=== PATIENT | female | born 1965 | race Caucasian/White ===

== ENCOUNTER 2020-05-04 02:55 | Emergency (ER) | payer OTHER, SELFPAY ==
--- NOTE | ~2020-05-04 | XR_ITS ---
EXAMINATION: CHEST 1 VIEW CLINICAL INFORMATION: Chest pain. COMPARISON: 07/03/2019. TECHNIQUE: An AP view of the chest is provided. FINDINGS: The cardiac silhouette is not enlarged. The mediastinal and hilar contours are unremarkable. There are neither pleural effusions nor pneumothoraces. There are no consolidations. The osseous structures are unremarkable. XR/XR chest 1V IMPRESSION: No evidence for acute disease.
[2020-05-04 04:39] VITALS: BP 114/61; PULSE 85; RESP 18; TEMP 37.1; O2SAT 98; BMI 27.0
--- NOTE | 2020-05-04 04:56 | ECG_ITS ---
Test Reason : CHEST PAIN Blood Pressure : / mmHG Vent. Rate : 085 BPM Atrial Rate : 085 BPM P-R Int : 162 ms QRS Dur : 076 ms QT Int : 368 ms P-R-T Axes : 006 003 034 degrees QTc Int : 437 ms Normal sinus rhythm Normal ECG When compared with ECG of 20-MAY-2018 08:44, No significant change was found Referred By: Rose Marcial Electronically Signed By:CHEYANNE CULP
[2020-05-04 05:35] LABS: Influenza A PCR NEGATIVE (Negative); Influenza B PCR NEGATIVE (Negative); Resp Syncy Virus RNA Qual PCR NEGATIVE (Negative); SARS COV2 PCR INHOUSE NEGATIVE (Negative)
[2020-05-04 06:13] LABS: Imm Gran Abs Auto 0.04 X10*3/uL (0.00-0.03); Imm Gran Pct Auto 0.4 % (0.0-0.4); Mean Platelet Volume 9.8 fL (9.4-12.3); Monocytes Percent Auto 7.8 % (2-11); PLT CLUMP 1; Red Cell Distribution Width 13.8 % (11.0-16.0); SCAN SMEAR FLAG 1
[2020-05-04 06:15] LABS: Basophils Percent Auto 0.4 % (0-2); Eosinophils Absolute Auto 0.3 X10*3/uL (0.0-0.4); Eosinophils Percent Auto 3.3 % (0-4); Hematocrit 39.4 % (37-47); Hemoglobin 13.1 g/dl (12.0-16.0); Lymphocytes Absolute Auto 3.7 X10*3/uL (1.2-4.9); Lymphocytes Percent Auto 38.3 % (20-40); Mean Corpuscular HGB Conc 33.2 g/dl (31.0-35.0); Mean Corpuscular Hemoglobin 30.5 pg (27.0-33.0); Mean Corpuscular Volume 91.6 fL (80-98); Monocytes Absolute Auto 0.8 X10*3/uL (0.1-1.2); Neutrophils Absolute Auto 4.8 X10*3/uL (2.0-8.3); Neutrophils Percent Auto 49.8 % (45-73); White Blood Count 9.6 X10*3/uL (4.8-10.8)
--- NOTE | 2020-05-04 06:17 | ED.GENADULT ---
HPI - General Adult General Chief complaint: Chest Pain Stated complaint: Sob Time Seen by Provider: 05/04/20 04:56 Source: patient Mode of arrival: ambulatory Limitations: no limitations History of Present Illness HPI narrative: 54-year-old female came in with generalized body ache, sore throat, joint ache, chest pain and headache for 1 day. Patient had been exposed to sick contact with COVID 19. Related Data Home Medications Medication Instructions Recorded Confirmed baclofen 10 mg tablet 10 mg PO TID 01/25/20 albuterol sulfate 90 mcg/actuation 2 puff PO Q4H PRN 02/12/20 aerosol inhaler atorvastatin 40 mg tablet 40 mg PO DAILY 02/12/20 cyclobenzaprine 10 mg tablet 10 mg PO Q8H PRN 02/12/20 lidocaine 5 % topical patch patch TOPICAL 02/12/20 polyethylene glycol 3350 17 g PO 02/12/20 gram/dose oral powder tramadol 50 mg tablet 50 mg PO Q6H PRN 02/12/20 trazodone 50 mg tablet 50 mg PO BEDTIME 02/12/20 triamcinolone acetonide 0.5 % applic TOPICAL BID 02/12/20 topical cream Previous Rx's Medication Instructions Recorded cetirizine 10 mg tablet 10 mg PO DAILY #90 tab 01/11/20 gabapentin 800 mg tablet 800 mg PO TID #90 tab 01/11/20 clopidogrel 75 mg tablet 75 mg PO DAILY #90 tab 02/05/20 ciprofloxacin HCl 500 mg tablet 500 mg PO BID 10 Days #20 tab 02/12/20 clotrimazole 2 % vaginal cream 1 appful VAGINAL BEDTIME 3 Days 02/12/20 #21 g clonazepam 1 mg tablet 0.5 mg PO BID PRN 30 Days #30 tab 03/19/20 amitriptyline 25 mg tablet 25 mg PO BEDTIME #90 tab 04/23/20 sertraline 50 mg tablet 50 mg PO DAILY #90 tab 04/23/20 Allergies Allergy/AdvReac Type Severity Reaction Status Date / Time latex [LATEX] Allergy Intermediate RASH Verified 01/25/20 06:46 Chocolate Allergy Unknown Hives Verified 01/25/20 06:46 egg [EGGS] Allergy Unknown SWELLING Verified 01/25/20 06:46 kiwi [KIWI] Allergy Unknown SWELLING Unverified 12/14/19 17:11 peanut [PEANUTS] Allergy Unknown SWELLING Verified 01/25/20 06:46 pineapple [PINEAPPLE] Allergy Unknown SWELLING Unverified 12/14/19 17:11 SHELLFISH Allergy Severe RASH Uncoded 12/14/19 17:11 ENVIROMENTAL Allergy Intermediate HAYFEVER Uncoded 12/14/19 17:11 Review of Systems Review of Systems: All other systems are reviewed and are negative Constitutional: Reports as per HPI and Reports no additional constitutional complaints Eyes: Reports as per HPI and Reports no additional eye complaints Reports system reviewed and no additional complaints, except as documented Cardiovascular: Reports as per HPI and Reports no additional cardiovascular complaints Respiratory: Reports as per HPI and Reports no additional respiratory complaints Gastrointestinal: Reports as per HPI and Reports no additional gastrointestinal complaints Genitourinary: Reports no additional female genitourinary complaints Musculoskeletal: Reports no additional musculoskeletal complaints Skin/Breast: Reports system reviewed and no additional complaints, except as docu Psychiatric: Reports no additional psychiatric complaints Endocrine: Reports no additional endocrine complaints Hematologic/Lymphatic: Reports no additional hematologic/lymphatic complaints Allergic/Immunologic: Reports no additional allergic/immunologic complaints Reports system reviewed and no additional complaints, except as documented and Reports Abnormal speech present COUNTS INCLUDE 234 BEDS AT THE [facility] Past Medical History Medical History Anxiety and depression Aortic valve insufficiency Asthma Carpal tunnel syndrome Cognitive impairment Colonoscopy refused Fracture of fifth toe, right, closed Hx LEEP (loop electrosurgical excision procedure), cervix, Hypercholesterolemia Knee osteoarthritis Mammogram declined Migraine Mild obstructive sleep apnea Mixed urge and stress incontinence Overweight (BMI 25.0-29.9) Pulmonary hypertension Restless leg syndrome Right renal stone Takotsubo cardiomyopathy Vaginal cysts Surgical History H/O knee surgery History of History of carpal tunnel surgery of left wrist Family History Family History Father Hypertension Diabetes Prostate cancer CVD (cardiovascular disease) Mother Hypertension Diabetes Uterine cancer Maternal Grandmother Lung cancer Social History Social History Alcohol intake: unknown Smoking Status: Unknown if ever smoked Use of substances other than those prescribed or required for medical reasons: Yes Substance Use Type: Marijuana Substance Use Frequency: Chronic Longstanding Last Used Substance: Just Prior to Admission Advance Directives: No Advance Directives Information Provided: No Physical Exam Vital Signs: Vital Signs: Last Vital Signs Temp 98.8 F 05/04/20 04:39 Pulse 85 05/04/20 04:39 Resp 18 05/04/20 04:39 BP 114/61 05/04/20 04:39 Pulse Ox 98 05/04/20 04:39 Body Mass Index 27.0 Vital signs have been reviewed as normal and appeared to be correct. Blood pressure normal. Heart rate normal. Respiration rate normal. Temperature normal. Oxygen saturation normal. Appearance: Alert. Oriented X3. No acute distress. Head: Normal external exam. Normocephalic. Atraumatic. No Laguerre signs noted. No raccoon eyes noted Eyes: PERRLA. EOMI. Conjunctiva and sclera normal. Eyelids normal. ENT: TM's Normal. Pharynx normal. Uvula midline. Moist mucous membranes. No trismus noted. No drooling noted. No muffled voice noted. Neck: Normal inspection. Neck supple. FROM. No adenopathy. Thyroid Normal. No meningeal signs. No neck mass noted. CVS: Normal heart rate and rhythm. Heart sound normal. No murmurs noted. Pulses normal throughout. Respiratory: No respiratory distress. Painless inspiration. Breath sounds normal. No wheezes/rales/rhonchi noted. Chest nontender. No accessory muscle usage noted or decreased air movement noted. Abdomen: Soft and nontender. Bowel sounds normal in all 4 quadrants. No distention noted. No organomegaly noted. No visible injury noted. Back: No CVA tenderness. Full range of motion noted. Skin: Skin warm and dry. Normal skin color. Normal skin turgor. No rashes/lesions/lacerations noted. Extremities: No lower extremity edema. Extremities exhibit normal range of motion. Extremities nontender. Neuro: Oriented X 3. No motor deficit. No sensory deficit. Reflexes normal. Course Course Course Narrative: Assessment and plan. 54-year-old female tested negative for COVID 19 infection, after been exposed with somebody who is COVID positive, patient's daughter is a patient in the ED and is positive for COVID, patient complaining of generalized body ache and chest pain as a part of the pain her EKG was unremarkable and labs are unremarkable including troponin. Patient will be discharged with instruction to use percussion using face mask, frequent handwashing. Return if any shortness of breath. Medical Decision Making Lab Data Lab results reviewed: Yes I reviewed the patient's lab results. Result diagrams: 05/04/20 06:04 05/04/20 06:04 Labs: Lab Results 05/04/20 05/04/20 05/04/20 Range/Units 04:50 06:04 06:04 WBC 9.6 (4.8-10.8) X10*3/uL RBC 4.30 (4.20-5.50) X10*6/uL Hgb 13.1 (12.0-16.0) g/dl Hct 39.4 (37-47) % MCV 91.6 (80-98) fL MCH 30.5 (27.0-33.0) pg MCHC 33.2 (31.0-35.0) g/dl RDW 13.8 (11.0-16.0) % Plt Count 267 (160-400) X10*3/uL MPV 9.8 (9.4-12.3) fL Immature Gran % (Auto) 0.4 (0.0-0.4) % Neut % (Auto) 49.8 (45-73) % Lymph % (Auto) 38.3 (20-40) % Kimble % (Auto) 7.8 (2-11) % Eos % (Auto) 3.3 (0-4) % Baso % (Auto) 0.4 (0-2) % Lymph # (Auto) 3.7 (1.2-4.9) X10*3/uL Kimble # (Auto) 0.8 (0.1-1.2) X10*3/uL Eos # (Auto) 0.3 (0.0-0.4) X10*3/uL Baso # (Auto) 0.0 (0.0-0.2) X10*3/uL Abs Immat Gran (auto) 0.04 H (0.00-0.03) X10*3/uL Absolute Neuts (auto) 4.8 (2.0-8.3) X10*3/uL Absolute Nucleated RBC 0.000 (0.0-0.012) X10*3/uL Nucleated RBC % (auto) 0.0 (0.0-0.2) /100WBC Sodium 136 (135-145) mmol/L Potassium 4.7 (3.3-5.1) mmol/L Chloride 104 (96-108) mmol/L Carbon Dioxide 20 L (22-29) mmol/L Anion Gap 17 (12-20) BUN 11 (9-16) mg/dL Creatinine 0.68 (0.5-1.4) mg/dL Estim Creat Clear Calc 69.2 Estimated GFR > 60 Random Glucose 86 (60-115) mg/dL Calcium 8.9 (8.4-10.2) mg/dL Coronavirus (PCR) NEGATIVE (Negative) Influenza Type A (PCR) NEGATIVE (Negative) Influenza Type B (PCR) NEGATIVE (Negative) RSV RNA Qual (PCR) NEGATIVE (Negative) Imaging Data Chest x-ray: Radiologist's impression: No evidence for acute disease. ECG Data Interpretation: Normal sinus rhythm at 85 beats per minutes, normal intervals, normal axis deviation, no ST-T changes. Discharge Plan Discharge Clinical Impression: Atypical chest pain, Acute viral syndrome Patient Disposition: Home, Self-Care Instructions: Chest Pain (ED) Additional Instructions: Self-quarantine/isolation at home for next 2 weeks, seek medical attention for shortness of breath. Prescriptions: No Action gabapentin 800 mg tablet 800 mg PO TID Qty: 90 RF: 6 cetirizine 10 mg tablet 10 mg PO DAILY Qty: 90 RF: 0 baclofen 10 mg tablet 10 mg PO TID RF: 0 clopidogrel 75 mg tablet 75 mg PO DAILY Qty: 90 RF: 1 clonazepam 1 mg tablet 0.5 mg PO BID PRN (Reason: anxiety) 30 Days Qty: 30 RF: 2 amitriptyline 25 mg tablet 25 mg PO BEDTIME Qty: 90 RF: 1 sertraline 50 mg tablet 50 mg PO DAILY Qty: 90 RF: 1 trazodone 50 mg tablet 50 mg PO BEDTIME RF: 0 atorvastatin 40 mg tablet 40 mg PO DAILY RF: 0 albuterol sulfate 90 mcg/actuation HFA aerosol inhaler 2 puff PO Q4H PRNRF: 0 polyethylene glycol 3350 17 gram/dose powder PO RF: 0 lidocaine 5 % adhesive patch,medicated topical RF: 0 triamcinolone acetonide 0.5 % cream topical BID RF: 0 tramadol 50 mg tablet 50 mg PO Q6H PRN (Reason: pain) RF: 0 cyclobenzaprine 10 mg tablet 10 mg PO Q8H PRN (Reason: muscle spasm) RF: 0 ciprofloxacin HCl [Cipro] 500 mg tablet 500 mg PO BID 10 Days Qty: 20 RF: 0 clotrimazole 2 % cream 1 appful vaginal BEDTIME 3 Days Qty: 21 RF: 0 Referrals: Po,Lawrence Aiken MD [Primary Care Provider] - 2 weeks Interventions: ED Discharge Assessment Last Done: 05/04/20 06:44
[2020-05-04 06:20] LABS: MANUAL DIFF FLAG NO
[2020-05-04 06:32] LABS: Platelet Count 267 X10*3/uL (160-400)
[2020-05-04 06:38] LABS: Anion Gap 17 (12-20); Blood Urea Nitrogen 11 mg/dL (9-16); Calcium 8.9 mg/dL (8.4-10.2); Carbon Dioxide 20 mmol/L (22-29); Chloride 104 mmol/L (96-108); Creatinine Clr Calc Pharmacy 69.2; Estimated Glomerular Filt Rate > 60; Glucose Random 86 mg/dL (60-115); Potassium 4.7 mmol/L (3.3-5.1); Sodium 136 mmol/L (135-145)
[2020-05-04 06:42] LABS: B Type Natriuretic Peptide < 10 pg/mL (<100); Troponin-I High Sensitivity < 3.5 ng/L (<3.5-17.0)
== END 2020-05-04 06:50 | disposition home or self-care (01) ==
PROVIDERS: Emergency Provider Emergency Medicine; PCP Internal Medicine
DX: B34.9 Viral infection, unspecified (principal); R07.9 Chest pain, unspecified; M79.10 Myalgia, unspecified site; R51.9 Headache, unspecified; Z79.899 Other long term (current) drug therapy; Z20.822 Contact with and (suspected) exposure to COVID-19
CPT/HCPCS: 0241U; 36415; 71045; 80048; 83880; 84484; 85025; 93005; 99283; 99284

== ENCOUNTER 2020-06-09 13:20 | Emergency (ER) | payer OTHER, SELFPAY ==
--- NOTE | ~2020-06-09 | XR_ITS ---
EXAMINATION: XR LUMBOSACRAL SPINE CLINICAL INFORMATION: Low back pain COMPARISON: CT abdomen/pelvis dated 03/10/2019 TECHNIQUE: Three views of the lumbosacral spine. FINDINGS: No acute fracture or traumatic malalignment. Mild convex lumbar scoliosis centered at L3. Discogenic degenerative disease present throughout the lumbar spine, most notably at L5-S1 where there is moderate loss of disc space height and associated endplate osteophytes. Moderate facet arthropathy at L4-L5 and L5-S1. There is grade 1 anterolisthesis of L4 on L5. XR/XR lumbar spine 2-3V IMPRESSION: No acute fracture or traumatic malalignment. Lumbar spondylosis as described.
--- NOTE | 2020-06-09 13:32 | ED.BACK ---
HPI - Back Pain/Injury General Chief Complaint: Back Pain/Injury Stated Complaint: LOW BACK PAIN Time Seen by Provider: 06/09/20 13:32 Source: EMS Mode of arrival: EMS Limitations: no limitations History of Present Illness MD elicited complaint: back pain Pertinent past history: prior back pain Onset (ago): day(s) (1) Timing: intermittent Severity: moderate Similar Symptoms Previously: Yes Quality: aching Location: lumbar spine Radiation: none Exacerbating factors: none Relieving factors: none Context: while lifting (Doing laundry and laundry basket) Associated symptoms: denies other symptoms Work related injury: No Related Data Home Medications Medication Instructions Recorded Confirmed baclofen 10 mg tablet 10 mg PO TID 01/25/20 albuterol sulfate 90 mcg/actuation 2 puff PO Q4H PRN 02/12/20 aerosol inhaler atorvastatin 40 mg tablet 40 mg PO DAILY 02/12/20 cyclobenzaprine 10 mg tablet 10 mg PO Q8H PRN 02/12/20 lidocaine 5 % topical patch patch TOPICAL 02/12/20 polyethylene glycol 3350 17 g PO 02/12/20 gram/dose oral powder tramadol 50 mg tablet 50 mg PO Q6H PRN 02/12/20 trazodone 50 mg tablet 50 mg PO BEDTIME 02/12/20 triamcinolone acetonide 0.5 % applic TOPICAL BID 02/12/20 topical cream Previous Rx's Medication Instructions Recorded cetirizine 10 mg tablet 10 mg PO DAILY #90 tab 01/11/20 gabapentin 800 mg tablet 800 mg PO TID #90 tab 01/11/20 clopidogrel 75 mg tablet 75 mg PO DAILY #90 tab 02/05/20 ciprofloxacin HCl 500 mg tablet 500 mg PO BID 10 Days #20 tab 02/12/20 clotrimazole 2 % vaginal cream 1 appful VAGINAL BEDTIME 3 Days 02/12/20 #21 g amitriptyline 25 mg tablet 25 mg PO BEDTIME #90 tab 04/23/20 sertraline 50 mg tablet 50 mg PO DAILY #90 tab 04/23/20 clonazepam 1 mg tablet 0.5 mg PO BID PRN 30 Days #30 tab 05/29/20 cyclobenzaprine 5 mg PO TID PRN #14 tab 06/09/20 lidocaine 1 patch TOPICAL Q24H PRN #15 ea 06/09/20 oxycodone 5 mg PO Q8H PRN 3 Days #10 tab 06/09/20 Allergies Allergy/AdvReac Type Severity Reaction Status Date / Time latex [LATEX] Allergy Intermediate RASH Verified 06/09/20 13:55 Chocolate Allergy Unknown Hives Verified 06/09/20 13:55 egg [EGGS] Allergy Unknown SWELLING Verified 06/09/20 13:55 kiwi [KIWI] Allergy Unknown SWELLING Verified 06/09/20 13:55 peanut [PEANUTS] Allergy Unknown SWELLING Verified 06/09/20 13:55 pineapple [PINEAPPLE] Allergy Unknown SWELLING Verified 06/09/20 13:55 Sulfa (Sulfonamide Allergy Rash Verified 06/09/20 13:55 Antibiotics) ENVIROMENTAL Allergy Intermediate HAYFEVER Uncoded 12/14/19 17:11 SHELLFISH Allergy Intermediate RASH Uncoded 06/09/20 13:55 Review of Systems Review of Systems: Constitutional: No Weight loss, No Fever, No Chills, No Night Sweats, No Fatigue, No Malaise ENT/Mouth: No Hearing loss, No Ear Pain, No Nasal Congestion, No Sinus Pain, No Hoarseness, No sore throat, No Rhinorrhea, No Swallowing Difficulty Eyes: No Eye Pain, No Swelling, No Redness, No Foreign Body, No Discharge, No Vision Changes Cardiovascular: No Chest Pain, No SOB, No Dyspnea on Exertion, No Orthopnea, No Edema, No Palpitations Respiratory: No Cough, No Sputum, No Wheezing, No Smoke Exposure, No Dyspnea Gastrointestinal: No Nausea, No Vomiting, No Diarrhea, No Constipation, No abdominal Pain, No Hematochezia, No Melena Genitourinary: no irregular bleeding, No Dysuria, No Urinary Frequency, No Hematuria, No Urinary Incontinence, No Urgency, No Flank Pain, No Urinary Flow Changes, No Hesitancy Musculoskeletal: No joint pain, No Myalgias, No Joint Swelling, as noted per HPI Skin: No Skin Lesions, No rash Neuro: No Weakness, No Numbness, No Paresthesias, No Loss of Consciousness, No Dizziness, No Headache Psych: No Social Issues Heme/Lymph: No Bruising, No Bleeding,No Lymphadenopathy Endocrine: No Polyuria, No Polydipsia, No Temperature Intolerance Yes all other systems are reviewed and are negative PMFSH Past Medical History Medical History Anxiety Anxiety and depression Aortic valve insufficiency Asthma Carpal tunnel syndrome Cognitive impairment Colonoscopy refused Depression Fracture of fifth toe, right, closed Hx LEEP (loop electrosurgical excision procedure), cervix, Hypercholesterolemia Knee osteoarthritis Mammogram declined Migraine Mild obstructive sleep apnea Mixed urge and stress incontinence Overweight (BMI 25.0-29.9) Panic attack Pulmonary hypertension Restless leg syndrome Right renal stone Takotsubo cardiomyopathy Vaginal cysts Surgical History H/O knee surgery History of History of carpal tunnel surgery of left wrist Family History Family History Father Hypertension Diabetes Prostate cancer CVD (cardiovascular disease) Mother Hypertension Diabetes Uterine cancer Maternal Grandmother Lung cancer Social History Social History Alcohol intake: never Smoking Status: Unknown if ever smoked Smoked in Last 30 Days: No Use of substances other than those prescribed or required for medical reasons: Yes Substance Use Type: Marijuana Substance Use Frequency: Daily Advance Directives: No Advance Directives Information Provided: No Physical Exam Vital Signs: Vital Signs: Last Vital Signs Temp 98.2 F 06/09/20 13:55 Pulse 91 06/09/20 13:55 Resp 18 06/09/20 13:55 BP 103/53 L 06/09/20 13:55 Pulse Ox 98 06/09/20 13:55 Body Mass Index 28.1 Reviewed Const: Other: Seated in supine position on her cellphone noted smiling and conversing when arriving to room. General: cooperative and healthy appearing; No acute distress or intoxicated appearing Nutritional Appearance: average body habitus Orientation/consciousness: patient oriented x3 HENMT: Head: Yes normal to inspection Ears: hearing grossly normal bilaterally Eyes: General: appearance normal, both eyes and all related structures Visual Summers: normal visual summers by confrontation Neck: Neck: Yes normal visual inspection, No positive Brudzinski's sign, No positive Kernig's sign and No tender Thyroid: Thyroid normal Chest: Chest palpation & inspection: normal inspection of the chest Resp: Effort & Inspection: normal respiratory effort Auscultation: clear to auscultation bilaterally Cardio: Jugular venous distension: no JVD Rhythm: regular rhythm Heart sounds: S1 normal heart sound present and S2 normal heart sound present GI: Inspection: Yes normal to inspection Palpation (GI): Soft to palpation Percussion: Yes normal to percussion Auscultation: normal bowel sounds : General: Yes no CVA tenderness Back/Spine/Pelvis: Other: Reflexes within normal limits, distally neurovascular intact. Pulses cap refill within normal limits. Back: no CVA tenderness Thoracic/Lumbar Spine: straight leg raise negative bilaterally and paraspinal muscle tenderness on the right Skin: General skin exam: no rashes or lesions noted Neuro: General: patient oriented x3 Extrem: General: Yes normal to inspection Course Course Course Narrative: Feels better after IM Toradol lumbar spine x-ray without acute findings no red flags on exam. No BB involvement, fever or IVDA use. History of similar in the past AP consistent with strain type injury to the lumbar paraspinous muscle mostly on the right side. Will discharge home with muscle relaxant, lidocaine patch and given she has an allergy to ibuprofen short course oxycodone. Mass pat reviewed has long-term benzo prescription but no recent narcotics. Discharge Plan Discharge Clinical Impression: Strain of lumbar region Patient Disposition: Home, Self-Care Instructions: Low Back Strain (ED), Core Strengthening Exercises (ED) Additional Instructions: Your x-ray did not show any evidence of acute bone injury Your exam and presentation is consistent with a muscle strain For this reason will start you on short course of muscle relaxants, topical patch and pain medication. Home care as instructed Follow-up as instructed Return if any concerns or worsening symptoms Thank you Prescriptions: New lidocaine 4 % adhesive patch,medicated 1 patch topical Q24H PRN (Reason: pain) Qty: 15 RF: 0 cyclobenzaprine 5 mg tablet 5 mg PO TID PRN (Reason: muscle spasm) Qty: 14 RF: 0 oxycodone 5 mg tablet 5 mg PO Q8H PRN (Reason: pain) 3 Days Qty: 10 RF: 0 No Action gabapentin 800 mg tablet 800 mg PO TID Qty: 90 RF: 6 cetirizine 10 mg tablet 10 mg PO DAILY Qty: 90 RF: 0 baclofen 10 mg tablet 10 mg PO TID RF: 0 clopidogrel 75 mg tablet 75 mg PO DAILY Qty: 90 RF: 1 amitriptyline 25 mg tablet 25 mg PO BEDTIME Qty: 90 RF: 1 sertraline 50 mg tablet 50 mg PO DAILY Qty: 90 RF: 1 clonazepam 1 mg tablet 0.5 mg PO BID PRN (Reason: anxiety) 30 Days Qty: 30 RF: 2 trazodone 50 mg tablet 50 mg PO BEDTIME RF: 0 atorvastatin 40 mg tablet 40 mg PO DAILY RF: 0 albuterol sulfate 90 mcg/actuation HFA aerosol inhaler 2 puff PO Q4H PRNRF: 0 polyethylene glycol 3350 17 gram/dose powder PO RF: 0 lidocaine 5 % adhesive patch,medicated topical RF: 0 triamcinolone acetonide 0.5 % cream topical BID RF: 0 tramadol 50 mg tablet 50 mg PO Q6H PRN (Reason: pain) RF: 0 cyclobenzaprine 10 mg tablet 10 mg PO Q8H PRN (Reason: muscle spasm) RF: 0 ciprofloxacin HCl [Cipro] 500 mg tablet 500 mg PO BID 10 Days Qty: 20 RF: 0 clotrimazole 2 % cream 1 appful vaginal BEDTIME 3 Days Qty: 21 RF: 0 Referrals: Po,Lawrence Aiken MD [Primary Care Provider] - 1 week Interventions: ED Discharge Assessment Last Done: 06/09/20 15:23 Discharge Date/Time: 06/09/20 15:25
[2020-06-09 13:55] VITALS: BP 103/53; BP 135/85; PULSE 86; PULSE 91; RESP 18; TEMP 36.8; O2SAT 98; BMI 28.1
[2020-06-09] MEDS: Ketorolac Tromethamine 60 MG/2 ML VIAL IM (14:11)
[2020-06-09] MEDS: Lidocaine 4 % Patch ADH..PATCH 1 PATCH TRANSDERMA (14:11)
[2020-06-09] MEDS: Cyclobenzaprine HCl 5 MG TABLET PO (14:16)
--- NOTE | 2020-06-09 14:16 | PC.NURSE ---
patient medicated per order
== END 2020-06-09 15:25 | disposition home or self-care (01) ==
PROVIDERS: Emergency Provider Emergency Medicine; PCP Internal Medicine
DX: S39.012A Strain of muscle, fascia and tendon of lower back, initial encounter (principal); X50.0XXA Overexertion from strenuous movement or load, initial encounter; Y93.E2 Activity, laundry; Y92.009 Unspecified place in unspecified non-institutional (private) residence as the place of occurrence of the external cause; Y99.9 Unspecified external cause status; Z79.899 Other long term (current) drug therapy
CPT/HCPCS: 72100; 96372; 99283; J1885

== ENCOUNTER 2020-11-13 12:30 | Emergency (ER) | payer OTHER, SELFPAY ==
--- NOTE | ~2020-11-13 | XR_ITS ---
EXAMINATION: XR ANKLE, RIGHT CLINICAL INFORMATION: Left ankle pain following injury. COMPARISON: None TECHNIQUE: AP, lateral, and mortise views of the right ankle. FINDINGS: No acute fracture or dislocation. The ankle mortise is maintained. Tiny tibiotalar marginal osteophytes. Marginal osteophytes partially visualized at the calcaneocuboid joint. Mild degenerative spurring at the talonavicular joint. No osseous erosion. Plantar calcaneal spur. Thin calcification within the distal Achilles tendon, indicating chronic tendinopathy. XR/XR ankle RT min 3V IMPRESSION: No acute fracture or dislocation. Mild osteoarthritis at the tibiotalar and talonavicular joints as well as at the calcaneocuboid joint. Plantar calcaneal spur. Linear calcification associated with the distal Achilles, consistent with chronic tendinosis.
--- NOTE | ~2020-11-13 | XR_ITS ---
EXAMINATION: XR RIBS, RIGHT CLINICAL INFORMATION: Fall. Right lower rib pain. COMPARISON: Most recent chest radiograph dated 05/04/2020. TECHNIQUE: PA view of the chest as well as 3 views of the right ribs. FINDINGS: Lungs are clear. No consolidation, pneumothorax, or pleural effusion. The cardiomediastinal silhouette and pulmonary vasculature are normal. Osseous structures are unremarkable. Ribs are intact. No fractures are identified. XR/XR ribs RT min 3V w CXR1V IMPRESSION: No displaced rib fracture.
[2020-11-13 12:42] VITALS: BP 108/55; PULSE 97; RESP 18; TEMP 36.7; O2SAT 95; BMI 28.1
--- NOTE | 2020-11-13 12:52 | ED_ITS ---
HPI - General Adult General Chief complaint: Extremity Injury, Lower Stated complaint: ANKLE PAIN X1 WEEK Time Seen by Provider: 11/13/20 12:51 Source: patient Limitations: no limitations History of Present Illness HPI narrative: This is a 54-year-old female who was getting dressed this morning. She went back to lean on her walker and the brakes were not her walker she fell, hitting her right inferior lateral rib area on the walker itself. The patient also complains of right ankle pain she has had for about a week, has noted some bruising, cannot recall specific injury. Patient denies any head injury, neck pain, chest pain or shortness of breath, denies dizziness. She denies any new numbness or weakness in her legs Related Data Home Medications Medication Instructions Recorded Confirmed baclofen 10 mg tablet 10 mg PO TID 01/25/20 06/11/20 albuterol sulfate 90 mcg/actuation 2 puff PO Q4H PRN 02/12/20 06/11/20 aerosol inhaler atorvastatin 40 mg tablet 40 mg PO DAILY 02/12/20 06/11/20 cyclobenzaprine 10 mg tablet 10 mg PO Q8H PRN 02/12/20 06/11/20 polyethylene glycol 3350 17 g PO 02/12/20 06/11/20 gram/dose oral powder trazodone 50 mg tablet 50 mg PO BEDTIME 02/12/20 06/11/20 triamcinolone acetonide 0.5 % applic TOPICAL BID 02/12/20 06/11/20 topical cream Previous Rx's Medication Instructions Recorded cetirizine 10 mg tablet 10 mg PO DAILY #90 tab 01/11/20 gabapentin 800 mg tablet 800 mg PO TID #90 tab 01/11/20 ciprofloxacin HCl 500 mg tablet 500 mg PO BID 10 Days #20 tab 02/12/20 (Cipro) clotrimazole 2 % vaginal cream 1 appful VAGINAL BEDTIME 3 Days 02/12/20 #21 g amitriptyline 25 mg tablet 25 mg PO BEDTIME #90 tab 04/23/20 sertraline 50 mg tablet 50 mg PO DAILY #90 tab 04/23/20 cyclobenzaprine 5 mg tablet 5 mg PO TID PRN #14 tab 06/09/20 oxycodone 5 mg tablet 5 mg PO Q8H PRN 3 Days #10 tab 06/09/20 lidocaine 4 % topical patch 1 patch TOPICAL Q24H PRN #15 ea 06/11/20 prednisone 10 mg tablet 10 mg PO DAILY 9 Days #18 tab 06/11/20 lidocaine 5 % topical patch 1 patch TOPICAL Q24H 15 Days #15 ea 06/13/20 miscellaneous medical supply See Rx Instructions MISCELLANEOUS 06/24/20 .COMPLEX PRN #140 ea miscellaneous medical supply See Rx Instructions MISCELLANEOUS 06/24/20 .COMPLEX PRN #4 ea clonazepam 1 mg tablet 0.5 mg PO BID PRN 30 Days #30 tab 09/11/20 clopidogrel 75 mg tablet 75 mg PO DAILY #30 tab 10/05/20 tramadol 50 mg tablet 50 mg PO Q6H PRN 2 Days #8 tab 10/08/20 oxycodone-acetaminophen 5 mg-325 1 tab PO Q6H PRN #8 tab 11/13/20 mg tablet (Percocet) Allergies Allergy/AdvReac Type Severity Reaction Status Date / Time latex [LATEX] Allergy Intermediate RASH Verified 06/11/20 13:47 Chocolate Allergy Unknown Hives Verified 06/11/20 13:47 egg [EGGS] Allergy Unknown SWELLING Verified 06/11/20 13:47 kiwi [KIWI] Allergy Unknown SWELLING Verified 06/11/20 13:47 peanut [PEANUTS] Allergy Unknown SWELLING Verified 06/11/20 13:47 pineapple [PINEAPPLE] Allergy Unknown SWELLING Verified 06/11/20 13:47 Sulfa (Sulfonamide Allergy Rash Verified 06/11/20 13:47 Antibiotics) ENVIROMENTAL Allergy Intermediate HAYFEVER Uncoded 12/14/19 17:11 SHELLFISH Allergy Intermediate RASH Uncoded 06/09/20 13:55 Review of Systems Constitutional: Constitutional: Reports as per HPI Cardiovascular: Cardiovascular: Reports as per HPI and Reports no additional cardiovascular complaints Respiratory: Respiratory: Reports no additional respiratory complaints Gastrointestinal: Gastrointestinal: Denies abdominal pain Musculoskeletal: Musculoskeletal: Reports back pain (Focal area right flank) Comments: Pain right lateral foot and ankle Neurologic: Denies Sensory deficit (Neuro) [facility] Past Medical History Medical History Anxiety Anxiety and depression Aortic valve insufficiency Asthma Carpal tunnel syndrome Cognitive impairment Colonoscopy refused Depression Fracture of fifth toe, right, closed Hx LEEP (loop electrosurgical excision procedure), cervix, Hypercholesterolemia Knee osteoarthritis Mammogram declined Migraine Mild obstructive sleep apnea Mixed urge and stress incontinence Overweight (BMI 25.0-29.9) Panic attack Pulmonary hypertension Restless leg syndrome Right renal stone Takotsubo cardiomyopathy Vaginal cysts Surgical History H/O knee surgery History of History of carpal tunnel surgery of left wrist Family History Family History Father Hypertension Diabetes Prostate cancer CVD (cardiovascular disease) Mother Hypertension Diabetes Uterine cancer Maternal Grandmother Lung cancer Social History Social History Alcohol intake: never Substance Use Type: Marijuana Advance Directives: No Advance Directives Information Provided: No Physical Exam Vital Signs: Vital Signs: Last Vital Signs Temp 98.0 F 11/13/20 12:42 Pulse 97 11/13/20 12:42 Resp 18 11/13/20 12:42 BP 108/55 L 11/13/20 12:42 Pulse Ox 95 11/13/20 12:42 Body Mass Index 28.1 Const: Other: Patient in wheelchair General: cooperative, no acute distress and alert Orientation/consciousness: patient oriented x3 HENMT: Head: Yes normal to inspection Eyes: General: appearance normal, both eyes and all related structures Eyelids: Yes eyelids normal Conjunctivae: conjunctivae normal Pupils: Equal, round and reactive pupils present Neck: Neck: Yes normal visual inspection and Yes supple Chest: Chest palpation & inspection: normal inspection of the chest Resp: Effort & Inspection: normal respiratory effort Auscultation: clear to auscultation bilaterally Cardio: Rate: regular rate Rhythm: regular rhythm Heart sounds: S1 normal heart sound present, S2 normal heart sound present, no gallops, no murmurs and no rubs GI: Palpation (GI): Soft to palpation, nontender and Other GI palpation findings present (Non-distended) Auscultation: normal bowel sounds Back/Spine/Pelvis: Other: Tender right lateral back at coastal margin. No CVA tenderness. No abdominal or upper quadrant tenderness Skin: General skin exam: no rashes or lesions noted Neuro: General: patient oriented x3, no focal motor deficits and CN's II-XI intact bilaterally Cranial nerves: Yes Equal, round and reactive pupils present Cognition (Neuro): normal cognition Motor exam (neuro): 5/5 motor strength present throughout Sensory Exam: No Sensory deficit (Neuro) Extrem: Other: Tender right lateral ankle, mild swelling, minimal ecchymosis right lateral foot. Seemingly exaggerated tenderness to light touch General: Yes no pedal edema Psych: Appearance: grossly normal Affect: normal affect Medical Decision Making MDM Narrative Medical decision making narrative: Patient with right inferior lateral rib pain at the costal margin after a fall this morning. Patient also complains of right ankle pain for a week, cannot recall an injury but did note bruising. X-rays negative for fracture. Patient seems to have pain out of proportion to physical examination and states that tramadol does nothing for her and is like eating ?Candy?. The patient also says Tylenol does not work for her. This does raise suspicion for narcotic-seeking behavior. Am prescribing 8 oxy code own/acetaminophen tablets for the patient. Right ankle was placed in an air splint Imaging Data Ankle: Radiologist's impression: IMPRESSION: No acute fracture or dislocation. ? Mild osteoarthritis at the tibiotalar and talonavicular joints as well as at the calcaneocuboid joint. ? Plantar calcaneal spur. Linear calcification associated with the distal Achilles, consistent with chronic tendinosis. Right ribs and chest: Radiologist's impression: No evidence of rib fracture or other acute pathology Discharge Plan Discharge Clinical Impression: Back contusion, Right ankle sprain Patient Disposition: Home, Self-Care Instructions: Ankle Sprain (ED), Contusion in Adults (ED) Prescriptions: New oxycodone-acetaminophen [Percocet] 5-325 mg tablet 1 tab PO Q6H PRN (Reason: pain) Qty: 8 RF: 0 No Action gabapentin 800 mg tablet 800 mg PO TID Qty: 90 RF: 6 cetirizine 10 mg tablet 10 mg PO DAILY Qty: 90 RF: 0 baclofen 10 mg tablet 10 mg PO TID RF: 0 amitriptyline 25 mg tablet 25 mg PO BEDTIME Qty: 90 RF: 1 sertraline 50 mg tablet 50 mg PO DAILY Qty: 90 RF: 1 lidocaine 5 % adhesive patch,medicated 1 patch topical Q24H 15 Days Qty: 15 RF: 1 miscellaneous medical supply Misc See Rx Instructions miscellaneous .COMPLEX PRN (Reason: Urge Incontinence) Qty: 140 RF: 11 miscellaneous medical supply Misc See Rx Instructions miscellaneous .COMPLEX PRN (Reason: Urge Incontinence ) Qty: 4 RF: 11 clonazepam 1 mg tablet 0.5 mg PO BID PRN (Reason: anxiety) 30 Days Qty: 30 RF: 2 clopidogrel 75 mg tablet 75 mg PO DAILY Qty: 30 RF: 5 tramadol 50 mg tablet 50 mg PO Q6H PRN (Reason: pain) 2 Days Qty: 8 RF: 0 cyclobenzaprine 5 mg tablet 5 mg PO TID PRN (Reason: muscle spasm) Qty: 14 RF: 0 oxycodone 5 mg tablet 5 mg PO Q8H PRN (Reason: pain) 3 Days Qty: 10 RF: 0 prednisone 10 mg tablet 10 mg PO DAILY 9 Days Qty: 18 RF: 0 lidocaine 4 % adhesive patch,medicated 1 patch topical Q24H PRN (Reason: pain) Qty: 15 RF: 0 trazodone 50 mg tablet 50 mg PO BEDTIME RF: 0 atorvastatin 40 mg tablet 40 mg PO DAILY RF: 0 albuterol sulfate 90 mcg/actuation HFA aerosol inhaler 2 puff PO Q4H PRNRF: 0 polyethylene glycol 3350 17 gram/dose powder PO RF: 0 triamcinolone acetonide 0.5 % cream topical BID RF: 0 cyclobenzaprine 10 mg tablet 10 mg PO Q8H PRN (Reason: muscle spasm) RF: 0 ciprofloxacin HCl [Cipro] 500 mg tablet 500 mg PO BID 10 Days Qty: 20 RF: 0 clotrimazole 2 % cream 1 appful vaginal BEDTIME 3 Days Qty: 21 RF: 0 Interventions: ED Discharge Assessment Last Done: 11/13/20 14:30 Discharge Date/Time: 11/13/20 14:40
--- NOTE | 2020-11-13 13:07 | PC.NURSE ---
PT EVALUATED BY DR LARA. REPORTS RIGHT ANKLE PAIN X 1 WEEK, WORSENING TWO DAYS AGO. ALSO REPORTS FALL THIS AM. LEG GAVE OUT AND SHE FELL. DENIES HEAD INJURY. DENIES CP/SOB. PLAN IS FOR XRAYS. PT AGREEABLE
[2020-11-13] MEDS: Acetaminophen 325 MG TABLET 650 MG PO (14:14)
[2020-11-13] MEDS: oxyCODONE HCl Immed Release 5 MG TABLET PO (14:14)
--- NOTE | 2020-11-13 14:28 | PC.NURSE ---
PT MEDICATED ORDERED. AIRCAST APPLIED BY PCT. PT AWARE AND AGREEABLE TO PLAN. APPEARS IN NO ACUTE DISTRESSS.
== END 2020-11-13 14:40 | disposition home or self-care (01) ==
PROVIDERS: Emergency Provider Emergency Medicine; PCP Internal Medicine
DX: S20.221A Contusion of right back wall of thorax, initial encounter (principal); W17.89XA Other fall from one level to another, initial encounter; S93.401A Sprain of unspecified ligament of right ankle, initial encounter; X58.XXXA Exposure to other specified factors, initial encounter; Z91.81 History of falling; Y93.89 Activity, other specified; Y92.9 Unspecified place or not applicable; Y99.9 Unspecified external cause status
CPT/HCPCS: 71101; 73610; 99283

== ENCOUNTER 2020-12-31 15:27 | Outpatient (REF) | payer OTHER, SELFPAY ==
--- NOTE | ~2020-12-31 | XR_ITS ---
EXAMINATION: XR SHOULDER, RIGHT CLINICAL INFORMATION: Pain. COMPARISON: Radiographs dated 12/13/2017. TECHNIQUE: AP external rotation, Grashey, scapular Y, and axillary views of the right shoulder. FINDINGS: Bony alignment is normal. The glenohumeral joint is intact There is moderate osteoarthritic change of the glenohumeral joint, with peripheral osteophyte formation. The acromioclavicular and coracoclavicular intervals are normal. No fracture or dislocation is seen. There is no abnormal soft tissue calcification or foreign body. There is no right pneumothorax. XR/XR shoulder LT min 2V IMPRESSION: 1. No acute fracture or dislocation is seen. 2. There is moderate osteoarthritic change of the right acromioclavicular joint. EXAMINATION: XR SHOULDER, LEFT CLINICAL INFORMATION: Pain. COMPARISON: Portions of the MRI left shoulder dated 04/30/2006. TECHNIQUE: AP external rotation, Grashey, scapular Y, and axillary views of the left shoulder. FINDINGS: Bony alignment is normal. The glenohumeral joint is intact and shows marked osteoarthritic change, with peripheral osteophyte formation of the glenoid and a large osteophyte arising from the inferior articular margin of the glenoid. The acromioclavicular and coracoclavicular intervals are normal. No fracture or dislocation is seen. The soft tissue planes are unremarkable, without calcification or foreign body. There is no left pneumothorax. IMPRESSION: 1. No acute fracture or dislocation is seen. 2. There is marked osteoarthritic change of the left acromioclavicular joint.
--- NOTE | ~2020-12-31 | XR_ITS ---
EXAMINATION: XR SHOULDER, RIGHT CLINICAL INFORMATION: Pain. COMPARISON: Radiographs dated 12/13/2017. TECHNIQUE: AP external rotation, Grashey, scapular Y, and axillary views of the right shoulder. FINDINGS: Bony alignment is normal. The glenohumeral joint is intact There is moderate osteoarthritic change of the glenohumeral joint, with peripheral osteophyte formation. The acromioclavicular and coracoclavicular intervals are normal. No fracture or dislocation is seen. There is no abnormal soft tissue calcification or foreign body. There is no right pneumothorax. XR/XR shoulder RT min 2V IMPRESSION: 1. No acute fracture or dislocation is seen. 2. There is moderate osteoarthritic change of the right acromioclavicular joint. EXAMINATION: XR SHOULDER, LEFT CLINICAL INFORMATION: Pain. COMPARISON: Portions of the MRI left shoulder dated 04/30/2006. TECHNIQUE: AP external rotation, Grashey, scapular Y, and axillary views of the left shoulder. FINDINGS: Bony alignment is normal. The glenohumeral joint is intact and shows marked osteoarthritic change, with peripheral osteophyte formation of the glenoid and a large osteophyte arising from the inferior articular margin of the glenoid. The acromioclavicular and coracoclavicular intervals are normal. No fracture or dislocation is seen. The soft tissue planes are unremarkable, without calcification or foreign body. There is no left pneumothorax. IMPRESSION: 1. No acute fracture or dislocation is seen. 2. There is marked osteoarthritic change of the left acromioclavicular joint.
--- NOTE | ~2020-12-31 | XR_ITS ---
EXAMINATION: XR KNEE, RIGHT CLINICAL INFORMATION: Primary osteoarthritis. COMPARISON: Radiographs dated 07/27/2018. TECHNIQUE: AP and lateral views of the right knee. FINDINGS: Bony alignment and mineralization are normal. The lateral, medial and patellofemoral joint space compartments are well-maintained. There is tricompartment peripheral osteophyte formation. There is chondrocalcinosis. No fracture, dislocation or significant joint effusion is seen. There is no foreign body. XR/XR knee RT 2V IMPRESSION: 1. There is mild tricompartment osteoarthritic change, similar to prior. 2. No right knee fracture, dislocation or significant joint effusion is seen. 3. There is chondrocalcinosis, which can be assessed with gout or CPPD.
[2020-12-31 15:55] LABS: MANUAL DIFF FLAG NO
[2020-12-31 16:15] LABS: Basophils Percent Auto 0.3 % (0-2); Eosinophils Absolute Auto 0.2 X10*3/uL (0.0-0.4); Eosinophils Percent Auto 1.8 % (0-4); Hematocrit 41.2 % (37-47); Hemoglobin 13.4 g/dl (12.0-16.0); Imm Gran Abs Auto 0.03 X10*3/uL (0.00-0.03); Imm Gran Pct Auto 0.3 % (0.0-0.4); Lymphocytes Absolute Auto 2.4 X10*3/uL (1.2-4.9); Lymphocytes Percent Auto 23.2 % (20-40); Mean Corpuscular HGB Conc 32.5 g/dl (31.0-35.0); Mean Corpuscular Hemoglobin 29.5 pg (27.0-33.0); Mean Corpuscular Volume 90.5 fL (80-98); Mean Platelet Volume 9.6 fL (9.4-12.3); Monocytes Absolute Auto 0.6 X10*3/uL (0.1-1.2); Monocytes Percent Auto 6.2 % (2-11); Neutrophils Absolute Auto 6.9 X10*3/uL (2.0-8.3); Neutrophils Percent Auto 68.2 % (45-73); Platelet Count 400 X10*3/uL (160-400); Red Blood Count 4.55 X10*6/uL (4.20-5.50); White Blood Count 10.1 X10*3/uL (4.8-10.8)
[2020-12-31 16:36] LABS: Alanine Aminotransferase 13 U/L (0-31); Albumin Level 4.6 g/dL (3.5-5.0); Alkaline Phosphatase 108 U/L (39-117); Anion Gap 14 (12-20); Aspartate Amino Transferase 16 U/L (5-31); Bilirubin Total 0.4 mg/dL (0.0-1.0); Blood Urea Nitrogen 12 mg/dL (9-16); C Reactive Protein 1.53 mg/dL (< or = 0.50); Calcium 9.4 mg/dL (8.4-10.2); Carbon Dioxide 25 mmol/L (22-29); Chloride 105 mmol/L (96-108); Cholesterol 293 mg/dL; Estimated Glomerular Filt Rate > 60; Glucose Random 85 mg/dL (60-115); HDL Cholesterol 40 mg/dL; LDL Cholesterol Calculated 201 mg/dl; Potassium 4.9 mmol/L (3.3-5.1); Sodium 139 mmol/L (135-145); Total Protein 7.8 g/dL (6.5-8.0); Triglycerides 263 mg/dL; Uric Acid 3.2 mg/dL (2.4-5.7)
[2020-12-31 16:53] LABS: Free T4 (Free Thyroxine) 0.83 ng/dL (0.71-1.85); Vitamin D 25-OH Total 17.6 ng/mL (>30)
[2020-12-31 16:58] LABS: Thyroid Stimulating Hormone 0.56 uIU/mL (0.32-4.0)
[2020-12-31 17:08] LABS: Folate 9.3 ng/mL (> or = 4.0); Vitamin B12 422 pg/mL (200-900)
[2020-12-31 17:58] LABS: Erythrocyte Sedimentation Rate 28 MM/HR (0-20)
[2021-01-01 07:12] LABS: Estimated Average Glucose 100 mg/dL; Hemoglobin A1c % 5.1 %
== END 2020-12-31 15:28 | disposition home or self-care (01) ==
LOC: HO.LAB 15:27
PROVIDERS: Internal Medicine; PCP Internal Medicine; Visit Provider Internal Medicine
DX: M25.461 Effusion, right knee (principal); M25.561 Pain in right knee; M10.9 Gout, unspecified; E78.00 Pure hypercholesterolemia, unspecified; M17.10 Unilateral primary osteoarthritis, unspecified knee; M67.912 Unspecified disorder of synovium and tendon, left shoulder
CPT/HCPCS: 36415; 73030; 73560; 80053; 80061; 82306; 82607; 82746; 83036; 84439; 84443; 84550; 85025; 85652; 86140

== ENCOUNTER → 2021-02-10 10:40 | Outpatient (BNVA) | payer OTHER, SELFPAY | PROVIDERS: PCP Internal Medicine; Visit Provider Anesthesiology | DX: M43.06 Spondylolysis, lumbar region (principal); M17.0 Bilateral primary osteoarthritis of knee; M16.0 Bilateral primary osteoarthritis of hip; M53.3 Sacrococcygeal disorders, not elsewhere classified; G89.4 Chronic pain syndrome | CPT/HCPCS: 99202 ==

== ENCOUNTER 2021-03-18 06:25 | Outpatient (REF) | payer OTHER, SELFPAY ==
--- NOTE | ~2021-03-18 | FL_ITS ---
EXAMINATION: XR FLUOROSCOPY WITH IMAGES CLINICAL INFORMATION: Sacrococcygeal disorder. COMPARISON: None. TECHNIQUE: Fluoroscopy performed by Dr. De La Torre. Fluoroscopy time: 0.1 minutes DAP: 0.8 Gycm2 Images: 1 FINDINGS: Images demonstrate needle placement and contrast injection over the inferior left sacroiliac joint. FL/FL guidance in treatment room IMPRESSION: Fluoroscopy guidance for pain management procedure.
== END 2021-03-18 06:26 | disposition home or self-care (01) ==
LOC: HO.RADIR 06:25
PROVIDERS: Visit Provider Anesthesiology
DX: G89.4 Chronic pain syndrome (principal); M53.3 Sacrococcygeal disorders, not elsewhere classified; M16.0 Bilateral primary osteoarthritis of hip; M17.0 Bilateral primary osteoarthritis of knee; M43.06 Spondylolysis, lumbar region; F41.1 Generalized anxiety disorder
CPT/HCPCS: 27096; Q9967

== ENCOUNTER 2022-02-16 08:56 | Outpatient (REF) | payer OTHER, SELFPAY ==
--- NOTE | ~2022-02-16 | XR_ITS ---
EXAMINATION: XR PELVIS CLINICAL INFORMATION: Pain COMPARISON: None TECHNIQUE: AP view of the pelvis. FINDINGS: The left hip and iliac crest are higher than the right. There is curvature of the lower lumbar sacral spine to the left. There is mild arthritis at both hip joints with small acetabular osteophytes. No fracture or dislocation. Bones of the pelvis are normal. There are degenerative changes of the visualized lower lumbar spine. Soft tissues are normal. XR/XR pelvis 1-2V IMPRESSION: Mild lumbar scoliosis. Left hip and iliac crest is higher than the right. Mild bilateral hip arthritis.
== END 2022-02-16 08:57 | disposition home or self-care (01) ==
LOC: HO.HOSX 08:56
PROVIDERS: Visit Provider Orthopaedic Surgery
DX: M19.012 Primary osteoarthritis, left shoulder (principal); G89.4 Chronic pain syndrome; M53.3 Sacrococcygeal disorders, not elsewhere classified; M19.011 Primary osteoarthritis, right shoulder
CPT/HCPCS: 20610; 72170; 99202; J1100

== ENCOUNTER 2022-03-31 14:32 | Emergency (ER) | payer OTHER, SELFPAY ==
--- NOTE | ~2022-03-31 | CT_ITS ---
EXAMINATION: CT LUMBAR SPINE WITHOUT CONTRAST CLINICAL INFORMATION: Persistent midline pain, atraumatic. COMPARISON: Lumbar spine MRI 01/05/2015. TECHNIQUE: Helical non-contrast CT images were obtained through the lumbar spine without contrast. Multiplanar reformats were rendered and reviewed. This CT examination was performed using dose optimization techniques as appropriate, variously including the following: *Automated exposure control *Adjustment of mA and/or kV according to patient size (this includes techniques or standardized protocols for targeted exams where dose is matched to indication/reason for exam; i.e. extremities or head) *Use of iterative reconstruction technique DLP: 319 mGy-cm FINDINGS: The lumbar vertebral bodies maintain normal heights. There is mild retrolisthesis of L3 on L4 and anterolisthesis of L4 on L5. There is severe disc height loss at L5-S1 with endplate sclerosis, vacuum discs, and marginal osteophytes. There is a mild degree of scoliotic curvature. No fracture is seen. There is a nonobstructing calculus within the lower pole of the right kidney. The extraspinal soft tissues are otherwise unremarkable. SPINAL LEVELS: L1-L2: No posterior disc abnormality. No spinal canal or neural foraminal stenosis. L2-L3: Minimal disc bulging. No spinal canal or neural foraminal stenosis. L3-L4: Disc bulging with mild facet arthropathy and osteophytic ridging. No spinal canal or neural foraminal stenosis. L4-L5: Anterolisthesis with unroofing of the disc, diffuse disc bulging, and moderate to severe facet arthropathy. Spinal canal stenosis and subarticular stenosis. Mild bilateral neural foraminal stenosis. L5-S1: Disc bulging with moderate facet arthropathy. No spinal canal stenosis. Osteophytic ridging extends into the bilateral neural foramina resulting in moderate bilateral neural foraminal stenosis. CT/CT lumbar spine wo IV con IMPRESSION: 1. At L4-L5 there is grade 1 anterolisthesis and multifactorial degenerative changes resulting in spinal canal stenosis and subarticular stenosis. 2. At L5-S1 there is moderate bilateral neural foraminal stenosis. 3. Incidentally noted nonobstructing calculus in the right kidney.
[2022-03-31 14:42] VITALS: BP 112/58; BP 133/55; PULSE 89; PULSE 98; RESP 18; TEMP 36.3; O2SAT 94; O2SAT 97; BMI 30.2
--- NOTE | 2022-03-31 15:22 | ED.BACK ---
HPI - Back Pain/Injury General Chief Complaint: Back Pain/Injury Stated Complaint: INCR BACK PAIN X'S 3 WKS PER EMS Time Seen by Provider: 03/31/22 14:46 Source: patient Mode of arrival: EMS Limitations: no limitations History of Present Illness HPI Narrative: Patient is a 56-year-old female presents to emergency department via EMS for evaluation of lower back pain. She reports history of chronic back pain for many years. Over the past 3 weeks she has had increasing back pain. She states that is localized mainly to the midline but also radiates to the bilateral sides and down bilateral legs. She has had extensive evaluation in the past with Orthopedics, Pain Management, [facility], and is currently being managed by her primary care provider. She states she is given tramadol, 14 tablets to use monthly for pain. However the tramadol has not been helping. She states she also has a prescription for cyclobenzaprine which has not been helping her pain. She has tried [id number] Lidoderm patches and Lidoderm type creams without significant improvement. Denies recent precipitating injury, fevers, chills, burning with micturition, urinary frequency/urgency/hesitancy, bladder or bowel dysfunction, numbness or tingling of the perineum or bilateral legs. Denies any recent surgical procedures, any known immune compromising conditions, personal history of cancer, or IV drug usage. MD elicited complaint: back pain Related Data Home Medications Medication Instructions Recorded Confirmed polyethylene glycol 3350 17 g PO 02/12/20 01/13/22 gram/dose oral powder Previous Rx's Medication Instructions Recorded miscellaneous medical supply See Rx Instructions miscellaneous 06/24/20 .COMPLEX PRN Urge Incontinence #4 ea miscellaneous medical supply See Rx Instructions miscellaneous 06/24/20 .COMPLEX PRN Urge Incontinence #140 ea cyclobenzaprine 5 mg tablet 5 mg PO TID PRN muscle spasm 30 04/28/21 days #60 tabs lidocaine 5 % topical patch 1 patch topical DAILY 30 days #30 04/28/21 ea amitriptyline 25 mg tablet 25 mg PO BEDTIME 30 days #90 tabs 09/17/21 triamcinolone acetonide 0.5 % 1 appl topical BID 14 days #15 01/13/22 topical cream grams albuterol sulfate 90 mcg/actuation 2 puff PO Q4H PRN shortness of 10/26/22 aerosol inhaler breath or wheezing #8.5 grams gabapentin 800 mg tablet 800 mg PO BID #180 tabs 01/22/22 clonazepam 1 mg tablet 0.5 mg PO BID PRN anxiety 30 days 02/16/22 #30 tabs sertraline 50 mg tablet 50 mg PO DAILY #90 tabs 02/16/22 tramadol 50 mg tablet 50 mg PO DAILY PRN pain 14 days 03/03/22 #14 tabs Allergies Allergy/AdvReac Type Severity Reaction Status Date / Time latex [LATEX] Allergy Intermediate RASH Verified 02/16/22 10:39 Chocolate Allergy Unknown Hives Verified 02/16/22 10:39 egg [EGGS] Allergy Unknown SWELLING Verified 02/16/22 10:39 kiwi [KIWI] Allergy Unknown SWELLING Verified 02/16/22 10:39 peanut [PEANUTS] Allergy Unknown SWELLING Verified 02/16/22 10:39 pineapple [PINEAPPLE] Allergy Unknown SWELLING Verified 02/16/22 10:39 Sulfa (Sulfonamide Allergy Rash Verified 02/16/22 10:39 Antibiotics) ENVIROMENTAL Allergy Intermediate HAYFEVER Uncoded 01/13/22 15:59 SHELLFISH Allergy Intermediate RASH Uncoded 01/13/22 15:59 Review of Systems Review of Systems: Constitutional: No weight loss, fever, chills, weakness or fatigue. HEENT: No visual loss, blurred vision, double vision. No hearing loss, sneezing, congestion, runny nose or sore throat. Skin: No rash or itching. Cardiovascular: No chest pain, chest pressure or chest discomfort. No palpitations or pedal edema. Respiratory: No shortness of breath, cough or sputum production. Gastrointestinal: No anorexia, nausea, vomiting or diarrhea. No abdominal pain or blood in stool. Genitourinary: No burning micturition. No urinary frequency or incontinence. Neurologic: No headache, dizziness, syncope, unilateral weakness, ataxia, numbness or tingling in the extremities. No change in bowel or bladder control. Musculoskeletal: + Back pain as noted in HPI. No joint pain or stiffness. Hematologic: No bleeding or bruising. Lymphatics: No enlarged lymph nodes. Psychiatric:No depression or anxiety. Endocrine: No reports of sweating. No cold or heat intolerance. No polyuria or polydipsia. Yes all other systems are reviewed and are negative [facility] Past Medical History Attestation statement: The following information was validated with the patient. Medical History Aortic valve insufficiency Asthma Carpal tunnel syndrome Chronic pain syndrome Cognitive impairment Colonoscopy refused Depression Fracture of fifth toe, right, closed Generalized anxiety disorder Hx LEEP (loop electrosurgical excision procedure), cervix, Hypercholesterolemia Knee osteoarthritis Mammogram declined Migraine Mild obstructive sleep apnea Mixed urge and stress incontinence Osteoarthritis of hips, bilateral Osteoarthritis of knees, bilateral Overweight (BMI 25.0-29.9) Panic attack Pulmonary hypertension Restless leg syndrome Right renal stone Sacroiliac joint dysfunction Sacroiliac joint dysfunction of left side Takotsubo cardiomyopathy Vaginal cysts Surgical History H/O knee surgery H/O LEEP History of History of carpal tunnel surgery of left wrist Family History Family History Father Hypertension Diabetes Prostate cancer CVD (cardiovascular disease) Mother Hypertension Diabetes Uterine cancer Maternal Grandmother Lung cancer Social History Social History (Updated 02/16/22 @ 10:41 by Ludivina Estrada CMA) Housing: Apartment Alcohol intake: never Patient Tobacco Use Status: Former Tobacco user Tobacco use type: Cigarette e-Cigarette/Vaping Use: Never Used Second Hand Smoke Exposure: Yes Substance Use Type: Marijuana Advance Directives: No Advance Directives Information Provided: No service: No Current occupational status: disabled Current occupation: left hand Cognitive needs: No Hearing needs: No Vision needs: Yes (glasses) Physical Exam Vital Signs: Vital Signs: Last Vital Signs Temp 97.4 F 03/31/22 14:42 Pulse 89 03/31/22 14:42 Resp 18 03/31/22 14:42 BP 133/55 L 03/31/22 14:42 Pulse Ox 94 03/31/22 14:42 O2 Del Method 03/31/22 14:42 BMI result Body Mass Index 30.2 Vital signs have been reviewed as normal and appeared to be correct. Blood pressure normal.? Heart rate normal.? Respiration rate normal. Temperature normal.? Oxygen saturation normal. Appearance: Alert.?Oriented to person, place and time. No acute distress.?Normal affect. Eyes: Pupils equal, round and reactive to light.? ENT: Pharynx normal.?? Neck: Normal inspection.? Neck supple.?? CVS: Heart sounds normal. Normal heart rate and rhythm.? Pulses normal; bilateral radial pulses 2+, bilateral posterior tibial/dorsalis pedis pulses 2+.? Respiratory: No respiratory distress.? Lung sounds clear to auscultation bilaterally?? Abdomen: Soft and non-tender. Normoactive bowel sounds. No pulsatile mass.?? Skin: Skin warm and dry.? Normal skin color.? Normal skin turgor.?? Extremities: No lower extremity edema.? No calf ttp? Back: + moderate midline lumbar spine and paraspinal muscular tenderness from lumbar region to coccyx. No CVA tenderness. No midline spinal tenderness, step-off's, or deformity. Straight leg test negative on right; Straight leg test negative on left. No rashes, lesions, areas of induration or fluctuance, or signs of infection noted., Neuro: Moves all extremities spontaneously, minimal movement to the bilateral lower extremities reportedly due to severe exacerbation of pain. Sensation to light touch intact bilaterally. No focal neuro deficits. Course Reevaluation(s) Reevaluation #1: Patient ambulated to the bathroom with slow steady gait. Bolting Machine Operator who escorted her to the bathroom was not aware that urinalysis was ordered. Patient at this time declines wanting to remain in the emergency department to provide urine sample. She is without any genitourinary complaints, have a low suspicion for urinary tract infection. Pain is currently 6/10 after receiving tramadol. She is moving all extremities spontaneously. 3/5 in hip shows extension, flexion, abduction, and adduction bilaterally. Patellar and Achilles reflexes are 2+ bilaterally. No ataxia. No focal neurological deficits. CT of the lumbar spine revealing grade 1 anterolisthesis and degenerative changes at L4-L5 resulting spinal canal stenosis and L5-S1 bilateral neural foraminal stenosis. I discussed with patient plan of care for discharge, considering she is already prescribed tramadol and cyclobenzaprine from her primary care provider with not consider prescription for additional pain medication at this time, as the combination of alternative medications could cause respiratory suppression, sedation. Advised contacting her primary care provider to arrange for further follow-up. We discussed that she may consider speaking with her PCP about a referral for Neurosurgery given her back pain has been chronic. Patient verbalizes understanding. She is stable for discharge. Time: 17:48 Medications Administered Discontinued Medications Generic Name Dose Route Start Last Admin Trade Name Lisseth PRN Reason Stop Dose Admin Tramadol HCl 50 mg 03/31/22 15:37 03/31/22 15:48 Tramadol Hcl 50 Mg Tablet PO 03/31/22 15:38 50 mg ONCE ONE Administration Medical Decision Making Medical Decision Making [facility] Narrative: Patient is a 56-year-old female with a past medical history of asthma, chronic pain syndrome, hyperlipidemia, BRENDAN, osteoarthritis, SI joint dysfunction, lumbar radiculopathy, acute on chronic lumbar spine pain who presents to the emergency department today for evaluation of worsening lumbar pain. Atraumatic in nature. Has already trialed tramadol, muscle relaxant, Lidoderm patches and creams, none of which she has at home currently and have not improved her pain. In the past has received steroid injections in the past all of which she reports are unhelpful. Initial physical exam is limited, minimal movement to the bilateral lower extremities reportedly due to pain. There are no neurological deficits upon examination. No concern for cauda equina syndrome. I suspect pain to be consistent with chronic pain, although cannot completely exclude herniated disc. Will obtain CT of the lumbar spine for further evaluation; spinal fracture, subluxation, herniation. Does not appear consistent with spinal infection, epidural abscess, AAA, dissection. No high risk past medical history including incontinence, fever, immunosuppression, recent surgery or lumbar puncture, coagulopathy, significant trauma, recent unintentional weight loss, pulsatile mass, history of cancer, history of TB, history of IV drug use that would suggest alternative problem. She is without genitourinary complaints, however will obtain urinalysis to exclude urinary tract infection. No CVA tenderness, does not appear consistent with pyelonephritis or renal calculi. Differential Diagnosis Differential Diagnoses: The differential diagnosis associated with the presentation includes (As noted above) Lab Data [facility] Lab Attestation statement: I reviewed the patient's lab results. Radiology Impression Discussion of test interpretation with radiology: I have reviewed the radiologist's reading. Radiologist Impression: CT/CT lumbar spine wo IV con IMPRESSION: 1.? At L4-L5 there is grade 1 anterolisthesis and multifactorial degenerative changes resulting in spinal canal stenosis and subarticular stenosis. 2.? At L5-S1 there is moderate bilateral neural foraminal stenosis. 3.? Incidentally noted nonobstructing calculus in the right kidney. Prescription Management I considered prescription management with: Pain Medication (I considered prescription management, however she is already prescribed tramadol and cyclobenzaprine from her primary care provider, and would not recommend addition of medication as this may cause unwanted side effects.) Discharge Plan Discharge Clinical Impression: Anterolisthesis of lumbar spine, Central stenosis of spinal canal, Foraminal stenosis of lumbar region Patient Disposition: Home, Self-Care Instructions: Lumbar Spinal Stenosis (ED), Lower Back Exercises (ED) Additional Instructions: As we discussed, please contact your primary care provider regarding your chronic back pain and further management. You may consider asking about a referral for Neurosurgery if this is something that you would be interested in. Continue taking your pain medication as prescribed by her primary care provider. Return to emergency department with any new or worsening symptoms or concerns. Prescriptions: No Action miscellaneous medical supply Misc See Rx Instructions miscellaneous .COMPLEX PRN (Reason: Urge Incontinence) Qty: 140 11RF Rx Instructions: disposable bed pads - 4x daily miscellaneous miscellaneous medical supply Misc See Rx Instructions miscellaneous .COMPLEX PRN (Reason: Urge Incontinence ) Qty: 4 11RF Rx Instructions: wipes- 4x daily lidocaine 5 % adhesive patch,medicated 1 patch topical DAILY 30 Days Qty: 30 0RF Rx Instructions: leave on most painful area for up to 12 hrs cyclobenzaprine 5 mg tablet 5 mg PO TID PRN (Reason: muscle spasm) 30 Days Qty: 60 0RF amitriptyline 25 mg tablet 25 mg PO BEDTIME 30 Days Qty: 90 2RF albuterol sulfate 90 mcg/actuation HFA aerosol inhaler 2 puff PO Q4H PRN (Reason: shortness of breath or wheezing) Qty: 8.5 0RF gabapentin 800 mg tablet 800 mg PO BID Qty: 180 1RF sertraline 50 mg tablet 50 mg PO DAILY Qty: 90 2RF Rx Instructions: anxiety clonazepam 1 mg tablet 0.5 mg PO BID PRN (Reason: anxiety) 30 Days Qty: 30 0RF tramadol 50 mg tablet 50 mg PO DAILY PRN (Reason: pain) 14 Days Qty: 14 0RF polyethylene glycol 3350 17 gram/dose powder PO triamcinolone acetonide 0.5 % cream 1 appl topical BID 14 Days Qty: 15 0RF Referrals: Physician,Unknown J [Primary Care Provider] -
[2022-03-31] MEDS: traMADoL HCL 50 MG TABLET PO (15:48)
--- NOTE | 2022-03-31 15:50 | PC.NURSE ---
patient a&ox3, pt c/o lower back pain, pt medicated for pain per order, pt to have ct scan, vss, will continue to monitor
--- NOTE | 2022-03-31 18:24 | PC.NURSE ---
patient a&ox3, ambulated with steady gait to wheelchair, friend bringing patient home.
== END 2022-03-31 18:25 | disposition home or self-care (01) ==
PROVIDERS: Emergency Provider Emergency Medicine
DX: M48.061 Spinal stenosis, lumbar region without neurogenic claudication (principal); M54.50 Low back pain, unspecified; G89.4 Chronic pain syndrome; E78.00 Pure hypercholesterolemia, unspecified; Z87.891 Personal history of nicotine dependence; Z79.899 Other long term (current) drug therapy
CPT/HCPCS: 72131; 99283; 99284

== ENCOUNTER 2022-07-24 16:56 | Emergency (ER) | payer OTHER, SELFPAY ==
[2022-07-24 17:20] VITALS: BP 89/65; PULSE 80; O2SAT 95
== END 2022-07-24 20:31 | disposition left against medical advice (07) ==
PROVIDERS: Emergency Provider Emergency Medicine
DX: S21.001A Unspecified open wound of right breast, initial encounter (principal); X58.XXXA Exposure to other specified factors, initial encounter; Y93.9 Activity, unspecified; Y92.9 Unspecified place or not applicable; Y99.9 Unspecified external cause status

== ENCOUNTER 2022-09-16 00:08 | Emergency (ER) | payer OTHER, SELFPAY ==
--- NOTE | ~2022-09-16 | XR_ITS ---
EXAMINATION: XR ELBOW, RIGHT CLINICAL INFORMATION: Elbow pain COMPARISON: None available. TECHNIQUE: AP, lateral, and oblique views of the right elbow. FINDINGS: Degenerative changes are present in the right elbow. There is an acute fracture of the radial head with impaction. There is a bone fragment anterior to the distal humerus likely representing an avulsion fracture. No dislocation. A large joint effusion is not seen. XR/XR elbow RT min 3V IMPRESSION: Radial head fracture and distal humeral avulsion fracture as described above.
[2022-09-16 00:10] VITALS: BP 123/71; PULSE 100; RESP 18; TEMP 36.6; O2SAT 96; BMI 27.0
--- NOTE | 2022-09-16 00:32 | PC.NURSE ---
Pt aox4 resting at the bedside. Reports bloody discharge from right breast x 1 wk with pain, 6/10. Right elbow pain, 10/10, with decreased ROM. Radial pulse present. X-ray ordered. Pending physician eval.
[2022-09-16 02:00] VITALS: BP 122/57; PULSE 69; RESP 16; TEMP 36.6; O2SAT 99
--- NOTE | 2022-09-16 02:19 | ED_ITS ---
HPI - General Adult General Chief complaint: General Medical Stated complaint: breast bleeding / right arm bone out? Time Seen by Provider: 09/16/22 02:19 Source: patient Mode of arrival: ambulatory Limitations: no limitations History of Present Illness HPI narrative: Patient with tenderness in the right nipple with serous discharge notice small amount of blood for last few days also when she squeezed. No fever no chills no swelling of the breast as such. Patient also complaining of pain in the right elbow for last 2 weeks denies any fall or injury patient had fractures of her bones without wound trauma in the past Related Data Home Medications Medication Instructions Recorded Confirmed polyethylene glycol 3350 17 g PO 02/12/20 01/13/22 gram/dose oral powder Previous Rx's Medication Instructions Recorded miscellaneous medical supply See Rx Instructions miscellaneous 06/24/20 .COMPLEX PRN Urge Incontinence #4 ea miscellaneous medical supply See Rx Instructions miscellaneous 06/24/20 .COMPLEX PRN Urge Incontinence #140 ea cyclobenzaprine 5 mg tablet 5 mg PO TID PRN muscle spasm 30 04/28/21 days #60 tabs triamcinolone acetonide 0.5 % 1 appl topical BID 14 days #15 01/13/22 topical cream grams sertraline 50 mg tablet 50 mg PO DAILY #90 tabs 02/16/22 valacyclovir 1 gram tablet 1,000 mg PO TID 7 days #21 tabs 04/16/22 BACK BRACE #1 ea 04/30/22 amitriptyline 25 mg tablet 25 mg PO BEDTIME 30 days #90 tabs 05/11/22 gabapentin 800 mg tablet 800 mg PO BID #180 tabs 06/11/22 lidocaine 5 % topical patch 1 patch topical DAILY #30 ea 06/11/22 albuterol sulfate 90 mcg/actuation 2 puff PO Q4H PRN shortness of 08/02/22 aerosol inhaler breath or wheezing #8.5 grams clonazepam 1 mg tablet 0.5 mg PO BID PRN anxiety 30 days 09/04/22 #30 tabs tramadol 50 mg tablet 50 mg PO BID PRN pain 30 days #60 09/04/22 tabs cephalexin 500 mg capsule 500 mg PO QID 10 days #40 caps 09/16/22 doxycycline hyclate 100 mg tablet 100 mg PO BID #20 tabs 09/16/22 tramadol 50 mg tablet 50 mg PO Q6H PRN pain #20 tabs 09/16/22 Allergies Allergy/AdvReac Type Severity Reaction Status Date / Time latex [LATEX] Allergy Intermediate RASH Verified 04/16/22 17:13 Chocolate Allergy Unknown Hives Verified 04/16/22 17:13 egg [EGGS] Allergy Unknown SWELLING Verified 04/16/22 17:13 kiwi [KIWI] Allergy Unknown SWELLING Verified 04/16/22 17:13 peanut [PEANUTS] Allergy Unknown SWELLING Verified 04/16/22 17:13 pineapple [PINEAPPLE] Allergy Unknown SWELLING Verified 04/16/22 17:13 Sulfa (Sulfonamide Allergy Rash Verified 04/16/22 17:13 Antibiotics) ENVIROMENTAL Allergy Intermediate HAYFEVER Uncoded 04/16/22 17:13 SHELLFISH Allergy Intermediate RASH Uncoded 04/16/22 17:13 Review of Systems Review of Systems: Yes all other systems are reviewed and are negative PMFSH Past Medical History Medical History Aortic valve insufficiency Asthma Carpal tunnel syndrome Chronic pain syndrome Cognitive impairment Colonoscopy refused Depression Fracture of fifth toe, right, closed Generalized anxiety disorder Hx LEEP (loop electrosurgical excision procedure), cervix, Hypercholesterolemia Knee osteoarthritis Mammogram declined Migraine Mild obstructive sleep apnea Mixed urge and stress incontinence Osteoarthritis of hips, bilateral Osteoarthritis of knees, bilateral Overweight (BMI 25.0-29.9) Panic attack Pulmonary hypertension Restless leg syndrome Right renal stone Sacroiliac joint dysfunction Sacroiliac joint dysfunction of left side Takotsubo cardiomyopathy Vaginal cysts Surgical History H/O knee surgery H/O LEEP History of History of carpal tunnel surgery of left wrist Family History Family History Father Hypertension Diabetes Prostate cancer CVD (cardiovascular disease) Mother Hypertension Diabetes Uterine cancer Maternal Grandmother Lung cancer Social History Social History Housing: Apartment Alcohol intake: never Patient Tobacco Use Status: Former Tobacco user Tobacco use type: Cigarette Smoked in Last 30 Days: No e-Cigarette/Vaping Use: Never Used Second Hand Smoke Exposure: Yes Use of substances other than those prescribed or required for medical reasons: Yes Substance Use Type: Crack/Cocaine and Marijuana Advance Directives: No Advance Directives Information Provided: Yes Patient : No service: No Current occupational status: disabled Current occupation: left hand Cognitive needs: No Hearing needs: No Vision needs: Yes (glasses) Physical Exam ED Vital Signs: Vital Signs - 24 hr 09/16/22 00:10 09/16/22 02:00 Temperature 98 F 97.8 F Pulse Rate 100 69 Respiratory Rate 18 16 Blood Pressure 123/71 122/57 L Pulse Oximetry 96 99 Oxygen Delivery Method Room Air Room Air BMI result Body Mass Index 27.0 Appearance: Alert. Oriented X3. No acute distress. Eyes: PERRLA, ENT: Pharynx normal. Oral Mucosa moist Neck: Normal inspection. Neck supple. CVS: Normal heart rate and rhythm. Pulses normal. Respiratory: No respiratory distress. Equal air entry bilateral, no w heezing/rales/rhonchi Abdomen: Soft and nontender. Bowel sounds are present, Skin: Skin warm and dry. Normal skin color. Normal skin turgor. Extremities: No lower extremity edema. No calf tenderness right arm tender at the radial head with swelling neurovascular intact Neuro: Oriented X 3. No motor deficit. No sensory deficit.No cerebellar signs , cranial nerves II-XII intact Chest Chest/axillae images: 1. Slightly swollen nipple without any palpable mass or abscess serous discharge Extrem Shoulder/upper arm images: 1. Tender right radial head with swelling limited extension of the pain neurovascular intact Medications Administered Discontinued Medications Generic Name Dose Route Start Last Admin Trade Name Jesseq PRN Reason Stop Dose Admin Cephalexin HCl 500 mg 09/16/22 02:50 09/16/22 02:57 Cephalexin 500 Mg Capsule PO 09/16/22 02:51 500 mg ONCE ONE Administration Doxycycline Monohydrate 100 mg 09/16/22 02:50 09/16/22 02:57 Doxycycline Monohydrate 100 Mg Capsule PO 09/16/22 02:51 100 mg ONCE ONE Administration Oxycodone HCl 5 mg 09/16/22 02:52 09/16/22 02:57 Oxycodone Hcl Immed Release 5 Mg Tablet PO 09/16/22 02:53 5 mg ONCE ONE Administration Procedures Orthopedic Splinting/Casting Injury #1: Side: right Upper Extremity Injury Location: elbow Upper Extremity Immobilizer: posterior splint Medical Decision Making Medical Decision Making MDM Narrative: Patient left by mistake prior to discharge paper but was called and informed about the antibiotic and follow with orthopedic also to follow up with PCP for further management including mammogram Radiology Impression Discussion of test interpretation with radiology: I have reviewed the radiologist's reading. Radiologist Impression: XR/XR elbow RT min 3V IMPRESSION: Radial head fracture and distal humeral avulsion fracture as described above. Discharge Plan Discharge Clinical Impression: Fracture of radial head, right, closed, Acute mastitis of right breast Patient Disposition: Home, Self-Care Instructions: Mastitis (ED), Elbow Fracture (ED) Additional Instructions: Wear the splint and use sling for support and follow with orthopedic Antibiotic as prescribed Follow with PCP for further evaluation including mammogram Prescriptions: New tramadol 50 mg tablet 50 mg PO Q6H PRN (Reason: pain) Qty: 20 0RF cephalexin 500 mg capsule 500 mg PO QID 10 Days Qty: 40 0RF doxycycline hyclate 100 mg tablet 100 mg PO BID Qty: 20 0RF No Action miscellaneous medical supply Misc See Rx Instructions miscellaneous .COMPLEX PRN (Reason: Urge Incontinence) Qty: 140 11RF Rx Instructions: disposable bed pads - 4x daily miscellaneous miscellaneous medical supply Misc See Rx Instructions miscellaneous .COMPLEX PRN (Reason: Urge Incontinence ) Qty: 4 11RF Rx Instructions: wipes- 4x daily cyclobenzaprine 5 mg tablet 5 mg PO TID PRN (Reason: muscle spasm) 30 Days Qty: 60 0RF sertraline 50 mg tablet 50 mg PO DAILY Qty: 90 2RF Rx Instructions: anxiety (DME) BACK BRACE See Rx Instructions .Route .MEDSUPPLY Qty: 1 0RF Rx Instructions: As directed amitriptyline 25 mg tablet 25 mg PO BEDTIME 30 Days Qty: 90 2RF lidocaine 5 % adhesive patch,medicated 1 patch topical DAILY Qty: 30 0RF Rx Instructions: leave on most painful area for up to 12 hrs gabapentin 800 mg tablet 800 mg PO BID Qty: 180 1RF albuterol sulfate 90 mcg/actuation HFA aerosol inhaler 2 puff PO Q4H PRN (Reason: shortness of breath or wheezing) Qty: 8.5 0RF clonazepam 1 mg tablet 0.5 mg PO BID PRN (Reason: anxiety) 30 Days Qty: 30 0RF tramadol 50 mg tablet 50 mg PO BID PRN (Reason: pain) 30 Days Qty: 60 0RF polyethylene glycol 3350 17 gram/dose powder PO valacyclovir 1 gram tablet 1,000 mg PO TID 7 Days Qty: 21 0RF triamcinolone acetonide 0.5 % cream 1 appl topical BID 14 Days Qty: 15 0RF Referrals: Dom Turner MD [Physician] - 1 week Interventions: ED Discharge Assessment Last Done: 09/16/22 04:09 Discharge Date/Time: 09/16/22 04:09
[2022-09-16] MEDS: cephALEXin 500 MG CAPSULE PO (02:57)
[2022-09-16] MEDS: Doxycycline Monohydrate 100 MG CAPSULE PO (02:57)
[2022-09-16] MEDS: oxyCODONE HCl Immed Release 5 MG TABLET PO (02:57)
--- NOTE | 2022-09-16 04:08 | PC.NURSE ---
Pt left without obtaining discharge instructions. MD called pt via telephone and reviewed discharge instructions. Medications sent to the pharmacy per MD.
== END 2022-09-16 04:09 | disposition home or self-care (01) ==
PROVIDERS: Emergency Provider Internal Medicine; PCP Internal Medicine
DX: N61.0 Mastitis without abscess (principal); S52.121A Displaced fracture of head of right radius, initial encounter for closed fracture; S42.401A Unspecified fracture of lower end of right humerus, initial encounter for closed fracture; X58.XXXA Exposure to other specified factors, initial encounter; E78.00 Pure hypercholesterolemia, unspecified; I10 Essential (primary) hypertension; F12.90 Cannabis use, unspecified, uncomplicated; Z87.891 Personal history of nicotine dependence; Z79.899 Other long term (current) drug therapy; Y93.9 Activity, unspecified; Y92.9 Unspecified place or not applicable; Y99.9 Unspecified external cause status
CPT/HCPCS: 29105; 73080; 99283; 99284

== ENCOUNTER 2022-09-17 13:40 | Emergency (ER) | payer OTHER, SELFPAY ==
--- NOTE | 2022-09-17 13:46 | ED_ITS ---
HPI - General Adult General Chief complaint: Extremity Injury, Upper Stated complaint: right hand in cast / pain/ numbness Time Seen by Provider: 09/17/22 15:09 Source: patient, RN notes reviewed and old records reviewed Mode of arrival: ambulatory History of Present Illness HPI narrative: 56-year-old female with a past medical history of asthma, HLD, osteoarthritis, seen in our ED yesterday diagnosed with radial head fracture placed in posterior arm splint & sling as well as tx for mastitis started antibiotics, presenting to ED complaining of worsening RUE pain and digit swelling x few hours after discharge. Reports right elbow pain x months without known injury, denies more recent injury/fall or trauma since evaluation early this morning. Denies fever/chills, numbness/tingling. Patient reports right breast bloody/milky disc harge x months, states has been noncompliant with her mammograms due to not liking the machine. Does report family and personal history of breast malignancy. Denies fever/chills Onset (ago): day(s) Related Data Home Medications Medication Instructions Recorded Confirmed polyethylene glycol 3350 17 g PO 02/12/20 01/13/22 gram/dose oral powder Previous Rx's Medication Instructions Recorded miscellaneous medical supply See Rx Instructions miscellaneous 06/24/20 .COMPLEX PRN Urge Incontinence #4 ea miscellaneous medical supply See Rx Instructions miscellaneous 06/24/20 .COMPLEX PRN Urge Incontinence #140 ea cyclobenzaprine 5 mg tablet 5 mg PO TID PRN muscle spasm 30 04/28/21 days #60 tabs triamcinolone acetonide 0.5 % 1 appl topical BID 14 days #15 01/13/22 topical cream grams sertraline 50 mg tablet 50 mg PO DAILY #90 tabs 02/16/22 valacyclovir 1 gram tablet 1,000 mg PO TID 7 days #21 tabs 04/16/22 BACK BRACE #1 ea 04/30/22 amitriptyline 25 mg tablet 25 mg PO BEDTIME 30 days #90 tabs 05/11/22 gabapentin 800 mg tablet 800 mg PO BID #180 tabs 06/11/22 lidocaine 5 % topical patch 1 patch topical DAILY #30 ea 06/11/22 albuterol sulfate 90 mcg/actuation 2 puff PO Q4H PRN shortness of 08/02/22 aerosol inhaler breath or wheezing #8.5 grams clonazepam 1 mg tablet 0.5 mg PO BID PRN anxiety 30 days 09/04/22 #30 tabs tramadol 50 mg tablet 50 mg PO BID PRN pain 30 days #60 09/04/22 tabs cephalexin 500 mg capsule 500 mg PO QID 10 days #40 caps 09/16/22 doxycycline hyclate 100 mg tablet 100 mg PO BID #20 tabs 09/16/22 tramadol 50 mg tablet 50 mg PO Q6H PRN pain #20 tabs 09/16/22 Allergies Allergy/AdvReac Type Severity Reaction Status Date / Time latex [LATEX] Allergy Intermediate RASH Verified 04/16/22 17:13 Chocolate Allergy Unknown Hives Verified 04/16/22 17:13 egg [EGGS] Allergy Unknown SWELLING Verified 04/16/22 17:13 kiwi [KIWI] Allergy Unknown SWELLING Verified 04/16/22 17:13 peanut [PEANUTS] Allergy Unknown SWELLING Verified 04/16/22 17:13 pineapple [PINEAPPLE] Allergy Unknown SWELLING Verified 04/16/22 17:13 animal dander Allergy Rash Verified 09/17/22 13:48 Sulfa (Sulfonamide Allergy Rash Verified 04/16/22 17:13 Antibiotics) ENVIROMENTAL Allergy Intermediate HAYFEVER Uncoded 04/16/22 17:13 SHELLFISH Allergy Intermediate RASH Uncoded 04/16/22 17:13 Review of Systems Review of Systems: Constitutional: No Fever, No Chills ENT/Mouth: No Ear Pain, No Nasal Congestion, No Sinus Pain, No Hoarseness, No sore throat, No Rhinorrhea, No Swallowing Difficulty Cardiovascular: No Chest Pain, No SOB Respiratory: No Cough, No Sputum, No Wheezing Gastrointestinal: No Nausea, No Vomiting, No Diarrhea, No Constipation, No Abdominal pain Musculoskeletal: + joint pain, No Myalgias, + Joint Swelling Skin: + Skin Lesions, No rash Neuro: No Weakness, No Numbness, No Paresthesias Yes all other systems are reviewed and are negative Constitutional: Constitutional: Reports as per [facility] Past Medical History Attestation statement: The following information was validated with the patient. Source: old records reviewed Medical History Aortic valve insufficiency Asthma Carpal tunnel syndrome Chronic pain syndrome Cognitive impairment Colonoscopy refused Depression Fracture of fifth toe, right, closed Generalized anxiety disorder Hx LEEP (loop electrosurgical excision procedure), cervix, Hypercholesterolemia Knee osteoarthritis Mammogram declined Migraine Mild obstructive sleep apnea Mixed urge and stress incontinence Osteoarthritis of hips, bilateral Osteoarthritis of knees, bilateral Overweight (BMI 25.0-29.9) Panic attack Pulmonary hypertension Restless leg syndrome Right renal stone Sacroiliac joint dysfunction Sacroiliac joint dysfunction of left side Takotsubo cardiomyopathy Vaginal cysts Surgical History H/O knee surgery H/O LEEP History of History of carpal tunnel surgery of left wrist Family History Family History Father Hypertension Diabetes Prostate cancer CVD (cardiovascular disease) Mother Hypertension Diabetes Uterine cancer Maternal Grandmother Lung cancer Social History Social History Housing: Apartment Alcohol intake: never Patient Tobacco Use Status: Former Tobacco user Tobacco use type: Cigarette e-Cigarette/Vaping Use: Never Used Second Hand Smoke Exposure: Yes Substance Use Type: Crack/Cocaine and Marijuana Advance Directives: No Advance Directives Information Provided: No service: No Current occupational status: disabled Current occupation: left hand Cognitive needs: No Hearing needs: No Vision needs: Yes (glasses) Physical Exam ED Vital Signs: Vital Signs - 24 hr 09/17/22 13:48 Temperature 97 F Pulse Rate 101 H Respiratory Rate 19 Blood Pressure 123/68 Pulse Oximetry 98 Oxygen Delivery Method Room Air BMI result Body Mass Index 27.0 Const General: cooperative, healthy appearing and no acute distress Orientation/consciousness: patient oriented x3 Limitations: no limitations HENMT Head: Yes normal to inspection and Yes atraumatic Ears: hearing grossly normal bilaterally General nose exam: Normal external nose present Face and sinus: Yes normal facial exam Eyes General: appearance normal, both eyes and all related structures EOM: EOMs intact bilaterally Neck Neck: Yes normal visual inspection and Yes no meningeal signs Chest Other: No appreciable nipple discharge, no skin changes, no erythema/warmth, no induration/fluctuance or lymphadenopathy Chest palpation & inspection: no crepitus, no masses and no tenderness Breast/axilla inspection: normal inspection of the breasts Breast/axilla palpation: normal palpation of the breasts and normal palpation of the axillae Resp Effort & Inspection: normal respiratory effort and no respiratory distress Cardio Rate: regular rate Peripheral pulses: radial pulses present and ulnar radial pulses present Skin Rashes: no rashes Wounds: no wounds Neuro General: patient oriented x3, tone normal and no meningeal signs Gait exam (Neuro): Normal gait present Extrem Other: RUE in posterior arm splint and sling, digits swollen and tender. Cap refill WNL. Splint removed, + diffuse tenderness to RUE > elbow with decreased ROM. Digit ROM intact with discomfort. Neurovascular intact. Sensation intact to light touch Course Course Course Narrative: This is an RME: Additional HPI, ROS, PE not included below will be deferred to primary provider. This is a [id number], with a history of hypercholesterolemia asthma, osteoarthritis and generalized anxiety disorder, presenting to the emergency department with a complaint of right arm pain. She states that she Pt states that her right arm was placed in a splint and is having pain and swelling into her right fingers. She was seen on 09/16, found to have a radial head fracture and distal humeral avulsion fracture as well as acute mastitis - d/c on cephalexin and doxycycline. States area not improving significantly. Plan: rosa needs new splint and evaluation of right breast Medical Decision Making Medical Decision Making MDM Narrative: 56-year-old female with a past medical history of asthma, HLD, osteoarthritis, seen in our ED yesterday diagnosed with radial head fracture placed in posterior arm splint & sling as well as tx for mastitis started antibiotics, presenting to ED complaining of worsening RUE pain and digit swelling x few hours after discharge. On exam mildly tachycardic likely from discomfort, physical exam as above, splint removed, no evidence of underlying skin breakdown, erythema/warmth. Neurovascular intact distally. Suspect splint was too tight. No crepitus. Breast exam WNL. Patient reports compliance with previously prescribed antibiotics. Compartments soft. Low suspicion for compartment syndrome to our UE. No evidence of breast abscess/cellulitis. Concern for possible underlying malignancy. Sling reapplied. Will not reapply a posterior splint as not needed. Discussed at length with patient importance of compliance with antibiotics, and close follow-up with Orthopedics and for a mammogram Patient requesting pain medication, states never received prescription for tramadol. This assembly instructions writer called [facility] pharmacy, patient filled a 60 tab prescription of tramadol on 09/08 > discussed with patient we will not be prescribing additional narcotics Results discussed with patient including worrisome signs and symptoms and strict return precautions, and when to return to the emergency department. They verbalized understanding and feel safe for discharge at this time.. Differential Diagnosis Differential Diagnoses: The differential diagnosis associated with the presentation includes As above Radiology Impression Discussion of test interpretation with radiology: I have reviewed the radiologist's reading. External Record Review External record reviewed: Inpatient record, Office record, Outpatient record, Prior outpatient labs, Prior outpatient radiology, Primary care record and Outside ED record Tests considered The following testing was considered but not selected: As above Prescription Management I considered prescription management with: Pain Medication Chronic Conditions Patient?s care impacted by: Other Discharge Plan Discharge Clinical Impression: Radial head fracture Patient Disposition: Home, Self-Care Instructions: Elbow Fracture (ED) Additional Instructions: KEEP SLING ON AT ALL TIMES, ONLY REMOVED TO SHOWER. YOU SHOULD BE SLEEPING IN THIS. Continue to move her wrist and digits or they will becomes stiff/frozen You need to follow-up with orthopedics Also continue taking previously prescribed antibiotics for your breast YOU NEED TO FOLLOW-UP FOR A MAMMOGRAM, THIS COULD BE UNDERLYING BREAST CANCER If symptoms persist or worsen return to the ED Prescriptions: No Action miscellaneous medical supply Misc See Rx Instructions miscellaneous .COMPLEX PRN (Reason: Urge Incontinence) Qty: 140 11RF Rx Instructions: disposable bed pads - 4x daily miscellaneous miscellaneous medical supply Misc See Rx Instructions miscellaneous .COMPLEX PRN (Reason: Urge Incontinence ) Qty: 4 11RF Rx Instructions: wipes- 4x daily cyclobenzaprine 5 mg tablet 5 mg PO TID PRN (Reason: muscle spasm) 30 Days Qty: 60 0RF sertraline 50 mg tablet 50 mg PO DAILY Qty: 90 2RF Rx Instructions: anxiety (DME) BACK BRACE See Rx Instructions .Route .MEDSUPPLY Qty: 1 0RF Rx Instructions: As directed amitriptyline 25 mg tablet 25 mg PO BEDTIME 30 Days Qty: 90 2RF lidocaine 5 % adhesive patch,medicated 1 patch topical DAILY Qty: 30 0RF Rx Instructions: leave on most painful area for up to 12 hrs gabapentin 800 mg tablet 800 mg PO BID Qty: 180 1RF albuterol sulfate 90 mcg/actuation HFA aerosol inhaler 2 puff PO Q4H PRN (Reason: shortness of breath or wheezing) Qty: 8.5 0RF clonazepam 1 mg tablet 0.5 mg PO BID PRN (Reason: anxiety) 30 Days Qty: 30 0RF tramadol 50 mg tablet 50 mg PO BID PRN (Reason: pain) 30 Days Qty: 60 0RF tramadol 50 mg tablet 50 mg PO Q6H PRN (Reason: pain) Qty: 20 0RF cephalexin 500 mg capsule 500 mg PO QID 10 Days Qty: 40 0RF doxycycline hyclate 100 mg tablet 100 mg PO BID Qty: 20 0RF polyethylene glycol 3350 17 gram/dose powder PO valacyclovir 1 gram tablet 1,000 mg PO TID 7 Days Qty: 21 0RF triamcinolone acetonide 0.5 % cream 1 appl topical BID 14 Days Qty: 15 0RF Referrals: [facility] Orthopedic Surgeons [Provider Group] [facility] Women's Services [Provider Group] Lawrence Garcia MD [Primary Care Provider] - Interventions: ED Discharge Assessment Last Done: 09/17/22 16:18 Discharge Date/Time: 09/17/22 16:18
[2022-09-17 13:48] VITALS: BP 123/68; PULSE 101; RESP 19; TEMP 36.1; O2SAT 98; BMI 27.0
--- NOTE | 2022-09-17 16:11 | PC.NURSE ---
pt sts that she drove herself to dept. pt has order for hydrocodone/apap informed provider, provider dc'd medication
== END 2022-09-17 16:18 | disposition home or self-care (01) ==
PROVIDERS: Emergency Provider Student in an Organized Health Care Education/Training Program; PCP Internal Medicine
DX: M79.601 Pain in right arm (principal); S52.121D Displaced fracture of head of right radius, subsequent encounter for closed fracture with routine healing; X58.XXXD Exposure to other specified factors, subsequent encounter
CPT/HCPCS: 99282

== ENCOUNTER 2022-10-12 12:07 | Outpatient (REF) | payer OTHER, SELFPAY | END 2022-10-12 12:08 | disposition home or self-care (01) | LOC: HO.HOSX 12:07 | PROVIDERS: Visit Provider Physician Assistant | DX: Z13.89 Encounter for screening for other disorder (principal) ==

== ENCOUNTER 2022-10-16 09:01 | Outpatient (AMB) | payer OTHER, SELFPAY ==
--- NOTE | 2022-10-16 09:02 | A.OFFPC_ITS ---
Vital Signs 10/16/22 09:04 Height 4 ft 9 in Weight 123 lb BMI 26.6 BP 122/68 Blood Pressure Location Lt brachial Position Sitting Pulse 80 Pulse Source Pulse Oximeter Pulse Oximetry (%) 97 Oxygen Delivery Method Room Air Intake Visit Reasons: broken right arm, still having pain Intake Note: pt is here for here broken arm, with pain. 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: No Accompanied by: Self / Same As Patient Allergies latex [LATEX] Allergy (Intermediate, Verified 10/16/22 09:02) RASH Chocolate Allergy (Unknown, Verified 10/16/22 09:02) Hives egg [EGGS] Allergy (Unknown, Verified 10/16/22 09:02) SWELLING kiwi [KIWI] Allergy (Unknown, Verified 10/16/22 09:02) SWELLING peanut [PEANUTS] Allergy (Unknown, Verified 10/16/22 09:02) SWELLING pineapple [PINEAPPLE] Allergy (Unknown, Verified 10/16/22 09:02) SWELLING animal dander Allergy (Verified 10/16/22 09:02) Rash Sulfa (Sulfonamide Antibiotics) Allergy (Verified 10/16/22 09:02) Rash ENVIROMENTAL Allergy (Intermediate, Uncoded 10/16/22 09:02) HAYFEVER SHELLFISH Allergy (Intermediate, Uncoded 10/16/22 09:02) RASH Tobacco use date assessed: 04/16/22 Dental Screening Dental Screen Date: 10/16/22 Did you have a dental visit in the last 12 months?: Yes Did you have a dental problem in the last 6 months where you did not have access to dental care?: No Was dental information given to patient?: Patient has dentist HPI broken right arm, still having pain HPI Details 56-year-old female with a history of renal calculi on the right lumbar spondylosis shingles hypercholesterolemia last seen in March 2022 patient had an ER visit in August due to radial head fracture right x-ray August 2022 as well as mastitis started with antibiotics as well as mastitis started with antibiotics. Patient does not know what happened and started in July states before went to [place]. no hx of fall or trauma- scheduled with ORtho November 02, 2022 as for the mastititis states before July had a R breast - pimple- discharge pus but did not go to ER - August had blood ER visit- complains also of R knee pain on getting off of friends truck but denies that that was when the pain of right elbow started. Presently baffled as the patient does not know when she fractured this. [facility] Medical History (Updated 10/16/22 @ 10:02 by Lawrence Garcia MD) Aortic valve insufficiency Asthma Breast discharge Carpal tunnel syndrome Chronic pain syndrome Cognitive impairment Colonoscopy refused Depression Fracture of fifth toe, right, closed Generalized anxiety disorder Hx LEEP (loop electrosurgical excision procedure), cervix, Hypercholesterolemia Knee osteoarthritis Mammogram declined Migraine Mild obstructive sleep apnea Mixed urge and stress incontinence Osteoarthritis of hips, bilateral Osteoarthritis of knees, bilateral Overweight (BMI 25.0-29.9) Panic attack Pulmonary hypertension Restless leg syndrome Right renal stone Sacroiliac joint dysfunction Sacroiliac joint dysfunction of left side Takotsubo cardiomyopathy Vaginal cysts Surgical History H/O knee surgery H/O LEEP History of History of carpal tunnel surgery of left wrist Family History Father Hypertension Diabetes Prostate cancer CVD (cardiovascular disease) Mother Hypertension Diabetes Uterine cancer Maternal Grandmother Lung cancer Social History Housing: Apartment Alcohol intake: never Patient Tobacco Use Status: Former Tobacco user Tobacco use type: Cigarette e-Cigarette/Vaping Use: Never Used Second Hand Smoke Exposure: Yes Substance Use Type: Crack/Cocaine and Marijuana service: No Current occupational status: disabled Current occupation: left hand Cognitive needs: No Hearing needs: No Vision needs: Yes (glasses) Questionnaire Thrive Questionnaire Date Thrive assessed: 04/16/22 JANA-7 AMB Questionnaire JANA-7 Date JANA - 7 assessed: 04/16/22 Source: Developed by Drs. Turner Burt, Alina Bailey, Timur Pineda and colleagues, with an educational iliana from [employer]. Physical exam (Primary Care) Vital Signs: Last Vital Signs Pulse 80 10/16/22 09:04 BP 122/68 10/16/22 09:04 Pulse Ox 97 10/16/22 09:04 Oxygen Delivery Method Room Air 10/16/22 09:04 Care Plan Goal for BP management: Right breast exam reveals no discharge as well as no masses noted patient complains of pain retro areolar area BMI result Body Mass Index 26.6 Tobacco/Smoking Status: Tobacco use Status Tobacco use date assessed 04/16/22 10/16/22 09:10 Patient Tobacco Use Status Former Tobacco user 10/16/22 09:10 Tobacco use type Cigarette 10/16/22 09:10 e-Cigarette/Vaping Use Never Used 10/16/22 09:10 Thrive Assessment: Date of Thrive Assessment Date Thrive assessed 04/16/22 10/16/22 09:10 Const General: alert; No acute distress Eyes Conjunctivae: conjunctivae normal Resp Auscultation: clear to auscultation bilaterally Cardio Rate: regular rate Rhythm: regular rhythm GI Inspection: Yes normal to inspection Extrem General: Yes normal to inspection and No edema Assessment and Plan Assessment & Plan (1) Right radial head fracture: Comment: August 2022Radial head fracture and distal humeral avulsion fracture as described above. Code(s): S52.121A - Displaced fracture of head of right radius, initial encounter for closed fracture Plan: Patient is scheduled to see the Orthopedics in November 02 (2) Hypercholesterolemia: Code(s): E78.00 - Pure hypercholesterolemia, unspecified Plan: Avoid fried foods, chicken skin, eggs, butter margarine, pastries and meat. Be it pork or beef they have a lot of cholesterol LDL goal of less than 130 and triglyceride of less than 150 last blood work was 2020 (3) Overweight (BMI 25.0-29.9): Code(s): E66.3 - Overweight Plan: Diet and exercise (4) Asthma: Code(s): J45.909 - Unspecified asthma, uncomplicated Plan: Continue with inhalers (5) Knee pain, right: Code(s): M25.561 - Pain in right knee Plan: Request For an x-ray (6) Breast pain, right: Code(s): N64.4 - Mastodynia Plan: No masses noted no discharge noted retro areolar area Orders: Orders XR knee RT 2V Today M25.561 - Pain in right knee XR DEXA axial skeleton Today M81.0 - Age-related osteoporosis without current pathological fracture, S52.121A - Displaced fracture of head of right radius, initial encounter for closed fracture MM tomosynthesis diagnostic BI Today N64.4 - Mastodynia US breast RT limited Today N64.4 - Mastodynia 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
[2022-10-16 09:04] VITALS: BP 122/68; PULSE 80; O2SAT 97; BMI 26.6
== END 2022-10-16 10:21 | disposition home or self-care (01) ==
PROVIDERS: PCP Internal Medicine; Visit Provider Internal Medicine
DX: S52.121A Displaced fracture of head of right radius, initial encounter for closed fracture (principal); E78.00 Pure hypercholesterolemia, unspecified; E66.3 Overweight; J45.909 Unspecified asthma, uncomplicated; M25.561 Pain in right knee; N64.4 Mastodynia
CPT/HCPCS: 99214

== ENCOUNTER 2022-11-05 12:58 | Outpatient (REF) | payer OTHER, SELFPAY ==
--- NOTE | ~2022-11-05 | XR_ITS ---
EXAMINATION: XR ELBOW, RIGHT CLINICAL INFORMATION: Right elbow pain. COMPARISON: September 16, 2022. TECHNIQUE: AP, lateral, and oblique views of the right elbow. XR/XR elbow RT min 3V FINDINGS/IMPRESSION: Examination demonstrates moderate to severe osteoarthritic changes involving the articulation between the ulna and humerus, with joint space narrowing, sclerosis, and osteophyte formation, similar compared with September 16, 2022. Findings suggest healing of the previously seen radial head fracture. Cannot entirely exclude approximately 0.5 cm, ossific loose body projecting over the olecranon process on lateral view, not clearly evident on September 16, 2022. The previously identified bone fragment anterior to the distal humerus is not appreciated on the current study. There is an elbow joint effusion. No new fracture is directly visualized. No dislocation is seen. Bony mineralization appears preserved.
== END 2022-11-05 12:59 | disposition home or self-care (01) ==
LOC: HO.HOSX 12:58
PROVIDERS: Visit Provider Physician Assistant
DX: M19.021 Primary osteoarthritis, right elbow (principal)
CPT/HCPCS: 73080

== ENCOUNTER 2022-11-05 14:41 | Outpatient (AMB) | payer OTHER, SELFPAY ==
[2022-11-05 14:56] VITALS: BMI 26.6
--- NOTE | 2022-11-05 14:56 | MHC.OFFVIS ---
Intake Vital Signs 11/05/22 14:56 Height 4 ft 9 in Weight 123 lb BMI 26.6 Intake Visit Reasons: FC-Displaced fracture of head of right radius Intake Note: Re is a 56 year old left hand dominant female who presents today for a fracture care appointment for her right elbow fx from July. States she notice her had her elbow bone out of placed/sticking out. No injury she can recall. Seen in ED where she was xray'd and placed in a splint. States currently she has more pain today then when she was seen in ED. States she is limited ROM and is painful. Also mention she has mild tingling in her fingers of her right hand. Allergies latex [LATEX] Allergy (Intermediate, Verified 11/05/22 14:56) RASH Chocolate Allergy (Unknown, Verified 11/05/22 14:56) Hives egg [EGGS] Allergy (Unknown, Verified 11/05/22 14:56) SWELLING kiwi [KIWI] Allergy (Unknown, Verified 11/05/22 14:56) SWELLING peanut [PEANUTS] Allergy (Unknown, Verified 11/05/22 14:56) SWELLING pineapple [PINEAPPLE] Allergy (Unknown, Verified 11/05/22 14:56) SWELLING animal dander Allergy (Verified 11/05/22 14:56) Rash Sulfa (Sulfonamide Antibiotics) Allergy (Verified 11/05/22 14:56) Rash ENVIROMENTAL Allergy (Intermediate, Uncoded 10/16/22 09:02) HAYFEVER SHELLFISH Allergy (Intermediate, Uncoded 10/16/22 09:02) RASH HPI FC-Displaced fracture of head of right radius HPI Details 56-year-old left hand dominant female who presents in the office today, as a new patient, for an evaluation of right elbow pain. The patient presented to the ED on 09/16/2022 with a complaint of pain for 2 weeks, but no knowledge of injury. X-rays of the rigth elbow were obtained. She was placed in a sling. She was seen by her PCP on 10/16/2022 and stated she was unaware of how she injured the elbow. In the office she states she noticed in 07/2022 that the elbow was hurting. She does not recall any injury. She has not received any treatment for the elbow. She claims the bone is out of place and sticks out. She states she has more pain now then when she was seen in the ED. She claims to have limited ROM due to pain. She states she has tingling in the right hand. She went a trip to [place] that affected her getting treatment. She states her PCP is going to send her for a bone density test due to this not being the first fracture she has had with no injury. [facility] Medical History Aortic valve insufficiency Asthma Breast discharge Carpal tunnel syndrome Chronic pain syndrome Cognitive impairment Colonoscopy refused Depression Fracture of fifth toe, right, closed Generalized anxiety disorder Hx LEEP (loop electrosurgical excision procedure), cervix, Hypercholesterolemia Knee osteoarthritis Mammogram declined Migraine Mild obstructive sleep apnea Mixed urge and stress incontinence Osteoarthritis of hips, bilateral Osteoarthritis of knees, bilateral Overweight (BMI 25.0-29.9) Panic attack Pulmonary hypertension Restless leg syndrome Right renal stone Sacroiliac joint dysfunction Sacroiliac joint dysfunction of left side Takotsubo cardiomyopathy Vaginal cysts Surgical History H/O knee surgery H/O LEEP History of History of carpal tunnel surgery of left wrist Family History Father Hypertension Diabetes Prostate cancer CVD (cardiovascular disease) Mother Hypertension Diabetes Uterine cancer Maternal Grandmother Lung cancer Social History Housing: Apartment Alcohol intake: never Patient Tobacco Use Status: Former Tobacco user Tobacco use type: Cigarette e-Cigarette/Vaping Use: Never Used Second Hand Smoke Exposure: Yes Substance Use Type: Crack/Cocaine and Marijuana service: No Current occupational status: disabled Current occupation: left hand Cognitive needs: No Hearing needs: No Vision needs: Yes (glasses) Review of Systems Const All systems reviewed & are unremarkable except as noted in HPI and below Physical Exam Vital Signs: BMI result Body Mass Index 26.6 Const General: cooperative and no acute distress Orientation/consciousness: patient oriented x3 Resp Effort & Inspection: normal respiratory effort and able to speak in complete sentences Cardio Rate: regular rate Peripheral pulses: Peripheral pulses 2+ throughout GI Palpation (GI): Soft to palpation Skin General skin exam: no rashes or lesions noted Lesions: no lesions Rashes: no rashes Neuro General: patient oriented x3 Extrem Other: Right elbow: Normal to inspection. No ecchymosis, erythema, or edema. Global tenderness to palpation over all anitomical landmarks. Patient will not allow for any additional examination. She will not perform flexion, extension, pronation, or supination. Assessment & Plan Assessment & Plan (1) Osteoarthritis of right elbow: Code(s): M19.021 - Primary osteoarthritis, right elbow Plan Ms. Feliz is a 56-year-old left hand dominant female who presents in the office today, as a new patient, for an evaluation of right elbow pain. The patient presented to the ED on 09/16/2022 with a complaint of pain for 2 weeks, but no knowledge of injury. X-rays of the rigth elbow were obtained. She was placed in a sling. She was seen by her PCP on 10/16/2022 and stated she was unaware of how she injured the elbow. In the office she states she noticed in 07/2022 that the elbow was hurting. She does not recall any injury. She has not received any treatment for the elbow. She claims the bone is out of place and sticks out. She states she has more pain now then when she was seen in the ED. She claims to have limited ROM due to pain. She states she has tingling in the right hand. She went a trip to [place] that affected her getting treatment. She states her PCP is going to send her for a bone density test due to this not being the first fracture she has had with no injury. The patient will be referred to work with physical therapy to work on ROM. Follow up will be in 4-6 weeks, or sooner if needed. Of note: With the patient in the room, although she declined any ability to move her right elbow past 90 degrees, she is able to slightly perform flexion and extension when not prompted to perform ROM exercises. X-rays of the right elbow which were obtained while in the office today and were reviewed by me, Carlie Cormier PA-C, revealed evidence of osteoarthritis of the left elbow. Questionable history of radial head fracture of undeterminable age. X-rays of the right elbow, obtained on 09/16/2022, revealed: Degenerative changes are present in the right elbow. There is an acute fracture of the radial head with impaction. There is a bone fragment anterior to the distal humerus likely representing an avulsion fracture. No dislocation. A large joint effusion is not seen. Orders: Orders XR elbow RT min 3V Today M25.529 - Pain in unspecified elbow PT Evaluation and Treatment Today S52.121A - Displaced fracture of head of right radius, initial encounter for closed fracture Patient Instructions: Scribed for Carlie Cormier PA-C by Aleta Liao biomedical engineering supervisor, on 11/05/2022 at 2:43 pm, EST. Coding Level of Care Code New Pt Level 4 (20780) Diagnoses Osteoarthritis of right elbow M19.021
== END 2022-11-05 15:24 | disposition home or self-care (01) ==
PROVIDERS: PCP Internal Medicine; Visit Provider Physician Assistant
DX: M19.021 Primary osteoarthritis, right elbow (principal)
CPT/HCPCS: 99214

== ENCOUNTER → 2022-11-17 13:00 | Outpatient (BNV) | payer OTHER, SELFPAY | PROVIDERS: PCP Internal Medicine; Visit Provider Radiology Diagnostic Radiology | DX: N64.52 Nipple discharge (principal) | CPT/HCPCS: 76642; 77066 ==

== ENCOUNTER 2022-11-17 13:19 | Outpatient (REF) | payer OTHER, SELFPAY ==
--- NOTE | ~2022-11-17 | US_ITS ---
EXAMINATION: MM DIAGNOSTIC DIGITAL BREAST TOMOSYNTHESIS, BILATERAL US BREAST LIMITED, BILATERAL MAMMOGRAPHY: CLINICAL INFORMATION: 36-year-old female complaining of right nipple discharge, clear and sometimes bloody. COMPARISON: Mammography: No priors available. Baseline exam. TECHNIQUE: Digital breast tomosynthesis is performed in both the craniocaudal and mediolateral oblique views along with computer-aided detection (CAD). Synthesized 2D images are generated from the tomosynthesis. In addition, 3-D spot compression right MLO and CC views were performed. FINDINGS: There are scattered areas of fibroglandular density (ACR BI-RADS breast composition Category b). Within the left breast, approximately 12:00 axis, there is an oval circumscribed isodense mass measuring 6 mm in diameter. This will be evaluated by ultrasound. There is otherwise no additional abnormality in the left breast. Within the right breast, there is a suggestion of retroareolar ectatic ducts. Otherwise, there are no suspicious masses, suspicious grouped calcifications, or areas of architectural distortion. ULTRASOUND: CLINICAL INFORMATION: 36-year-old female complaining of right nipple discharge, clear and sometimes bloody. COMPARISON: None TECHNIQUE: Targeted sonographic evaluation of the right breast retroareolar region, and left breast 12:00 axis was performed using a high frequency linear transducer. Selected archived documentation. FINDINGS: RIGHT BREAST: There is a mixture of fatty and fibroglandular tissue. No suspicious mass is seen. There is no pathologic acoustic shadowing. There are mildly ectatic ducts in the retroareolar region. No intraductal mass is evident. LEFT BREAST: In the 12:00 axis of the left breast, there is a circumscribed, oval mass with good through transmission, no internal color Doppler signal, measuring 7 x 5 x 8 mm. This is most consistent with a small fibroadenoma. It is probably benign, and 6 month interval follow-up left breast ultrasound recommended to ensure stability. US/US breast BI limited mamm only IMPRESSION: 1. No suspicious abnormalities in the right breast. There is mild duct ectasia in the right retroareolar region. No intraductal mass is identified. Recommend clinical management for the complaint of nipple discharge. 2. Oval mass measuring 8 mm in the left breast at the 12:00 axis, middle one third, most consistent with a small fibroadenoma. Finding is probably benign, and 6 month interval follow-up left breast targeted ultrasound recommended to ensure stability. OVERALL ASSESSMENT: Mammography: BI-RADS 2. Clinical management advised. Ultrasound: BI-RADS 3 - Probably benign finding(s) - 6 month follow-up suggested RECOMMENDATION: 6 Month F/U Results were provided to the patient at time of visit by the technologist. This patient's information was entered into a reminder system with a target due date for their next mammogram.
== END 2022-11-17 13:20 | disposition home or self-care (01) ==
LOC: HO.MAMMO 13:19
PROVIDERS: PCP Internal Medicine; Visit Provider Internal Medicine
DX: N64.4 Mastodynia (principal)
CPT/HCPCS: 76642; 77062; 77066

== ENCOUNTER 2023-05-03 17:35 | Outpatient (AMB) | payer OTHER, SELFPAY ==
--- NOTE | 2023-05-03 16:49 | A.OFFPC_ITS ---
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: No Accompanied by: Self / Same As Patient Allergies latex [LATEX] Allergy (Intermediate, Verified 05/03/23 16:50) RASH Chocolate Allergy (Unknown, Verified 05/03/23 16:50) Hives egg [EGGS] Allergy (Unknown, Verified 05/03/23 16:50) SWELLING kiwi [KIWI] Allergy (Unknown, Verified 05/03/23 16:50) SWELLING peanut [PEANUTS] Allergy (Unknown, Verified 05/03/23 16:50) SWELLING pineapple [PINEAPPLE] Allergy (Unknown, Verified 05/03/23 16:50) SWELLING animal dander Allergy (Verified 05/03/23 16:50) Rash Sulfa (Sulfonamide Antibiotics) Allergy (Verified 05/03/23 16:50) Rash ENVIROMENTAL Allergy (Intermediate, Uncoded 05/03/23 16:50) HAYFEVER SHELLFISH Allergy (Intermediate, Uncoded 05/03/23 16:50) RASH Medication List - Last Reconciled 05/03/23 by Lawrence Garcia MD albuterol sulfate 90 mcg/actuation (Ventolin HFA) 2 puffs PO Q4H PRN amitriptyline 25 mg PO BEDTIME 30 days [BACK BRACE As directed] clonazepam 0.5 mg (1/2 x 1 mg) PO BID PRN 30 days cyclobenzaprine 5 mg PO TID PRN 30 days gabapentin 800 mg PO TID 30 days ketoconazole 2% 1 appl topical 2XW lidocaine 5% 1 patch topical DAILY meloxicam 15 mg PO DAILY 15 days miscellaneous medical supply disposable bed pads - 4x daily miscellaneous miscellaneous medical supply wipes- 4x daily polyethylene glycol 3350 grams PO sertraline 50 mg PO DAILY tramadol 50 mg PO BID PRN 30 days triamcinolone acetonide 0.5% 1 appl topical BID 14 days valacyclovir 1,000 mg PO TID 7 days Tobacco use date assessed: 05/03/23 Dental Screening Dental Screen Date: 05/03/23 Did you have a dental visit in the last 12 months?: Yes Did you have a dental problem in the last 6 months where you did not have access to dental care?: No Was dental information given to patient?: Patient has dentist HPI 3 month f/u ( medications ) HPI Details [age] Year old overweight female with a history of right radial head fracture asthma coming in for follow-up through Telehealth last seen in September 2022. Patient has declined colonoscopy and up-to-date with mammogram. Review of the notes in October patient was seen by orthopedics. X-ray of the right elbow done showing moderate to severe osteoarthritis ulna and humerus findings suggest healing of the previously seen radial head fracture patient was sent for physical therapy. Bone density requested not done. PAtient feels elbow is not healed right and has a schedule with ortho May 07, 2022 patient continues to have pain on the right elbow and so asking for JEFFERY for help at home. Discussed about anxiety and patient is asking for counseling. [facility] Medical History Aortic valve insufficiency Asthma Breast discharge Carpal tunnel syndrome Chronic pain syndrome Cognitive impairment Colonoscopy refused Depression Fracture of fifth toe, right, closed Generalized anxiety disorder Hx LEEP (loop electrosurgical excision procedure), cervix, Hypercholesterolemia Knee osteoarthritis Mammogram declined Migraine Mild obstructive sleep apnea Mixed urge and stress incontinence Osteoarthritis of hips, bilateral Osteoarthritis of knees, bilateral Overweight (BMI 25.0-29.9) Panic attack Pulmonary hypertension Restless leg syndrome Right renal stone Sacroiliac joint dysfunction Sacroiliac joint dysfunction of left side Takotsubo cardiomyopathy Vaginal cysts Surgical History H/O LEEP History of History of carpal tunnel surgery of left wrist H/O knee surgery Family History Father Hypertension Diabetes Prostate cancer CVD (cardiovascular disease) Mother Hypertension Diabetes Uterine cancer Maternal Grandmother Lung cancer Social History Housing: Apartment Alcohol intake: never Patient Tobacco Use Status: Former Tobacco user Tobacco use type: Cigarette e-Cigarette/Vaping Use: Never Used Second Hand Smoke Exposure: Yes Substance Use Type: Crack/Cocaine and Marijuana service: No Current occupational status: disabled Current occupation: left hand Cognitive needs: No Hearing needs: No Vision needs: Yes (glasses) Questionnaire PHQ-9 Over the last 2 weeks, how often have you been bothered by any of the following problems? 1. Little interest or pleasure in doing things: nearly every day 2. Feeling down, depressed, or hopeless: nearly every day 3. Trouble falling or staying asleep, or sleeping too much: nearly every day 4. Feeling tired or having little energy: nearly every day 5. Poor appetite or overeating: nearly every day 6. Feeling bad about yourself - or that you are a failure or have let yourself or your family down: not at all 7. Trouble concentrating on things, such as reading the newspaper or watching television: not at all 8. Moving or speaking so slowly that other people could have noticed. Or the opposite - being so fidgety or restless that you have been moving around a lot more than usual: not at all 9. Thoughts that you would be better off or of hurting yourself in some w ay: not at all Total score: 15 Depression Screening Interpretation: Negative Depression Screening Done: Yes Source: Developed by Drs. Turner Burt, Alina Bailey, Tiumr Pineda and colleagues, with an educational iliana from [employer]. Thrive Questionnaire Date Thrive assessed: 05/03/23 I am a: Patient What is your living situation today?: I have a steady place to live Within the past 12 months, did the food you bought not last and you didn't have the money to get more?: Never true Within the past 12 months, did you worry whether your food would run out before you got money to buy more?: Never true Do you have trouble paying for medicines?: No Do you have trouble getting transportation to medical appointments?: No Do you have trouble paying your heating and electricity bill?: No Do you have trouble taking care of your child, family member or friend?: No Do you have trouble with day-to-day activities such as bathing, preparing meals, shopping, managing finances, etc.?: No Are you currently unemployed and looking for a job?: No Are you interested in more education?: No Please select the resources that you would like help with: None THRIVE Score: 0 AUDIT C Alcohol Use Questionnaire (AUDIT-C) 1. How often do you have a drink containing alcohol?: Never 2. How many drinks containing alcohol do you have on a typical day when you are drinking?: 1 or 2 (0) 3. How often do you have six or more drinks on one occasion?: Never Total Score: 0 Score Reviewed/Action Taken: No JANA-7 AMB Questionnaire JANA-7 Date JANA - 7 assessed: 05/03/23 Feeling nervous, anxious, or on edge: 3 = Nearly every day Not being able to stop or control worryin = Nearly every day Worrying too much about different things: 3 = Nearly every day Trouble relaxin = Nearly every day Being so restless that it is hard to sit still: 2 = More than half the days Becoming easily annoyed or irritable: 1 = Several days Feeling afraid as if something awful might happen: 1 = Several days Total JANA-7 score (0-4 normal; 5-9 mild; 10-14 moderate; 15-21 severe): 16 Source: Developed by Drs. Turner Burt, Alina Bailey, Timur Pineda and colleagues, with an educational iliana from [employer]. Physical exam (Primary Care) Tobacco/Smoking Status: Tobacco use Status Tobacco use date assessed 05/03/23 05/03/23 16:51 Patient Tobacco Use Status Former Tobacco user 05/03/23 16:51 Tobacco use type Cigarette 05/03/23 16:51 e-Cigarette/Vaping Use Never Used 05/03/23 16:51 PHQ-9: PHQ-9 Score PHQ-9: Total score 15 05/03/23 17:39 Depression Screening Interpretation: Negative Thrive Assessment: Date of Thrive Assessment Date Thrive assessed 05/03/23 05/03/23 16:51 Telehealth Telehealth Location of provider rendering services: practice address Location of patient: address on file Patient Identification confirmed using: Name, : Yes Telehealth method: voice only Patient verbally consented to treatment: Yes Patient verbally consented to billing insurance company: Yes Patient informed of any privacy concerns related to visit: Yes Minutes spent on Phone/Video with Pt.: 25 Assessment and Plan Assessment & Plan (1) Osteoarthritis of right elbow: Code(s): M19.021 - Primary osteoarthritis, right elbow Plan: Discussed about keeping active (2) Right radial head fracture: Comment: August 2022Radial head fracture and distal humeral avulsion fracture as described above. Code(s): S52.121A - Displaced fracture of head of right radius, initial encounter for closed fracture Plan: Patient has seen ortho in October x-ray the show healing. But patient continues to have some problems on that right elbow and so will be seeing ortho next week. (3) Hypercholesterolemia: Code(s): E78.00 - Pure hypercholesterolemia, unspecified Plan: Avoid fried foods, chicken skin, eggs, butter margarine, pastries and meat. Be it pork or beef they have a lot of cholesterol LDL goal of less than 130 and triglyceride of less than 150 patient needs to have blood work done (4) Generalized anxiety disorder: Code(s): F41.1 - Generalized anxiety disorder Plan: Continue with therapy but will do referral for counseling (5) Seborrhea capitis: Code(s): L21.0 - Seborrhea capitis Plan: Discussed with the patient that it is hard with usnot examining through Telehealth but will send in for ketoconazole shampoo. Orders: Orders XR DEXA axial skeleton Today M81.0 - Age-related osteoporosis without current pathological fracture, S52.121A - Displaced fracture of head of right radius, initial encounter for closed fracture Complete Blood Count Auto Diff Today E78.00 - Pure hypercholesterolemia, unspecified Comprehensive Met. Panel Today E78.00 - Pure hypercholesterolemia, unspecified Vitamin D 25-OH Total Today E78.00 - Pure hypercholesterolemia, unspecified Free T4 (Free Thyroxine) Today E78.00 - Pure hypercholesterolemia, unspecified Lipid Panel Today E78.00 - Pure hypercholesterolemia, unspecified Thyroid Stimulating Hormone Today E78.00 - Pure hypercholesterolemia, unspecified Vitamin B12 and Folate Today E78.00 - Pure hypercholesterolemia, unspecified Referrals Psychiatry Referral F41.1 - Generalized anxiety disorder Medications: New ketoconazole 2% 1 appl topical 2XW 120 mL 0RF L21.0 - Seborrhea capitis Coding Level of Care Code Tele Est Pt Level 4 (77752) Diagnoses Osteoarthritis of right elbow M19.021 Right radial head fracture S52.121A Hypercholesterolemia E78.00 Generalized anxiety disorder F41.1 Seborrhea capitis L21.0 Additional Codes PHQ-9 - 57524 - PHQ-9 Billing: ([id number])
== END 2023-05-03 18:14 | disposition home or self-care (01) ==
LOC: HO.HMGH 17:36
PROVIDERS: PCP Internal Medicine; Visit Provider Internal Medicine
DX: M19.021 Primary osteoarthritis, right elbow (principal); S52.121A Displaced fracture of head of right radius, initial encounter for closed fracture; E78.00 Pure hypercholesterolemia, unspecified; F41.1 Generalized anxiety disorder; L21.0 Seborrhea capitis
CPT/HCPCS: 99213

== ENCOUNTER 2023-05-07 12:37 | Outpatient (REF) | payer OTHER, SELFPAY | END 2023-05-07 12:38 | disposition home or self-care (01) | LOC: HO.HOSX 12:37 | PROVIDERS: Visit Provider Physician Assistant | DX: Z13.89 Encounter for screening for other disorder (principal) ==

== ENCOUNTER 2023-06-08 13:56 | Outpatient (REF) | payer OTHER, SELFPAY ==
--- NOTE | ~2023-06-08 | US_ITS ---
EXAMINATION: MM DIAGNOSTIC DIGITAL BREAST TOMOSYNTHESIS, RIGHT US BREAST LIMITED, BILATERAL MAMMOGRAPHY: CLINICAL INFORMATION: -Palpable foci at 9:00 and 11:00 right breast as per patient. -6 month ultrasound follow-up probably benign left breast mass 12:00 axis. COMPARISON: Mammography: 06/08/2023, 11/17/2022, TECHNIQUE: Digital breast tomosynthesis is performed in both the craniocaudal and mediolateral oblique views along with computer-aided detection (CAD). Synthesized 2D images are generated from the tomosynthesis. In addition, a full-field 3-D right mediolateral view was also obtained. This was followed by targeted bilateral breast ultrasound. FINDINGS: There are scattered areas of fibroglandular density (ACR BI-RADS breast composition Category b). There are no suspicious masses, suspicious grouped calcifications, or areas of architectural distortion in the right breast. The parenchymal pattern is stable from prior exams. No mammographic correlate to the 9:00 and 11:00 palpable foci as marked by the technologist is present. ULTRASOUND: CLINICAL INFORMATION: Palpable foci 9:00 and 11:00 axes right breast. Follow-up left breast probably benign oval mass 12:00 axis. COMPARISON: 11/17/2022. TECHNIQUE: Targeted sonographic evaluation was performed using a high frequency linear transducer. Attention in the left breast was given to the 12:00 axis. Attention the right breast was given to the 8:00-1:00 axes to include the palpable foci of concern. Selected archived documentation. FINDINGS: LEFT BREAST: There is no evidence of mass, cystic abnormality, pathologic acoustic shadowing, or edema within the soft tissue planes. Mild duct ectasia noted in the retroareolar region. No sonographic abnormality or correlate is present to the 9:00, or 11:00 foci of palpable concern. Only normal breast tissue is evident. RIGHT BREAST: At the 12:00 axis, 5 cm from the nipple, there is a stable and unchanged oval mildly hypoechoic circumscribed mass with good through transmission, and minimal internal color Doppler flow, measuring 7 x 5 x 8 mm, completely unchanged when compared with 11/17/2022. This is most consistent with a benign fibroadenoma or variant. Recommend six-month interval follow-up targeted left breast ultrasound to ensure stability over one year. US/US breast BI limited mamm only IMPRESSION: There are no findings suspicious for malignancy in the RIGHT OR LEFT breast. There is no mammographic or sonographic correlate to the palpable foci of concern in the RIGHT breast 9:00 and 11:00 axes. Recommend clinical management. Otherwise, recommend RIGHT breast routine yearly screening. 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 Recommend six-month interval follow-up targeted LEFT breast ultrasound to ensure one-year stability. OVERALL ASSESSMENT: Mammography: BI-RADS 3 - Probably benign finding(s) - 6 month follow-up suggested Ultrasound: BI-RADS 3 - Probably benign finding(s) - 6 month follow-up suggested RECOMMENDATION: 6 Month F/U This patient's information was entered into a reminder system with a target due date for their next mammogram.
--- NOTE | ~2023-06-08 | MM_ITS ---
EXAMINATION: BONE DENSITOMETRY CLINICAL INDICATION: Age-related osteoporosis without current pathological fracture. COMPARISON: This is the patient's baseline examination. TECHNIQUE: Using a [employer] DXA System (software version: 13.1) manufactured by [employer], dual-energy x-ray absorptiometry was performed of the lumbar spine and left hip. The images are of good technical quality. Summary results are attached. FINDINGS: LEFT FEMUR, NECK: BMD 0.825 g/cm2, Z-score -0.3, T-score -1.5, osteopenia. LEFT FEMUR, TOTAL: BMD 0.918 g/cm2, Z-score 0.2, T-score -0.7, normal. AP SPINE L1-L4: BMD 1.117 g/cm2, Z-score 0.7, T-score -0.5, normal. IDENTIFIED RISK FACTORS: Low calcium intake, parental hip fracture, height loss, recurrent falls, osteoporosis, history of fracture (adult), anticonvulsants, menopause. HISTORY OF FRACTURE: Forearm. Other. MEDICATIONS: None listed. MM/XR DEXA axial skeleton IMPRESSION: 1. DIAGNOSIS: Osteopenia based on the lowest T-score value of -1.5 in the femoral neck applying World Health Organization criteria. 2. 10-YEAR FRACTURE RISK PREDICTION, FRAX: Major osteoporotic fracture (clinical spine, forearm, hip or shoulder) 14.0%. Hip fracture 0.7%. 3. Treatment Recommendations: NOF guidelines recommend consideration for treatment in postmenopausal women and men age 50 and older presenting with the following: -A hip or vertebral (clinical or morphometric) fracture. -T-score less than or equal to -2.5 at the femoral neck or spine after appropriate evaluation to exclude secondary causes. -Low bone mass at the hip or spine and a 10-year fracture probability by FRAX of greater than or equal to 3% for hip fracture or greater than or equal to 20% for major osteoporotic fracture based on the [place] adapted WHO algorithm. 4. Other Recommendations: All treatment decisions require clinical judgment and consideration of individual patient factors, including patient preferences, comorbidities, previous drug use, risk factors not captured in the FRAX model (e.g. frailty, falls, vitamin D deficiency, increased bone turnover, interval significant decline in bone density) and possible under or overestimation of fracture risk by FRAX. Additional medical evaluation for secondary cause of low bone mineral density may be appropriate. FUTURE SCAN RECOMMENDATION: People with diagnosed cases of osteoporosis or at high risk for fracture should have regular bone mineral density tests. For patients eligible for Medicare, routine testing is allowed once every 2 years. The testing frequency can be increased to one year for patients who have rapidly progressing disease, those who are receiving or discontinuing medical therapy to restore bone mass, or have additional risk factors.
== END 2023-06-08 13:57 | disposition home or self-care (01) ==
LOC: HO.MAMMO 13:56
PROVIDERS: PCP Internal Medicine; Visit Provider Internal Medicine
DX: Z13.820 Encounter for screening for osteoporosis (principal); M81.0 Age-related osteoporosis without current pathological fracture; S52.121A Displaced fracture of head of right radius, initial encounter for closed fracture; R92.2 Inconclusive mammogram
CPT/HCPCS: 76642; 77061; 77065; 77080

== ENCOUNTER → 2023-06-08 14:00 | Outpatient (BNV) | payer OTHER, SELFPAY | PROVIDERS: PCP Internal Medicine; Visit Provider Radiology Diagnostic Radiology | DX: N63.11 Unspecified lump in the right breast, upper outer quadrant (principal); N63.15 Unspecified lump in the right breast, overlapping quadrants; N63.25 Unspecified lump in the left breast, overlapping quadrants | CPT/HCPCS: 76642; 77061; 77065 ==

== ENCOUNTER 2023-09-26 05:07 | Emergency (ER) | payer OTHER, SELFPAY ==
[2023-09-26 05:16] VITALS: BP 118/80; PULSE 96; O2SAT 96
--- NOTE | 2023-09-26 05:16 | MHC.EDTECH ---
pt biba from home. pt vital signs taken and placed on instrumentation chemist. pt covering eyes complaining of light sensitivity. pt not changed over due to EMS cervical collar.
--- NOTE | 2023-09-26 05:19 | ED.FALL ---
HPI - Fall General Chief Complaint: Fall Stated Complaint: FALL Time Seen by Provider: 09/26/23 05:18 Source: patient Mode of arrival: ambulatory Limitations: no limitations History of Present Illness ED Provider: lizzy CONTI Narrative: Patient apparently was standing on her bed tried to close the window lost balance and fell backwards hitting her head neck knee and the back was able to ambulate no loss of conscious fell days came by EMS Related Data Home Medications ?Medication ?Instructions ?Recorded ?Confirmed polyethylene glycol 3350 17 g PO 02/12/20 05/03/23 gram/dose oral powder Previous Rx's ?Medication ?Instructions ?Recorded miscellaneous medical supply See Rx Instructions miscellaneous 06/24/20 .COMPLEX PRN Urge Incontinence #4 ea miscellaneous medical supply See Rx Instructions miscellaneous 06/24/20 .COMPLEX PRN Urge Incontinence #140 ea cyclobenzaprine 5 mg tablet 5 mg PO TID PRN muscle spasm 30 04/28/21 days #60 tabs triamcinolone acetonide 0.5 % 1 appl topical BID 14 days #15 01/13/22 topical cream grams valacyclovir 1 gram tablet 1,000 mg PO TID 7 days #21 tabs 04/16/22 BACK BRACE #1 ea 04/30/22 albuterol sulfate 90 mcg/actuation 2 puff PO Q4H PRN for wheezing #18 11/10/22 aerosol inhaler (Ventolin HFA) ea tramadol 50 mg tablet 50 mg PO BID PRN pain 30 days #60 12/11/22 tabs amitriptyline 25 mg tablet 25 mg PO BEDTIME 30 days #90 tabs 01/28/23 ketoconazole 2 % shampoo 1 appl topical 2XW #120 mL 07/25/23 lidocaine 5 % topical patch 1 patch topical DAILY #30 ea 08/09/23 gabapentin 800 mg tablet 800 mg PO TID 30 days #90 tabs 08/11/23 sertraline 50 mg tablet 50 mg PO DAILY #90 tabs 08/11/23 meloxicam 15 mg tablet 15 mg PO DAILY 15 days #15 tabs 08/30/23 clonazepam 1 mg tablet 0.5 mg (1/2 x 1 mg) PO BID PRN 09/15/23 anxiety 30 days #30 tabs Allergies Allergy/AdvReac Type Severity Reaction Status Date / Time latex [LATEX] Allergy Intermediate RASH Verified 09/26/23 05:29 Chocolate Allergy Unknown Hives Verified 09/26/23 05:29 egg [EGGS] Allergy Unknown SWELLING Verified 09/26/23 05:29 kiwi [KIWI] Allergy Unknown SWELLING Verified 09/26/23 05:29 peanut [PEANUTS] Allergy Unknown SWELLING Verified 09/26/23 05:29 pineapple [PINEAPPLE] Allergy Unknown SWELLING Verified 09/26/23 05:29 animal dander Allergy Rash Verified 09/26/23 05:29 Sulfa (Sulfonamide Allergy Rash Verified 09/26/23 05:29 Antibiotics) ENVIROMENTAL Allergy Intermediate HAYFEVER Uncoded 09/26/23 05:29 SHELLFISH Allergy Intermediate RASH Uncoded 09/26/23 05:29 Review of Systems Review of Systems: Yes all other systems are reviewed and are negative PMFSH Past Medical History Medical History Breast discharge Chronic pain syndrome Sacroiliac joint dysfunction of left side Sacroiliac joint dysfunction Osteoarthritis of hips, bilateral Osteoarthritis of knees, bilateral Generalized anxiety disorder Panic attack Depression Vaginal cysts Hx LEEP (loop electrosurgical excision procedure), cervix, Fracture of fifth toe, right, closed Colonoscopy refused Mammogram declined Right renal stone Mild obstructive sleep apnea Carpal tunnel syndrome Restless leg syndrome Aortic valve insufficiency Knee osteoarthritis Mixed urge and stress incontinence Cognitive impairment Overweight (BMI 25.0-29.9) Takotsubo cardiomyopathy Asthma Hypercholesterolemia Pulmonary hypertension Migraine Surgical History H/O LEEP History of History of carpal tunnel surgery of left wrist H/O knee surgery Family History Family History Father Hypertension Diabetes Prostate cancer CVD (cardiovascular disease) Mother Hypertension Diabetes Uterine cancer Maternal Grandmother Lung cancer Social History Social History Housing: Apartment Alcohol intake: never Patient Tobacco Use Status: Former Tobacco user Tobacco use type: Cigarette Smoked in Last 30 Days: No e-Cigarette/Vaping Use: Never Used Second Hand Smoke Exposure: Yes Substance Use Type: Crack/Cocaine and Marijuana Advance Directives: No Advance Directives Information Provided: No service: No Current occupational status: disabled Current occupation: left hand Cognitive needs: No Hearing needs: No Vision needs: Yes (glasses) Physical Exam Vital Signs: Vital Signs: Last Vital Signs Temp 97.7 F 09/26/23 06:18 Pulse 81 09/26/23 06:18 Resp 15 09/26/23 06:18 BP 95/53 L 09/26/23 06:18 Pulse Ox 97 09/26/23 06:18 O2 Del Method Room Air 09/26/23 06:18 BMI result Body Mass Index 25.7 Appearance: Alert. Oriented X3. No acute distress. Eyes: PERRLA, No Nystagmus ENT: Pharynx normal. Oral Mucosa moist atraumatic normocephalic Neck: Normal inspection. Neck supple. No midline tenderness CVS: Normal heart rate and rhythm. Pulses normal. Respiratory: No respiratory distress. Equal air entry bilateral, no wheezing/rales/rhonchi Abdomen: Soft and nontender. Bowel sounds are present, no mass palpable, no CVA tenderness Skin: Skin warm and dry. Normal skin color. Normal skin turgor. Pelvis stable Extremities: No lower extremity edema. No calf tenderness diffuse tenderness right knee no deformity no effusion Neuro: Oriented X 3. No motor deficit. No sensory deficit.No cerebellar signs , cranial nerves II-XII intact Medications Administered Discontinued Medications Generic Name Dose Route Start Last Admin Trade Name Freq PRN Reason Stop Dose Admin Ketorolac Tromethamine 60 mg 09/26/23 05:26 09/26/23 05:36 Ketorolac Tromethamine 60 Mg/2 Ml Vial IM 09/26/23 05:27 60 mg ONCE ONE Administration Oxycodone HCl 5 mg 09/26/23 05:26 09/26/23 05:36 Oxycodone Hcl Immed Release 5 Mg Tablet PO 09/26/23 05:27 5 mg ONCE ONE Administration Medical Decision Making Medical Decision Making [facility] Narrative: Patient is status post minor fall no significant injury noticed patient ambulatory in steady gait will discharge patient home take her medication as prescribed Discharge Plan Discharge Clinical Impression: Fall Patient Disposition: Home, Self-Care Instructions: Fall Prevention (ED) Additional Instructions: Take pain medication as prescribed by your PCP Apply ice pack to painful area Prescriptions: No Action miscellaneous medical supply Misc See Rx Instructions miscellaneous .COMPLEX PRN (Reason: Urge Incontinence) Qty: 140 11RF Rx Instructions: disposable bed pads - 4x daily miscellaneous miscellaneous medical supply Misc See Rx Instructions miscellaneous .COMPLEX PRN (Reason: Urge Incontinence ) Qty: 4 11RF Rx Instructions: wipes- 4x daily cyclobenzaprine 5 mg tablet 5 mg PO TID PRN (Reason: muscle spasm) 30 Days Qty: 60 0RF (DME) BACK BRACE See Rx Instructions .Route .MEDSUPPLY Qty: 1 0RF Rx Instructions: As directed albuterol sulfate [Ventolin HFA] 90 mcg/actuation HFA aerosol inhaler 2 puff PO Q4H PRN (Reason: for wheezing) Qty: 18 0RF tramadol 50 mg tablet 50 mg PO BID PRN (Reason: pain) 30 Days Qty: 60 0RF amitriptyline 25 mg tablet 25 mg PO BEDTIME 30 Days Qty: 90 2RF ketoconazole 2 % shampoo 1 appl topical 2XW Qty: 120 0RF lidocaine 5 % adhesive patch,medicated 1 patch topical DAILY Qty: 30 0RF Rx Instructions: leave on most painful area for up to 12 hrs gabapentin 800 mg tablet 800 mg PO TID 30 Days Qty: 90 0RF sertraline 50 mg tablet 50 mg PO DAILY Qty: 90 0RF Rx Instructions: anxiety meloxicam 15 mg tablet 15 mg PO DAILY 15 Days Qty: 15 0RF clonazepam 1 mg tablet 0.5 mg PO BID PRN (Reason: anxiety) 30 Days Qty: 30 0RF polyethylene glycol 3350 17 gram/dose powder PO valacyclovir 1 gram tablet 1,000 mg PO TID 7 Days Qty: 21 0RF triamcinolone acetonide 0.5 % cream 1 appl topical BID 14 Days Qty: 15 0RF Interventions: ED Discharge Assessment Last Done: 09/26/23 06:18 Discharge Date/Time: 09/26/23 06:19 Print Language: Sinhala
[2023-09-26 05:26] VITALS: BP 128/64; PULSE 90; RESP 16; TEMP 36.8; O2SAT 97; BMI 25.7
[2023-09-26] MEDS: oxyCODONE HCl Immed Release 5 MG TABLET PO (05:36)
[2023-09-26] MEDS: Ketorolac Tromethamine 60 MG/2 ML VIAL IM (05:36)
[2023-09-26 06:13] VITALS: BP 95/53; PULSE 81; RESP 15; TEMP 36.5; O2SAT 97
[2023-09-26 06:18] VITALS: BP 95/53; PULSE 81; RESP 15; TEMP 36.5; O2SAT 97
== END 2023-09-26 06:19 | disposition home or self-care (01) ==
PROVIDERS: Emergency Provider Internal Medicine; PCP Internal Medicine
DX: S09.90XA Unspecified injury of head, initial encounter (principal); S39.92XA Unspecified injury of lower back, initial encounter; W06.XXXA Fall from bed, initial encounter; Y93.9 Activity, unspecified; Y92.003 Bedroom of unspecified non-institutional (private) residence as the place of occurrence of the external cause; Y99.8 Other external cause status; Z79.899 Other long term (current) drug therapy
CPT/HCPCS: 96372; 99284; J1885

== ENCOUNTER 2023-10-12 10:02 | Outpatient (AMB) | payer OTHER, SELFPAY ==
[2023-10-12 10:05] VITALS: BP 96/68; PULSE 85; O2SAT 98; BMI 20.6
--- NOTE | 2023-10-12 10:05 | A.OFFPC_ITS ---
Vital Signs 10/12/23 10:05 Height 5 ft 4 in Weight 120 lb 0.4 oz BMI 20.6 BP 96/68 Blood Pressure Location Lt brachial Position Sitting Pulse 85 Pulse Source Pulse Oximeter Pulse Oximetry (%) 98 Oxygen Delivery Method Room Air Intake Visit Re[place] [facility] [place] Follow Up Intake Note: Patient is here to follow-up after a visit the emergency department [place] [facility] [place] Counselor Required: No Allergies latex [LATEX] Allergy (Intermediate, Verified 10/12/23 10:06) RASH Chocolate Allergy (Unknown, Verified 10/12/23 10:06) Hives egg [EGGS] Allergy (Unknown, Verified 10/12/23 10:06) SWELLING kiwi [KIWI] Allergy (Unknown, Verified 10/12/23 10:06) SWELLING peanut [PEANUTS] Allergy (Unknown, Verified 10/12/23 10:06) SWELLING pineapple [PINEAPPLE] Allergy (Unknown, Verified 10/12/23 10:06) SWELLING animal dander Allergy (Verified 10/12/23 10:06) Rash Sulfa (Sulfonamide Antibiotics) Allergy (Verified 10/12/23 10:06) Rash ENVIROMENTAL Allergy (Intermediate, Uncoded 10/12/23 10:06) HAYFEVER SHELLFISH Allergy (Intermediate, Uncoded 10/12/23 10:06) RASH Medication List - Last Reconciled 10/12/23 by Brittany Cortez PA-C albuterol sulfate 90 mcg/actuation (Ventolin HFA) 2 puffs PO Q4H PRN amitriptyline 25 mg PO BEDTIME 30 days [BACK BRACE As directed] clonazepam 0.5 mg (1/2 x 1 mg) PO BID PRN 30 days cyclobenzaprine 5 mg PO TID PRN 30 days gabapentin 800 mg PO TID 30 days ketoconazole 2% 1 appl topical 2XW lidocaine 5% 1 patch topical DAILY meloxicam 15 mg PO DAILY 15 days miscellaneous medical supply disposable bed pads - 4x daily miscellaneous miscellaneous medical supply wipes- 4x daily polyethylene glycol 3350 grams PO sertraline 50 mg PO DAILY tramadol 50 mg PO BID PRN 30 days triamcinolone acetonide 0.5% 1 appl topical BID 14 days valacyclovir 1,000 mg PO TID 7 days Tobacco use date assessed: 05/03/23 Dental Screening Dental Screen Date: 05/03/23 [facility] ED Follow Up HPI Details 57-year-old female with past medical his tory of hypercholesterolemia, asthma, generalized anxiety disorder, and chronic pain syndrome last seen by Dr. Garcia 05/03/2023 coming in for ED follow-up.?Patient was seen in the ED 09/26/2023 for a fall. Patient had been standing on her bed closing a window when she lost balance and fell backwards hitting her head and neck without loss of consciousness.?Patient was considered stable and discharged home.?Patient completed mammogram 06/08/2023 BI-RADS 3, follow up in 6 months. She also completed a bone density scan 06/10/2023 with diagnosis of osteopenia. Patient states when she was in the ER she had no imaging done. She complained of elbow, back, knee, and head pain. She is still having continued pain primarily in the right elbow which she has previously broken. She is also having continued back pain and mild head pain. She also mentions she has been having issues with her vision and has seen the eye doctor and given a prescription for glasses and is waiting for her prescription to come in. She states since the accident her vision has become slightly worse but is still clear. She also mentioned she often hears bubbling in her ears and endorses seasonal allergies. [facility] Medical History Breast discharge Chronic pain syndrome Sacroiliac joint dysfunction of left side Sacroiliac joint dysfunction Osteoarthritis of hips, bilateral Osteoarthritis of knees, bilateral Generalized anxiety disorder Panic attack Depression Vaginal cysts Hx LEEP (loop electrosurgical excision procedure), cervix, Fracture of fifth toe, right, closed Colonoscopy refused Mammogram declined Right renal stone Mild obstructive sleep apnea Carpal tunnel syndrome Restless leg syndrome Aortic valve insufficiency Knee osteoarthritis Mixed urge and stress incontinence Cognitive impairment Overweight (BMI 25.0-29.9) Takotsubo cardiomyopathy Asthma Hypercholesterolemia Pulmonary hypertension Migraine Surgical History H/O LEEP History of History of carpal tunnel surgery of left wrist H/O knee surgery Family History Father Hypertension Diabetes Prostate cancer CVD (cardiovascular disease) Mother Hypertension Diabetes Uterine cancer Maternal Grandmother Lung cancer Social History Housing: Apartment Alcohol intake: never Patient Tobacco Use Status: Former Tobacco user Tobacco use type: Cigarette e-Cigarette/Vaping Use: Never Used Second Hand Smoke Exposure: Yes Substance Use Type: Crack/Cocaine and Marijuana service: No Current occupational status: disabled Current occupation: left hand Cognitive needs: No Hearing needs: No Vision needs: Yes (glasses) Questionnaire Thrive Questionnaire Date Thrive assessed: 05/03/23 AUDIT C Alcohol Use Questionnaire (AUDIT-C) 1. How often do you have a drink containing alcohol?: Never 2. How many drinks containing alcohol do you have on a typical day when you are drinking?: 1 or 2 (0) 3. How often do you have six or more drinks on one occasion?: Never Total Score: 0 Score Reviewed/Action Taken: No JANA-7 AMB Questionnaire JANA-7 Date JANA - 7 assessed: 05/03/23 Source: Developed by Drs. Turner Burt, Alina Bailey, Timur Pineda and colleagues, with an educational iliana from [employer]. Review of Systems Const Denies body aches, Denies chills, Denies fever(s), Denies headache(s), Denies poor appetite and Denies weakness Eyes Details: Occasional blurred or double vision awaiting prescription. Denies blind spots, Denies irritation and Denies eye pain ENT Details: occasional bubbling in bilateral ears Denies dysphagia, Denies dizziness, Denies headache(s) and Denies odynophagia Card Denies chest pain, Denies syncope, Denies edema, Denies irregular heart rhythm, Denies lightheadedness and Denies dyspnea Resp Denies cough and Denies dyspnea GI Denies abdominal pain, Denies constipation, Denies dysphagia, Denies diarrhea, Denies nausea, Denies odynophagia and Denies vomiting Reports no additional complaints Musc Details: Right elbow pain and stiffness, bilateral knee pain, back pain Denies abnormal gait and Denies numbness Skin/Breast Reports system reviewed and no additional complaints, except as documented Neuro Denies abnormal gait, Denies dizziness, Denies syncope, Denies headache(s), Denies numbness and Denies weakness Psych Reports no additional complaints Physical exam (Primary Care) Vital Signs: Last Vital Signs Pulse 85 10/12/23 10:05 BP 96/68 10/12/23 10:05 Pulse Ox 98 10/12/23 10:05 Oxygen Delivery Method Room Air 10/12/23 10:05 BMI result Body Mass Index 20.6 Tobacco/Smoking Status: Tobacco use Status Tobacco use date assessed 05/03/23 10/12/23 10:05 Patient Tobacco Use Status Former Tobacco user 10/12/23 10:05 Tobacco use type Cigarette 10/12/23 10:05 e-Cigarette/Vaping Use Never Used 10/12/23 10:05 Thrive Assessment: Date of Thrive Assessment Date Thrive assessed 05/03/23 10/12/23 10:05 Const General: cooperative, healthy appearing, comfortable and no acute distress Orientation/consciousness: patient oriented x3 HENMT Other: Back of the head is tenderness to palpation without visible bruising Head: Yes normocephalic Ears: hearing grossly normal bilaterally, TM's normal bilaterally and EAC's normal General nose exam: Normal external nose present Eyes General: appearance normal, both eyes and all related structures Conjunctivae: conjunctivae normal Pupils: Equal, round and reactive pupils present EOM: EOMs intact bilaterally Neck Neck: Yes full ROM and Yes no lymphadenopathy Resp Effort & Inspection: normal respiratory effort Auscultation: clear to auscultation bilaterally, no crackles, no rales, no rhonchi and no wheezes Cardio Rate: regular rate Rhythm: regular rhythm Back/Spine/Pelvis Other: tenderness to palpation over entire back without bruising Skin General skin exam: no rashes or lesions noted Neuro General: patient oriented x3 Cranial nerves: Yes Equal, round and reactive pupils present Gait exam (Neuro): Normal gait present Extrem Other: Right elbow pain and stiffness without bruising or swelling. Right elbow held in flexion with mild pain on extension and inability to lift the arm above the head. General: Yes normal to inspection, Yes full ROM and No edema Psych Affect: normal affect Attitude: cooperative Insight: Good insight present (Psych) Judgement: Good judgement present (Psych) Assessment and Plan Assessment & Plan (1) Elbow pain: Code(s): M25.529 - Pain in unspecified elbow Qualifiers: Laterality: right Qualified Code(s): M25.521 - Pain in right elbow Plan: Patient has history of right elbow fracture 08/15/2022 has been having continued pain since the initial injury. She states after her fall she is having increased pain with limited mobility. We will order for x-ray to evaluate for new fracture. Also recommend patient see physical therapy considering she did not see physical therapy after the initial fracture in 2022. (2) Back pain: Code(s): M54.9 - Dorsalgia, unspecified Qualifiers: Back pain laterality: bilateral Back pain location: back pain in unspecified location Chronicity: chronic Qualified Code(s): M54.9 - Dorsalgia, unspecified; G89.29 - Other chronic pain Plan: Patient has chronic back pain. She states after the fall the back pain became a cutely worse and has been having muscle pain along the spine as well as pain down the spine. Recommended physical therapy. Given muscle relaxer to be used at bedtime instructed patient not to drive on this medication as it can make her drowsy. Patient has deferred x-ray at this time. (3) Vision changes: Code(s): H53.9 - Unspecified visual disturbance Plan: Patient states she has been having mild blurred vision and intermittent double vision for some time now. Was recently seen by Ophthalmology and given prescription for glasses. She has ordered the glasses and is waiting for them to come in. Recommended patient not drive until vision changes have resolved and glasses have been obtained. Due to vision changes and continued head pain recommended a head CT which patient has declined at this time. (4) Crackling sound in both ears: Code(s): H93.8X3 - Other specified disorders of ear, bilateral Plan: Patient states she occasionally gets crackling or bubbling sound in both ears. She states she has seasonal allergies which have been bad this year. Advised patient to use Zyrtec for seasonal allergies and given prescription for Flonase. Plan Thank you for allowing me to participate in the care of this patient. I personally spent 45 minutes reviewing, examining and charting on this patient. 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
== END 2023-10-12 10:52 | disposition home or self-care (01) ==
PROVIDERS: PCP Internal Medicine
DX: M25.521 Pain in right elbow (principal); M54.9 Dorsalgia, unspecified; G89.29 Other chronic pain; H53.9 Unspecified visual disturbance; H93.8X3 Other specified disorders of ear, bilateral
CPT/HCPCS: 99215

== ENCOUNTER 2023-11-26 15:03 | Outpatient (AMB) | payer OTHER, SELFPAY ==
--- NOTE | 2023-11-26 15:03 | A.OFFPC_ITS ---
Vital Signs 11/26/23 15:04 Height 5 ft 4 in Weight 115 lb BMI 19.7 BP 134/68 Blood Pressure Location Rt brachial Position Sitting Pulse 104 H Pulse Source Pulse Oximeter Pulse Oximetry (%) 98 Oxygen Delivery Method Room Air Intake Visit Reasons: Bruising- Requesting Telehealth !!!!! Business Office Associate Required: No Allergies latex [LATEX] Allergy (Intermediate, Verified 11/26/23 15:04) RASH Chocolate Allergy (Unknown, Verified 11/26/23 15:04) Hives egg [EGGS] Allergy (Unknown, Verified 11/26/23 15:04) SWELLING kiwi [KIWI] Allergy (Unknown, Verified 11/26/23 15:04) SWELLING peanut [PEANUTS] Allergy (Unknown, Verified 11/26/23 15:04) SWELLING pineapple [PINEAPPLE] Allergy (Unknown, Verified 11/26/23 15:04) SWELLING animal dander Allergy (Verified 11/26/23 15:04) Rash Sulfa (Sulfonamide Antibiotics) Allergy (Verified 11/26/23 15:04) Rash ENVIROMENTAL Allergy (Intermediate, Uncoded 11/26/23 15:04) HAYFEVER SHELLFISH Allergy (Intermediate, Uncoded 11/26/23 15:04) RASH Medication List - Last Reconciled 11/26/23 by Brittany Cortez PA-C albuterol sulfate 90 mcg/actuation (Ventolin HFA) 2 puffs PO Q4H PRN amitriptyline 25 mg PO BEDTIME 30 days [BACK BRACE As directed] clonazepam 0.5 mg (1/2 x 1 mg) PO BID PRN 30 days cyclobenzaprine 5 mg PO TID PRN 30 days gabapentin 800 mg PO TID 30 days ketoconazole 2% 1 appl topical 2XW lidocaine 5% 1 patch topical DAILY meloxicam 15 mg PO DAILY 15 days miscellaneous medical supply disposable bed pads - 4x daily miscellaneous miscellaneous medical supply wipes- 4x daily mometasone 50 mcg/actuation (Nasonex 24hr Allergy) 2 sprays intranasal DAILY polyethylene glycol 3350 grams PO sertraline 50 mg PO DAILY tramadol 50 mg PO BID PRN 30 days triamcinolone acetonide 0.5% 1 appl topical BID 14 days valacyclovir 1,000 mg PO TID 7 days Tobacco use date assessed: 05/03/23 Dental Screening Dental Screen Date: 05/03/23 HPI Bruising- Requesting Telehealth !!!!! HPI Details 57-year-old female with past medical his tory of hypercholesterolemia, asthma, generalized anxiety disorder, and chronic pain syndrome last seen September 2023 coming in for acute problem. Patient states she is still having pain from the fall primarily in the upper back, bilateral arms, and right knee. She also mentions having right arm weakness and has a history of a fracture in the left elbow. She would like to have her visiting nurse hours increased due to limited mobility and increased anxiety and depression since the fall. She has not yet completed the x-rays ordered from the last visit. She also mentioned she has new longitudinal ridging of all the nails and also endorses brittle nails. Lastly mentions she has had easy bruising. [facility] Medical History (Updated 11/26/23 @ 15:59 by Brittany Cortez PA-C) Vision changes Crackling sound in both ears Breast discharge Chronic pain syndrome Sacroiliac joint dysfunction of left side Sacroiliac joint dysfunction Osteoarthritis of hips, bilateral Osteoarthritis of knees, bilateral Generalized anxiety disorder Panic attack Depression Vaginal cysts Hx LEEP (loop electrosurgical excision procedure), cervix, Fracture of fifth toe, right, closed Colonoscopy refused Mammogram declined Right renal stone Mild obstructive sleep apnea Carpal tunnel syndrome Restless leg syndrome Aortic valve insufficiency Knee osteoarthritis Mixed urge and stress incontinence Cognitive impairment Overweight (BMI 25.0-29.9) Takotsubo cardiomyopathy Asthma Hypercholesterolemia Pulmonary hypertension Migraine Surgical History H/O LEEP History of History of carpal tunnel surgery of left wrist H/O knee surgery Family History Father Hypertension Diabetes Prostate cancer CVD (cardiovascular disease) Mother Hypertension Diabetes Uterine cancer Maternal Grandmother Lung cancer Social History Housing: Apartment Alcohol intake: never Patient Tobacco Use Status: Former Tobacco user Tobacco use type: Cigarette e-Cigarette/Vaping Use: Never Used Second Hand Smoke Exposure: Yes Substance Use Type: Crack/Cocaine and Marijuana service: No Current occupational status: disabled Current occupation: left hand Cognitive needs: No Hearing needs: No Vision needs: Yes (glasses) Questionnaire Thrive Questionnaire Date Thrive assessed: 05/03/23 AUDIT C Alcohol Use Questionnaire (AUDIT-C) 1. How often do you have a drink containing alcohol?: Never 2. How many drinks containing alcohol do you have on a typical day when you are drinking?: 1 or 2 (0) 3. How often do you have six or more drinks on one occasion?: Never Total Score: 0 Score Reviewed/Action Taken: No JANA-7 AMB Questionnaire JANA-7 Date JANA - 7 assessed: 05/03/23 Source: Developed by Drs. Turner Burt, Alina Bailey, Timur Pineda and colleagues, with an educational iliana from [email or web address]. Review of Systems Const Denies body aches, Denies chills, Denies fever(s), Denies headache(s) and Denies poor appetite Eyes Reports no additional complaints ENT Denies dysphagia, Denies dizziness, Denies headache(s) and Denies odynophagia Card Denies chest pain, Denies syncope, Denies edema, Denies irregular heart rhythm, Denies lightheadedness and Denies dyspnea Resp Denies cough and Denies dyspnea GI Denies abdominal pain, Denies constipation, Denies dysphagia, Denies diarrhea, Denies nausea, Denies odynophagia and Denies vomiting Reports no additional complaints Musc Reports as per HPI, Reports abnormal gait, Reports back pain and Reports arthralgias Skin/Breast Reports system reviewed and no additional complaints, except as documented Neuro Reports abnormal gait, Denies dizziness, Denies syncope and Denies headache(s) Psych Reports no additional complaints Physical exam (Primary Care) Vital Signs: Last Vital Signs Pulse 104 H 11/26/23 15:04 BP 134/68 11/26/23 15:04 Pulse Ox 98 11/26/23 15:04 Oxygen Delivery Method Room Air 11/26/23 15:04 BMI result Body Mass Index 19.7 Tobacco/Smoking Status: Tobacco use Status Tobacco use date assessed 05/03/23 11/26/23 15:04 Patient Tobacco Use Status Former Tobacco user 11/26/23 15:04 Tobacco use type Cigarette 11/26/23 15:04 e-Cigarette/Vaping Use Never Used 08/30/24 15:04 Thrive Assessment: Date of Thrive Assessment Date Thrive assessed 05/03/23 11/26/23 15:04 Const General: cooperative, healthy appearing, comfortable and no acute distress Orientation/consciousness: patient oriented x3 [facility] Head: Yes normocephalic Ears: hearing grossly normal bilaterally General nose exam: Normal external nose present Eyes General: appearance normal, both eyes and all related structures Conjunctivae: conjunctivae normal Neck Neck: Yes full ROM and Yes no lymphadenopathy Resp Effort & Inspection: normal respiratory effort Auscultation: clear to auscultation bilaterally, no crackles, no rales, no rhonchi and no wheezes Cardio Rate: regular rate Rhythm: regular rhythm Back/Spine/Pelvis Other: tenderness to palpation over the upper and mid back Skin Other: No bruising on exam General skin exam: no rashes or lesions noted Nails: pitting Neuro General: patient oriented x3 Gait exam (Neuro): Normal gait present Extrem Other: Right arm tenderness to palpation and weakness. Left arm tenderness to palpation General: Yes normal to inspection and No edema Psych Affect: normal affect Attitude: cooperative Insight: Good insight present (Psych) Judgement: Good judgement present (Psych) Assessment and Plan Assessment & Plan (1) Elbow pain: Code(s): M25.529 - Pain in unspecified elbow Qualifiers: Laterality: right Qualified Code(s): M25.521 - Pain in right elbow Plan: Patient is having right elbow pain and does have a history of a fracture in the right elbow. We did reorder an elbow x-ray after her last fall which has not been completed. Advised patient to have this done. We will have more recommendation after imaging is completed. (2) Back pain: Code(s): M54.9 - Dorsalgia, unspecified Qualifiers: Back pain location: back pain in unspecified location Chronicity: chronic Back pain laterality: bilateral Qualified Code(s): M54.9 - Dorsalgia, unspecified; G89.29 - Other chronic pain Plan: Patient has been having severe upper back pain which limits her mobility since her last fall. X-ray from last visit was not completed and advised patient to have this done. We can send a note to start gross stating her current condition and request re-evaluation for additional hours. (3) Brittle nails: Code(s): L60.3 - Nail dystrophy Plan: Patient states she has been having nail weakness and they break easily along with ridging nails. On exam patient did have longitudinal ridging of all nails. We will order blood work to evaluate for underlying cause. (4) Easy bruising: Code(s): R23.3 - Spontaneous ecchymoses Plan: No bruising observed on exam today however patient does report having bruises often. We will order for blood work to evaluate further. Plan This note was constructed using voice recognition software. While every effort has been made to ensure accuracy and pageant director, still areas may have been included sometimes these areas may affect the content or meeting of the given symptoms. Total time spent caring for the patient today was 30 minutes. This includes time spent before the visit reviewing the chart, time spent during the visit, and time spent after the visit and documentation. Orders: Orders Complete Blood Count Auto Diff Today E78.00 - Pure hypercholesterolemia, unspecified Comprehensive Met. Panel Today E78.00 - Pure hypercholesterolemia, unspecified Free T4 (Free Thyroxine) Today E78.00 - Pure hypercholesterolemia, unspecified Vitamin B12 and Folate Today E78.00 - Pure hypercholesterolemia, unspecified Vitamin D 25-OH Total Today E78.00 - Pure hypercholesterolemia, unspecified Lipid Panel Today E78.00 - Pure hypercholesterolemia, unspecified Thyroid Stimulating Hormone Today E78.00 - Pure hypercholesterolemia, unspecified IRON PROFILE Today Z00.00 - Encounter for general adult medical examination without abnormal findings Coding Level of Care Code Est Pt Level 3 (21776) Diagnoses Right elbow pain M25.521 Laterality: right Chronic bilateral back pain, unspecified back location M54.9; G89.29 Back pain location: back pain in unspecified location Chronicity: chronic Back pain laterality: bilateral Brittle nails L60.3 Easy bruising R23.3
[2023-11-26 15:04] VITALS: BP 134/68; PULSE 104; O2SAT 98; BMI 19.7
== END 2023-11-26 15:49 | disposition home or self-care (01) ==
PROVIDERS: PCP Internal Medicine
DX: M25.521 Pain in right elbow (principal); M54.9 Dorsalgia, unspecified; G89.29 Other chronic pain; L60.3 Nail dystrophy; R23.3 Spontaneous ecchymoses
CPT/HCPCS: 99213

== ENCOUNTER 2023-11-26 15:51 | Outpatient (REF) | payer OTHER, SELFPAY ==
--- NOTE | ~2023-11-26 | XR_ITS ---
EXAMINATION: XR THORACIC SPINE CLINICAL INFORMATION: Dorsalgia. COMPARISON: None available. TECHNIQUE: Frontal, lateral and swimmer's views of the thoracic spine were obtained. FINDINGS: Vertebral body heights are normal. There is a slight upper thoracic levoscoliosis. The thoracic disc spaces are relatively well-maintained. There is multi-level thoracic endplate arthropathy. No acute fracture or spondylolisthesis is seen. The posterior elements are intact. The paravertebral soft tissues are unremarkable. XR/XR thoracic spine 3V IMPRESSION: 1. There is a slight upper thoracic levoscoliosis. 2. The thoracic disc spaces are relatively well-maintained. 3. There is multi-level endplate arthropathy. Electronically signed by: Martir Perdomo MD 12/16/2023 03:27 PM EDT
--- NOTE | ~2023-11-26 | XR_ITS ---
EXAMINATION: XR ELBOW, RIGHT CLINICAL INFORMATION: Pain. COMPARISON: Radiographs dated 11/05/2022. TECHNIQUE: AP, lateral, and oblique views of the right elbow. FINDINGS: Bony alignment and mineralization are normal. No fracture, dislocation or joint effusion is seen. There is osteoarthritic change of the ulnohumeral joint and, to a lesser extent, the radiohumeral joint. No focal soft tissue swelling, gas or foreign body is seen. XR/XR elbow RT min 3V IMPRESSION: There is osteoarthritic change of the right elbow. No fracture, dislocation or joint effusion is seen. Electronically signed by: Martir Perdomo MD 12/16/2023 03:26 PM EDT
--- NOTE | ~2023-11-26 | XR_ITS ---
EXAMINATION: XR LUMBOSACRAL SPINE CLINICAL INFORMATION: Lower back pain status-post fall 2 years prior. COMPARISON: CT lumbar spine dated 03/31/2022; lumbar spine radiographs dated 06/09/2020. TECHNIQUE: AP and lateral views of the lumbar spine and lateral view of the lumbosacral junction. FINDINGS: There is bony demineralization. There is a mild to moderate lumbar rotatory levoscoliosis. At L2-L3, there is mild leftward disc space narrowing. At L3-L4, there is moderate posterior and rightward disc space narrowing. At L4-L5 and L5-S1, there is marked disc space narrowing. No acute fracture or spondylolisthesis is seen. The posterior elements are intact. The paravertebral soft tissues are unremarkable. XR/XR lumbar spine 2-3V IMPRESSION: 1. There is a mild to moderate lumbar rotatory levoscoliosis. 2. There is multi-level lumbar degenerative disc disease, most pronounced at L4-L5 and L5-S1, where degenerative disc disease is marked. 3. There is multi-level lumbar endplate and facet arthropathy. Electronically signed by: Martir Perdomo MD 12/16/2023 10:48 PM EDT
== END 2023-11-26 15:52 | disposition home or self-care (01) ==
LOC: HO.XRAY 15:51
PROVIDERS: PCP Internal Medicine
DX: M54.9 Dorsalgia, unspecified (principal); M25.521 Pain in right elbow; G89.29 Other chronic pain
CPT/HCPCS: 72072; 72100; 73080

== ENCOUNTER 2023-12-08 08:31 | Outpatient (REF) | payer OTHER, SELFPAY ==
[2023-12-08 08:53] LABS: MANUAL DIFF FLAG NO
[2023-12-08 09:03] LABS: Basophils Percent Auto 0.4 % (0-2); Eosinophils Absolute Auto 0.3 X10*3/uL (0.0-0.4); Eosinophils Percent Auto 2.5 % (0-4); Hemoglobin 11.4 g/dl (12.0-16.0); Imm Gran Abs Auto 0.04 X10*3/uL (0.00-0.03); Imm Gran Pct Auto 0.4 % (0.0-0.4); Lymphocytes Absolute Auto 3.7 X10*3/uL (1.2-4.9); Lymphocytes Percent Auto 36.3 % (20-40); Mean Corpuscular HGB Conc 32.6 g/dl (31.0-35.0); Mean Corpuscular Hemoglobin 30.4 pg (27.0-33.0); Mean Corpuscular Volume 93.3 fL (80.0-98.0); Mean Platelet Volume 9.1 fL (9.4-12.3); Monocytes Absolute Auto 0.7 X10*3/uL (0.1-1.2); Monocytes Percent Auto 7.1 % (2-11); Neutrophils Absolute Auto 5.5 x10*3/uL (2.0-8.3); Neutrophils Percent Auto 53.3 % (45-73); Platelet Count 365 X10*3/uL (160-400); Red Blood Count 3.75 X10*6/uL (4.20-5.50); Red Cell Distribution Width 13.4 % (11.0-16.0); White Blood Count 10.3 X10*3/uL (4.8-10.8)
[2023-12-08 09:51] LABS: Alanine Aminotransferase 9 U/L (0-31); Alkaline Phosphatase 120 U/L (39-117); Anion Gap 13 (12-20); Aspartate Amino Transferase 21 U/L (5-31); Bilirubin Total 0.1 mg/dL (0.0-1.0); Blood Urea Nitrogen 17 mg/dL (9-16); Calcium 9.6 mg/dL (8.4-10.2); Carbon Dioxide 26 mmol/L (22-29); Chloride 104 mmol/L (96-108); Cholesterol 219 mg/dL (<200); Estimated Glomerular Filt Rate > 60; Glucose Random 108 mg/dL (60-115); HDL Cholesterol 29 mg/dL (>40); Iron 37 mcg/dL (30-160); Percent Iron Saturation 16 % (15-50); Potassium 3.8 mmol/L (3.3-5.1); Sodium 139 mmol/L (135-145); Total Iron Binding Capacity 236 mcg/dL (228-428); Total Protein 7.2 g/dL (6.5-8.0); Triglycerides 620 mg/dL (<150); Unsaturated Iron Binding 199 ug/dL
[2023-12-08 10:18] LABS: Folate 6.4 ng/mL (> or = 4.0); Free T4 (Free Thyroxine) 0.79 ng/dL (0.71-1.85); Vitamin B12 297 pg/mL (200-900); Vitamin D 25-OH Total 18.6 ng/mL (>30)
== END 2023-12-08 08:32 | disposition home or self-care (01) ==
LOC: HO.LAB 08:31
PROVIDERS: Absent Provider Internal Medicine; PCP Internal Medicine
DX: Z00.00 Encounter for general adult medical examination without abnormal findings (principal); E78.00 Pure hypercholesterolemia, unspecified
CPT/HCPCS: 36415; 80053; 80061; 82306; 82607; 82746; 83540; 84439; 84443; 85025

== ENCOUNTER 2023-12-17 15:08 | Outpatient (AMB) | payer OTHER, SELFPAY ==
--- NOTE | 2023-12-17 15:09 | A.OFFPC_ITS ---
Vital Signs 12/17/23 15:10 Height 5 ft 4 in Weight 120 lb 2.431 oz BMI 20.6 BP 130/78 Blood Pressure Location Lt brachial Position Sitting Pulse 96 Pulse Source Pulse Oximeter Pulse Oximetry (%) 98 Oxygen Delivery Method Room Air Intake Visit Reasons: Multiple Concerns Intake Note: Patient is here to follow up on multiple concerns. Clinical Researcher Required: No Six Sigma Black Trainer: Not Required per policy Accompanied by: Self / Same As Patient Allergies latex [LATEX] Allergy (Intermediate, Verified 12/17/23 15:10) RASH Chocolate Allergy (Unknown, Verified 12/17/23 15:10) Hives egg [EGGS] Allergy (Unknown, Verified 12/17/23 15:10) SWELLING kiwi [KIWI] Allergy (Unknown, Verified 12/17/23 15:10) SWELLING peanut [PEANUTS] Allergy (Unknown, Verified 12/17/23 15:10) SWELLING pineapple [PINEAPPLE] Allergy (Unknown, Verified 12/17/23 15:10) SWELLING animal dander Allergy (Verified 12/17/23 15:10) Rash Sulfa (Sulfonamide Antibiotics) Allergy (Verified 12/17/23 15:10) Rash ENVIROMENTAL Allergy (Intermediate, Uncoded 12/17/23 15:10) HAYFEVER SHELLFISH Allergy (Intermediate, Uncoded 12/17/23 15:10) RASH Tobacco use date assessed: 12/17/23 Dental Screening Dental Screen Date: 05/03/23 HPI Multiple Concerns HPI Details 58-year-old female with multiple medical problems asthma, cholesterol knee osteoarthritis with lumbar radiculopathy generalized anxiety disorder nephrolithiasis coming in for follow-up. Last seen in 11/26/2023. X-ray of the lumbar spine done showing mild to moderate lumbar rotatory levoscoliosis with multilevel lumbar degenerative disc disease most pronounced at L4-L5 and L5-S1 there is multilevel lumbar endplate and facet arthropathy. Thoracic spine slight levoscoliosis multilevel endplate arthropathy. Right elbow showing osteoarthritis no fracture dislocation or joint effusion. Patient has been seen by hematology oncology in [facility] for right bloody nipple discharge patient did have test showing retroareolar 8 mm oval mass. Patient was advised an MRI 12/31/2023 decline rectal exam. patient complains of R knee pain and states has a cane . states has a rollator also and has arm pain. Patient Insists on wanting a scooter. As for the. Patient is wanting more hours and stating that the letter that was done before by Brittany was not sufficient. [facility] Medical History (Updated 12/17/23 @ 15:38 by Lawrence Garcia MD) Breast pain, right Brittle nails Easy bruising Vision changes Crackling sound in both ears Breast discharge Chronic pain syndrome Sacroiliac joint dysfunction of left side Sacroiliac joint dysfunction Osteoarthritis of hips, bilateral Osteoarthritis of knees, bilateral Generalized anxiety disorder Panic attack Depression Vaginal cysts Hx LEEP (loop electrosurgical excision procedure), cervix, Fracture of fifth toe, right, closed Colonoscopy refused Mammogram declined Right renal stone Mild obstructive sleep apnea Carpal tunnel syndrome Restless leg syndrome Aortic valve insufficiency Knee osteoarthritis Mixed urge and stress incontinence Cognitive impairment Overweight (BMI 25.0-29.9) Takotsubo cardiomyopathy Asthma Hypercholesterolemia Pulmonary hypertension Migraine Surgical History H/O LEEP History of History of carpal tunnel surgery of left wrist H/O knee surgery Family History Father Hypertension Diabetes Prostate cancer CVD (cardiovascular disease) Mother Hypertension Diabetes Uterine cancer Maternal Grandmother Lung cancer Social History Housing: Apartment Alcohol intake: never Patient Tobacco Use Status: Former Tobacco user Tobacco use type: Cigarette e-Cigarette/Vaping Use: Never Used Second Hand Smoke Exposure: Yes Substance Use Type: Crack/Cocaine and Marijuana service: No Current occupational status: disabled Current occupation: left hand Cognitive needs: No Hearing needs: No Vision needs: Yes (glasses) Questionnaire Thrive Questionnaire Date Thrive assessed: 05/03/23 Are you currently unemployed and looking for a job?: I choose not to answer this question JANA-7 AMB Questionnaire JANA-7 Date JANA - 7 assessed: 05/03/23 Source: Developed by Drs. Turner Burt, Alina Bailey, Timur Pineda and colleagues, with an educational iliana from [email or web address]. Physical exam (Primary Care) Vital Signs: Last Vital Signs Pulse 96 12/17/23 15:10 BP 130/78 12/17/23 15:10 Pulse Ox 98 12/17/23 15:10 Oxygen Delivery Method Room Air 12/17/23 15:10 BMI result Body Mass Index 20.6 Tobacco/Smoking Status: Tobacco use Status Tobacco use date assessed 12/17/23 12/17/23 15:14 Patient Tobacco Use Status Former Tobacco user 12/17/23 15:14 Tobacco use type Cigarette 12/17/23 15:14 e-Cigarette/Vaping Use Never Used 12/17/23 15:14 Thrive Assessment: Date of Thrive Assessment Date Thrive assessed 05/03/23 12/17/23 15:14 Const General: alert; No acute distress Eyes Conjunctivae: conjunctivae normal Resp Auscultation: clear to auscultation bilaterally Cardio Rate: regular rate Rhythm: regular rhythm GI Inspection: Yes normal to inspection Extrem General: Yes normal to inspection and No edema Assessment and Plan Assessment & Plan (1) Left breast mass: Comment: 06/08/2023There are no findings suspicious for malignancy in the RIGHT OR LEFT breast. There is no mammographic or sonographic correlate to the palpable foci of concern in the RIGHT breast 9:00 and 11:00 axes. Recommend clinical management. Otherwise, recommend RIGHT breast routine yearly screening. 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 Recommend six-month interval follow-up targeted LEFT breast ultrasound to ensure one-year stability. Code(s): N63.20 - Unspecified lump in the left breast, unspecified quadrant Plan: Patient has seen the hematology oncology and planned MRI (2) Hypercholesterolemia: Code(s): E78.00 - Pure hypercholesterolemia, unspecified Plan: Avoid fried foods, chicken skin, eggs, butter margarine, pastries and meat. Be it pork or beef they have a lot of cholesterol LDL goal of less than 130 and triglyceride of less than 150 presently on no medication (3) Asthma: Code(s): J45.909 - Unspecified asthma, uncomplicated Plan: Continue with albuterol inhaler as needed (4) Generalized anxiety disorder: Code(s): F41.1 - Generalized anxiety disorder Plan: Continue with medication for anxiety (5) Impaired fasting blood sugar: Code(s): R73.01 - Impaired fasting glucose Plan: Decrease the amount of carbohydrate intake, pasta, bread, rice and potatoes are all sugar and that is aside from all the sweet stuff, remember that fruits are good but they are Sweet also. (6) Anemia: Code(s): D64.9 - Anemia, unspecified (7) Knee pain, right: Code(s): M25.561 - Pain in right knee Plan: PAtient wants a scooter. states has a cane and walker on her own and arms tire out and wants a scooter. xray requested and referral to ortopedics (8) Colon cancer screening: Code(s): Z12.11 - Encounter for screening for malignant neoplasm of colon Plan: GI referral done Orders: Orders XR knee RT 2V Today M25.561 - Pain in right knee Comprehensive Met. Panel Today E78.00 - Pure hypercholesterolemia, unspecified Lipid Panel Today E78.00 - Pure hypercholesterolemia, unspecified Hemoglobin A1c Today E78.00 - Pure hypercholesterolemia, unspecified Referrals Gastroenterology Referral Z12.11 - Encounter for screening for malignant neoplasm of colon Orthopedics Referral M25.561 - Pain in right knee Medications: New [SCOOTER] As directed 1 ea 0RF M25.561 - Pain in right knee Refilled triamcinolone acetonide 0.5% 1 appl topical BID 14 days 15 grams 0RF L30.9 - Dermatitis, unspecified Coding Level of Care Code Est Pt Level 4 (94470) Diagnoses Left breast mass N63.20 Hypercholesterolemia E78.00 Asthma J45.909 Generalized anxiety disorder F41.1 Impaired fasting blood sugar R73.01 Anemia D64.9 Knee pain, right M25.561 Colon cancer screening Z12.11
[2023-12-17 15:10] VITALS: BP 130/78; PULSE 96; O2SAT 98; BMI 20.6
== END 2023-12-17 16:02 | disposition home or self-care (01) ==
PROVIDERS: PCP Internal Medicine; Visit Provider Internal Medicine
DX: N63.20 Unspecified lump in the left breast, unspecified quadrant (principal); E78.00 Pure hypercholesterolemia, unspecified; J45.909 Unspecified asthma, uncomplicated; F41.1 Generalized anxiety disorder; R73.01 Impaired fasting glucose; D64.9 Anemia, unspecified; M25.561 Pain in right knee; Z12.11 Encounter for screening for malignant neoplasm of colon

== ENCOUNTER → 2023-12-17 15:08 | Outpatient (BNVA) | payer OTHER, SELFPAY | PROVIDERS: PCP Internal Medicine; Visit Provider Internal Medicine | DX: E78.00 Pure hypercholesterolemia, unspecified (principal); J45.909 Unspecified asthma, uncomplicated; F41.1 Generalized anxiety disorder; R73.01 Impaired fasting glucose; D64.9 Anemia, unspecified; M25.561 Pain in right knee; N63.20 Unspecified lump in the left breast, unspecified quadrant | CPT/HCPCS: 99212 ==

== ENCOUNTER 2023-12-27 11:10 | Outpatient (REF) | payer OTHER, SELFPAY ==
--- NOTE | ~2023-12-27 | XR_ITS ---
EXAMINATION: X-ray series right knee CLINICAL INFORMATION: Pain in the right knee COMPARISON: X-ray of the right knee December 2020 x-rays of the right knee March 2018 TECHNIQUE: 2 views of the right knee FINDINGS: There is prominent chondrocalcinosis There are marginal osteophytes about the medial and lateral compartments without joint space narrowing indicative of at least mild osteoarthritis. Patellofemoral compartment: Exam is limited in that there is no patella view.. There are marginal osteophytes with somewhat flattened appearance of the patella subchondral bone indicative of at least mild to moderate osteoarthritis likely unchanged compared to prior. Also appears to be some ossification lateral to the patella on the frontal projection not clearly seen on the lateral view. This is present lateral to the patella on the patella view on the examination March 2018 compatible with ossification of the capsule perhaps related to old trauma. No effusion. There is some linear increased density in the metaphysis of the femur unchanged dating back to 2018 likely without clinical significance perhaps due to an old intermittent growth disturbance to return development of rather than bone infarction. XR/XR knee RT 2V IMPRESSION: No change compared with the recent x-rays December 2020 and March 2018. 1. Chondrocalcinosis. 2. Osteoarthritis of the right knee No acute abnormality. Electronically signed by: Larry Peters MD 01/01/2024 05:18 PM EDT
== END 2023-12-27 11:11 | disposition home or self-care (01) ==
LOC: HO.XRAY 11:10
PROVIDERS: PCP Internal Medicine; Visit Provider Internal Medicine
DX: M25.561 Pain in right knee (principal)
CPT/HCPCS: 73560

== ENCOUNTER 2024-03-16 14:00 | Outpatient (AMB) | payer OTHER, SELFPAY ==
--- OUTSIDE RECORDS SUMMARY | 2024-03-16 14:02 | XMS_ITS | Continuity of Care Document ---
Author Organization [facility] Address [address] [place] [address]- Care Team Providers Care Global Director Air And Climate Change Name Role Phone Po Lawrence HOYT Primary Care Phys[id number] Date(s): 12/16/23 - 02/18/24 [facility] [address] [place] [address]- Attending Physician: Marylin Roberson NP Admitting Physician: Marylin Roberson NP Referring Physician: Not on Staff, Referring MD Encounter Type: Pre-OutPatient One Time Allergies, Adverse Reactions, Alerts Substance Criticality Severity Reaction Reaction Severity Status shellfish Rash Active garlic Active Chocolate Rash Active egg-containing compound Rash Active Onions Active Other Food Allergy 1 Active Latex Active 1peppers Medications amitriptyline 10 mg oral tablet 20 mg, 2, tablet, By Mouth, Daily at bedtime, # 180 tablet, Refills 0, Tot. Refills 0, Maintenance,02/08/16 1:37:10 PM EST, Route to Pharmacy Electronically, [facility] 3 Start Date: 02/08/16 Status: Ordered Quantity: 180.0 Unit: tablet Repeat number: 1 aspirin 81 mg oral delayed release tablet 81 mg, By Mouth, Daily, # 100 tablet, Refills 0, Tot. Refills 0, Maintenance, 02/08/16 1:33:13 PM EST, Route to Pharmacy Electronically, [facility] 3 Start Date: 02/08/16 Status: Ordered Quantity: 100.0 Unit: tablet Repeat number: 1 atorvastatin 40 mg oral tablet 1 tablet = 40 mg, By Mouth, Daily, # 30 tablet, 2 Refills, Maintenance, Tablet, Route to Pharmacy Electronically, [id number], [facility] 3 Start Date: 02/08/16 Status: Ordered Quantity: 30.0 Unit: tablet Repeat number: 3 buPROPion 150 mg/24 hours (XL) oral tablet, extended release 1 tablet = 150 mg, By Mouth, Every 24 hours, Maintenance, 02/06/16 3:24:00 PM EST, ER Tablet Start Date: 02/06/16 Status: Ordered Repeat number: 1 clonazePAM 0.5 mg oral tablet 1 tablet = 0.5 mg, By Mouth, 2 times a day, Maintenance, 02/06/16 3:24:35 PM EST, Tablet Start Date: 02/06/16 Status: Ordered Repeat number: 1 gabapentin 600 mg oral tablet 1 tablet = 600 mg, By Mouth, 3 times a day, Maintenance, 02/06/16 3:23:39 PM EST, Tablet Start Date: 02/06/16 Status: Ordered Repeat number: 1 LORazepam 0.5 mg oral tablet 1 tablet = 0.5 mg, By Mouth, Once, take 1 hour prior to your breast biopsy, may repeat dose if needed, # 2 tablet, 0 Refills, Soft Stop, 01/10/24 3:47:00 PM EDT, [facility]/pharmacy #[id number], 146, cm, 11/02/2413:58:00 EDT, Height Start Date: 01/10/24 Status: Ordered Quantity: 2.0 Unit: tablet Repeat number: 1 LORazepam 0.5 mg oral tablet 0.5 tablet = 0.25 mg, By Mouth, Once, take 1 hour prior to breast MRI, may repeat dose if not effective DO NOT DRIVE WHILE TAKING, # 2 tablet, 0 Refills, Soft Stop, 11/03/23 4:31:00 PM EDT, Tablet, [facility]/pharmacy #[id number], Partial fill upon patient request if the prescription is for a schedule II opioid drug., 146, cm, 11/03/23 14:58:00 EDT, Height Start Date: 11/03/23 Status: Ordered Quantity: 2.0 Unit: tablet Repeat number: 1 metoprolol 25 mg oral tablet 12.5 mg, 0.5, tablet, By Mouth, Daily, # 180 tablet, Refills 0, Maintenance, 03/12/16 9:18:54 AM EST Start Date: 03/12/16 Status: Ordered Quantity: 180.0 Unit: tablet Repeat number: 1 Plavix 75 mg oral tablet 75 mg, By Mouth, Daily, Do not stop for any reason without calling Dr. Lee at [phone], # 90 tablet, Refills 3, Tot. Refills 3, Maintenance, 03/13/16 3:59:02 PM EST, Print Requisition Start Date: 03/13/16 Status: Ordered Quantity: 90.0 Unit: tablet Repeat number: 4 ProAir HFA 90 mcg/inh inhalation aerosol with adapter 1, puffs, Inhalation, Every 4 hours, PRN, # 8.5 Gm, Maintenance, 02/06/16 3:25:03 PM EST, Aerosol Start Date: 02/06/16 Status: Ordered Quantity: 8.5 Unit: g Repeat number: 1 sertraline 50 mg oral tablet 1 tablet = 50 mg, By Mouth, Daily, Maintenance, 02/06/16 3:24:48 PM EST, Tablet Start Date: 02/06/16 Status: Ordered Repeat number: 1 traMADol 50 mg oral tablet 1 tablet = 50 mg, By Mouth, Every 12 hours, PRN as needed for pain, Maintenance, 02/06/16 3:24:17 PM EST, Tablet Start Date: 02/06/16 Status: Ordered Repeat number: 1 Problem List Condition Confirmation Course Effective Dates Status Health St atus Informant LALY III Confirmed Active Social History Social History Type Response Smoking Status Former smoker, quit more than 30 days ago entered on: 11/03/23 Sex Sex Representation Female (finding) Patient Care team information Care Team Personnel Name: Brianne Almazan RN Position: [facility] Nurse Member Role: Primary Care Nurse Name: Lawrence Garcia MD Position: Reference Physician Member Role: PCP Address: [address] [place] [id number] Telecom: Care Team Related Persons Name: GEENA CLAY Insurance Providers Guarantor name: [facility] [employer] [facility] Information #: 1 Payer: [employer] Member Number: [id number] Policy Number: NA Group Number: NA Health Plan Information #: 2 Payer: [employer] Member Number: [id number] Policy Number: NA Group Number: NA
--- OUTSIDE RECORDS SUMMARY | 2024-03-16 14:02 | XMS_ITS | Continuity of Care Document ---
Author Organization [facility] Address [address] [place] [address]- Care Team Providers Care Stone Product Fabricator Name Role Phone Po Lawrence HOYT Primary Care Physician [phone] Encounter [facility] Date(s): 01/10/24 - 02/18/[address] [address]- Attending Physician: Marylin Roberson NP Admitting Physician: Marylin Roberson NP Referring Physician: Marylin Roberson NP Encounter Type: Pre-Outpt Allergies, Adverse Reactions, Alerts Substance Criticality Severity Reaction Reaction Severity Status shellfish Rash Active garlic Active Chocolate Rash Active Latex Active egg-containing compound Rash Active Other Food Allergy 1 Active Onions Active 1peppers Medications amitriptyline 10 mg oral tablet 20 mg, 2, tablet, By Mouth, Daily at bedtime, # 180 tablet, Refills 0, Tot. Refills 0, Maintenance,02/08/16 1:37:10 PM EST, Route to Pharmacy Electronically, [facility] 3 Start Date: 02/08/16 Status: Ordered Quantity: 180.0 Unit: tablet Repeat number: 1 aspirin 81 mg oral delayed release tablet 81 mg, By Mouth, Daily, # 100 tablet, Refills 0, Tot. Refills 0, Maintenance, 02/08/16 1:33:13 PM EST, Route to Pharmacy Electronically, [facility] 3 Start Date: 02/08/16 Status: Ordered Quantity: 100.0 Unit: tablet Repeat number: 1 atorvastatin 40 mg oral tablet 1 tablet = 40 mg, By Mouth, Daily, # 30 tablet, 2 Refills, Maintenance, Tablet, Route to Pharmacy Electronically, [id number], [facility] 3 Start Date: 02/08/16 Status: Ordered [...] Refills, Soft Stop, 01/10/24 3:47:00 PM EDT, [facility]/pharmacy #[id number], 146, cm, 11/02/2413:58:00 EDT, Height Start Date: 01/10/24 Status: Ordered Quantity: 2.0 Unit: tablet Repeat number: 1 LORazepam 0.5 mg oral tablet 0.5 tablet = 0.25 mg, By Mouth, Once, take 1 hour prior to breast MRI, may repeat dose if not effective DO NOT DRIVE WHILE TAKING, # 2 tablet, 0 Refills, Soft Stop, 11/03/23 4:31:00 PM EDT, Tablet, [facility]/pharmacy #[id number], Partial fill upon patient request if [...] any reason without calling Dr. Lee at [phone], # 90 tablet, Refills 3, Tot. Refills [...] Team Personnel Name: Brianne Almazan RN Position: [facility] Nurse Member Role: Primary Care Nurse Name: Lawrence Garcia MD Position: Reference Physician Member Role: PCP Address: [address] [place], [place] [address] Telecom: Care Team Related Persons Name: GEENA CLAY Insurance Providers Guarantor name: ANGELINA SIMPSON [employer] Plan Information #: 1 Payer: [employer] Member Number: [id number] Policy Number: NA Group Number: NA Health Plan Information #: 2 Payer: [employer] Member Number: [id number] Policy Number: SARAH Group Number: NA
[2024-03-16 14:09] VITALS: BP 120/72; PULSE 96; O2SAT 97; BMI 20.9
--- NOTE | 2024-03-16 14:09 | A.OFFPC_ITS ---
Vital Signs 03/16/24 14:09 Height 5 ft 4 in Weight 122 lb BMI 20.9 BP 120/72 Blood Pressure Location Lt brachial Position Sitting Pulse 96 Pulse Source Pulse Oximeter Pulse Oximetry (%) 97 Oxygen Delivery Method Room Air Intake Visit Reasons: F/U Intake Note: Patient here for a follow up Submersible Pilot Required: No Accompanied by: Self / Same As Patient Allergies latex [LATEX] Allergy (Intermediate, Verified 03/16/24 14:13) RASH Chocolate Allergy (Unknown, Verified 03/16/24 14:13) Hives egg [EGGS] Allergy (Unknown, Verified 03/16/24 14:13) SWELLING kiwi [KIWI] Allergy (Unknown, Verified 03/16/24 14:13) SWELLING peanut [PEANUTS] Allergy (Unknown, Verified 03/16/24 14:13) SWELLING pineapple [PINEAPPLE] Allergy (Unknown, Verified 03/16/24 14:13) SWELLING animal dander Allergy (Verified 03/16/24 14:13) Rash Sulfa (Sulfonamide Antibiotics) Allergy (Verified 03/16/24 14:13) Rash ENVIROMENTAL Allergy (Intermediate, Uncoded 12/17/23 15:10) HAYFEVER SHELLFISH Allergy (Intermediate, Uncoded 12/17/23 15:10) RASH Tobacco use date assessed: 12/17/23 Dental Screening Dental Screen Date: 03/16/24 Did you have a dental visit in the last 12 months?: Yes Did you have a dental problem in the last 6 months where you did not have access to dental care?: No Was dental information given to patient?: Patient has dentist HPI F/U HPI Details The patient is a 58-year-old female presenting with rectal bleeding and hip pain. The rectal bleeding began after a trip, with bright red blood noticed on tissue, which sometimes required the use of a pad. The bleeding occurred concurrently with episodes of diarrhea followed by constipation. She associates similar symptoms with a previous history of hemorrhoids experienced during . Additionally, she reports experiencing a dull pain in the right upper quadrant, described as a pinch, which was intermittent and subsided after a few days. The patient also expressed extreme thirst over the course of a week. There were no noted changes to her bowel habits at the present time. The patient also experienced knee pain and swelling, exacerbated by a recent fall resulting in bruising. She reports that her knee brace was lost in [place], contributing to the discomfort. She has a history of knee issues that have led to decreased mobility and an altered gait. Regarding hypercholesterolemia, the patient?s cholesterol levels were notably high in previous tests, with a total cholesterol value of 620. Despite prior dietary recommendations, she has not achieved optimal cholesterol management. [facility] Medical History (Updated 03/16/24 @ 14:40 by Lawrence Garcia MD) Breast pain, right Brittle nails Easy bruising Vision changes Crackling sound in both ears Breast discharge Chronic pain syndrome Sacroiliac joint dysfunction of left side Sacroiliac joint dysfunction Osteoarthritis of hips, bilateral Osteoarthritis of knees, bilateral Generalized anxiety disorder Panic attack Depression Vaginal cysts Hx LEEP (loop electrosurgical excision procedure), cervix, Fracture of fifth toe, right, closed Colonoscopy refused Mammogram declined Right renal stone Mild obstructive sleep apnea Carpal tunnel syndrome Restless leg syndrome Aortic valve insufficiency Knee osteoarthritis Mixed urge and stress incontinence Cognitive impairment Overweight (BMI 25.0-29.9) Takotsubo cardiomyopathy Asthma Hypercholesterolemia Pulmonary hypertension Migraine Surgical History H/O LEEP History of History of carpal tunnel surgery of left wrist H/O knee surgery Family History Father Hypertension Diabetes Prostate cancer CVD (cardiovascular disease) Mother Hypertension Diabetes Uterine cancer Maternal Grandmother Lung cancer Social History Housing: Apartment Alcohol intake: never Patient Tobacco Use Status: Former Tobacco user Tobacco use type: Cigarette e-Cigarette/Vaping Use: Never Used Second Hand Smoke Exposure: Yes Substance Use Type: Crack/Cocaine and Marijuana service: No Current occupational status: disabled Current occupation: left hand Cognitive needs: No Hearing needs: No Vision needs: Yes (glasses) Questionnaire Thrive Questionnaire Date Thrive assessed: 05/03/23 Are you currently unemployed and looking for a job?: I choose not to answer this question JANA-7 AMB Questionnaire JANA-7 Date JANA - 7 assessed: 05/03/23 Source: Developed by Drs. Turner Burt, Alina Bailey, Timur Pineda and colleagues, with an educational iliana from [employer]. Physical exam (Primary Care) Vital Signs: Last Vital Signs Pulse 96 03/16/24 14:09 BP 120/72 03/16/24 14:09 Pulse Ox 97 03/16/24 14:09 Oxygen Delivery Method Room Air 03/16/24 14:09 BMI result Body Mass Index 20.9 Tobacco/Smoking Status: Tobacco use Status Tobacco use date assessed 12/17/23 03/16/24 14:15 Patient Tobacco Use Status Former Tobacco user 03/16/24 14:15 Tobacco use type Cigarette 03/16/24 14:15 e-Cigarette/Vaping Use Never Used 03/16/24 14:15 Thrive Assessment: Date of Thrive Assessment Date Thrive assessed 05/03/23 03/16/24 14:15 Const General: alert; No acute distress Eyes Conjunctivae: conjunctivae normal Resp Auscultation: clear to auscultation bilaterally Cardio Rate: regular rate Rhythm: regular rhythm GI Other: vague RUQ pain , soft, no rebound , no guarding. rectal exam declined Extrem General: Yes normal to inspection and No edema Office Procedures Flu Questionnaire Does the patient have a severe egg allergy?: No Immunizations Fluarix Triv [id number] (PF) 45 mcg (15 mcg x 3)/0.5 mL IM syringe Performing Provider: Lawrence Garcia MD [facility] Documented (not given) by: SELENE Carlson on 03/16/24 14:18 Reason Not Given: Patient Refused Coding Level of Care Code Est Pt Level 4 (54725) Diagnoses Colon cancer screening Z12.11 Impaired fasting blood sugar R73.01 Hypercholesterolemia E78.00 RUQ abdominal pain R10.11 Rectal bleeding K62.5 Assessment & Plan Assessment & Plan (1) Colon cancer screening: Code(s): Z12.11 - Encounter for screening for malignant neoplasm of colon Category: Medical (2) Impaired fasting blood sugar: Code(s): R73.01 - Impaired fasting glucose Category: Medical (3) Hypercholesterolemia: Code(s): E78.00 - Pure hypercholesterolemia, unspecified Category: Medical (4) RUQ abdominal pain: Code(s): R10.11 - Right upper quadrant pain Category: Medical (5) Rectal bleeding: Code(s): K62.5 - Hemorrhage of anus and rectum Category: Medical Plan - Arrange for a retesting of cholesterol levels to evaluate hypercholesterolemia management. - Refer to gastroenterology for further evaluation of rectal bleeding to assess for hemorrhoids or other underlying conditions. - Recommend initiation of an ultrasound to investigate potential gallbladder issues related to right upper quadrant pain. - Prescribe laxatives as needed to prevent constipation and ensure regular bowel movements to reduce rectal bleeding. - Provide prescription for a knee brace to alleviate knee pain and swelling, with a recommendation to obtain it from a medical supply store. - Reinforce dietary modifications to manage hypercholesterolemia, including increased vegetable intake and reduction of animal fat, fried foods, and pastry consumption. Orders: Orders Influenza [id number] Immunization Today Z23 - Encounter for immunization Complete Blood Count Auto Diff Today K62.5 - Hemorrhage of anus and rectum Thyroid Stimulating Hormone Today K62.5 - Hemorrhage of anus and rectum Vitamin B12 and Folate Today K62.5 - Hemorrhage of anus and rectum Free T4 (Free Thyroxine) Today K62.5 - Hemorrhage of anus and rectum Vitamin D 25-OH Total Today K62.5 - Hemorrhage of anus and rectum US abdomen complete Today R10.11 - Right upper quadrant pain, R79.89 - Other specified abnormal findings of blood chemistry Referrals Gastroenterology Referral K62.5 - Hemorrhage of anus and rectum Medications: New hydrocortisone 2.5% (Proctosol HC) 1 appl NV BID-QID PRN 30 grams 0RF hemorrhoids K62.5 - Hemorrhage of anus and rectum [knee brace] As directed 1 ea 0RF M25.561 - Pain in right knee
== END 2024-03-16 14:47 | disposition home or self-care (01) ==
PROVIDERS: PCP Internal Medicine; Visit Provider Internal Medicine
DX: Z12.11 Encounter for screening for malignant neoplasm of colon (principal); R73.01 Impaired fasting glucose; E78.00 Pure hypercholesterolemia, unspecified; R10.11 Right upper quadrant pain; K62.5 Hemorrhage of anus and rectum; Z23 Encounter for immunization

== ENCOUNTER → 2024-03-16 14:00 | Outpatient (BNVA) | payer OTHER, SELFPAY | PROVIDERS: PCP Internal Medicine; Visit Provider Internal Medicine | DX: K62.5 Hemorrhage of anus and rectum (principal); R10.11 Right upper quadrant pain; E78.00 Pure hypercholesterolemia, unspecified; R79.89 Other specified abnormal findings of blood chemistry; Z28.21 Immunization not carried out because of patient refusal; Z91.81 History of falling | CPT/HCPCS: 90471; 99212 ==

== ENCOUNTER 2024-04-04 09:41 | Outpatient (REF) | payer OTHER, SELFPAY | END 2024-04-04 09:42 | disposition home or self-care (01) | LOC: HO.HOSX 09:41 | PROVIDERS: Visit Provider Physician Assistant | DX: Z13.89 Encounter for screening for other disorder (principal) ==

== ENCOUNTER 2024-09-15 22:04 | Emergency (ER) | payer OTHER, SELFPAY ==
--- OUTSIDE RECORDS SUMMARY | 2024-09-10 23:59 | XMS_ITS | Continuity of Care Document ---
Author Organization [facility] Address [address] [place] [address]- Care Team Providers Care Mission Analyst Name Role Phone Po Lawrence HOYT Primary Care Physician [place] [facility] [place] 09/10/24 [facility] [address] [place], [place] [address] Encounter Type: Triage Allergies, Adverse Reactions, Alerts Substance Criticality Severity [...] 1:37:10 PM EST, Route to Pharmacy Electronically, [facility] 3 Start Date: 02/08/16 Status: Ordered Quantity: 180.0 Unit: tablet Repeat number: 1 aspirin 81 mg oral delayed release tablet 81 mg, By Mouth, Daily, # 100 tablet, Refills 0, Tot. Refills 0, Maintenance, 02/08/16 1:33:13 PM EST, Route to Pharmacy Electronically, [facility] 3 Start Date: 02/08/16 Status: Ordered Quantity: 100.0 Unit: tablet Repeat number: 1 clonazePAM 0.5 mg oral tablet 1 tablet = 0.5 mg, By Mouth, 2 times a day, Maintenance, 02/06/16 3:24:35 PM EST, Tablet Start Date: 02/06/16 Status: Ordered Repeat number: 1 Colchicine = 0.6 mg, By Mouth, Daily, 0 Refills, Maintenance, 07/03/24 2:51:00 PM EDT, Partial fill upon patientrequest if the prescription is for a schedule II opioid drug. Start Date: 07/03/24 Status: Ordered Repeat number: 1 cyclobenzaprine 5 mg oral tablet 0 Refills, Maintenance, 08/16/24 1:07:00 PM EDT, Partial fill upon patient request if the prescription is for a schedule II opioid drug. Start Date: 08/16/24 Status: Ordered Repeat number: 1 gabapentin 800 mg oral tablet 0 Refills, Maintenance, 08/16/24 1:07:00 PM EDT, Partial fill upon patient request if the prescription is for a schedule II opioid drug. Start Date: 08/16/24 Status: Ordered Repeat number: 1 lidocaine 5% topical film 0 Refills, Maintenance, 08/16/24 1:08:00 PM EDT, Partial fill upon patient request if the prescription is for a schedule II opioid drug. Start Date: 08/16/24 Status: Ordered Repeat number: 1 Meloxicam Daily, 0 Refills, Maintenance, 04/24/24 2:33:00 PM EST, Partial fill upon patient request if the prescription is for a schedule II opioid drug. Start Date: 04/24/24 Status: Ordered Repeat number: 1 ProAir HFA 90 mcg/inh inhalation aerosol with [...] Team Personnel Name: Brianne Almazan RN Position: [facility] Nurse Member Role: Primary Care Nurse Name: Lawrence Garcia MD Position: Reference Physician Member Role: PCP Address: [address] [place] [address] Telecom: Care Team Related Persons Name: GEENA CLAY Insurance Providers Guarantor name: ANGELINA [employer]og[employer] [facility] Information #: 1 Payer: [employer] Payer Identifier: SARAH Member Number: [id number] Group Number: [id number] Subscriber Identifier: [id number] Relationship to Subscriber: self Coverage Type: NA Coverage Verification Date: NA Telecom: SARAH Address:
--- NOTE | ~2024-09-15 | XR_ITS ---
CLINICAL HISTORY: pain, injury 2 view right knee Comparison: None provided Findings: Bones intact. No dislocations. Tricompartmental osteoarthritis worst in the patellofemoral compartment. Chondrocalcinosis in the medial and lateral compartments. Small joint effusion. No radiopaque foreign body. IMPRESSION: 1. No acute osseous injury. 2. Small joint effusion. 3. Tricompartmental osteoarthritis. This document has been electronically signed by: Josue Baker MD on 09/16/2024 02:30:37
--- NOTE | ~2024-09-15 | XR_ITS ---
CLINICAL HISTORY: pain, injury 2 view left knee Comparison: None provided Findings: No acute fracture or dislocation. Tricompartmental osteoarthritis worst in the patellofemoral compartment. Chondrocalcinosis in the medial and lateral compartments. Small joint effusion. No radiopaque foreign body. IMPRESSION: 1. No acute osseous injury. 2. Small joint effusion. 3. Tricompartmental osteoarthritis. This document has been electronically signed by: Josue Baker MD on 09/16/2024 02:22:14
--- NOTE | ~2024-09-15 | XR_ITS ---
CLINICAL HISTORY: pain, injury 2 view right shoulder Comparison: None provided Findings: Bones intact. No dislocations. Acromioclavicular and glenohumeral osteoarthritis. No erosions. No radiopaque foreign body. IMPRESSION: 1. No acute findings This document has been electronically signed by: Josue Baker MD on 09/16/2024 02:29:34
--- NOTE | ~2024-09-15 | XR_ITS ---
CLINICAL HISTORY: pain, injury 2 view right elbow Comparison: None provided Findings: No acute fractures or dislocations. Osteoarthritis of the elbow joint. No joint effusion. No radiopaque foreign body. IMPRESSION: 1. No acute findings. This document has been electronically signed by: Josue Baker MD on 09/16/2024 02:24:08
--- NOTE | ~2024-09-15 | CT_ITS ---
CLINICAL HISTORY: fall, head strike CT head without contrast Comparison: None provided Findings: No intra-axial mass, midline shift, hydrocephalus, or acute hemorrhage. No significant atrophy-like change or white matter disease. The visualized paranasal sinuses and mastoid air cells are normal. The orbits are within normal limits. There is no acute fracture. IMPRESSION: 1. No acute intracranial findings. This document has been electronically signed by: Josue Baker MD on 09/16/2024 01:05:17
--- NOTE | ~2024-09-15 | CT_ITS ---
CLINICAL HISTORY: fall, head strike CT cervical spine without contrast Comparison: None provided Findings: Straightening of the cervical spine is likely positional. Multilevel degenerative changes. No acute fractures or dislocations. No acute findings on limited view of the intracranial contents. Left subclavian stent. No consolidation or effusion at the lung apices. IMPRESSION: No acute findings. This document has been electronically signed by: Josue Baker MD on 09/16/2024 01:00:47
[2024-09-15 22:08] VITALS: BP 106/65; PULSE 98; RESP 16; TEMP 37.3; O2SAT 95; BMI 26.0
--- NOTE | 2024-09-15 23:04 | ED_ITS ---
HPI - General Adult General Chief complaint: Fall Stated complaint: fall/ possible laceration on right leg Time Seen by Provider: 09/15/24 23:03 Source: patient Mode of arrival: ambulatory Limitations: no limitations History of Present Illness ED Provider: Kelly Colbert PA-C HPI narrative: Patient is a 58 year old assigned female at with a history of migraines, OA, shingles, CPS, JANA, and asthma presenting to the emergency department today with a headache, right shoulder pain, right elbow pain, and bilateral knee pain after a trip and fall. Patient states that she tripped over a dog gate and ran her head into a closet door. Patient denies any loss of consciousness, dizziness, lightheadedness, abdominal pain, nausea, vomiting, fever, chills, blurry vision, double vision, loss of vision, chest pain, difficulty breathing, shortness of breath, back pain, night sweats, pain with urination, increased urinary frequency, increased urinary urgency, blood in her urine or stool, s yncope or a near syncopal episode, bowel incontinence, bladder incontinence, or any other complaints at this time. Relieving factors: none Exacerbating factors: none Associated symptoms: denies other symptoms Treatments prior to arrival: none Related Data Previous Rx's ?Medication ?Instructions ?Recorded miscellaneous medical supply See Rx Instructions [facility] [place] 06/24/20 .COMPLEX PRN Urge Incontinence #4 ea miscellaneous medical supply See Rx Instructions [facility] [place] 06/24/20 .COMPLEX PRN Urge Incontinence #140 ea BACK BRACE #1 ea 04/30/22 amitriptyline 25 mg tablet 25 mg PO BEDTIME 30 days #9 0 tabs 12/16/23 sertraline 50 mg tablet 50 mg PO DAILY #90 tabs 11/27 12/20 SCOOTER #1 ea 12/17/23 ketoconazole 2 % shampoo 1 appl topical 2XW #120 mL 1 04/21/23 meloxicam 15 mg tablet 15 mg PO DAILY 30 days #90 t abs 05/09/24 knee brace R #1 ea 05/12/24 cyclobenzaprine 5 mg tablet 5 mg PO TID PRN muscle spa sm 30 05/19/24 days #60 tabs hydrocortisone 2.5 % topical cream 1 appl VT BID-QID P RN hemorrhoids 05/19/24 with perineal applicator #30 grams (Proctosol HC) tramadol 50 mg tablet 50 mg PO BID PRN pain 30 day s #60 05/19/24 tabs colchicine 0.6 mg tablet 0.6 mg PO BID #20 tabs 06/22 triamcinolone acetonide 0.5 % 1 appl topical BID 14 da ys #15 06/22/24 topical cream grams gabapentin 800 mg tablet 800 mg PO TID 30 days #90 ta bs 07/02/24 albuterol sulfate 90 mcg/actuation 2 puff PO Q4H PRN f or wheezing #18 08/02/24 aerosol inhaler (Ventolin HFA) ea clonazepam 1 mg tablet 0.5 mg (1/2 x 1 mg) PO BID P RN 08/02/24 anxiety 30 days #30 tabs lidocaine 5 % topical patch 1 patch topical DAILY #30 ea 08/31/24 Allergies Allergy/AdvReac Type Severity Reaction Status Date / Time latex (LATEX) Allergy Intermediate RASH Verified 09/15/24 22:10 Chocolate Allergy Unknown Hives Verified 09/15/24 22:10 egg (EGGS) Allergy Unknown SWELLING Verified 09/15/24 22:10 kiwi (KIWI) Allergy Unknown SWELLING Verified 09/15/24 22:10 peanut (PEANUTS) Allergy Unknown SWELLING Verified 09/15/24 22:10 pineapple (PINEAPPLE) Allergy Unknown SWELLING Verified 09/15/24 22:10 animal dander Allergy Rash Verified 09/15/24 22:10 Sulfa (Sulfonamide Allergy Rash Verified 09/15/24 22:10 Antibiotics) ENVIROMENTAL Allergy Intermediate HAYFEVER Uncoded 09/15/24 22:10 SHELLFISH Allergy Intermediate RASH Uncoded 09/15/24 22:10 Review of Systems Constitutional: Constitutional: Reports no additional constitutional complaints, Denies chills, Denies fever(s), Reports headache(s) and Denies night sweats Eyes: Eyes: Reports no additional eye complaints, Denies blurry vision, Denies change in vision, Denies diplopia, Denies eye discharge, Denies loss of vision and Denies eye pain ENT: Denies dizziness and Reports headache(s) Cardiovascular: Cardiovascular: Reports no additional cardiovascular complaints, Denies chest pain, Denies lightheadedness, Denies Loss of Consciousness and Denies dyspnea Respiratory: Respiratory: Reports no additional respiratory complaints and Denies dyspnea Gastrointestinal: Gastrointestinal: Reports no additional gastrointestinal complaints, Denies abdominal pain, Denies melena, Denies hematochezia, Denies change in bowel habits and Denies change in stool character Genitourinary: Genitourinary: Denies hematuria, Denies urinary frequency, Denies dysuria, Denies urinary incontinence, Denies urinary hesitancy and Denies urinary urgency Musculoskeletal: Musculoskeletal: Reports no additional musculoskeletal complaints, Denies numbness and Denies tingling Comments: right shoulder pain right elbow pain bilateral knee pain Neurologic: Denies dizziness, Reports headache(s), Denies loss of vision, Denies numbness and Denies tingling Psychiatric: Psychiatric: Reports no additional psychiatric complaints Endocrine: Endocrine: Reports no additional endocrine complaints Hematologic/Lymphatic: Hematologic/Lymphatic: Reports no additional hematologic/lymphatic complaints Allergic/Immunologic: Allergic/Immunologic: Reports no additional allergic/immunologic complaints PMFSH Past Medical History Attestation statement: The following information was validated with the patient. Source: old records reviewed and nursing notes reviewed Medical History Knee osteoarthritis Scoliosis Pain, dental Knee pain, right Sacroiliac joint dysfunction Left shoulder pain Low back pain Right renal stone Right radial head fracture Knee pain, right Paresthesia of hand, bilateral Elbow pain Back pain Left breast mass Breast cancer screening by mammogram Annual physical exam Colon cancer screening RUQ abdominal pain Rectal bleeding Breast pain, right Brittle nails Easy bruising Vision changes Crackling sound in both ears Breast discharge Chronic pain syndrome Sacroiliac joint dysfunction of left side Osteoarthritis of hips, bilateral Osteoarthritis of knees, bilateral Generalized anxiety disorder Panic attack Depression Vaginal cysts Hx LEEP (loop electrosurgical excision procedure), cervix, Fracture of fifth toe, right, closed Colonoscopy refused Mammogram declined Right renal stone Mild obstructive sleep apnea Carpal tunnel syndrome Restless leg syndrome Aortic valve insufficiency Mixed urge and stress incontinence Cognitive impairment Overweight (BMI 25.0-29.9) Takotsubo cardiomyopathy Asthma Hypercholesterolemia Pulmonary hypertension Migraine Surgical History H/O LEEP History of History of carpal tunnel surgery of left wrist H/O knee surgery Family History Family History Father Hypertension Diabetes Prostate cancer CVD (cardiovascular disease) Mother Hypertension Diabetes Uterine cancer Maternal Grandmother Lung cancer Social History Social History Housing: Apartment Alcohol intake: never Patient Tobacco Use Status: Former Tobacco user Tobacco use type: Cigarette Smoked in Last 30 Days: Yes e-Cigarette/Vaping Use: Never Used Second Hand Smoke Exposure: Yes Use of substances other than those prescribed or required for medical reasons: Yes Substance Use Type: Marijuana Advance Directives: No Advance Directives Information Provided: No service: No Current occupational status: disabled Current occupation: left hand Cognitive needs: No Hearing needs: No Vision needs: Yes (glasses) Physical Exam ED Vital Signs: Vital Signs - 24 hr 09/15/24 22:08 09/16/24 01:47 Temperature 99.1 F 99.1 F Pulse Rate 98 98 Respiratory Rate 16 16 Blood Pressure 106/65 106/65 Pulse Oximetry 95 95 Oxygen Delivery Method Room Air Room Air BMI result Body Mass Index 26.0 Const General: cooperative, no acute distress, alert and awake Nutritional Appearance: well nourished Orientation/consciousness: patient oriented x3 HENMT Head: Yes normal to inspection and Yes atraumatic Ears: hearing grossly normal bilaterally and external ears normal General nose exam: Normal external nose present, no nasal discharge noted and no epistaxis Face and sinus: Yes normal facial exam, No abrasion and No laceration Mouth: Normal oral and palatal mucosa present, no drooling and no muffled voice Eyes General: appearance normal, both eyes and all related structures Periorbital: periorbital findings normal Eyelids: Yes eyelids normal Conjunctivae: conjunctivae normal Pupils: Equal, round and reactive pupils present EOM: EOMs intact bilaterally Neck Neck: Yes normal visual inspection, Yes full ROM and Yes no lymphadenopathy Resp Effort & Inspection: normal respiratory effort and able to speak in complete sentences Neuro General: patient oriented x3, moves all extremities and CN's II-XI intact bilaterally Cranial nerves: Yes Equal, round and reactive pupils present Cognition (Neuro): normal cognition Extrem General: Yes normal to inspection, Yes full ROM and Yes capillary refill normal Psych Appearance: grossly normal Mental Status: mental status grossly normal Affect: normal affect Attitude: cooperative Thought process: Normal thought process present Thought content: Normal thought content present Insight: Good insight present (Psych) Medications Administered Discontinued Medications Generic Name Dose Route Start Last Admin Trade Name Lisseth PRN Reason Stop Dose Admin Oxycodone HCl 10 mg 09/15/24 23:30 09/16/24 01:14 Oxycodone Hcl Immed Release 5 Mg Tablet PO 09/15/24 23:31 10 mg ONCE ONE Administration Procedures Orthopedic Splinting/Casting Injury #1: Side: right Upper Extremity Injury Location: elbow Upper Extremity Immobilizer: sling/shoulder immobilizer Medical Decision Making Medical Decision Making MDM Narrative: Patient is a 58 year old assigned female at with a history of migraines, OA, shingles, CPS, JANA, and asthma presenting to the emergency department today with a headache, right shoulder pain, right elbow pain, and bilateral knee pain after a trip and fall. Patient's physical exam was unremarkable. Patient's CT head and c-spine showed no acute process. Patient's right elbow, right shoulder, and bilateral knee x-rays showed no acute process. Patient states that she previously broke her right elbow and never had it addressed. Patient states that she would prefer if the right elbow was in a sling. Patient's right elbow was placed in a sling, without incident. I explained my physical exam findings as well as all test results to the patient. I answered all questions asked by the patient. I stressed the importance of the patient taking her medication as directed (either prescribed or as the over the counter packaging recommends). I stressed the importance of the patient following up with her primary care provider and the orthopedic team. I stressed the importance of the patient returning to the emergency department immediately if her symptoms were to worsen or if she were to develop any dizziness, shortness of breath, difficulty breathing, chest pain, blurry vision, loss of vision, nausea, vomiting, abdominal pain, fever, chills, back pain, or any other complaints. Patient verbalized agreement and understanding with this treatment plan and discharge. Differential Diagnosis Differential Diagnoses: The differential diagnosis associated with the presentation includes Right elbow sprain Right elbow strain Trip and fall Headache Knee pain Admission/Observation Consideration of admission/observation: Escalation of care including admission/observation considered Patient would have been admitted to the hospital had her work up had any findings where hospital admission was appropriate and her clinical presentation warranted hospital admission. Independent Interpretation I performed an independent interpretation of an: Plain X-Ray and CT Scan Interpretation: My interpretation is in agreement with the radiologist's impression of these imaging studies. CLINICAL HISTORY: pain, injury 2 view right knee Comparison: None provided Findings: Bones intact. No dislocations. Tricompartmental osteoarthritis worst in the patellofemoral compartment. Chondrocalcinosis in the medial and lateral compartments. Small joint effusion. No radiopaque foreign body. IMPRESSION: 1. No acute osseous injury. 2. Small joint effusion. 3. Tricompartmental osteoarthritis. This document has been electronically signed by: Josue Baker MD on 09/16/2024 02:30:37 Dictated By: Josue Baker MD Signed By: Electronically signed by Josue Baker MD 09/16/24 023 CLINICAL HISTORY: pain, injury 2 view right shoulder Comparison: None provided Findings: Bones intact. No dislocations. Acromioclavicular and glenohumeral osteoarthritis. No erosions. No radiopaque foreign body. IMPRESSION: 1. No acute findings This document has been electronically signed by: Josue Baker MD on 09/16/2024 02:29:34 Dictated By: Josue Baker MD Signed By: Electronically signed by Josue Baker MD 09/16/24 0230 CLINICAL HISTORY: pain, injury 2 view right elbow Comparison: None provided Findings: No acute fractures or dislocations. Osteoarthritis of the elbow joint. No joint effusion. No radiopaque foreign body. IMPRESSION: 1. No acute findings. This document has been electronically signed by: Josue Baker MD on 09/16/2024 02:24:08 Dictated By: Josue Baker MD Signed By: Electronically signed by Josue Baker MD 09/16/24 022 CLINICAL HISTORY: pain, injury 2 view left knee Comparison: None provided Findings: No acute fracture or dislocation. Tricompartmental osteoarthritis worst in the patellofemoral compartment. Chondrocalcinosis in the medial and lateral compartments. Small joint effusion. No radiopaque foreign body. IMPRESSION: 1. No acute osseous injury. 2. Small joint effusion. 3. Tricompartmental osteoarthritis. This document has been electronically signed by: Josue Baker MD on 09/16/2024 02:22:14 Dictated By: Josue Baker MD Signed By: Electronically signed by Josue Baker MD 09/16/24 0222 Report Number: [id number]: Total DLP = 636.06 mGy-cm CLINICAL HISTORY: fall, head strike CT head without contrast Comparison: None provided Findings: No intra-axial mass, midline shift, hydrocephalus, or acute hemorrhage. No significant atrophy-like change or white matter disease. The visualized paranasal sinuses and mastoid air cells are normal. The orbits are within normal limits. There is no acute fracture. IMPRESSION: 1. No acute intracranial findings. This document has been electronically signed by: Josue Baker MD on 09/16/2024 01:05:17 Dictated By: Josue Baker MD Signed By: Electronically signed by Josue Baker MD 09/16/24 0105 Report Number: [id number]: Total DLP = 273.58 mGy-cm CLINICAL HISTORY: fall, head strike CT cervical spine without contrast Comparison: None provided Findings: Straightening of the cervical spine is likely positional. Multilevel degenerative changes. No acute fractures or dislocations. No acute findings on limited view of the intracranial contents. Left subclavian stent. No consolidation or effusion at the lung apices. IMPRESSION: No acute findings. This document has been electronically signed by: Josue Baker MD on 09/16/2024 01:00:47 Dictated By: Josue Baker MD Signed By: Electronically signed by Josue Baker MD 09/16/24 010 Radiology Impression Discussion of test interpretation with radiology: I have reviewed the radiologist's reading. Discharge Plan Discharge Clinical Impression: Fall Qualifiers: Encounter type: initial encounter Qualified Code(s): W19.XXXA - Unspecified fall, initial encounter Acute shoulder pain Qualifiers: Laterality: right Qualified Code(s): M25.511 - Pain in right shoulder Acute knee pain Qualifiers: Laterality: bilateral Qualified Code(s): M25.561 - Pain in right knee Elbow pain Qualifiers: Laterality: right Qualified Code(s): M25.521 - Pain in right elbow Headache Qualifiers: Headache type: post-traumatic Headache chronicity pattern: acute headache Intractability: not intractable Qualified Code(s): G44.319 - Acute post- traumatic headache, not intractable Elbow sprain Qualifiers: Encounter type: initial encounter Laterality: right Qualified Code(s): S53.401A - Unspecified sprain of right elbow, initial encounter Patient Disposition: Home, Self-Care Instructions: Acute Headache (DC), Elbow Sprain (ED), Knee Pain (ED), Fall Prevention (ED), Shoulder Pain (ED) Additional Instructions: Only use your sling when ambulating to keep your right elbow at 90 degrees and immobile but be sure to move your right shoulder or you will freeze the joint. Follow up with your primary care provider and an orthopedic provider. Return to the emergency department immediately if your symptoms worsen or if you develop any numbness, tingling, dizziness, shortness of breath, difficulty breathing, chest pain, blurry vision, loss of vision, nausea, vomiting, abdominal pain, fever, chills, back pain, or any other complaints. Please see the information below about our Patient Portal. If you are not yet enrolled in the [facility] Patient Portal, you will receive an enrollment email invitation following your visit to any [facility] setting. You may also self-enroll in the Patient Portal by visiting our website: [email or web address] The following information is required to access the Patient Portal: - Your [facility] Medical Record Number - Your personal home email address (must match what is in your electronic medical record, Registration staff can assist with this) - Name - Date of Capabilities of the Patient Portal: - Message some providers - View upcoming appointments - Access your health summary, medical history, and visit history - View current conditions and allergies - View procedure and lab results - View your medications, including guidelines, side effects, and precautions - Complete pre-appointment questionnaires requested by your provider - Ready summary reports of your office visits and procedures To access the Patient Portal Mobile [facility], follow these directions: - Search [employer] in the [employer] Store or [employer] Store - Download the [facility] - Search for [facility] - Enter your login/password Prescriptions: No Action miscellaneous medical supply Misc See Rx Instructions miscellaneous .COMPLEX PRN (Reason: Urge Incontinence) Qty: 140 11RF Rx Instructions: disposable bed pads - 4x daily miscellaneous miscellaneous medical supply [facility] [place] Rx Instructions miscellaneous .COMPLEX PRN (Reason: Urge Incontinence ) Qty: 4 11RF Rx Instructions: wipes- 4x daily (DME) BACK BRACE See Rx Instructions .Route .MEDSUPPLY Qty: 1 0RF Rx Instructions: As directed sertraline 50 mg tablet 50 mg PO DAILY Qty: 90 1RF Rx Instructions: anxiety amitriptyline 25 mg tablet 25 mg PO BEDTIME 30 Days Qty: 90 2RF ketoconazole 2 % shampoo 1 appl topical 2XW Qty: 120 0RF meloxicam 15 mg tablet 15 mg PO DAILY 30 Days Qty: 90 0RF (DME) knee brace R See Rx Instructions .Route .MEDSUPPLY Qty: 1 0RF Rx Instructions: As directed cyclobenzaprine 5 mg tablet 5 mg PO TID PRN (Reason: muscle spasm) 30 Days Qty: 60 3RF hydrocortisone [Proctosol HC] 2.5 % cream with perineal applicator 1 appl VT BID-QID PRN (Reason: hemorrhoids) Qty: 30 0RF tramadol 50 mg tablet 50 mg PO BID PRN (Reason: pain) 30 Days Qty: 60 0RF colchicine 0.6 mg tablet 0.6 mg PO BID Qty: 20 0RF triamcinolone acetonide 0.5 % cream 1 appl topical BID 14 Days Qty: 15 0RF gabapentin 800 mg tablet 800 mg PO TID 30 Days Qty: 90 1RF albuterol sulfate [Ventolin HFA] 90 mcg/actuation HFA aerosol inhaler 2 puff PO Q4H PRN (Reason: for wheezing) Qty: 18 0RF clonazepam 1 mg tablet 0.5 mg PO BID PRN (Reason: anxiety) 30 Days Qty: 30 0RF lidocaine 5 % adhesive patch,medicated 1 patch topical DAILY Qty: 30 2RF Rx Instructions: leave on most painful area for up to 12 hrs (DME) SCOOTER See Rx Instructions .Route .MEDSUPPLY Qty: 1 0RF Rx Instructions: As directed Referrals: [facility] [Provider Group] Referral Note: Call to establish and follow up with an orthopedic provider. Lawrence Garcia MD [Primary Care Provider, Internal Medicine] Interventions: ED Discharge Assessment Last Done: 09/16/24 01:47 Discharge Date/Time: 09/16/24 01:48 Print Language: Danish
[2024-09-16] MEDS: oxyCODONE HCl Immed Release 5 MG TABLET 10 MG PO (01:14)
[2024-09-16 01:47] VITALS: BP 106/65; PULSE 98; RESP 16; TEMP 37.3; O2SAT 95
== END 2024-09-16 01:48 | disposition home or self-care (01) ==
PROVIDERS: Emergency Provider Emergency Medicine Emergency Medical Services; PCP Internal Medicine
DX: S53.401A Unspecified sprain of right elbow, initial encounter (principal); S81.811A Laceration without foreign body, right lower leg, initial encounter; M25.511 Pain in right shoulder; M25.521 Pain in right elbow; M25.561 Pain in right knee; R51.9 Headache, unspecified; M54.2 Cervicalgia; X58.XXXA Exposure to other specified factors, initial encounter; W01.0XXA Fall on same level from slipping, tripping and stumbling without subsequent striking against object, initial encounter; Y93.9 Activity, unspecified; Y92.9 Unspecified place or not applicable; Y99.8 Other external cause status
CPT/HCPCS: 29105; 70450; 72125; 73030; 73070; 73560; 99284

== ENCOUNTER → 2024-09-16 | Outpatient (BNV) | payer OTHER, SELFPAY | PROVIDERS: Emergency Provider Emergency Medicine Emergency Medical Services; PCP Internal Medicine; Visit Provider Radiology Diagnostic Radiology | DX: S09.90XA Unspecified injury of head, initial encounter (principal); M25.511 Pain in right shoulder; M25.461 Effusion, right knee; M25.462 Effusion, left knee; M17.0 Bilateral primary osteoarthritis of knee; M25.521 Pain in right elbow | CPT/HCPCS: 70450; 72125; 73030; 73070; 73560 ==

== ENCOUNTER 2024-09-22 02:35 | Emergency (ER) | payer OTHER, SELFPAY ==
[2024-09-22 02:46] VITALS: BP 104/62; BP 95/47; PULSE 75; PULSE 96; RESP 18; TEMP 36.7; O2SAT 95; O2SAT 96; BMI 26.0
--- OUTSIDE RECORDS SUMMARY | 2024-09-22 03:24 | XMS_ITS | Patient Health Record ---
Author Organization [facility] Address [address] [place] [address] Care Team Providers Care Electronic Court Recorder Name Role Phone Urmila KEYES, Greta Primary Care Provider Turner Fisher Unavailable [phone] Reason For Referral No Information Medications Medication SIG (Take, Route, Frequency, Duration) Notes Start Date End Date Status Wellbutrin XL 150 MG 1 tablet in the mor tessy Orally Once a day Active Vitamin D 2000 UNIT Orally Active Flexeril Active Magnesium 200 MG 2 tablets with a richar l Orally Once a day Active Triamcinolone Acetonide 0.1 % 1 application to affected area Externally Twice a day Active PARoxetine HCl 20 MG 1 tablet in the mor tessy Orally Once a day Active LORazepam 0.5 MG 1 tablet as needed O rally Twice a day Active Problems Problem Type SNOMED Code ICD Code Onset Dates Problem Status W/U Status Risk Notes Problem Irritable bowel syndrome (80577396) Irritable bowel syndrome (564.1) Active confirmed Problem Blood in stool (521737058) Blood in stool (578.1) Active confirmed Plan Of Treatment No Information Insurance Providers Payer Name Payer Address Payer Phone Subscriber Number Group Number Insured Name Patient Relationship to Insured Coverage Start Date Coverage End Date [facility] [employer] [facility] [address] [address] [place], [place] [id number] ANGELINA SIMPSON Self - patient is the insured Medical (General) History Medical History History ICD Code Asthma Restless leg syndrome Hyperlipidemia--on no meds G6PD deficiency Migraines Rheumatic fever as a child Anxiety/depression/panic attacks/PTSD Carpal tunnel Denies [place],DM,CVA,renal disease Surgical History Surgery Date(Month/Year) knee surgery section vaginal cyst removal LEEP for cervical cancer Carpal tunnel
--- NOTE | 2024-09-22 03:32 | ED_ITS ---
HPI - Skin/Abscess/Foreign Bdy General Chief complaint: Skin/Abscess/Foreign Body Stated complaint: ITCHY ALL OVER BODY/ FLEAS ? Time Seen by Provider: 09/22/24 02:41 Source: patient and EMS Mode of arrival: EMS Limitations: no limitations History of Present Illness ED Provider: Dr. Mabel Baca HPI narrative: Patient comes to the emergency room complaining of feeling itchiness. Patient states that her daughter's dog visited a few days ago, the patient gave a bath 2 dogs, patient states that the next day she started feeling itchy all over. Patient states that she is seeing bite almonte all over her body. Patient is concerned that they got into her breast surgical incision. Also, patient states that she believes that when she moves her bowels, she soft least in the stool. Related Data Previous Rx's ?Medication ?Instructions ?Recorded miscellaneous medical supply See [facility] .COMPLEX PRN Urge Incontinence #4 ea miscellaneous medical supply See Rx Instructions [facility] 06/24/20 .COMPLEX PRN Urge Incontinence #140 ea BACK BRACE #1 ea 04/30/22 amitriptyline 25 mg tablet 25 mg PO BEDTIME 30 days #9 0 tabs 12/16/23 sertraline 50 mg tablet 50 mg PO DAILY #90 tabs 11/27 12/20 SCOOTER #1 ea 12/17/23 ketoconazole 2 % shampoo 1 appl topical 2XW #120 mL 1 04/21/23 meloxicam 15 mg tablet 15 mg PO DAILY 30 days #90 t abs 05/09/24 knee brace R #1 ea 05/12/24 cyclobenzaprine 5 mg tablet 5 mg PO TID PRN muscle spa sm 30 05/19/24 days #60 tabs hydrocortisone 2.5 % topical cream 1 appl TX BID-QID P RN hemorrhoids 05/19/24 with perineal applicator #30 grams (Proctosol HC) tramadol 50 mg tablet 50 mg PO BID PRN pain 30 day s #60 05/19/24 tabs colchicine 0.6 mg tablet 0.6 mg PO BID #20 tabs 06/22 triamcinolone acetonide 0.5 % 1 appl topical BID 14 da ys #15 06/22/24 topical cream grams gabapentin 800 mg tablet 800 mg PO TID 30 days #90 ta bs 07/02/24 albuterol sulfate 90 mcg/actuation 2 puff PO Q4H PRN f or wheezing #18 08/02/24 aerosol inhaler (Ventolin HFA) ea clonazepam 1 mg tablet 0.5 mg (1/2 x 1 mg) PO BID P RN 08/02/24 anxiety 30 days #30 tabs lidocaine 5 % topical patch 1 patch topical DAILY #30 ea 08/31/24 hydroxyzine HCl 10 mg tablet 10 mg PO TID PRN itching #10 tabs 09/22/24 Allergies Allergy/AdvReac Type Severity Reaction Status Date / Time latex (LATEX) Allergy Intermediate RASH Verified 09/22/24 02:47 Chocolate Allergy Unknown Hives Verified 09/22/24 02:47 egg (EGGS) Allergy Unknown SWELLING Verified 09/22/24 02:47 kiwi (KIWI) Allergy Unknown SWELLING Verified 09/22/24 02:47 peanut (PEANUTS) Allergy Unknown SWELLING Verified 09/22/24 02:47 pineapple (PINEAPPLE) Allergy Unknown SWELLING Verified 09/22/24 02:47 animal dander Allergy Rash Verified 09/22/24 02:47 Sulfa (Sulfonamide Allergy Rash Verified 09/22/24 02:47 Antibiotics) ENVIROMENTAL Allergy Intermediate HAYFEVER Uncoded 09/22/24 02:47 SHELLFISH Allergy Intermediate RASH Uncoded 09/22/24 02:47 Review of Systems Review of Systems: Constitutional : No Weight loss, No Fever, No Chills, No Night Sweats, No Fatigue, No Malaise ENT/Mouth : No Hearing loss, No Ear Pain, No Nasal Congestion, No Sinus Pain, No Hoarseness, No sore throat, No Rhinorrhea, No Swallowing Difficulty Eyes: No Eye Pain, No Swelling, No Redness, No Foreign Body, No Discharge, No Vision Changes Cardiovascular : No Chest Pain, No SOB, No Dyspnea on Exertion, No Orthopnea, No Edema, No Palpitations Respiratory : No Cough, No Sputum, No Wheezing, No Smoke Exposure, No Dyspnea Gastrointestinal : No Nausea, No Vomiting, No Diarrhea, No Constipation, No abdominal Pain, No Hematochezia, No Melena Genitourinary : no irregular bleeding, No Dysuria, No Urinary Frequency, No Hematuria, No Urinary Incontinence, No Urgency, No Flank Pain, No Urinary Flow Changes, No Hesitancy Musculoskeletal : No joint pain, No Myalgias, No Joint Swelling Skin : Complaining of itchiness all over and seeing bike please all over her body Neuro : No Weakness, No Numbness, No Paresthesias, No Loss of Consciousness, No Dizziness, No Headache Psych : No Anxiety/Panic, No Depression, No SI/HI/AH/VH, No Social Issues, Heme/Lymph: No Bruising, No Bleeding,No Lymphadenopathy Endocrine : No Polyuria, No Polydipsia, No Temperature Intolerance [facility] Past Medical History Medical History Knee osteoarthritis Scoliosis Pain, dental Knee pain, right Sacroiliac joint dysfunction Left shoulder pain Low back pain Right renal stone Right radial head fracture Knee pain, right Paresthesia of hand, bilateral Elbow pain Back pain Left breast mass Breast cancer screening by mammogram Annual physical exam Colon cancer screening RUQ abdominal pain Rectal bleeding Breast pain, right Brittle nails Easy bruising Vision changes Crackling sound in both ears Breast discharge Chronic pain syndrome Sacroiliac joint dysfunction of left side Osteoarthritis of hips, bilateral Osteoarthritis of knees, bilateral Generalized anxiety disorder Panic attack Depression Vaginal cysts Hx LEEP (loop electrosurgical excision procedure), cervix, Fracture of fifth toe, right, closed Colonoscopy refused Mammogram declined Right renal stone Mild obstructive sleep apnea Carpal tunnel syndrome Restless leg syndrome Aortic valve insufficiency Mixed urge and stress incontinence Cognitive impairment Overweight (BMI 25.0-29.9) Takotsubo cardiomyopathy Asthma Hypercholesterolemia Pulmonary hypertension Migraine Surgical History H/O LEEP History of History of carpal tunnel surgery of left wrist H/O knee surgery Family History Family History Father Hypertension Diabetes Prostate cancer CVD (cardiovascular disease) Mother Hypertension Diabetes Uterine cancer Maternal Grandmother Lung cancer Social History Social History Housing: Apartment Alcohol intake: former Patient Tobacco Use Status: Former Tobacco user Tobacco use type: Cigarette Smoked in Last 30 Days: No e-Cigarette/Vaping Use: Never Used Second Hand Smoke Exposure: Yes Use of substances other than those prescribed or required for medical reasons: No Substance Use Type: Marijuana Substance Use Frequency: Daily Advance Directives: Yes Advance Directives Information Provided: Yes Advance Directives on File: No Patient : No service: No Current occupational status: disabled Current occupation: left hand Cognitive needs: No Hearing needs: No Vision needs: Yes (glasses) Physical Exam Vital Signs: Vital Signs: Last Vital Signs Temp 98.1 F 09/22/24 02:46 Pulse 75 09/22/24 02:46 Resp 18 09/22/24 02:46 BP 95/47 L 09/22/24 02:46 Pulse Ox 95 09/22/24 02:46 O2 Del Method Room Air 09/22/24 02:46 BMI result Body Mass Index 26.0 Const: Other: Appearance: Alert. Oriented X3. No acute distress. Eyes: Pupils equal, round and reactive to light. ENT: Pharynx normal. Neck: Normal inspection. Neck supple. No lymph nodes noted. No crepitus CVS: Normal heart rate and rhythm. Pulses normal. Normal S1 and S2 Respiratory: No respiratory distress. Breath sounds normal. No Wheezing. No rales Abdomen: Soft and nontender. No rigidity. No distention. Skin: Skin warm and dry. Normal skin color. Normal skin turgor. Extremities: No lower extremity edema. No Lacerations. No Rash Neuro: Oriented X 3. No motor deficit. No sensory deficit. Moving all extremit ies. No slurred speech. CN 2 through 12 grossly intact Psych: calm, cooperative, normal affect Medical Decision Making Medical Decision Making MDM Narrative: I discussed the physical exam with the patient, there are no bite police at all. Patient's get him of the right breast was change. Looks clean, no signs of infection. Patient was given a dose of hydroxyzine for anxiety/itchiness. Discharge Plan Discharge Clinical Impression: Itching, Anxiety Patient Disposition: Home, Self-Care Instructions: Anxiety (ED), Itchy Skin (ED) Additional Instructions: Please follow-up with your primary care physician tomorrow. If you have any worsening or new symptoms, please return to the emergency room or call 911 Prescriptions: New hydroxyzine HCl 10 mg tablet 10 mg PO TID PRN (Reason: itching) Qty: 10 0RF No Action miscellaneous medical supply Misc See Rx Instructions miscellaneous .COMPLEX PRN (Reason: Urge Incontinence) Qty: 140 11RF Rx Instructions: disposable bed pads - 4x daily miscellaneous miscellaneous medical supply Misc See Rx Instructions miscellaneous .COMPLEX PRN (Reason: Urge Incontinence ) Qty: 4 11RF Rx Instructions: wipes- 4x daily (DME) BACK BRACE See Rx Instructions .Route .MEDSUPPLY Qty: 1 0RF Rx Instructions: As directed sertraline 50 mg tablet 50 mg PO DAILY Qty: 90 1RF Rx Instructions: anxiety amitriptyline 25 mg tablet 25 mg PO BEDTIME 30 Days Qty: 90 2RF ketoconazole 2 % shampoo 1 appl topical 2XW Qty: 120 0RF meloxicam 15 mg tablet 15 mg PO DAILY 30 Days Qty: 90 0RF (DME) knee brace R See Rx Instructions .Route .MEDSUPPLY Qty: 1 0RF Rx Instructions: As directed cyclobenzaprine 5 mg tablet 5 mg PO TID PRN (Reason: muscle spasm) 30 Days Qty: 60 3RF hydrocortisone [Proctosol HC] 2.5 % cream with perineal applicator 1 appl [place] BID-QID PRN (Reason: hemorrhoids) Qty: 30 0RF tramadol 50 mg tablet 50 mg PO BID PRN (Reason: pain) 30 Days Qty: 60 0RF colchicine 0.6 mg tablet 0.6 mg PO BID Qty: 20 0RF triamcinolone acetonide 0.5 % cream 1 appl topical BID 14 Days Qty: 15 0RF gabapentin 800 mg tablet 800 mg PO TID 30 Days Qty: 90 1RF albuterol sulfate [Ventolin HFA] 90 mcg/actuation HFA aerosol inhaler 2 puff PO Q4H PRN (Reason: for wheezing) Qty: 18 0RF clonazepam 1 mg tablet 0.5 mg PO BID PRN (Reason: anxiety) 30 Days Qty: 30 0RF lidocaine 5 % adhesive patch,medicated 1 patch topical DAILY Qty: 30 2RF Rx Instructions: leave on most painful area for up to 12 hrs (DME) SCOOTER See Rx Instructions .Route .MEDSUPPLY Qty: 1 0RF Rx Instructions: As directed Print Language: Canadian
[2024-09-22] MEDS: hydrOXYzine HCL 50 MG TABLET PO (03:55)
[2024-09-22 04:25] VITALS: BP 103/54; PULSE 81; RESP 16; TEMP 36.7; O2SAT 98
== END 2024-09-22 04:26 | disposition home or self-care (01) ==
PROVIDERS: Emergency Provider Emergency Medicine; PCP Internal Medicine
DX: L29.9 Pruritus, unspecified (principal); F41.9 Anxiety disorder, unspecified
CPT/HCPCS: 99283; 99284

== ENCOUNTER 2024-09-26 16:13 | Outpatient (AMB) | payer OTHER, SELFPAY ==
--- OUTSIDE RECORDS SUMMARY | 2024-09-21 23:59 | XMS_ITS | Continuity of Care Document ---
Author Organization [facility] Address [address] [place] [address]- Care Team Providers Care Can Cutter Name Role Phone Po Lawrence HOYT Primary Care Physician Encounter [facility] Date(s): 08/22/24 - 09/21/24 [facility] [address] [place] [address]- Encounter Type: Triage Allergies, Adverse Reactions, Alerts [...] 1:37:10 PM EST, Route to Pharmacy Electronically, [facility] 3 Start Date: 02/08/16 Status: Ordered Quantity: 180.0 Unit: tablet Repeat number: 1 aspirin 81 mg oral delayed release tablet 81 mg, By Mouth, Daily, # 100 tablet, Refills 0, Tot. 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 LALY III Confirmed Active Social History Social History Type Response Smoking Status Former smoker, quit more than 30 days ago entered on: 11/03/23 Sex Sex Representation Female (finding) Patient Care team information Care Team Personnel Name: Brianne Almazan RN Position: [facility] Nurse Member Role: Primary Care Nurse Name: Lawrence Garcia MD Position: Reference Physician Member Role: PCP Address: [address] [place] [address] Telecom: Care Team Related Persons Name: GEENA CLAY Insurance Providers Guarantor name: [facility] [employer]acer Plan Information #: 1 Payer: [employer] Payer Identifier: SARAH Member Number: [id number] Group Number: [id number] Subscriber Identifier: [id number] Relationship to Subscriber: self Coverage Type: NA Coverage Verification Date: NA Telecom: SARAH Address:
[2024-09-26 16:18] VITALS: BP 136/88; PULSE 95; O2SAT 98; BMI 24.1
--- NOTE | 2024-09-26 16:18 | MHC.PC.OV ---
Vital Signs 09/26/24 16:18 Height 4 ft 9 in Weight 111 lb 4 oz BMI 24.1 BP 136/88 Blood Pressure Location Lt brachial Position Sitting Pulse 95 Pulse Source Pulse Oximeter Pulse Oximetry (%) 98 Oxygen Delivery Method Room Air Intake Visit Reasons: Rash Motorcyles Final Inspector Required: No Accompanied by: Self / Same As Patient Allergies latex (LATEX) Allergy (Intermediate, Verified 09/26/24 16:39) RASH Chocolate Allergy (Unknown, Verified 09/26/24 16:39) Hives egg (EGGS) Allergy (Unknown, Verified 09/26/24 16:39) SWELLING kiwi (KIWI) Allergy (Unknown, Verified 09/26/24 16:39) SWELLING peanut (PEANUTS) Allergy (Unknown, Verified 09/26/24 16:39) SWELLING pineapple (PINEAPPLE) Allergy (Unknown, Verified 09/26/24 16:39) SWELLING animal dander Allergy (Verified 09/26/24 16:39) Rash Sulfa (Sulfonamide Antibiotics) Allergy (Verified 09/26/24 16:39) Rash ENVIROMENTAL Allergy (Intermediate, Uncoded 09/26/24 16:39) HAYFEVER SHELLFISH Allergy (Intermediate, Uncoded 09/26/24 16:39) RASH Medication List - Last Reconciled 09/26/24 by Anthony Herrera MD albuterol sulfate 90 mcg/actuation (Ventolin HFA) 2 puffs PO Q4H PRN amitriptyline 25 mg PO BEDTIME 30 days [BACK BRACE As directed] clonazepam 0.5 mg (1/2 x 1 mg) PO BID PRN 30 days colchicine 0.6 mg PO BID cyclobenzaprine 5 mg PO TID PRN 30 days gabapentin 800 mg PO TID 30 days hydrocortisone 2.5% (Proctosol HC) 1 appl AR BID-QID PRN hydroxyzine HCl 10 mg PO TID PRN ketoconazole 2% 1 appl topical 2XW [knee brace R As directed] lidocaine 5% 1 patch topical DAILY meloxicam 15 mg PO DAILY 30 days miscellaneous medical supply disposable bed pads - 4x daily miscellaneous miscellaneous medical supply wipes- 4x daily [SCOOTER As directed] sertraline 50 mg PO DAILY tramadol 50 mg PO BID PRN 30 days triamcinolone acetonide 0.5% 1 appl topical BID 14 days Tobacco use date assessed: 09/26/24 Dental Screening Dental Screen Date: 09/26/24 Did you have a dental visit in the last 12 months?: Yes Did you have a dental problem in the last 6 months where you did not have access to dental care?: No Was dental information given to patient?: Patient has dentist HPI Rash HPI Details Patient comes in today complaining of recurrent skin symptoms over the past couple of weeks States that she has been breaking out repeatedly in small white blisters all over her skin and has been experiencing irritating sensations and pain on her legs and over her chest wall States that she doesn't feel well and has recurrent headaches as well as some painful mouth sores Notes that her skin feels very irritated and sensitive and she feels that she is experiencing some parasitic infestation, possibly bedbugs States that she already went to the emergency room for further evaluation recently and they advised her she didn't have anything going on as her exam all came back normal She denies any fever Denies any chest pains, no increased SOB No nausea/vomiting, no abdominal pain No change in bowel habits noted FOR[facility]LY [facility], [facility] Medical History Knee osteoarthritis Scoliosis Pain, dental Knee pain, right Sacroiliac joint dysfunction Left shoulder pain Low back pain Right renal stone Right radial head fracture Knee pain, right Paresthesia of hand, bilateral Elbow pain Back pain Left breast mass Breast cancer screening by mammogram Annual physical exam Colon cancer screening RUQ abdominal pain Rectal bleeding Breast pain, right Brittle nails Easy bruising Vision changes Crackling sound in both ears Breast discharge Chronic pain syndrome Sacroiliac joint dysfunction of left side Osteoarthritis of hips, bilateral Osteoarthritis of knees, bilateral Generalized anxiety disorder Panic attack Depression Vaginal cysts Hx LEEP (loop electrosurgical excision procedure), cervix, Fracture of fifth toe, right, closed Colonoscopy refused Mammogram declined Right renal stone Mild obstructive sleep apnea Carpal tunnel syndrome Restless leg syndrome Aortic valve insufficiency Mixed urge and stress incontinence Cognitive impairment Overweight (BMI 25.0-29.9) Takotsubo cardiomyopathy Asthma Hypercholesterolemia Pulmonary hypertension Migraine Surgical History H/O LEEP History of History of carpal tunnel surgery of left wrist H/O knee surgery Family History Father Hypertension Diabetes Prostate cancer CVD (cardiovascular disease) Mother Hypertension Diabetes Uterine cancer Maternal Grandmother Lung cancer Social History Housing: Apartment Alcohol intake: former Patient Tobacco Use Status: Former Tobacco user Tobacco use type: Cigarette e-Cigarette/Vaping Use: Never Used Second Hand Smoke Exposure: Yes Substance Use Type: Marijuana service: No Current occupational status: disabled Current occupation: left hand Cognitive needs: No Hearing needs: No Vision needs: Yes (glasses) Questionnaire PHQ-9 Over the last 2 weeks, how often have you been bothered by any of the following problems? 1. Little interest or pleasure in doing things: nearly every day 2. Feeling down, depressed, or hopeless: nearly every day 3. Trouble falling or staying asleep, or sleeping too much: nearly every day 4. Feeling tired or having little energy: nearly every day 5. Poor appetite or overeating: nearly every day 6. Feeling bad about yourself - or that you are a failure or have let yourself or your family down: not at all 7. Trouble concentrating on things, such as reading the newspaper or watching television: not at all 8. Moving or speaking so slowly that other people could have noticed. Or the opposite - being so fidgety or restless that you have been moving around a lot more than usual: not at all 9. Thoughts that you would be better off or of hurting yourself in some way: not at all Total score: 15 Depression Screening Interpretation: Negative Depression Screening Done: Yes 26151 - PHQ-9 Billing: Yes Source: Developed by Drs. Turner Burt, Alina Bailey, Timur Pineda and colleagues, with an educational iliana from [employer]. Thrive Questionnaire Date Thrive assessed: 09/26/24 I am a: Patient What is your living situation today?: I have a steady place to live Within the past 12 months, did the food you bought not last and you didn't have the money to get more?: Never true Within the past 12 months, did you worry whether your food would run out before you got money to buy more?: Never true Do you have trouble paying for medicines?: No Do you have trouble getting transportation to medical appointments?: No Do you have trouble paying your heating and electricity bill?: No Do you have trouble taking care of your child, family member or friend?: No Do you have trouble with day-to-day activities such as bathing, preparing meals, shopping, managing finances, etc.?: No Are you currently unemployed and looking for a job?: I choose not to answer this question Are you interested in more education?: No Please select the resources that you would like help with: None Currently or been in a relationship where the following occur: No concerns reported THRIVE Score: 0 AUDIT C Alcohol Use Questionnaire (AUDIT-C) 1. How often do you have a drink containing alcohol?: Never 3. How often do you have six or more drinks on one occasion?: Never Total Score: 0 Score Reviewed/Action Taken: No JANA-7 AMB Questionnaire JANA-7 Date JANA - 7 assessed: 09/26/24 Feeling nervous, anxious, or on edge: 0 = Not at all Not being able to stop or control worryin = Not at all Worrying too much about different things: 0 = Not at all Trouble relaxin = Not at all Being so restless that it is hard to sit still: 0 = Not at all Becoming easily annoyed or irritable: 0 = Not at all Feeling afraid as if something awful might happen: 0 = Not at all Total JANA-7 score (0-4 normal; 5-9 mild; 10-14 moderate; 15-21 severe): 0 Source: Developed by Drs. Turner Burt, Alina Bailey, Timur Pineda and colleagues, with an educational iliana from [employer]. Review of Systems Const Denies chills, Reports fatigue, Denies fever(s) and Reports headache(s) ENT Details: c/o painful sores in her mouth Denies dysphagia, Denies dizziness, Denies otalgia, Reports headache(s), Denies neck pain, Denies odynophagia and Denies sore throat Card Denies chest pain, Denies palpitations and Denies dyspnea Resp Denies chest congestion, Denies cough and Denies dyspnea GI Denies abdominal pain, Denies constipation, Denies dysphagia, Denies heartburn, Denies diarrhea, Denies nausea, Denies odynophagia and Denies vomiting Denies difficulty voiding, Denies nocturia, Denies dysuria and Denies urinary urgency Musc Denies back pain and Denies neck pain Skin/Breast Reports as per HPI Neuro Denies dizziness and Reports headache(s) Endo Reports fatigue and Denies palpitations Physical exam (Primary Care) Vital Signs: Last Vital Signs Pulse 95 09/26/24 16:18 BP 136/88 09/26/24 16:18 Pulse Ox 98 09/26/24 16:18 Oxygen Delivery Method Room Air 09/26/24 16:18 BMI result Body Mass Index 24.1 Tobacco/Smoking Status: Tobacco use Status Tobacco use date assessed 09/26/24 09/26/24 16:27 Patient Tobacco Use Status Former Tobacco user 09/26/24 16:27 Tobacco use type Cigarette 09/26/24 16:27 e-Cigarette/Vaping Use Never Used 09/26/24 16:27 PHQ-9: PHQ-9 Score PHQ-9: Total score 15 09/26/24 16:42 Depression Screening Interpretation: Negative Thrive Assessment: Date of Thrive Assessment Date Thrive assessed 09/26/24 09/26/24 16:27 Currently or been in a relationship where the following occur: No concerns reported Const General: no acute distress and alert Neck Neck: Yes supple and No lymphadenopathy Thyroid: Thyroid normal Resp Auscultation: clear to auscultation bilaterally, no rales and no wheezes Cardio Rate: regular rate Rhythm: regular rhythm Heart sounds: no murmurs GI Palpation (GI): Soft to palpation and nontender Auscultation: normal bowel sounds General: Yes no CVA tenderness Back/Spine/Pelvis Back: no CVA tenderness Skin Other: (+) few scattered small papular lesions on her lower extremities but no appreciable findings are seen that are consistent with her current complaints Extrem General: Yes no clubbing, cyanosis or edema Coding Level of Care Code Est Pt Level 4 (29244) Diagnoses Rash R21 Mouth sores K13.79 Additional Codes PHQ-9 - 29883 - PHQ-9 Billing: Yes ([id number]) Assessment & Plan Assessment & Plan (1) Rash: Code(s): R21 - Rash and other nonspecific skin eruption Category: Medical Plan: Patient is advised that other than a few scattered small papillary lesions, there are no appreciable or pertinent findings to support her current complaints of skin infestation Will send her for some labs ROSENDO for further evaluation at this time We will also go ahead and start her empirically on oral cephalexin 500 mg Q 8 hours x 7 days (2) Mouth sores: Code(s): K13.79 - Other lesions of oral mucosa Category: Medical Plan: Will start her empirically as well on some magic mouthwash PRN for symptomatic relief of her painful oral sores Plan Follow up with PCP in 1 month Orders: Orders Comprehensive Met. Panel 09/26/24 R21 - Rash and other nonspecific skin eruption Erythrocyte Sedimentation Rate 09/26/24 R21 - Rash and other nonspecific skin eruption Hemoglobin A1c 09/26/24 E11.9 - Type 2 diabetes mellitus without complications, R21 - Rash and other nonspecific skin eruption Complete Blood Count Auto Diff 09/26/24 D64.9 - Anemia, unspecified, R21 - Rash and other nonspecific skin eruption C Reactive Protein 09/26/24 R21 - Rash and other nonspecific skin eruption Herpes Simplex Virus Ab IgG 09/26/24 R21 - Rash and other nonspecific skin eruption Hepatitis C Antibody Reflex 09/26/24 R21 - Rash and other nonspecific skin eruption TSH reflex Free T4 09/26/24 R21 - Rash and other nonspecific skin eruption Medications: New cephalexin 500 mg PO Q8H 21 caps 0RF 7 days Magic Mouthwash Diphen/Lido/Antacid 1:1:1 10 ml swish and spit 4 times a day as needed 10 mL PO QID PRN 240 mL 0RF painful mouth sores
--- OUTSIDE RECORDS SUMMARY | 2024-09-26 16:27 | XMS_ITS | Patient Health Record ---
Author Organization [facility] Address [address] [place] [address] Care Team Providers Care Reverse Engineer Name Role Phone Urmila KEYES, Greta Primary Care Provider Turner Fisher Unavailable [phone] Reason For Referral No Information Medications Medication [...] Status Risk Notes Problem Irritable bowel syndrome (96245757) Irritable bowel syndrome (564.1) Active confirmed Problem Blood in stool (121566897) Blood in stool (578.1) Active confirmed Plan Of Treatment No Information Insurance Providers Payer Name Payer Address Payer Phone Subscriber Number Group Number Insured Name Patient Relationship to Insured Coverage Start Date Coverage End Date [facility] [employer] [facility] [address] [address] [place], [place] [phone] [id number] ANGELINA SIMPSON Self - patient is the insured Medical (General) History Medical History History ICD Code Asthma Restless leg syndrome Hyperlipidemia--on no meds G6PD deficiency Migraines Rheumatic fever as a child Anxiety/depression/panic attacks/PTSD Carpal tunnel Denies CO,DM,CVA,renal disease Surgical History Surgery Date(Month/Year) knee surgery section vaginal cyst removal LEEP for cervical cancer Carpal tunnel
--- OUTSIDE RECORDS SUMMARY | 2024-09-26 16:27 | XMS_ITS | Clinical Summary ---
Author Organization [facility] Address [address] [place] [address] Care Team Providers Care Slitter Scorer Name Role Phone Janell Loza MD Primary Care Provider [phone] Social History Tobacco Use Types Packs/Day Years Used Date Smoking Tobacco: Never Assessed Comments Unknown Sex and Gender Information Value Date Recorded Sex Assigned at Not on file Legal Sex Female 8:26 AM EST Gender Identity Not on file Sexual Orientation Not on file Plan of Treatment Health Maintenance Due Date Last Done Comments Breast Cancer Screening 1966 DTaP,Tdap,and Td Vaccines (1 - Tdap) 1985 Hepatitis B Vaccines (1 of 3 - 19+ 3-dose series) 1985 Cervical Cancer Screening: P ap Smear 12/09/1987 Pneumococcal Vaccine: 50+ Ye ars (1 of 1 - PCV) 2016 Zoster Vaccines (1 of 2) 2016 COVID-19 Vaccine ( - 2023-2 5 season) 2023 Influenza Vaccine (Season Ended) 2024 HIB Vaccines Aged Out No longer eligi ble based on patient's age to complete this topic HPV Vaccines Aged Out No longer eligi ble based on patient's age to complete this topic Hepatitis A Vaccines Aged Out No long er eligible based on patient's age to complete this topic IPV Vaccines Aged Out No longer eligi ble based on patient's age to complete this topic MMR Vaccines Aged Out No longer eligi ble based on patient's age to complete this topic Meningococcal ACWY Vaccine Aged Out N o longer eligible based on patient's age to complete this topic Meningococcal B Vaccine Aged Out No l onger eligible based on patient's age to complete this topic Pneumococcal Vaccine: Pediat rics (0 to 5 Years) and At-Risk Patients (6 to 64 Years) Aged Out No longer eligible b ased on patient's age to complete this topic RSV Immunization Patients Un lola 20 months Aged Out No longer eligible b ased on patient's age to complete this topic Varicella Vaccines Aged Out No longer eligible based on patient's age to complete this topic Care Teams Slitter Scorer Relationship Specialty Start Date End Date Janell Loza MD [address] [place] [address] , [address] [facility] EMERY Serrato PCP - General 02/14/16
== END 2024-09-26 16:52 | disposition home or self-care (01) ==
PROVIDERS: PCP Internal Medicine; Visit Provider Internal Medicine
DX: R21 Rash and other nonspecific skin eruption (principal); K13.79 Other lesions of oral mucosa

== ENCOUNTER → 2024-09-26 16:13 | Outpatient (BNVA) | payer OTHER, SELFPAY | PROVIDERS: PCP Internal Medicine; Visit Provider Internal Medicine | DX: R21 Rash and other nonspecific skin eruption (principal); K13.79 Other lesions of oral mucosa; E11.9 Type 2 diabetes mellitus without complications; D64.9 Anemia, unspecified | CPT/HCPCS: 96127; 99212 ==

== ENCOUNTER 2024-10-03 01:58 | Emergency (ER) | payer OTHER, SELFPAY ==
[2024-10-03 02:12] VITALS: BP 111/67; PULSE 105; RESP 18; TEMP 36.4; O2SAT 98; BMI 24.5
--- NOTE | 2024-10-03 07:55 | ED_ITS ---
HPI - General Adult General Chief complaint: Skin/Abscess/Foreign Body Stated complaint: contagious infection? Time Seen by Provider: 10/03/24 07:53 Source: patient Mode of arrival: ambulatory Limitations: no limitations History of Present Illness ED Provider: Kelly Colbert PA-C HPI narrative: Patient is a 58 year old assigned female at with a history of migraines, OA, shingles, CPS, JANA, and asthma presenting to the emergency department today with concerns of a bug infestation. Patient states that her skin has been itchy and she believes to have scabies but believes the scabies are also coming out of her mouth. Patient denies any dizziness, lightheadedness, abdominal pain, nausea, vomiting, fever, chills, blurry vision, double vision, loss of vision, chest pain, difficulty breathing, shortness of breath, back pain, night sweats, pain with urination, increased urinary frequency, increased urinary urgency, blood in her urine or stool, syncope or a near syncopal episode, recent trauma or falls, bowel incontinence, bladder incontinence, or any other complaints at this time. Relieving factors: none Exacerbating factors: none Associated symptoms: denies other symptoms Treatments prior to arrival: none Related Data Previous Rx's ?Medication ?Instructions ?Recorded miscellaneous medical supply See Rx Instructions misce llaneous 06/24/20 .COMPLEX PRN Urge Incontinence #4 ea miscellaneous medical supply See Rx Instructions misce llaneous 06/24/20 .COMPLEX PRN Urge Incontinence #140 ea BACK BRACE #1 ea 04/30/22 amitriptyline 25 mg tablet 25 mg PO BEDTIME 30 days #9 0 tabs 12/16/23 SCOOTER #1 ea 12/17/23 ketoconazole 2 % shampoo 1 appl topical 2XW #120 mL 1 04/21/23 knee brace R #1 ea 05/12/24 cyclobenzaprine 5 mg tablet 5 mg PO TID PRN muscle spa sm 30 05/19/24 days #60 tabs hydrocortisone 2.5 % topical cream 1 appl VT BID-QID P RN hemorrhoids 05/19/24 with perineal applicator #30 grams (Proctosol HC) tramadol 50 mg tablet 50 mg PO BID PRN pain 30 day s #60 05/19/24 tabs lidocaine 5 % topical patch 1 patch topical DAILY #30 ea 08/31/24 hydroxyzine HCl 10 mg tablet 10 mg PO TID PRN itching #10 tabs 09/22/24 Magic Mouthwash 10 ml PO QID PRN painful tiago th 09/26/24 Diphen/Lido/Antacid 1:1:1 240 mL sores #240 mL suspension cephalexin 500 mg capsule 500 mg PO Q8H 7 days #21 cap s 09/26/24 albuterol sulfate 90 mcg/actuation 2 puff PO Q4H PRN f or wheezing #18 09/27/24 aerosol inhaler (Ventolin HFA) ea gabapentin 800 mg tablet 800 mg PO TID 30 days #90 ta bs 09/27/24 clonazepam 1 mg tablet 0.5 mg (1/2 x 1 mg) PO BID P RN 09/28/24 anxiety 30 days #30 tabs colchicine 0.6 mg tablet 0.6 mg PO BID #20 tabs 09/28 meloxicam 15 mg tablet 15 mg PO DAILY 30 days #90 t abs 09/28/24 sertraline 50 mg tablet 50 mg PO DAILY #90 tabs 0706/20 triamcinolone acetonide 0.5 % 1 appl topical BID 14 da ys #15 09/28/24 topical cream grams ivermectin 6 mg tablet 6 mg PO Q2W 2 doses #2 tabs 10/03/24 Allergies Allergy/AdvReac Type Severity Reaction Status Date / Time latex (LATEX) Allergy Intermediate RASH Verified 10/03/24 02:13 Chocolate Allergy Unknown Hives Verified 10/03/24 02:13 egg (EGGS) Allergy Unknown SWELLING Verified 10/03/24 02:13 kiwi (KIWI) Allergy Unknown SWELLING Verified 10/03/24 02:13 peanut (PEANUTS) Allergy Unknown SWELLING Verified 10/03/24 02:13 pineapple (PINEAPPLE) Allergy Unknown SWELLING Verified 10/03/24 02:13 animal dander Allergy Rash Verified 10/03/24 02:13 Sulfa (Sulfonamide Allergy Rash Verified 10/03/24 02:13 Antibiotics) ENVIROMENTAL Allergy Intermediate HAYFEVER Uncoded 10/03/24 02:13 SHELLFISH Allergy Intermediate RASH Uncoded 10/03/24 02:13 Review of Systems Constitutional: Constitutional: Reports no additional constitutional complaints, Denies chills, Denies fever(s) and Denies night sweats Eyes: Eyes: Reports no additional eye complaints, Denies blurry vision, Denies change in vision, Denies diplopia, Denies eye discharge, Denies loss of vision and Denies eye pain ENT: Denies dizziness Cardiovascular: Cardiovascular: Reports no additional cardiovascular complaints, Denies chest pain, Denies lightheadedness, Denies Loss of Consciousness and Denies dyspnea Respiratory: Respiratory: Reports no additional respiratory complaints and Denies dyspnea Gastrointestinal: Gastrointestinal: Reports no additional gastrointestinal complaints, Denies abdominal pain, Denies melena, Denies hematochezia, Denies change in bowel habits and Denies change in stool character Genitourinary: Genitourinary: Denies hematuria, Denies urinary frequency, Denies dysuria, Denies urinary incontinence, Denies urinary hesitancy and Denies urinary urgency Musculoskeletal: Musculoskeletal: Reports no additional musculoskeletal complaints, Denies numbness and Denies tingling Integumentary/Breasts: Comments: skin lesions - bug infestation Neurologic: Denies dizziness, Denies loss of vision, Denies numbness and Denies tingling Psychiatric: Psychiatric: Reports no additional psychiatric complaints Endocrine: Endocrine: Reports no additional endocrine complaints Hematologic/Lymphatic: Hematologic/Lymphatic: Reports no additional hematologic/lymphatic complaints Allergic/Immunologic: Allergic/Immunologic: Reports no additional allergic/immunologic complaints [facility] Past Medical History Attestation statement: The following information was validated with the patient. Source: old records reviewed and nursing notes reviewed Medical History Knee osteoarthritis Scoliosis Pain, dental Knee pain, right Sacroiliac joint dysfunction Left shoulder pain Low back pain Right renal stone Right radial head fracture Knee pain, right Paresthesia of hand, bilateral Elbow pain Back pain Left breast mass Breast cancer screening by mammogram Annual physical exam Colon cancer screening RUQ abdominal pain Rectal bleeding Breast pain, right Brittle nails Easy bruising Vision changes Crackling sound in both ears Breast discharge Chronic pain syndrome Sacroiliac joint dysfunction of left side Osteoarthritis of hips, bilateral Osteoarthritis of knees, bilateral Generalized anxiety disorder Panic attack Depression Vaginal cysts Hx LEEP (loop electrosurgical excision procedure), cervix, Fracture of fifth toe, right, closed Colonoscopy refused Mammogram declined Right renal stone Mild obstructive sleep apnea Carpal tunnel syndrome Restless leg syndrome Aortic valve insufficiency Mixed urge and stress incontinence Cognitive impairment Overweight (BMI 25.0-29.9) Takotsubo cardiomyopathy Asthma Hypercholesterolemia Pulmonary hypertension Migraine Surgical History H/O LEEP History of History of carpal tunnel surgery of left wrist H/O knee surgery Family History Family History Father Hypertension Diabetes Prostate cancer CVD (cardiovascular disease) Mother Hypertension Diabetes Uterine cancer Maternal Grandmother Lung cancer Social History Social History Housing: Apartment Alcohol intake: former Patient Tobacco Use Status: Former Tobacco user Tobacco use type: Cigarette e-Cigarette/Vaping Use: Never Used Second Hand Smoke Exposure: Yes Substance Use Type: Marijuana Advance Directives: No Advance Directives Information Provided: Yes Do you have a plan to hurt others: No Plan service: No Current occupational status: disabled Current occupation: left hand Cognitive needs: No Hearing needs: No Vision needs: Yes (glasses) Physical Exam ED Vital Signs: Vital Signs - 24 hr 10/03/24 02:12 Temperature 97.6 F Pulse Rate 105 H Respiratory Rate 18 Blood Pressure 111/67 Pulse Oximetry 98 Oxygen Delivery Method Room Air BMI result Body Mass Index 24.5 Const General: cooperative, no acute distress, alert and awake Nutritional Appearance: well nourished Orientation/consciousness: patient oriented x3 HENMT Head: Yes normal to inspection and Yes atraumatic Ears: hearing grossly normal bilaterally and external ears normal General nose exam: Normal external nose present, no nasal discharge noted and no epistaxis Face and sinus: Yes normal facial exam, No abrasion and No laceration Mouth: Normal oral and palatal mucosa present, no drooling and no muffled voice Eyes General: appearance normal, both eyes and all related structures Periorbital: periorbital findings normal Eyelids: Yes eyelids normal Conjunctivae: conjunctivae normal Pupils: Equal, round and reactive pupils present EOM: EOMs intact bilaterally Neck Neck: Yes normal visual inspection, Yes full ROM and Yes no lymphadenopathy Resp Effort & Inspection: normal respiratory effort and able to speak in complete sentences Skin Other: very small lesion on left forearm, right buttock, and left upper leg Neuro General: patient oriented x3, moves all extremities and CN's II-XI intact bilaterally Cranial nerves: Yes Equal, round and reactive pupils present Cognition (Neuro): normal cognition Extrem General: Yes normal to inspection, Yes full ROM and Yes capillary refill normal Psych Appearance: grossly normal Mental Status: mental status grossly normal Affect: normal affect Attitude: cooperative Thought process: Normal thought process present Thought content: Normal thought content present Insight: Good insight present (Psych) Medical Decision Making Medical Decision Making MDM Narrative: Patient is a 58 year old assigned female at with a history of migraines, OA, shingles, CPS, JANA, and asthma presenting to the emergency department today with concerns of a bug infestation. Patient's physical exam was as noted in the physical exam portion of this note. When questioned about her skin lesions, the patient states that she has been itching at those spots / picking them to get the bugs out. Patient then proceeded to show me pictures on her phone of hairs in the sink which she states have bugs in between them. I explained my physical exam findings to the patient. I answered all questions asked by the patient. I had an extensive conversation with the patient about treatment for a bug infestation and that I do not agree this is secondary to bugs. Patient stated she would prefer an oral version of medication to treat the bugs and she absolutely knows it to be bugs. Patient states that she wants blood work done. I spent an extensive amount of time explaining to the patient that she has no signs / symptoms warranting lab work to be completed and if this truly is a bug infestation, there is no laboratory testing that will show that. I stressed the importance of the patient taking her medication as directed (either prescribed o r as the over the counter packaging recommends). I stressed the importance of the patient following up with her primary care provider. I stressed the importance of the patient returning to the emergency department immediately if her symptoms were to worsen or if she were to develop any dizziness, shortness of breath, difficulty breathing, chest pain, blurry vision, loss of vision, nausea, vomiting, abdominal pain, fever, chills, back pain, or any other complaints. Patient verbalized agreement and understanding with this treatment plan and discharge. Differential Diagnosis Differential Diagnoses: The differential diagnosis associated with the presentation includes Skin picking Bug infestation Scabies Bed bugs Parasitosis Admission/Observation Consideration of admission/observation: Escalation of care including admission/observation considered Patient would have been admitted to the hospital had her clinical presentation warranted hospital admission. Discharge Plan Discharge Clinical Impression: Bug bites, Parasitosis Patient Disposition: Home, Self-Care Additional Instructions: STOP picking at your skin. Take your medication as prescribed. Follow up with your primary care provider. Return to the emergency department immediately if your symptoms worsen or if you develop any numbness, tingling, dizziness, shortness of breath, difficulty breathing, chest pain, blurry vision, loss of vision, nausea, vomiting, abdominal pain, fever, chills, back pain, or any other complaints. Please see the information below about our Patient Portal. If you are not yet enrolled in the [facility] Patient Portal, you will receive an enrollment email invitation following your visit to any [facility] setting. You may also self-enroll in the Patient Portal by visiting our website: [email or web address] The following information is required to access the Patient Portal: - Your [facility] Medical Record Number - Your personal home email address (must match what is in your electronic medical record, Registration staff can assist with this) - Name - Date of Capabilities of the Patient Portal: - Message some providers - View upcoming appointments - Access your health summary, medical history, and visit history - View current conditions and allergies - View procedure and lab results - View your medications, including guidelines, side effects, and precautions - Complete pre-appointment questionnaires requested by your provider - Ready summary reports of your office visits and procedures To access the Patient Portal Mobile Eliana, follow these directions: - Search [employer] in the Eliana Store or [email or web address] Store - Download the Eliana - Search for [facility] - Enter your login/password Prescriptions: New ivermectin 6 mg tablet 6 mg PO Q2W Qty: 2 0RF Rx Instructions: Take 1st dose today and another dose in 1 week (10/10/2024) No Action miscellaneous medical supply Misc See Rx Instructions miscellaneous .COMPLEX PRN (Reason: Urge Incontinence) Qty: 140 11RF Rx Instructions: disposable bed pads - 4x daily miscellaneous miscellaneous medical supply Misc See Rx Instructions miscellaneous .COMPLEX PRN (Reason: Urge Incontinence ) Qty: 4 11RF Rx Instructions: wipes- 4x daily (DME) BACK BRACE See Rx Instructions .Route .MEDSUPPLY Qty: 1 0RF Rx Instructions: As directed amitriptyline 25 mg tablet 25 mg PO BEDTIME 30 Days Qty: 90 2RF ketoconazole 2 % shampoo 1 appl topical 2XW Qty: 120 0RF (DME) knee brace R See Rx Instructions .Route .MEDSUPPLY Qty: 1 0RF Rx Instructions: As directed cyclobenzaprine 5 mg tablet 5 mg PO TID PRN (Reason: muscle spasm) 30 Days Qty: 60 3RF hydrocortisone [Proctosol HC] 2.5 % cream with perineal applicator 1 appl VT BID-QID PRN (Reason: hemorrhoids) Qty: 30 0RF tramadol 50 mg tablet 50 mg PO BID PRN (Reason: pain) 30 Days Qty: 60 0RF lidocaine 5 % adhesive patch,medicated 1 patch topical DAILY Qty: 30 2RF Rx Instructions: leave on most painful area for up to 12 hrs albuterol sulfate [Ventolin HFA] 90 mcg/actuation HFA aerosol inhaler 2 puff PO Q4H PRN (Reason: for wheezing) Qty: 18 0RF gabapentin 800 mg tablet 800 mg PO TID 30 Days Qty: 90 1RF colchicine 0.6 mg tablet 0.6 mg PO BID Qty: 20 0RF triamcinolone acetonide 0.5 % cream 1 appl topical BID 14 Days Qty: 15 0RF meloxicam 15 mg tablet 15 mg PO DAILY 30 Days Qty: 90 0RF sertraline 50 mg tablet 50 mg PO DAILY Qty: 90 1RF Rx Instructions: anxiety clonazepam 1 mg tablet 0.5 mg PO BID PRN (Reason: anxiety) 30 Days Qty: 30 0RF hydroxyzine HCl 10 mg tablet 10 mg PO TID PRN (Reason: itching) Qty: 10 0RF cephalexin 500 mg capsule 500 mg PO Q8H 7 Days Qty: 21 0RF Magic Mouthwash Diphen/Lido/Antacid 1:1:1 240 mL suspension 10 ml PO QID PRN (Reason: painful mouth sores) Qty: 240 0RF Rx Instructions: 10 ml swish and spit 4 times a day as needed (DME) SCOOTER See Rx Instructions .Route .MEDSUPPLY Qty: 1 0RF Rx Instructions: As directed Referrals: Jose,Lawrence Aiken MD [Primary Care Provider, Internal Medicine] Print Language: Kiswahili
--- OUTSIDE RECORDS SUMMARY | 2024-10-03 08:03 | XMS_ITS | Patient Health Record ---
Author Organization [facility] Address [address] [place] [address] Care Team Providers Care Attendant [facility] Name Role Phone Urmila KEYES, Greta Primary Care Provider Turner Fisher Unavailable [phone] Reason For Referral No Information Medications Medication [...] Status Risk Notes Problem Irritable bowel syndrome (53989522) Irritable bowel syndrome (564.1) Active confirmed Problem Blood in stool (652883078) Blood in stool (578.1) Active confirmed Plan Of Treatment No Information Insurance Providers Payer Name Payer Address Payer Phone Subscriber Number Group Number Insured Name Patient Relationship to Insured Coverage Start Date Coverage End Date [facility] [address] [address] [place], [place] [id number] ANGELINA SIMPSON Self - patient is the insured Medical (General) History Medical History History ICD Code Asthma Restless leg syndrome Hyperlipidemia--on no meds G6PD deficiency Migraines Rheumatic fever as a child Anxiety/depression/panic attacks/PTSD Carpal tunnel Denies HI,DM,CVA,renal disease Surgical History Surgery Date(Month/Year) knee surgery section vaginal cyst removal LEEP for cervical cancer Carpal tunnel
--- OUTSIDE RECORDS SUMMARY | 2024-10-03 08:03 | XMS_ITS | Clinical Summary ---
Author Organization [facility] Address [address] [place] [address] Care Team Providers Care Cottage Cheese Maker Name Role Phone Janell Loza MD Primary Care Provider [phone] Social History Tobacco Use Types Packs/Day Years [...] - 2023-2 5 season) 2023 Influenza Vaccine (#1) 2024 HIB Vaccines Aged Out No longer [...] age to complete this topic Care Teams Cottage Cheese Maker Relationship Specialty Start Date End Date Janell Loza MD [address] [place] [address] , [address] [facility] D/B/A: [facility] EMERY Serrato PCP - General 02/14/16
[2024-10-03 12:44] VITALS: BP 0/0; PULSE 0; RESP 0; TEMP -17.7; TEMP 0
== END 2024-10-03 12:45 | disposition home or self-care (01) ==
PROVIDERS: Emergency Provider Emergency Medicine Emergency Medical Services; PCP Internal Medicine
DX: S50.862A Insect bite (nonvenomous) of left forearm, initial encounter (principal); S30.860A Insect bite (nonvenomous) of lower back and pelvis, initial encounter; S70.362A Insect bite (nonvenomous), left thigh, initial encounter; W57.XXXA Bitten or stung by nonvenomous insect and other nonvenomous arthropods, initial encounter; L29.9 Pruritus, unspecified; Y93.9 Activity, unspecified; Y92.009 Unspecified place in unspecified non-institutional (private) residence as the place of occurrence of the external cause; Y99.9 Unspecified external cause status
CPT/HCPCS: 99283; 99284

== ENCOUNTER 2024-10-20 14:15 | Outpatient (AMB) | payer OTHER, SELFPAY ==
--- OUTSIDE RECORDS SUMMARY | 2024-10-20 14:18 | XMS_ITS | Clinical Summary ---
Author Organization [facility] Address [address] [place] [address] Care Team Providers Care Sales Operations Manager Name Role Phone Janell Loza MD Primary Care Provider [phone] Social History Tobacco Use Types Packs/Day Years [...] Vaccine ( - 2023-2 5 season) 2023 Depression Screening 03/29/2024 Influenza Vaccine (#1) 2024 HIB Vaccines Aged [...] age to complete this topic Care Teams Sales Operations Manager Relationship Specialty Start Date End Date Janell Loza MD [address] [place] [address] , [address] [facility] D/B/A: [facility] EMERY Serrato PCP - General 02/14/16
--- OUTSIDE RECORDS SUMMARY | 2024-10-20 14:18 | XMS_ITS | Patient Health Record ---
Author Organization [facility] Address [address] [place] [address] Care Team Providers Care Crisis Clinician Name Role Phone Urmila KEYES, Greta Primary Care Provider Turner Fisher Unavailable [phone] Reason For Referral No Information Medications Medication [...] Status Risk Notes Problem Irritable bowel syndrome (564.1) Active confirmed Problem Blood in stool (448755049) Blood in stool (578.1) Active confirmed Plan Of Treatment No Information Insurance Providers Payer Name Payer Address Payer Phone Subscriber Number Group Number Insured Name Patient Relationship to Insured Coverage Start Date Coverage End Date [facility] [address] [address] [place], [place] [id number] ANGELINA SIMSPON Self - patient is the insured Medical (General) History Medical History History ICD Code Asthma Restless leg syndrome Hyperlipidemia--on no meds G6PD deficiency Migraines Rheumatic fever as a child Anxiety/depression/panic attacks/PTSD Carpal tunnel Denies NE,DM,CVA,renal disease Surgical History Surgery Date(Month/Year) knee surgery section vaginal cyst removal LEEP for cervical cancer Carpal tunnel
--- OUTSIDE RECORDS SUMMARY | 2024-10-20 14:18 | XMS_ITS | Clinical Summary ---
Author Organization [facility] Address [address] [place] [address] Phone Care Team Providers Care Customer Support Representative Name Role Phone Lawrence Garcia MD Primary Care Provider [phone] Medications EPINEPHrine (EPIPEN 2-ZENIA) 0.3 mg/0.3 mL auto-injector as directed Injection PRN 5 Active Medication-Free Text Wrist Splint/Neoprene Left Med . Miscellaneous, Sig: as directed DX: carpal tunnel 3 Active amitriptyline (ELAVIL) 10 MG tablet TAKE 1 TAB BY MOUTH EVERY DAY @ BEDTIME X1WEEK THEN INCREASE TO 2 TABLETS,THEN 3 TABLETS DIRECTED Active buPROPion (WELLBUTRIN XL) 150 MG ER 24 hr tablet Take 1 tablet by mouth every morning. Active nabumetone (RELAFEN) 500 MG tablet Take 1 tablet by mouth 2 (two) times a day. Active cyclobenzaprine (FLEXERIL) 10 MG tablet 1 tablet Orally daily PRN muscle spasm 3 Active oxyCODONE-aceta minophen (PERCOCET) 5-325 mg per tablet 1/2 tab Orally Twice a day 5 Active clonazePAM (KLONOPIN) 0.5 MG tablet Take 1 tablet by mouth 2 (two) times a day. Active gabapentin (NEURONTIN) 300 MG capsule TAKE 1 TO 2 CAPSULES 3 TIMES A DAY p.o. Once daily Active cephalexin (KEFLEX) 500 MG capsule Take 1 capsule by mouth 3 (three) times a day. 5 Active triamcinolone acetonide 0.1 % cream 1 application to affected area Externally Twice a day 5 Active cetirizine (ZYRTEC) 10 MG tablet TAKE 1 TABLET EVERY DAY NEEDED p.o. Once daily Active sertraline (ZOLOFT) 50 MG tablet Take 1 tablet by mouth daily. Active multivitamin per tablet 1 tab(s) womans multi energy and metabolism Active Immunizations Immunization Administration Dates Next Due Tdap 07/17/2013 Family History Medical History Relation Comments CV disease Father 2 Diabetes mellitus Mother 2 Hypertension Mother 2 Cancer Paternal Grandfather 2 Relation Status Comments Father 1 Alive Father 2 Mother 1 Alive Mother 2 Paternal Grandfather 1 Paternal Grandfather 2 Social History Tobacco Use Types Packs/Day Years Used Date Smoking Tobacco: Never Assessed Education Answer Date Recorded Are you interested in more education? Not on rosa e 07/24/2022 Are you concerned about learning? Not on file 07/24/2022 No 07/24/2022 No 07/24/2022 Digital Access Answer Date Recorded No 08/22/2022 No 08/22/2022 Reliable internet access at home? Not on file 08/22/2022 Device with a working camera? Not on file Comments Unknown Sex and Gender Information Value Date Recorded Sex Assigned at Not on file Legal Sex Female 9:38 PM EDT Gender Identity Not on file Sexual Orientation Not on file Last Filed Vital Signs Vital Sign Reading Time Taken Comments Blood Pressure 100/60 07/03/2015 2:42 AM EDT Pulse 80 07/03/2015 2:42 AM EDT Temperature 37 C (98.6 F) 07/03/2015 2:42 AM EDT Respiratory Rate 16 07/03/2015 2:42 AM EDT Oxygen Saturation - - Inhaled Oxygen Concentration - - Weight 59.9 kg (132 lb) 07/03/2015 2:42 AM EDT Height 145.4 cm (4' 9.24 ) 07/03/2015 2:42 AM ED T Body Mass Index 28.33 07/03/2015 2:42 AM EDT Plan of Treatment Health Maintenance Due Date Last Done Comments LIPID PANEL 1966 DEPRESSION SCREENING 1978 SMOKING Hx and SMOKELESS TOBACCO SCREENING 12/09/1979 HEPATITIS C SCREENING 1984 HIV ONE-TIME SCREENING (18-6 5 YEARS) 1984 PAP SMEAR 12/09/1987 MAMMOGRAM 2006 COLOGUARD 12/09/2011 COLONOSCOPY 12/09/2011 COLORECTAL CANCER SCREENING 12/09/2011 FIT TEST 12/09/2011 FOBT 12/09/2011 SIGMOIDOSCOPY 12/09/2011 VIRTUAL COLONOSCOPY 12/09/2011 ZOSTER VACCINES (1 of 2) 2016 PNEUMOCOCCAL VACCINES (50+ years) (2 of 2 - PCV) 07/06/2018 07/06/2017 COVID-19 VACCINE (2 - 2023-2 5 season) 2023 06/24/2020 Adult Td,Tdap Booster 05/16/2029 05/16/2019 , 07/17/2013 HEPATITIS A VACCINES Aged Out No long er eligible based on patient's age to complete this topic HIB VACCINES Aged Out No longer eligi ble based on patient's age to complete this topic MENINGOCOCCAL VACCINES (ACWY) Aged Out No longer eligible based on patient's age to complete this topic MENINGOCOCCAL VACCINES (B) Aged Out N o longer eligible based on patient's age to complete this topic Medical Devices Not on file [place] [address] [place] [address] [place] [address] [place] [address] [place] [address] [place] [address] [place] [place] [address] [place] [address] [place] [address] [place] [address] [place] [address] [place] [place] [address] [facility] Care Teams Customer Support Representative Relationship Specialty Start Date End Date Lawrence Garcia MD [address] [place] [address] PCP - General Internal Medicine 09/15/22 Additional Source Comments The information contained in this document represents components of the legal health record. It is not the complete legal health record.[facility]
[2024-10-20 14:22] VITALS: BP 122/82; TEMP 36.2
--- NOTE | 2024-10-20 14:22 | A.OFFPC_ITS ---
Vital Signs 10/20/24 14:22 Height 4 ft 9 in BP 122/82 Blood Pressure Location Rt brachial Position Sitting Temp 97.1 F Temp Source Temporal Artery Scan Intake Visit Reasons: [facility] [place] 10/03 contagious infection? Intake Note: Patient is here to follow-up after a visit the emergency department at [facility] [place] on 10/03/24 Insurance Commissioner Required: No Wrecking Car Driver: Not Required per policy Accompanied by: Self / Same As Patient Allergies latex (LATEX) Allergy (Intermediate, Verified 10/20/24 14:24) RASH Chocolate Allergy (Unknown, Verified 10/20/24 14:24) Hives egg (EGGS) Allergy (Unknown, Verified 10/20/24 14:24) SWELLING kiwi (KIWI) Allergy (Unknown, Verified 10/20/24 14:24) SWELLING peanut (PEANUTS) Allergy (Unknown, Verified 10/20/24 14:24) SWELLING pineapple (PINEAPPLE) Allergy (Unknown, Verified 10/20/24 14:24) SWELLING animal dander Allergy (Verified 10/20/24 14:24) Rash Sulfa (Sulfonamide Antibiotics) Allergy (Verified 10/20/24 14:24) Rash ENVIROMENTAL Allergy (Intermediate, Uncoded 10/20/24 14:24) HAYFEVER SHELLFISH Allergy (Intermediate, Uncoded 10/20/24 14:24) RASH Medication List - Last Reconciled 10/20/24 by Lawrence Garcia MD albuterol sulfate 90 mcg/actuation (Ventolin HFA) 2 puffs PO Q4H PRN amitriptyline 25 mg PO BEDTIME 30 days [BACK BRACE As directed] clonazepam 0.5 mg (1/2 x 1 mg) PO BID PRN 30 days colchicine 0.6 mg PO BID cyclobenzaprine 5 mg PO TID PRN 30 days gabapentin 800 mg PO TID 30 days hydrocortisone 2.5% (Proctosol HC) 1 appl ND BID-QID PRN hydroxyzine HCl 10 mg PO TID PRN ketoconazole 2% 1 appl topical 2XW [knee brace R As directed] lidocaine 5% 1 patch topical DAILY Magic Mouthwash Diphen/Lido/Antacid 1:1:1 10 mL PO QID PRN meloxicam 15 mg PO DAILY 30 days miscellaneous medical supply disposable bed pads - 4x daily miscellaneous miscellaneous medical supply wipes- 4x daily permethrin 5% 1 appl topical Q14D 2 doses [SCOOTER As directed] sertraline 50 mg PO DAILY tramadol 50 mg PO BID PRN 30 days triamcinolone acetonide 0.5% 1 appl topical BID 14 days Tobacco use date assessed: 10/20/24 Dental Screening Dental Screen Date: 09/26/24 HPI [facility] 7/8 contagious infection? HPI Details 5 weeks ago feels itchy llittle bites on the skin legs arms back breast ER visit and was told dry skin and anxiety, noted bumps then itchy PFSH Medical History Knee osteoarthritis Scoliosis Pain, dental Knee pain, right Sacroiliac joint dysfunction Left shoulder pain Low back pain Right renal stone Right radial head fracture Knee pain, right Paresthesia of hand, bilateral Elbow pain Back pain Left breast mass Breast cancer screening by mammogram Annual physical exam Colon cancer screening RUQ abdominal pain Rectal bleeding Breast pain, right Brittle nails Easy bruising Vision changes Crackling sound in both ears Breast discharge Chronic pain syndrome Sacroiliac joint dysfunction of left side Osteoarthritis of hips, bilateral Osteoarthritis of knees, bilateral Generalized anxiety disorder Panic attack Depression Vaginal cysts Hx LEEP (loop electrosurgical excision procedure), cervix, Fracture of fifth toe, right, closed Colonoscopy refused Mammogram declined Right renal stone Mild obstructive sleep apnea Carpal tunnel syndrome Restless leg syndrome Aortic valve insufficiency Mixed urge and stress incontinence Cognitive impairment Overweight (BMI 25.0-29.9) Takotsubo cardiomyopathy Asthma Hypercholesterolemia Pulmonary hypertension Migraine Surgical History H/O LEEP History of History of carpal tunnel surgery of left wrist H/O knee surgery Family History Father Hypertension Diabetes Prostate cancer CVD (cardiovascular disease) Mother Hypertension Diabetes Uterine cancer Maternal Grandmother Lung cancer Social History Housing: Apartment Alcohol intake: former Patient Tobacco Use Status: Former Tobacco user Tobacco use type: Cigarette e-Cigarette/Vaping Use: Never Used Second Hand Smoke Exposure: Yes Substance Use Type: Marijuana service: No Current occupational status: disabled Current occupation: left hand Cognitive needs: No Hearing needs: No Vision needs: Yes (glasses) Questionnaire Thrive Questionnaire Date Thrive assessed: 09/26/24 Are you currently unemployed and looking for a job?: I choose not to answer this question JANA-7 AMB Questionnaire JANA-7 Date JANA - 7 assessed: 09/26/24 Source: Developed by Drs. Turner Burt, Alina Bailey, Timur Pineda and colleagues, with an educational iliana from [employer]. Physical exam (Primary Care) Vital Signs: Last Vital Signs Temp 97.1 F 10/20/24 14:22 BP 122/82 10/20/24 14:22 Tobacco/Smoking Status: Tobacco use Status Tobacco use date assessed 10/20/24 10/20/24 14:28 Patient Tobacco Use Status Former Tobacco user 10/20/24 14:28 Tobacco use type Cigarette 10/20/24 14:28 e-Cigarette/Vaping Use Never Used 10/20/24 14:28 Thrive Assessment: Date of Thrive Assessment Date Thrive assessed 09/26/24 10/20/24 14:28 Const Other: Noted multiple excoriations 1-2 mm on the arms shoulder legs and back General: alert; No acute distress Eyes Conjunctivae: conjunctivae normal Resp Auscultation: clear to auscultation bilaterally Cardio Rate: regular rate Rhythm: regular rhythm GI Inspection: Yes normal to inspection Extrem General: Yes normal to inspection and No edema Coding Level of Care Code Est Pt Level 3 (64963) Diagnoses Scabies B86 Assessment & Plan Assessment & Plan (1) Scabies: Code(s): B86 - Scabies Category: Medical Plan History of Present Illness The patient is a 58-year-old female presenting with an acute problem related to a possible parasitic infestation. Approximately five weeks ago, she began experiencing itching and noticing bites on her legs, arms, back, breast, mouth, ears, nose, and hair. She initially thought these were mosquito bites, but the symptoms worsened, and she noticed different types of small animals, including black dots and white ones, which she believes are communicable. The patient attempted to seek care at the emergency room, where she was told she had dry skin and anxiety. Her mother also experienced similar symptoms but to a lesser extent. The patient has been staying in a hotel due to her house being infested and untreated, which prevents her from returning home. She has been washing her clothes in warm water as a precautionary measure. Health Maintenance Social History - Housing: Currently staying in a hotel due to home infestation. Review of Systems - Dermatological: Reports itching and bites on legs, arms, back, breast, mouth, ears, nose, and hair. - General: Reports feeling itchy and noticing bites for five weeks. Physical Exam Results Plan The patient will be treated with permethrin cream, which should be applied from the neck down and left for 12 hours to eliminate the infestation. The treatment should be repeated in one to two weeks if symptoms persist. The patient is advised to wash all clothing and bedding in warm water to prevent reinfestation. The patient's living environment needs to be fumigated to ensure complete eradication of the infestation. Patient was informed and verbally consented to the use of an ambient scribe for clinic note documentation during this visit. Discussion Notes I discussed with the patient the use of permethrin cream for treating the infestation, emphasizing the importance of applying it thoroughly and leaving it on for the recommended duration. We talked about the need to repeat the treatment if symptoms persist and the necessity of washing all clothing and bedding in warm water. I advised the patient that her living environment must be fumigated to prevent reinfestation and discussed the challenges she faces with her current housing situation. Patient Instructions - Apply permethrin cream from neck down and leave for 12 hours. - Repeat treatment in one to two weeks if needed. - Wash all clothing and bedding in warm water. - Ensure home is fumigated to prevent reinfestation. Medications: New permethrin 5% apply second treatment 14 days after first treatment if live lice remain 1 appl topical Q14D 60 grams 1RF 2 doses
== END 2024-10-20 16:46 | disposition home or self-care (01) ==
LOC: HO.HMCH 14:16
PROVIDERS: PCP Internal Medicine; Visit Provider Internal Medicine
DX: B86 Scabies (principal)

== ENCOUNTER → 2024-10-20 14:15 | Outpatient (BNVA) | payer OTHER, SELFPAY | PROVIDERS: PCP Internal Medicine; Visit Provider Internal Medicine | DX: B86 Scabies (principal) | CPT/HCPCS: 99212 ==

== ENCOUNTER 2024-11-14 00:49 | Emergency (ER) | payer OTHER, SELFPAY ==
--- OUTSIDE RECORDS SUMMARY | 2024-11-10 23:59 | XMS_ITS | Continuity of Care Document ---
Author Organization [facility] Address [address] [place] [address]- Care Team Providers Care Pageant Director Name Role Phone Lawrence Garcia MD Primary [id number] Date[facility]s): 09/15/24 - 11/10/[address] [address] Attending Physician: Wendi Gautam NP Admitting Physician: Wendi Gautam NP Referring Physician: Wendi Gautam NP Encounter Type: Pre-Outpt Allergies, Adverse Reactions, [...] 1:37:10 PM EST, Route to Pharmacy Electronically, [facility] 3 Start Date: 02/08/16 Status: Ordered Quantity: 180.0 Unit: tablet Repeat number: 1 aspirin 81 mg oral delayed release tablet 81 mg, By Mouth, Daily, # 100 tablet, Refills 0, Tot. Refills 0, Maintenance, 02/08/16 1:33:13 PM EST, Route to Pharmacy Electronically, [facility] 3 Start Date: 02/08/16 Status: [...] Team Personnel Name: Brianne Almazan RN Position: S AMB Nurse Member Role: Primary Care Nurse Name: Lawrence Garcia MD Position: Reference Physician Member Role: PCP Address: [address] [place] [address] Telecom: Care Team Related Persons Name: GEENA CLAY Insurance Providers Guarantor name: ANGELINA SIMPSON [facility] Information #: 1 Payer: [employer] Payer Identifier: SARAH Member Number: [id number] Group Number: [id number] Subscriber Identifier: [id number] Relationship to Subscriber: self Coverage Type: NA Coverage Verification Date: NA Telecom: Address:
[2024-11-14 00:55] VITALS: BP 176/73; PULSE 104; RESP 18; TEMP 36.4; O2SAT 99; BMI 23.1
--- OUTSIDE RECORDS SUMMARY | 2024-11-14 03:20 | XMS_ITS | Patient Health Record ---
Author Organization [facility] Address [address] [place] [address] Care Team Providers Care Accounting Manager Assistant Controller Name Role Phone Urmila KEYES, Greta Primary Care Provider Turner Fisher Unavailable [phone] Reason For Referral No Information Medications Medication [...] (564.1) Active confirmed Problem Blood in stool ([id number]) Blood in stool (578.1) Active confirmed Plan Of Treatment No Information Insurance Providers Payer Name Payer Address Payer Phone Subscriber Number Group Number Insured Name Patient Relationship to Insured Coverage Start Date Coverage End Date [facility] [address] [address] [place], [place] [id number] ANGELINA SIMPSON Self - patient is the insured Medical (General) History Medical History History ICD Code Asthma Restless leg syndrome Hyperlipidemia--on no meds G6PD deficiency Migraines Rheumatic fever as a child Anxiety/depression/panic attacks/PTSD Carpal tunnel Denies LA,DM,CVA,renal disease Surgical History Surgery Date(Month/Year) knee surgery section vaginal cyst removal LEEP for cervical cancer Carpal tunnel
--- OUTSIDE RECORDS SUMMARY | 2024-11-14 03:20 | XMS_ITS | Clinical Summary ---
Author Organization [facility] Address [address] [place] [address] Phone Care Team Providers Care Bagman/Woman Name Role Phone Lawrence Garcia MD Primary Care Provider [phone] Medications EPINEPHrine (EPIPEN 2-ZENIA) 0.3 mg/0.3 mL [...] Medical Devices Not on file Insurance [place] [address] [address] [place] [address] [place] [address] [place] [address] [place] [address] [place] [address] [place] [address] [place] [address] [place] [address] [place] [address] [place] [address] [place] [place] [address] [facility] [facility] Care Teams Bagman/Woman Relationship Specialty Start Date End Date Lawrence Garcia MD [address] [place] [id number] PCP - General Internal Medicine 09/15/22 Additional Source Comments The information contained in this document represents components of the legal health record. It is not the complete legal health record.[facility]
--- OUTSIDE RECORDS SUMMARY | 2024-11-14 03:20 | XMS_ITS | Clinical Summary ---
Author Organization [facility] Address [address] [place] [address] Care Team Providers Care Physician Executive Name Role Phone Janell Loza MD Primary Care Provider [phone] Social History Tobacco Use Types Packs/Day Years Used Date Smoking Tobacco: Never Assessed Comments Unknown Sex and Gender Information Value Date Recorded Sex Assigned at Not on file Legal Sex Female 8:26 AM EST Gender Identity Not on file Sexual Orientation Not on file Plan of Treatment Health Maintenance Due Date Last Done Comments Breast Cancer Screening 1966 Hepatitis B Vaccines (1 of 3 - 19+ 3-dose series) 1985 Cervical Cancer Screening: P ap Smear 12/09/1987 Pneumococcal Vaccine: 50+ Ye ars (1 of 1 - PCV) 2016 Zoster Vaccines (1 of 2) 2016 DTaP,Tdap,and Td Vaccines (2 - Td or Tdap) 07/18/2023 07/17/2013 COVID-19 Vaccine ( - 2023-2 5 season) [...] age to complete this topic Care Teams Physician Executive Relationship Specialty Start Date End Date Janell Loza MD [address] [place] [address] , [address] [facility]: [facility] [place] PCP - General 02/14/16
== END 2024-11-14 03:21 | disposition left against medical advice (07) ==
PROVIDERS: Emergency Provider Emergency Medicine; PCP Internal Medicine
DX: L98.9 Disorder of the skin and subcutaneous tissue, unspecified (principal); Z53.21 Procedure and treatment not carried out due to patient leaving prior to being seen by health care provider
CPT/HCPCS: 99281

== ENCOUNTER 2024-11-15 14:17 | Outpatient (AMB) | payer OTHER, SELFPAY ==
--- OUTSIDE RECORDS SUMMARY | 2024-11-12 23:59 | XMS_ITS | Continuity of Care Document ---
Author Organization [facility] Address [address] [place] [address]- Care Team Providers Care Early Childhood Education Instructor Name Role Phone Lawrence Garcia MD Primary Care Physician Encounter [facility] [id number] Date(s): 10/11/24 - 11/12/24 [facility] [address] [place], [place] [address] Attending Physician: Taryn Addison MD Admitting Physician: Taryn Addison MD Referring Physician: Lawrence Garcia MD Encounter Type: Pre-OutPatient One Time Allergies, [...] 1:37:10 PM EST, Route to Pharmacy Electronically, [facility] 3 Start Date: 02/08/16 Status: Ordered Quantity: 180.0 Unit: tablet Repeat number: 1 aspirin 81 mg oral delayed release tablet 81 mg, By Mouth, Daily, # 100 tablet, Refills 0, Tot. Refills 0, Maintenance, 02/08/16 1:33:13 PM EST, Route to Pharmacy Electronically, [facility] 3 Start Date: 02/08/16 Status: [...] Team Personnel Name: Brianne Almazan RN Position: [facility] Nurse Member Role: Primary Care Nurse Name: Lawrence Garcia MD Position: Reference Physician Member Role: PCP Address: [address] [place] [address] Telecom: Care Team Related Persons Name: GEENA CLAY Insurance Providers Guarantor name: [facility] [employer] Plan Information #: 1 Payer: [employer] Payer Identifier: SARAH Member Number: [id number] Group Number: [id number] Subscriber Identifier: [id number] Relationship to Subscriber: self Coverage Type: NA Coverage Verification Date: NA Telecom: SARAH Address:
--- NOTE | 2024-11-15 14:21 | A.OFFPC_ITS ---
Intake Visit Reasons: rash New Accounts Clerk Required: No Accompanied by: Self / Same As Patient Allergies latex (LATEX) Allergy (Intermediate, Verified 11/15/24 14:30) RASH Chocolate Allergy (Unknown, Verified 11/15/24 14:30) Hives egg (EGGS) Allergy (Unknown, Verified 11/15/24 14:30) SWELLING kiwi (KIWI) Allergy (Unknown, Verified 11/15/24 14:30) SWELLING peanut (PEANUTS) Allergy (Unknown, Verified 11/15/24 14:30) SWELLING pineapple (PINEAPPLE) Allergy (Unknown, Verified 11/15/24 14:30) SWELLING animal dander Allergy (Verified 11/15/24 14:30) Rash Sulfa (Sulfonamide Antibiotics) Allergy (Verified 11/15/24 14:30) Rash ENVIROMENTAL Allergy (Intermediate, Uncoded 11/15/24 14:30) HAYFEVER SHELLFISH Allergy (Intermediate, Uncoded 11/15/24 14:30) RASH Medication List - Last Reconciled 11/15/24 by Lawrence Garcia MD albuterol sulfate 90 mcg/actuation (Ventolin HFA) 2 puffs PO Q4H PRN amitriptyline 25 mg PO BEDTIME 30 days amoxicillin-pot clavulanate 875-125 mg 1 tab PO BID [BACK BRACE As directed] clonazepam 0.5 mg (1/2 x 1 mg) PO BID PRN 30 days colchicine 0.6 mg PO BID cyclobenzaprine 5 mg PO TID PRN 30 days gabapentin 800 mg PO TID 30 days hydrocortisone 2.5% (Proctosol HC) 1 appl [place] BID-QID PRN hydroxyzine HCl 10 mg PO TID PRN ketoconazole 2% 1 appl topical 2XW [knee brace R As directed] lidocaine 5% 1 patch topical DAILY Magic Mouthwash Diphen/Lido/Antacid 1:1:1 10 mL PO QID PRN meloxicam 15 mg PO DAILY 30 days miscellaneous medical supply disposable bed pads - 4x daily miscellaneous miscellaneous medical supply wipes- 4x daily permethrin 5% 1 appl topical Q14D 2 doses [SCOOTER As directed] sertraline 50 mg PO DAILY tramadol 50 mg PO BID PRN 30 days triamcinolone acetonide 0.5% 1 appl topical BID 14 days Tobacco use date assessed: 10/20/24 Dental Screening Dental Screen Date: 09/26/24 [facility] Medical History Knee osteoarthritis Scoliosis Pain, dental Knee pain, right Sacroiliac joint dysfunction Left shoulder pain Low back pain Right renal stone Right radial head fracture Knee pain, right Paresthesia of hand, bilateral Elbow pain Back pain Left breast mass Breast cancer screening by mammogram Annual physical exam Colon cancer screening RUQ abdominal pain Rectal bleeding Breast pain, right Brittle nails Easy bruising Vision changes Crackling sound in both ears Breast discharge Chronic pain syndrome Sacroiliac joint dysfunction of left side Osteoarthritis of hips, bilateral Osteoarthritis of knees, bilateral Generalized anxiety disorder Panic attack Depression Vaginal cysts Hx LEEP (loop electrosurgical excision procedure), cervix, Fracture of fifth toe, right, closed Colonoscopy refused Mammogram declined Right renal stone Mild obstructive sleep apnea Carpal tunnel syndrome Restless leg syndrome Aortic valve insufficiency Mixed urge and stress incontinence Cognitive impairment Overweight (BMI 25.0-29.9) Takotsubo cardiomyopathy Asthma Hypercholesterolemia Pulmonary hypertension Migraine Surgical History H/O LEEP History of History of carpal tunnel surgery of left wrist H/O knee surgery Family History Father Hypertension Diabetes Prostate cancer CVD (cardiovascular disease) Mother Hypertension Diabetes Uterine cancer Maternal Grandmother Lung cancer Social History Housing: Apartment Alcohol intake: former Patient Tobacco Use Status: Former Tobacco user Tobacco use type: Cigarette e-Cigarette/Vaping Use: Never Used Second Hand Smoke Exposure: Yes Substance Use Type: Marijuana service: No Current occupational status: disabled Current occupation: left hand Cognitive needs: No Hearing needs: No Vision needs: Yes (glasses) Questionnaire PHQ-9 Over the last 2 weeks, how often have you been bothered by any of the following problems? 1. Little interest or pleasure in doing things: nearly every day 2. Feeling down, depressed, or hopeless: nearly every day 3. Trouble falling or staying asleep, or sleeping too much: nearly every day 4. Feeling tired or having little energy: nearly every day 5. Poor appetite or overeating: nearly every day 6. Feeling bad about yourself - or that you are a failure or have let yourself or your family down: not at all 7. Trouble concentrating on things, such as reading the newspaper or watching television: not at all 8. Moving or speaking so slowly that other people could have noticed. Or the opposite - being so fidgety or restless that you have been moving around a lot more than usual: not at all 9. Thoughts that you would be better off or of hurting yourself in some way: not at all Total score: 15 Depression Screening Interpretation: Negative Depression Screening Done: Yes Source: Developed by Drs. Turner Burt, Alina Bailey, Timur Pineda and colleagues, with an educational iliana from [employer]. Thrive Questionnaire Date Thrive assessed: 09/26/24 I am a: Patient What is your living situation today?: I have a steady place to live Within the past 12 months, did the food you bought not last and you didn't have the money to get more?: Never true Within the past 12 months, did you worry whether your food would run out before you got money to buy more?: Never true Do you have trouble paying for medicines?: No Do you have trouble getting transportation to medical appointments?: No Do you have trouble paying your heating and electricity bill?: No Do you have trouble taking care of your child, family member or friend?: No Do you have trouble with day-to-day activities such as bathing, preparing meals, shopping, managing finances, etc.?: No Are you currently unemployed and looking for a job?: I choose not to answer this question Are you interested in more education?: No Please select the resources that you would like help with: None Currently or been in a relationship where the following occur: No concerns reported THRIVE Score: 0 AUDIT C Alcohol Use Questionnaire (AUDIT-C) 1. How often do you have a drink containing alcohol?: Never 3. How often do you have six or more drinks on one occasion?: Never Total Score: 0 JANA-7 AMB Questionnaire JANA-7 Date JANA - 7 assessed: 09/26/24 Feeling nervous, anxious, or on edge: 0 = Not at all Not being able to stop or control worryin = Not at all Worrying too much about different things: 0 = Not at all Trouble relaxin = Not at all Being so restless that it is hard to sit still: 0 = Not at all Becoming easily annoyed or irritable: 0 = Not at all Feeling afraid as if something awful might happen: 0 = Not at all Total JANA-7 score (0-4 normal; 5-9 mild; 10-14 moderate; 15-21 severe): 0 Source: Developed by Drs. Turner Burt, Alina Bailey, Timur Pineda and colleagues, with an educational iliana from [employer]. Physical exam (Primary Care) Tobacco/Smoking Status: Tobacco use Status Tobacco use date assessed 10/20/24 11/15/24 14:23 Patient Tobacco Use Status Former Tobacco user 11/15/24 14:23 Tobacco use type Cigarette 11/15/24 14:23 e-Cigarette/Vaping Use Never Used 11/15/24 14:23 PHQ-9: PHQ-9 Score PHQ-9: Total score 15 11/15/24 14:34 Depression Screening Interpretation: Negative Thrive Assessment: Date of Thrive Assessment Date Thrive assessed 09/26/24 11/15/24 14:23 Currently or been in a relationship where the following occur: No concerns reported Telehealth Telehealth Telehealth Platform: Telephone Location of provider rendering services: practice address Location of patient: address on file Telehealth method: video Minutes spent on Phone/Video with Pt.: 15 Coding Level of Care Code Est Pt Level 3 (05827) Diagnoses Skin infection L08.9 Diarrhea R19.7 Assessment & Plan Assessment & Plan (1) Skin infection: Code(s): L08.9 - Local infection of the skin and subcutaneous tissue, unspecified Category: Medical (2) Diarrhea: Code(s): R19.7 - Diarrhea, unspecified Category: Medical Plan History of Present Illness The patient is a 58-year-old female presenting with an acute problem related to insect bites and scabies. She has a history of hypercholesterolemia, asthma, generalized anxiety disorder, osteoarthritis of the knees, lumbar spondylosis, impaired glucose tolerance, and atypical hyperplasia of the breast. The patient was last seen on October 20 for insect bites and was treated for scabies. She had previously gone to the emergency room on September 26 with a diagnosis of bug bites but left without being seen. The patient reports that the insect bites have resulted in more almonte on her skin, and she has been experiencing issues with her nails breaking without noticing. She has been staying at a hotel that does not have rugs and has been throwing away her clothes and buying new ones to avoid further infestation. The patient has been prescribed an oral antibiotic to target the infection from the inside out, as previous topical treatments were ineffective. She is allergic to sulfa and has been advised to take the antibiotic twice a day for seven days. The patient has been experiencing diarrhea, and stool testing has been requested to identify any potential parasites. Review of Systems - Dermatological: Reports insect bites resulting in skin almonte and nail breakage. - Gastrointestinal: Reports diarrhea. Plan The patient has been prescribed an oral antibiotic to address the skin infection from the insect bites, with the aim of targeting the infection from the inside out. She is instructed to take the antibiotic twice daily for seven days, ensuring it does not contain sulfa due to her allergy. Due to the ongoing diarrhea, stool testing has been requested to identify any potential parasitic infection. The patient is advised to maintain adequate fluid intake to prevent dehydration. Patient was informed and verbally consented to the use of an ambient scribe for clinic note documentation during this visit. Discussion Notes I discussed with the patient the plan to use an oral antibiotic to treat the skin infection caused by insect bites, emphasizing the importance of targeting the infection from the inside out. We reviewed her allergy to sulfa and ensured the prescribed antibiotic does not contain it. I explained the need for stool testing due to her diarrhea to rule out any parasitic infection and advised her to maintain adequate hydration to prevent dehydration. Patient Instructions - Take the prescribed antibiotic twice daily for seven days. - Ensure the antibiotic does not contain sulfa due to allergy. - Maintain adequate fluid intake to prevent dehydration. - Follow up with stool testing as requested. Orders: Orders Leukocytes Stool Qualitative Today R19.7 - Diarrhea, unspecified Ova and Parasite Today R19.7 - Diarrhea, unspecified Medications: New amoxicillin-pot clavulanate 875-125 mg 1 tab PO BID 14 tabs 0RF L08.9 - Local infection of the skin and subcutaneous tissue, unspecified
--- OUTSIDE RECORDS SUMMARY | 2024-11-15 15:16 | XMS_ITS | Clinical Summary ---
Author Organization [facility] ity Address [address] [place] [address] Care Team Providers Care Hemstitching Machine Operator Name Role Phone Janell Loza MD Primary Care Provider [phone] Social History Tobacco Use Types Packs/Day Years [...] age to complete this topic Care Teams Hemstitching Machine Operator Relationship Specialty Start Date End Date Janell Loza MD [address] [place] [address] , [address] [facility] D/B/A: [facility] [place] PCP - General 02/14/16
--- OUTSIDE RECORDS SUMMARY | 2024-11-15 15:16 | XMS_ITS | Clinical Summary ---
Author Organization [facility] Address [address] [place] [address] Phone Care Team Providers Care Social Group Worker Name Role Phone Lawrence Garcia MD Primary Care Provider [phone] Medications EPINEPHrine (EPIPEN 2-ZENIA) 0.3 mg/0.3 mL [...] Medical Devices Not on file [place] [address] [place] [address] [place] [place] [address] [place] [place] [address] [place] [address] [place] [address] [place] [address] [place] [address] [place] [address] [place] [address] [place] [place] [address] ACO [facility] ACO Care Teams Social Group Worker Relationship Specialty Start Date End Date Lawrence Garcia MD [address] [place] [id number] PCP - General Internal Medicine 09/15/22 Additional Source Comments The information contained in this document represents components of the legal health record. It is not the complete legal health record.[facility]
--- OUTSIDE RECORDS SUMMARY | 2024-11-15 15:16 | XMS_ITS | Patient Health Record ---
Author Organization [facility] Address [address] [place] [address] Care Team Providers Care Police Academy Instructor Name Role Phone Urmila KEYES, Greta Primary Care Provider Turner Fisher Unavailable [phone] Reason For Referral No Information Medications Medication [...] Status Risk Notes Problem Irritable bowel syndrome (05977642) Irritable bowel syndrome (564.1) Active confirmed Problem Blood in stool (578.1) Active confirmed Plan Of Treatment No Information Insurance Providers Payer Name Payer Address Payer Phone Subscriber Number Group Number Insured Name Patient Relationship to Insured Coverage Start Date Coverage End Date [facility] [address] [address] [place], [place] [id number] ANGELINA SIMPSON Self - patient is the insured Medical (General) History Medical History History ICD Code Asthma Restless leg syndrome Hyperlipidemia--on no meds G6PD deficiency Migraines Rheumatic fever as a child Anxiety/depression/panic attacks/PTSD Carpal tunnel Denies AL,DM,CVA,renal disease Surgical History Surgery Date(Month/Year) knee surgery section vaginal cyst removal LEEP for cervical cancer Carpal tunnel
== END 2024-11-15 15:54 | disposition home or self-care (01) ==
PROVIDERS: PCP Internal Medicine; Visit Provider Internal Medicine
DX: L08.9 Local infection of the skin and subcutaneous tissue, unspecified (principal); R19.7 Diarrhea, unspecified

== ENCOUNTER → 2024-11-15 14:17 | Outpatient (BNVA) | payer OTHER, SELFPAY | PROVIDERS: PCP Internal Medicine; Visit Provider Internal Medicine | DX: F41.1 Generalized anxiety disorder (principal); L08.9 Local infection of the skin and subcutaneous tissue, unspecified; R19.7 Diarrhea, unspecified; E78.00 Pure hypercholesterolemia, unspecified; J45.909 Unspecified asthma, uncomplicated; M17.0 Bilateral primary osteoarthritis of knee; M47.816 Spondylosis without myelopathy or radiculopathy, lumbar region | CPT/HCPCS: 99212 ==

== ENCOUNTER 2024-11-23 15:03 | Outpatient (REF) | payer OTHER, SELFPAY ==
[2024-11-23 15:33] LABS: MANUAL DIFF FLAG NO
--- OUTSIDE RECORDS SUMMARY | 2024-11-23 15:44 | XMS_ITS | Patient Health Record ---
Author Organization [facility] Address [address] [place] [address] Care Team Providers Care Director Equipment Name Role Phone Urmila KEYES, Grtea Primary Care Provider Turner Fisher Unavailable [phone] Reason For Referral No Information Medications Medication [...] Status Risk Notes Problem Irritable bowel syndrome (25273246) Irritable bowel syndrome (564.1) Active confirmed Problem Blood in stool (895752875) Blood in stool (578.1) Active confirmed Plan Of Treatment No Information Insurance Providers Payer Name Payer Address Payer Phone Subscriber Number Group Number Insured Name Patient Relationship to Insured Coverage Start Date Coverage End Date [facility] [employer] [facility] [address] [address] [place], [place] [id number] ANGELINA SIMPSON Self - patient is the insured Medical (General) History Medical History History ICD Code Asthma Restless leg syndrome Hyperlipidemia--on no meds G6PD deficiency Migraines Rheumatic fever as a child Anxiety/depression/panic attacks/PTSD Carpal tunnel Denies [place],DM,CVA,renal disease Surgical History Surgery Date(Month/Year) knee surgery section vaginal cyst removal LEEP for cervical cancer Carpal tunnel
--- OUTSIDE RECORDS SUMMARY | 2024-11-23 15:44 | XMS_ITS | Clinical Summary ---
Author Organization [facility] ity Address [address] [place] [address] Care Team Providers Care Social Security Specialist Name Role Phone Janell Loza MD Primary Care Provider [phone] Social History Tobacco Use Types Packs/Day Years [...] age to complete this topic Care Teams Social Security Specialist Relationship Specialty Start Date End Date Janell Loza MD [address] [place] [address] , [address] [facility] D/B/A: [facility] [place] PCP - General 02/14/16
--- OUTSIDE RECORDS SUMMARY | 2024-11-23 15:44 | XMS_ITS | Clinical Summary ---
Author Organization [facility] Address [address] [place] [address] Phone Care Team Providers Care Electronic Train Control Technician Name Role Phone Lawrence Garcia MD Primary Care Provider [phone] Medications EPINEPHrine (EPIPEN 2-ZENIA) 0.3 mg/0.3 mL [...] (2 - 2023-2 5 season) 2023 06/24/2020 INFLUENZA VACCINE (#1) 2024 Adult Td,Tdap Booster 05/16/2029 05/16/2019 , 07/17/2013 [...] topic Medical Devices Not on file [place] [address] [address] [address] [place] [address] [place] [address] [place] [address] [place] [address] [place] [address] [place] [address] ACO Member Subscriber Plan / Payer (Ef fective 2023-Present) Name:Re Feliz Relation to Subscriber:Self Name:Re Feliz Payer ID:[id number] Group ID:[id number] Type:Medicaid Address: [address] [address] ACO Member Subscriber Plan / Payer (Ef fective 2023-Present) Name:Re Feliz Relation to Subscriber:Self Name:Re Feliz Payer ID:[id number] Group ID:[id number] Type:Medicaid Address: [address] [facility] ACO Care Teams Electronic Train Control Technician Relationship Specialty Start Date End Date Lawrence Garcia MD [address] [place] [id number] PCP - General Internal Medicine 09/15/22 Additional Source Comments The information contained in this document represents components of the legal health record. It is not the complete legal health record.[facility]
[2024-11-23 15:49] LABS: Hematocrit 36.3 % (37.0-47.0); Hemoglobin 12.0 g/dl (12.0-16.0); Imm Gran Abs Auto 0.03 X10*3/uL (0.00-0.03); Imm Gran Pct Auto 0.3 % (0.0-0.4); Lymphocytes Absolute Auto 2.2 X10*3/uL (1.2-4.9); Mean Corpuscular HGB Conc 33.1 g/dl (31.0-35.0); Mean Corpuscular Hemoglobin 30.0 pg (27.0-33.0); Mean Corpuscular Volume 90.8 fL (80.0-98.0); NRBC Abs Auto 0.000 X10*3/uL (0.0-0.012); NRBC Pct Auto 0.0 /100WBC (0.0-0.2); Platelet Count 351 X10*3/uL (160-400); Red Blood Count 4.00 X10*6/uL (4.20-5.50); White Blood Count 8.6 X10*3/uL (4.8-10.8)
[2024-11-23 15:54] LABS: Appearance Urine Clear; Glucose Urine UA Negative (Negative); PH 6.0 (5.0-9.0); Specific Gravity - Urine 1.015 (1.005-1.025); UMIC TRIGGER UACC YES
[2024-11-23 16:02] LABS: UACC Culture Trigger YES
[2024-11-23 16:12] LABS: Hemoglobin A1C 110.4713 umol/L; Total Hemoglobin (HGBA1C) 3188.0388 umol/L
[2024-11-23 16:25] LABS: Alanine Aminotransferase 12 U/L (0-31); Albumin Level 4.4 g/dL (3.5-5.0); Alkaline Phosphatase 86 U/L (39-117); Anion Gap 11 (12-20); Aspartate Amino Transferase 24 U/L (5-31); Blood Urea Nitrogen 8 mg/dL (9-16); Calcium 9.5 mg/dL (8.4-10.2); Carbon Dioxide 28 mmol/L (22-29); Chloride 103 mmol/L (96-108); Cholesterol 228 mg/dL (<200); Estimated Glomerular Filt Rate > 60; HDL Cholesterol 42 mg/dL (>40); Potassium 4.0 mmol/L (3.3-5.1); Sodium 138 mmol/L (135-145); Total Protein 7.4 g/dL (6.5-8.0); Triglycerides 107 mg/dL (<150)
[2024-11-23 16:36] LABS: Free T4 (Free Thyroxine) 1.08 ng/dL (0.71-1.85); Thyroid Stimulating Hormone 0.12 uIU/mL (0.32-4.0)
[2024-11-23 16:49] LABS: Folate 8.6 ng/mL (> or = 4.0); Vitamin B12 378 pg/mL (200-900)
== END 2024-11-23 15:04 | disposition home or self-care (01) ==
LOC: HO.LAB 15:03
PROVIDERS: PCP Internal Medicine; Visit Provider Internal Medicine
DX: K62.5 Hemorrhage of anus and rectum (principal); E78.00 Pure hypercholesterolemia, unspecified
CPT/HCPCS: 36415; 80053; 80061; 81001; 82306; 82607; 82746; 83036; 84439; 84443; 85025; 87086

== ENCOUNTER 2024-11-27 13:35 | Emergency (ER) | payer OTHER, SELFPAY ==
--- NOTE | ~2024-11-27 | CT_ITS ---
CLINICAL HISTORY: hallucinations, per fam, hx of brain lessions ? CT head with and without contrast Comparison: CT/SR - CT HEAD/BRAIN WO IV CON - 09/16/24 00:05 EDT Findings: No intra-axial mass, midline shift, hydrocephalus, or acute hemorrhage. No significant atrophy-like change or white matter disease. The visualized paranasal sinuses and mastoid air cells are normal. The orbits are unremarkable. There is no acute fracture. IMPRESSION: 1. Normal CT examination of the head with no change from 09/15/2024 exam. This document has been electronically signed by: Price Montez MD on 11/27/2024 21:24:52
[2024-11-27 13:59] VITALS: BP 100/61; PULSE 105; RESP 20; TEMP 37; O2SAT 98; BMI 17.6
--- NOTE | 2024-11-27 14:06 | ED_ITS ---
HPI - General Adult General Chief complaint: Psychiatric Symptoms Stated complaint: finger inj and other issues Time Seen by Provider: 11/27/24 16:05 Source: patient Mode of arrival: ambulatory Limitations: no limitations History of Present Illness ED Provider: Dr. Mabel Baca HPI narrative: Patient comes to the emergency room complaining of feeling bugs crawling inside of her. Patient states it has been going on for several months. Patient has been seen multiple times in the emergency room for the same complaint. Seems that patient is not eating secondary to seeing bugs coming out of her mouth people patient states she is hungry but she can not eat. Patient states ?I can not live like this?, patient explains that she explains that she means living with bugs inside of her, she denies SI or HI. Related Data Previous Rx's ?Medication ?Instructions ?Recorded miscellaneous medical supply See Rx Instructions misce [place]aneous 06/24/20 .COMPLEX PRN Urge Incontinence #4 ea miscellaneous medical supply See [place] Inst[place] [facility] [place] .COMPLEX PRN Urge Incontinence #140 ea BACK BRACE #1 ea 04/30/22 ketoconazole 2 % shampoo 1 appl topical 2XW #120 mL 1 04/21/23 knee brace R #1 ea 05/12/24 cyclobenzaprine 5 mg tablet 5 mg PO TID PRN muscle spa sm 30 05/19/24 days #60 tabs tramadol 50 mg tablet 50 mg PO BID PRN pain 30 day s #60 05/19/24 tabs Magic Mouthwash 10 ml PO QID PRN painful tiago th 09/26/24 Diphen/Lido/Antacid 1:1:1 240 mL sores #240 mL suspension gabapentin 800 mg tablet 800 mg PO TID 30 days #90 ta bs 09/27/24 colchicine 0.6 mg tablet 0.6 mg PO BID #20 tabs 09/28 meloxicam 15 mg tablet 15 mg PO DAILY 30 days #90 t abs 09/28/24 sertraline 50 mg tablet 50 mg PO DAILY #90 tabs 0706/20 SCOOTER #1 ea 10/06/24 permethrin 5 % topical cream 1 appl topical Q14D 2 dos es #60 10/20/24 grams hydrocortisone 2.5 % topical cream 1 appl OR BID-QID P RN hemorrhoids 10/24/24 with perineal applicator #30 grams (Proctosol HC) triamcinolone acetonide 0.5 % 1 appl topical BID 14 da ys #15 10/24/24 topical cream grams amitriptyline 25 mg tablet 25 mg PO BEDTIME 30 days #9 0 tabs 10/30/24 clonazepam 1 mg tablet 0.5 mg (1/2 x 1 mg) PO BID P RN 10/30/24 anxiety 30 days #30 tabs amoxicillin 875 mg-potassium 1 tab PO BID #14 tabs clavulanate 125 mg tablet hydroxyzine HCl 10 mg tablet 10 mg PO TID PRN itching #30 tabs 11/15/24 albuterol sulfate 90 mcg/actuation 2 puff PO Q4H PRN f or wheezing #18 11/24/24 aerosol inhaler (Ventolin HFA) ea lidocaine 5 % topical patch 1 patch topical DAILY #30 ea 11/28/24 Allergies Allergy/AdvReac Type Severity Reaction Status Date / Time latex (LATEX) Allergy Intermediate RASH Verified 11/27/24 14:00 Chocolate Allergy Unknown Hives Verified 11/27/24 14:00 egg (EGGS) Allergy Unknown SWELLING Verified 11/27/24 14:00 kiwi (KIWI) Allergy Unknown SWELLING Verified 11/27/24 14:00 peanut (PEANUTS) Allergy Unknown SWELLING Verified 11/27/24 14:00 pineapple (PINEAPPLE) Allergy Unknown SWELLING Verified 11/27/24 14:00 animal dander Allergy Rash Verified 11/27/24 14:00 Sulfa (Sulfonamide Allergy Rash Verified 11/27/24 14:00 Antibiotics) ENVIROMENTAL Allergy Intermediate HAYFEVER Uncoded 11/27/24 14:00 SHELLFISH Allergy Intermediate RASH Uncoded 11/27/24 14:00 Review of Systems 2 Review of Systems: Constitutional : No Weight loss, No Fever, No Chills, No Night Sweats, No Fatigue, No Malaise ENT/Mouth : No Hearing loss, No Ear Pain, No Nasal Congestion, No Sinus Pain, No Hoarseness, No sore throat, No Rhinorrhea, No Swallowing Difficulty Eyes: No Eye Pain, No Swelling, No Redness, No Foreign Body, No Discharge, No Vision Changes Cardiovascular : No Chest Pain, No SOB, No Dyspnea on Exertion, No Orthopnea, No Edema, No Palpitations Respiratory : No Cough, No Sputum, No Wheezing, No Smoke Exposure, No Dyspnea Gastrointestinal : No Nausea, No Vomiting, No Diarrhea, No Constipation, No abdominal Pain, No Hematochezia, No Melena Genitourinary : no irregular bleeding, No Dysuria, No Urinary Frequency, No Hematuria, No Urinary Incontinence, No Urgency, No Flank Pain, No Urinary Flow Changes, No Hesitancy Musculoskeletal : No joint pain, No Myalgias, No Joint Swelling Skin : No Skin Lesions, No rash Neuro : No Weakness, No Numbness, No Paresthesias, No Loss of Consciousness, No Dizziness, No Headache Psych : Patient complaining of anxiety, depression from seeing bugs, denies SI or HI., Heme/Lymph: No Bruising, No Bleeding,No Lymphadenopathy Endocrine : No Polyuria, No Polydipsia, No Temperature Intolerance PMFSH Past Medical History Medical History Knee osteoarthritis Scoliosis Pain, dental Knee pain, right Sacroiliac joint dysfunction Left shoulder pain Low back pain Right renal stone Right radial head fracture Knee pain, right Paresthesia of hand, bilateral Elbow pain Back pain Left breast mass Breast cancer screening by mammogram Annual physical exam Colon cancer screening RUQ abdominal pain Rectal bleeding Breast pain, right Brittle nails Easy bruising Vision changes Crackling sound in both ears Breast discharge Chronic pain syndrome Sacroiliac joint dysfunction of left side Osteoarthritis of hips, bilateral Osteoarthritis of knees, bilateral Generalized anxiety disorder Panic attack Depression Vaginal cysts Hx LEEP (loop electrosurgical excision procedure), cervix, Fracture of fifth toe, right, closed Colonoscopy refused Mammogram declined Right renal stone Mild obstructive sleep apnea Carpal tunnel syndrome Restless leg syndrome Aortic valve insufficiency Mixed urge and stress incontinence Cognitive impairment Overweight (BMI 25.0-29.9) Takotsubo cardiomyopathy Asthma Hypercholesterolemia Pulmonary hypertension Migraine Surgical History H/O LEEP History of History of carpal tunnel surgery of left wrist H/O knee surgery Family History Family History Father Hypertension Diabetes Prostate cancer CVD (cardiovascular disease) Mother Hypertension Diabetes Uterine cancer Maternal Grandmother Lung cancer Social History Social History Housing: Apartment Alcohol intake: former Patient Tobacco Use Status: Former Tobacco user Tobacco use type: Cigarette e-Cigarette/Vaping Use: Never Used Second Hand Smoke Exposure: Yes Substance Use Type: Marijuana service: No Current occupational status: disabled Current occupation: left hand Cognitive needs: No Hearing needs: No Vision needs: Yes (glasses) Physical Exam ED Exam Exam: Appearance: Alert. Oriented X3. No acute distress. Eyes: Pupils equal, round and reactive to light. ENT: Pharynx normal. Neck: Normal inspection. Neck supple. No lymph nodes noted. No crepitus CVS: Normal heart rate and rhythm. Pulses normal. Normal S1 and S2 Respiratory: No respiratory distress. Breath sounds normal. No Wheezing. No rales Abdomen: Soft and nontender. No rigidity. No distention. Patient has self- inflicted scratches in her skin, no obvious signs of bug bites Skin: Skin warm and dry. Normal skin color. Normal skin turgor. Extremities: No lower extremity edema. No Lacerations. No Rash Neuro: Oriented X 3. No motor deficit. No sensory deficit. Moving all extremities. No slurred speech. CN 2 through 12 grossly intact Psych: Anxious, patient is seeing bugs, hallucinating Vital Signs: Vital Signs - 24 hr 11/27/24 22:49 11/27/24 23:16 11/28/24 03:39 Temperature 98.4 F Pulse Rate 76 Respiratory Rate 18 16 16 Blood Pressure 165/67 H Pulse Oximetry 98 Oxygen Delivery Method Room Air 11/28/24 08:50 11/28/24 08:54 11/28/24 08:55 Temperature 98.1 F 98.1 F 98.1 F Pulse Rate 89 87 87 Respiratory Rate 14 18 18 Blood Pressure 102/65 102/65 102/65 Pulse Oximetry 99 99 99 Oxygen Delivery Method Room Air Room Air Room Air BMI result Body Mass Index 17.6 Course Course Course Narrative: RME: 58 year female history of pruritus presents to ED complaining of generalized itchiness and blood groin site in her vagina rectum and all over body. Patient denies any suicidal homicidal ideation. Patient admits taking THC. Labs ordered Reevaluation(s) Reevaluation #1: Time: 06:27 Date: 11/28/24 Provider: Hailee Addison DO Patient in physician observation for psychiatric evaluation.? No acute events reported overnight. No current complaints. VS stable.? Repeat glucose stable and has been eating. Pending CARE team evaluation. Will continue to monitor. Reevaluation #2: Time: 08:07 Date: 11/28/24 Provider: Hailee Addison DO Physician observation ended at 807am. Patient has been cleared for discharge by the CARE team. Will follow up as an outpatient. clear now after observation in the ED Medications Administered Discontinued Medications Generic Name Dose Route Start Last Admin Trade Name Freq PRN Reason Stop Dose Admin Amitriptyline HCl 25 mg 11/27/24 21:15 11/27/24 21:50 Amitriptyline Hcl 25 Mg Tablet PO 25 mg BEDTIME EMMA Administration Cefuroxime Axetil 250 mg 11/27/24 17:07 11/27/24 17:30 Cefuroxime Axetil 250 Mg Tablet PO 11/27/24 17:08 Not Given ONCE ONE Cefuroxime Axetil 250 mg 11/27/24 21:28 11/27/24 21:49 Cefuroxime Axetil 250 Mg Tablet PO 11/27/24 21:29 250 mg ONCE ONE Administration Clonazepam 0.5 mg 11/27/24 21:11 11/27/24 21:49 Clonazepam 0.5 Mg Tablet PO 0.5 mg BID PRN Administration Anxiety Colchicine 0.6 mg 11/27/24 21:15 11/27/24 21:50 Colchicine 0.6 Mg Tablet PO 0.6 mg BID EMMA Administration Cyclobenzaprine HCl 5 mg 11/27/24 21:11 11/27/24 21:49 Cyclobenzaprine Hcl 5 Mg Tablet PO 5 mg TID PRN Administration Muscle Spasm Diphenhydramine HCl 50 mg 11/27/24 23:05 11/27/24 23:18 Diphenhydramine Hcl 25 Mg Capsule PO 11/27/24 23:06 50 mg ONCE ONE Administration Gabapentin 800 mg 11/27/24 21:15 11/27/24 21:49 Gabapentin 400 Mg Capsule PO 800 mg TID EMMA Administration Hydroxyzine HCl 10 mg 11/27/24 21:11 11/28/24 02:39 Hydroxyzine Hcl 10 Mg Tablet PO 10 mg TID PRN Administration Itching Iohexol 100 ml 11/27/24 20:27 11/27/24 20:27 Iohexol 350 Mg/Ml 100 Ml Infus..Btl IV 11/27/24 20:28 85 ml ONCE ONE Administration Lorazepam 2 mg 11/27/24 23:05 11/27/24 23:18 Lorazepam 1 Mg Tablet PO 11/27/24 23:06 2 mg ONCE ONE Administration My interpretation of labs: No significant abnormality in patient's hematology, chemistry electrolytes are within normal limits. , however, glucose is 50. Patient was given p.o food/drinks Patient is denying SI or HI. However, patient is hallucinating, seeing bugs, patient did test positive for marijuana, benzos and cocaine. Possible drug- induced psychosis versus delusion? Also, patient does have a UTI which is currently being treated. However, patient has been here before with the same symptoms without having a UTI. I do not believe that a UTI is contributing to the patient's hallucinations. Care team evaluated the patient claimant recommendations are to Section 12 the patient, follow-up in the morning. They may ask Psychiatry to evaluate the patient as well. The main concern is that the patient's seems to not be eating secondary to hallucinations seeing bugs coming out of her mouth Medical Decision Making Medical Decision Making [facility] Narrative: My interpretation of labs: No significant abnormality in patient's hematology, chemistry shows normal electrolytes, however, glucose is 50. Patient awake and alert. Patient was given p.o. fluids and food, glucose improved to 90. Normal LFTs. Patient has been here multiple times for the same complaint. Clearly, this is more psychiatric, possibly drug-induced? Care team consult pending Care team consult recommends a section 12, possible psychiatric evaluation in the morning. At this time, 19:00, patient's nurse informed me that the patient's sister called from [place] of [place]. Seems that the patient has history of some kind of brain tumors? Patient has never received treatment. There are no records of patient having brain tumors. However, given this information, we will obtain a CT scan with contrast CT scan of the head with contrast did not show any changes since at least August of 2024, no obvious masses Differential Diagnosis Differential Diagnoses: The differential diagnosis associated with the presentation includes (Anxiety, depression, delusional parasitosis, schizophrenia) Admission/Observation Consideration of admission/observation: Escalation of care including admission/observation considered (Care team follow-up morning consult pending, patient may need psychiatric consultation) Consult Healthcare Provider Management of the patient was discussed with: Behavioral Health Provider Lab Data MDM Lab Attestation statement: I reviewed the patient's lab results. 11/27/24 15:54 11/27/24 15:54 Labs: Lab Results 11/27/24 11/27/24 11/27/24 Range/Units 15:54 17:06 19:38 WBC 7.4 (4.8-10.8) X10*3/uL RBC 4.15 L (4.20-5.50) X10*6/uL Hgb 12.4 (12.0-16.0) g/dl Hct 37.6 (37.0-47.0) % MCV 90.6 (80.0-98.0) fL MCH 29.9 (27.0-33.0) pg MCHC 33.0 (31.0-35.0) g/dl RDW 13.2 (11.0-16.0) % Plt Count 334 (160-400) X10*3/uL MPV 9.1 L (9.4-12.3) fL Immature Gran % (Auto) 0.3 (0.0-0.4) % Neut % (Auto) 59.6 (45-73) % Lymph % (Auto) 28.6 (20-40) % [place] % (Auto) 8.0 (2-11) % Eos % (Auto) 3.1 (0-4) % Baso % (Auto) 0.4 (0-2) % Lymph # (Auto) 2.1 (1.2-4.9) X10*3/uL [place] # (Auto) 0.6 (0.1-1.2) X10*3/uL Eos # (Auto) 0.2 (0.0-0.4) X10*3/uL Baso # (Auto) 0.0 (0.0-0.2) X10*3/uL Abs Immat Gran (auto) 0.02 (0.00-0.03) X10*3/uL Absolute Neuts (auto) 4.4 (2.0-8.3) x10*3/uL Absolute Nucleated RBC 0.000 (0.0-0.012) X10*3/uL Nucleated RBC % (auto) 0.0 (0.0-0.2) /100WBC Sodium 142 (135-145) mmol/L Potassium 3.7 (3.3-5.1) mmol/L Chloride 103 (96-108) mmol/L Carbon Dioxide 28 (22-29) mmol/L Anion Gap 15 (12-20) BUN 13 (9-16) mg/dL Creatinine 0.63 (0.5-1.4) mg/dL Estim Creat Clear Calc 72.2 Estimated GFR > 60 POC Glucose 90 103 (60-115) mg/dL Random Glucose 50 L* (60-115) mg/dL Calcium 9.6 (8.4-10.2) mg/dL Total Bilirubin 0.3 (0.0-1.0) mg/dL AST 21 (5-31) U/L ALT 11 (0-31) U/L Alkaline Phosphatase 89 (39-117) U/L Total Protein 7.6 (6.5-8.0) g/dL Albumin 4.5 (3.5-5.0) g/dL Lipase 26 (8-78) U/L Urine Color Yellow Urine Appearance Cloudy Urine pH 6.0 (5.0-9.0) Ur Specific [place] 1.025 (1.005-1.025) Urine Protein Trace (Neg-Trace) mg/dL Urine Glucose (UA) Negative (Negative) mg/dL Urine Ketones Trace (Negative) mg/dL Urine Blood Trace H (Negative) Urine Nitrite Negative (Negative) Ur Leukocyte Esterase Moderate (2+) H (Negative) Urine RBC 0-2 (0-2) /HPF Urine WBC 11-20 H (0-5) /HPF Ur Squamous Epith Cells >20 (0-2) /HPF Urine Bacteria 3+ (None Seen) Hyaline Casts 0-2 (0-2) /LPF Urine Opiates Screen Not Detected (Not Detect) Ur Buprenorphine Scrn Not Detected (Not Detect) ng/mL Ur Oxycodone Screen Not Detected (Not Detect) ng/mL Urine Methadone Screen Not Detected (Not Detect) ng/mL Urine Fentanyl Screen Not Detected (Not Detect) Ur Barbiturates Screen Not Detected (Not Detect) Ur Phencyclidine Scrn Not Detected (Not Detect) Ur Amphetamines Screen Not Detected (Not Detect) U Benzodiazepines Scrn POSITIVE H (Not Detect) Urine Cocaine Screen POSITIVE H (Not Detect) U Marijuana (THC) Screen POSITIVE H (Not Detect) Ethyl Alcohol < 10 mg/dL 11/28/24 Range/Units 06:30 WBC (4.8-10.8) X10*3/uL RBC (4.20-5.50) X10*6/uL Hgb (12.0-16.0) g/dl Hct (37.0-47.0) % MCV (80.0-98.0) fL MCH (27.0-33.0) pg MCHC (31.0-35.0) g/dl RDW (11.0-16.0) % Plt Count (160-400) X10*3/uL MPV (9.4-12.3) fL Immature Gran % (Auto) (0.0-0.4) % Neut % (Auto) (45-73) % Lymph % (Auto) (20-40) % [place] % (Auto) (2-11) % Eos % (Auto) (0-4) % Baso % (Auto) (0-2) % Lymph # (Auto) (1.2-4.9) X10*3/uL [place] # (Auto) (0.1-1.2) X10*3/uL Eos # (Auto) (0.0-0.4) X10*3/uL Baso # (Auto) (0.0-0.2) X10*3/uL Abs Immat Gran (auto) (0.00-0.03) X10*3/uL Absolute Neuts (auto) (2.0-8.3) x10*3/uL Absolute Nucleated RBC (0.0-0.012) X10*3/uL Nucleated RBC % (auto) (0.0-0.2) /100WBC Sodium (135-145) mmol/L Potassium (3.3-5.1) mmol/L Chloride (96-108) mmol/L Carbon Dioxide (22-29) mmol/L Anion Gap (12-20) BUN (9-16) mg/dL Creatinine (0.5-1.4) mg/dL Estim Creat Clear Calc Estimated GFR POC Glucose 89 (60-115) mg/dL Random Glucose (60-115) mg/dL Calcium (8.4-10.2) mg/dL Total Bilirubin (0.0-1.0) mg/dL AST (5-31) U/L ALT (0-31) U/L Alkaline Phosphatase (39-117) U/L Total Protein (6.5-8.0) g/dL Albumin (3.5-5.0) g/dL Lipase (8-78) U/L Urine Color Urine Appearance Urine pH (5.0-9.0) Ur Specific [place] (1.005-1.025) Urine Protein (Neg-Trace) mg/dL Urine Glucose (UA) (Negative) mg/dL Urine Ketones (Negative) mg/dL Urine Blood (Negative) Urine Nitrite (Negative) Ur Leukocyte Esterase (Negative) Urine RBC (0-2) /HPF Urine WBC (0-5) /HPF Ur Squamous Epith Cells (0-2) /HPF Urine Bacteria (None Seen) Hyaline Casts (0-2) /LPF Urine Opiates Screen (Not Detect) Ur Buprenorphine Scrn (Not Detect) ng/mL Ur Oxycodone Screen (Not Detect) ng/mL Urine Methadone Screen (Not Detect) ng/mL Urine Fentanyl Screen (Not Detect) Ur Barbiturates Screen (Not Detect) Ur Phencyclidine Scrn (Not Detect) Ur Amphetamines Screen (Not Detect) U Benzodiazepines Scrn (Not Detect) Urine Cocaine Screen (Not Detect) U Marijuana (THC) Screen (Not Detect) Ethyl Alcohol mg/dL Independent Interpretation I performed an independent interpretation of an: CT Scan Radiology Impression Discussion of test interpretation with radiology: I have reviewed the radiologist's reading. Radiologist Impression: Findings: No intra-axial mass, midline shift, hydrocephalus, or acute hemorrhage. No significant atrophy-like change or white matter disease. The visualized paranasal sinuses and mastoid air cells are normal. The orbits are unremarkable. There is no acute fracture. IMPRESSION: 1. Normal CT examination of the head with no change from 09/15/2024 exam. Independent Historian Clinical information obtained from an independent historian. History obtained from or confirmed by: Other (Patient's sister) Critical Care Time Critical Care Time Critical Care Time: Yes Total Critical Care Time: 35 Attestation: I have personally provided critical care time. Time includes review of lab data, radiology results, discussion with consultants, and monitoring for potential decompensation. Intervention performed as documented. Discharge Plan Discharge Clinical Impression: Hallucinations, UTI (urinary tract infection) Patient Disposition: Home, Self-Care Instructions: Hallucinations (ED) Additional Instructions: You were seen in our Emergency Department today for treatment of a behavioral health issue. It is important after your visit that you follow up with either your behavioral health provider or a primary care doctor within 7 days.? If you have trouble finding a therapist you can reach out to [address] [phone] [facility] [place] [facility] can be reached 7 days a week 24 hours a day.? Call [phone] to speak with someone.? Return for any worsening symptoms or concerns such as thoughts of self harm or harm to others. Please call 911 if you feel your mental health is worsening.? Prescriptions: No Action miscellaneous medical supply Misc See Rx Instructions miscellaneous .COMPLEX PRN (Reason: Urge Incontinence) Qty: 140 11RF Rx Instructions: disposable bed pads - 4x daily miscellaneous miscellaneous medical supply Misc See Rx Instructions miscellaneous .COMPLEX PRN (Reason: Urge Incontinence ) Qty: 4 11RF Rx Instructions: wipes- 4x daily (DME) BACK BRACE See Rx Instructions .Route .MEDSUPPLY Qty: 1 0RF Rx Instructions: As directed ketoconazole 2 % shampoo 1 appl topical 2XW Qty: 120 0RF (DME) knee brace R See Rx Instructions .Route .MEDSUPPLY Qty: 1 0RF Rx Instructions: As directed cyclobenzaprine 5 mg tablet 5 mg PO TID PRN (Reason: muscle spasm) 30 Days Qty: 60 3RF tramadol 50 mg tablet 50 mg PO BID PRN (Reason: pain) 30 Days Qty: 60 0RF gabapentin 800 mg tablet 800 mg PO TID 30 Days Qty: 90 1RF colchicine 0.6 mg tablet 0.6 mg PO BID Qty: 20 0RF meloxicam 15 mg tablet 15 mg PO DAILY 30 Days Qty: 90 0RF sertraline 50 mg tablet 50 mg PO DAILY Qty: 90 1RF Rx Instructions: anxiety (DME) SCOOTER See Rx Instructions .Route .MEDSUPPLY Qty: 1 0RF Rx Instructions: As directed hydrocortisone [Proctosol HC] 2.5 % cream with perineal applicator 1 appl OR BID-QID PRN (Reason: hemorrhoids) Qty: 30 0RF triamcinolone acetonide 0.5 % cream 1 appl topical BID 14 Days Qty: 15 0RF amitriptyline 25 mg tablet 25 mg PO BEDTIME 30 Days Qty: 90 0RF clonazepam 1 mg tablet 0.5 mg PO BID PRN (Reason: anxiety) 30 Days Qty: 30 0RF hydroxyzine HCl 10 mg tablet 10 mg PO TID PRN (Reason: itching) Qty: 30 0RF albuterol sulfate [Ventolin HFA] 90 mcg/actuation HFA aerosol inhaler 2 puff PO Q4H PRN (Reason: for wheezing) Qty: 18 0RF lidocaine 5 % adhesive patch,medicated 1 patch topical DAILY Qty: 30 2RF Rx Instructions: leave on most painful area for up to 12 hrs Magic Mouthwash Diphen/Lido/Antacid 1:1:1 240 mL suspension 10 ml PO QID PRN (Reason: painful mouth sores) Qty: 240 0RF Rx Instructions: 10 ml swish and spit 4 times a day as needed amoxicillin-pot clavulanate 875-125 mg tablet 1 tab PO BID Qty: 14 0RF permethrin 5 % cream 1 appl topical Q14D Qty: 60 1RF Rx Instructions: apply second treatment 14 days after first treatment if live lice remain Interventions: [place]-Suicide Risk Severity Scale Last Done: 11/27/24 16:29 ED Discharge Assessment Last Done: 11/28/24 08:55 Discharge Date/Time: 11/28/24 08:57 Print Language: Yi
--- OUTSIDE RECORDS SUMMARY | 2024-11-27 15:36 | XMS_ITS | Clinical Summary ---
Author Organization [facility] Address [address] [facility] [address] [facility] [address] [place] [id number] Phone Care Team Providers Care Science Technician Name Role Phone Lawrence Garcia MD Primary Care Provider [phone] Medications EPINEPHrine (EPIPEN 2-ZENIA) 0.3 mg/0.3 mL [...] topic Medical Devices Not on file [place] [address] [place] [address] [place] [address] [place] [address] [place] [address] [place] [address] [place] [address] [place] [address] [place] [place] [address] [place] [address] A[employer] Member Subscriber Plan / Payer (Ef fective 2023-Present) Name:Re Feliz Relation to Subscriber:Self Name:Re Feliz Payer ID:[id number] Group ID:[id number] Type:Medicaid Address: [address] [place] [address] ACO Member Subscriber Plan / Payer (Ef fective 2023-Present) Name:Re Feliz Relation to Subscriber:Self Name:Re Feliz Payer ID:[id number] Group ID:[id number] Type:Medicaid Address: [address] [facility] ACO Care Teams Science Technician Relationship Specialty Start Date End Date Lawrence Garcia MD [address] [facility] [address] [place] [id number] PCP - General Internal Medicine 09/15/22 Additional Source Comments The information contained in this document represents components of the legal health record. It is not the complete legal health record.[facility]
--- OUTSIDE RECORDS SUMMARY | 2024-11-27 15:36 | XMS_ITS | Clinical Summary ---
Author Organization [facility] ity Address [address] [place] [address] Care Team Providers Care Crm Marketing Executive Name Role Phone Janell Loza MD Primary Care Provider [phone] Social History Tobacco Use Types Packs/Day Years [...] (2 - Td or Tdap) 07/18/2023 07/17/2013 Depression Screening 03/29/2024 COVID-19 Vaccine ( - 2023-2 5 season) 2024 Influenza Vaccine (#1) 2024 HIB Vaccines Aged [...] age to complete this topic Care Teams Crm Marketing Executive Relationship Specialty Start Date End Date Janell Loza MD [address] [place] [address] , [address] [facility] PCP - General 02/14/16
--- OUTSIDE RECORDS SUMMARY | 2024-11-27 15:36 | XMS_ITS | Patient Health Record ---
Author Organization [facility] Address [address] [place] [address] Care Team Providers Care Jewel Bearing Polisher Name Role Phone Urmila KEYES, Greta Primary Care Provider Turner Fisher Unavailable [phone] Reason For Referral No Information Medications Medication [...] Status Risk Notes Problem Irritable bowel syndrome (21890910) Irritable bowel syndrome (564.1) Active confirmed Problem Blood in stool (147796971) Blood in stool (578.1) Active confirmed Plan Of Treatment No Information Insurance Providers Payer Name Payer Address Payer Phone Subscriber Number Group Number Insured Name Patient Relationship to Insured Coverage Start Date Coverage End Date [facility] [address] [address] [place], [place] [id number] ANGELINA SIMPSON Self - patient is the insured Medical (General) History Medical History History ICD Code Asthma Restless leg syndrome Hyperlipidemia--on no meds G6PD deficiency Migraines Rheumatic fever as a child Anxiety/depression/panic attacks/PTSD Carpal tunnel Denies HI,DM,CVA,renal disease Surgical History Surgery Date(Month/Year) knee surgery section vaginal cyst removal LEEP for cervical cancer Carpal tunnel
[2024-11-27 15:38] VITALS: BP 107/54; PULSE 78; RESP 18; TEMP 36.9; O2SAT 98
[2024-11-27 15:58] LABS: MANUAL DIFF FLAG NO
[2024-11-27 16:00] LABS: Hematocrit 37.6 % (37.0-47.0); Hemoglobin 12.4 g/dl (12.0-16.0); Imm Gran Abs Auto 0.02 X10*3/uL (0.00-0.03); Imm Gran Pct Auto 0.3 % (0.0-0.4); Lymphocytes Absolute Auto 2.1 X10*3/uL (1.2-4.9); Mean Corpuscular HGB Conc 33.0 g/dl (31.0-35.0); Mean Corpuscular Hemoglobin 29.9 pg (27.0-33.0); Mean Corpuscular Volume 90.6 fL (80.0-98.0); NRBC Abs Auto 0.000 X10*3/uL (0.0-0.012); NRBC Pct Auto 0.0 /100WBC (0.0-0.2); Platelet Count 334 X10*3/uL (160-400); Red Blood Count 4.15 X10*6/uL (4.20-5.50); White Blood Count 7.4 X10*3/uL (4.8-10.8)
[2024-11-27 16:02] LABS: Appearance Urine Cloudy; Glucose Urine UA Negative (Negative); PH 6.0 (5.0-9.0); Specific Gravity - Urine 1.025 (1.005-1.025); UMIC TRIGGER UACC YES
[2024-11-27 16:07] LABS: UACC Culture Trigger YES
[2024-11-27 16:16] LABS: Cannabinoid Screen Urine POSITIVE (Not Detect)
[2024-11-27 16:25] LABS: Alanine Aminotransferase 11 U/L (0-31); Albumin Level 4.5 g/dL (3.5-5.0); Alkaline Phosphatase 89 U/L (39-117); Anion Gap 15 (12-20); Aspartate Amino Transferase 21 U/L (5-31); Blood Urea Nitrogen 13 mg/dL (9-16); Calcium 9.6 mg/dL (8.4-10.2); Carbon Dioxide 28 mmol/L (22-29); Chloride 103 mmol/L (96-108); Creatinine Clr Calc Pharmacy 72.2; Estimated Glomerular Filt Rate > 60; Lipase 26 U/L (8-78); Potassium 3.7 mmol/L (3.3-5.1); Sodium 142 mmol/L (135-145); Total Protein 7.6 g/dL (6.5-8.0)
--- NOTE | 2024-11-27 16:34 | PC.NURSE ---
pt is alert and oriented, skin pwd, respirations even and unlabored, pt reports that since August 2024 there are bugs/eggs all over her body and in her skin, also states the she is pooping and vomiting bugs, pt does have visible scratches all over her body, pt is showing photos to this proposal writer that what it appears is diarrhea in the toilet bowel and pt is saying that the splashes of feces are actual bugs, pt states that she does not want to eat because of the bugs, states that she is not living in her house because its infested and is currently staying in a hotel. this rn asked the pt if she feels suicidal or if she wants to kill herself, pt states that she does not want to live like this, asked again if she wants to kill herself and then the pt reports no, pt is not having eye contact at this time, at bedside at this time
--- NOTE | 2024-11-27 17:08 | PC.NURSE ---
care team at bedside- plan to section 12 at this time for hallucinations/delirium pt is being changed over into green attire and belongings secured
[2024-11-27 17:24] LABS: Glucose, Whole Blood 90 mg/dL (60-115)
--- NOTE | 2024-11-27 17:32 | PC.NURSE ---
pt is currently refusing to take her abx because she is upset that her things got taken away and locked up pt repeat poc improved after some snacks, pt did not some coaxing
--- NOTE | 2024-11-27 19:07 | PC.NURSE ---
spoke with the pt;s sister and she did inform this rn that pt has known brain lesions and brain tummers but currently not receiving any treatments
[2024-11-27 19:34] VITALS: BP 114/57; PULSE 60; RESP 18; TEMP 37.1; O2SAT 100
[2024-11-27 19:48] LABS: Glucose, Whole Blood 103 mg/dL (60-115)
[2024-11-27] MEDS: iohexoL 350 MG/ML 100 ML INFUS..BTL IV (20:27)
--- NOTE | 2024-11-27 21:34 | PC.NURSE ---
made me aware that there are worms in the bathroom. no worms observable by this nurse. calm, back in bed now
[2024-11-27 22:49] VITALS: RESP 18
[2024-11-27 23:16] VITALS: BP 165/67; PULSE 76; RESP 16; TEMP 36.9; O2SAT 98
[2024-11-28 03:39] VITALS: RESP 16
[2024-11-28 06:34] LABS: Glucose, Whole Blood 89 mg/dL (60-115)
--- NOTE | 2024-11-28 08:09 | MHC.CARE ---
Pt does not present as an imminent risk or meet the criteria for a higher level of care. Pt will D/C home. Ed provider in agreement.
[2024-11-28 08:50] VITALS: BP 102/65; PULSE 89; RESP 14; TEMP 36.7; O2SAT 99
[2024-11-28 08:54] VITALS: BP 102/65; PULSE 87; RESP 18; TEMP 36.7; O2SAT 99
[2024-11-28 08:55] VITALS: BP 102/65; PULSE 87; RESP 18; TEMP 36.7; O2SAT 99
== END 2024-11-28 08:57 | disposition home or self-care (01) ==
PROVIDERS: Physician Assistant; Emergency Provider Emergency Medicine; PCP Internal Medicine
DX: N39.0 Urinary tract infection, site not specified (principal); R44.3 Hallucinations, unspecified
CPT/HCPCS: 36415; 70470; 80053; 80307; 81001; 81003; 82947; 83690; 85025; 87086; 99285; Q9967; S9485

== ENCOUNTER → 2024-11-27 18:55 | Outpatient (BNV) | payer OTHER, SELFPAY | PROVIDERS: Emergency Provider Emergency Medicine; PCP Internal Medicine; Visit Provider Radiology Diagnostic Radiology | DX: R44.3 Hallucinations, unspecified (principal) | CPT/HCPCS: 70470 ==

== ENCOUNTER 2024-11-30 17:08 | Outpatient (REF) | payer OTHER, SELFPAY ==
--- OUTSIDE RECORDS SUMMARY | 2024-11-30 17:10 | XMS_ITS | Patient Health Record ---
Author Organization [facility] Address [address] [place] [address] Care Team Providers Care Administrative Assistant Coordinator Name Role Phone Urmila KEYES, Greta Primary Care Provider Turner Fisher Unavailable [phone] Reason For Referral No Information Medications Medication [...] Status Risk Notes Problem Irritable bowel syndrome (82976357) Irritable bowel syndrome (564.1) Active confirmed Problem Blood in stool (266552018) Blood in stool (578.1) Active confirmed Plan Of Treatment No Information Insurance Providers Payer Name Payer Address Payer Phone Subscriber Number Group Number Insured Name Patient Relationship to Insured Coverage Start Date Coverage End Date [facility] [employer] [facility] [address] [address] [place], [place] [id number] ANGELINA SIMPSON Self - patient is the insured Medical (General) History Medical History History ICD Code Asthma Restless leg syndrome Hyperlipidemia--on no meds G6PD deficiency Migraines Rheumatic fever as a child Anxiety/depression/panic attacks/PTSD Carpal tunnel Denies ND,DM,CVA,renal disease Surgical History Surgery Date(Month/Year) knee surgery section vaginal cyst removal LEEP for cervical cancer Carpal tunnel
--- OUTSIDE RECORDS SUMMARY | 2024-11-30 17:10 | XMS_ITS | Clinical Summary ---
Author Organization [facility] Address [address] [facility] [address] [place] [address] Phone Care Team Providers Care Correctional Case Manager Name Role Phone Lawrence Garcia MD Primary Care Provider [phone] Medications EPINEPHrine (EPIPEN 2-ZENIA) 0.3 mg/0.3 mL [...] (2 of 2 - PCV) 07/06/2018 07/06/2017 INFLUENZA VACCINE (#1) 2024 COVID-19 VACCINE (2 - 2024-2 6 season) 2024 06/24/2020 Adult Td,Tdap Booster 05/16/2029 05/16/2019 , [...] topic Medical Devices Not on file [place] [address] ACO ACO Member Subscriber Plan / Payer (Ef fective 2023-Present) Name:Re Feliz Relation to Subscriber:Self Name:Re Feliz Payer ID:[id number] Group ID:[id number] Type:Medicaid Address: [address] [place] [address] [place] [address] ACO Member Subscriber Plan / Payer (Ef fective 2023-Present) Name:Re Feliz Patrick Relation to Subscriber:Self Name:Re Feliz Patrick Payer ID:[id number] Group ID:[id number] Type:Medicaid Address: [address] [place] [address] [place] [address] ACO Member Subscriber Plan / Payer (Ef fective 2023-Present) Name:Re Feliz Patrick Relation to Subscriber:Self Name:Re Feliz Payer ID:[id number] Group ID:[id number] Type:Medicaid Address: [address] [place] [address] [place] [address] [place] [place] [address] ACO Member Subscriber Plan / Payer (Ef fective 2023-Present) Name:Re Feliz Relation to Subscriber:Self Name:Re Feliz Payer ID:[id number] Group ID:[id number] Type:Medicaid Address: [address] [place] [address] ACO Member Subscriber Plan / Payer (Ef fective 2023-Present) Name:Re Feliz Relation to Subscriber:Self Name:Re Feliz Payer ID:[id number] Group ID:[id number] Type:Medicaid Address: [address] [facility] ACO Care Teams Correctional Case Manager Relationship Specialty Start Date End Date Lawrence Garcia MD [address] [facility] [address] [place] [address] PCP - General Internal Medicine 09/15/22 Additional Source Comments The information contained in this document represents components of the legal health record. It is not the complete legal health record.[facility]
--- OUTSIDE RECORDS SUMMARY | 2024-11-30 17:10 | XMS_ITS | Clinical Summary ---
Author Organization [facility] Address [address] [place] [address] Care Team Providers Care Manager Of Creative Services Name Role Phone Janell Loza MD Primary Care Provider [phone] Social History Tobacco Use Types Packs/Day Years [...] age to complete this topic Care Teams Manager Of Creative Services Relationship Specialty Start Date End Date Janell Loza MD [address] [place] [address] , [address] [facility] D/B/A: [facility] [place] PCP - General 02/14/16
[2024-11-30 19:36] LABS: Leukocytes Stool Qualitative NEGATIVE (NEGATIVE)
== END 2024-11-30 17:09 | disposition home or self-care (01) ==
LOC: HO.LNP 17:08
PROVIDERS: Visit Provider Internal Medicine
DX: R19.7 Diarrhea, unspecified (principal)
CPT/HCPCS: 87177; 87209; 89055

== ENCOUNTER 2024-12-05 15:45 | Outpatient (AMB) | payer OTHER, SELFPAY ==
--- NOTE | 2024-12-05 15:51 | A.OFFPC_ITS ---
Vital Signs 12/05/24 15:54 Weight 103 lb BP 120/70 Blood Pressure Location Lt brachial Position Sitting Pulse 102 H Pulse Source Pulse Oximeter Pulse Oximetry (%) 97 Oxygen Delivery Method Room Air Intake Visit Reasons: C - UTI, bug bites Ballistics Expert Forensic Required: No Cue Worker: Not Required per policy Accompanied by: Self / Same As Patient Allergies latex (LATEX) Allergy (Intermediate, Verified 12/05/24 16:06) RASH Chocolate Allergy (Unknown, Verified 12/05/24 16:06) Hives egg (EGGS) Allergy (Unknown, Verified 12/05/24 16:06) SWELLING kiwi (KIWI) Allergy (Unknown, Verified 12/05/24 16:06) SWELLING peanut (PEANUTS) Allergy (Unknown, Verified 12/05/24 16:06) SWELLING pineapple (PINEAPPLE) Allergy (Unknown, Verified 12/05/24 16:06) SWELLING animal dander Allergy (Verified 12/05/24 16:06) Rash Sulfa (Sulfonamide Antibiotics) Allergy (Verified 12/05/24 16:06) Rash ENVIROMENTAL Allergy (Intermediate, Uncoded 12/05/24 16:06) HAYFEVER SHELLFISH Allergy (Intermediate, Uncoded 12/05/24 16:06) RASH Medication List - Last Reconciled 12/05/24 by Ty Neal PA-C albuterol sulfate 90 mcg/actuation (Ventolin HFA) 2 puffs PO Q4H PRN amitriptyline 25 mg PO BEDTIME 30 days amoxicillin-pot clavulanate 875-125 mg 1 tab PO BID [BACK BRACE As directed] clonazepam 0.5 mg (1/2 x 1 mg) PO BID PRN 30 days colchicine 0.6 mg PO BID cyclobenzaprine 5 mg PO TID PRN 30 days gabapentin 800 mg PO TID 30 days hydrocortisone 2.5% (Proctosol HC) 1 appl CO BID-QID PRN hydroxyzine HCl 10 mg PO TID PRN ketoconazole 2% 1 appl topical 2XW [knee brace R As directed] lidocaine 5% 1 patch topical DAILY Magic Mouthwash Diphen/Lido/Antacid 1:1:1 10 mL PO QID PRN meloxicam 15 mg PO DAILY 30 days miscellaneous medical supply disposable bed pads - 4x daily miscellaneous miscellaneous medical supply wipes- 4x daily permethrin 5% 1 appl topical Q14D 2 doses [SCOOTER As directed] sertraline 50 mg PO DAILY tramadol 50 mg PO BID PRN 30 days triamcinolone acetonide 0.5% 1 appl topical BID 14 days Tobacco use date assessed: 12/05/24 Dental Screening Dental Screen Date: 09/26/24 Did you have a dental visit in the last 12 months?: Yes Did you have a dental problem in the last 6 months where you did not have access to dental care?: No Was dental information given to patient?: Patient has dentist HPI [facility] - UTI, bug bites HPI Details The patient is a 58-year-old female presenting with concerns of scabies and associated symptoms. The condition began in August and has persisted despite treatment with antibiotics, which initially helped dry the lesions. The patient reports widespread skin lesions and discoloration, hair loss, nail damage, and loose teeth. She has been staying in hotels due to an infestation at her home, which was not promptly addressed by exterminators. Various treatments, including a lice comb and different shampoos, have been attempted without success. The patient denies any drug use except for marijuana, which she uses to stay calm. Laboratory Tests 11/23/24 11/27/24 11/30/24 15:20 15:54 15:20 Ur Leukocyte Sandra ase Small (1+) H Moderate (2+) H Urine WBC 11-20 H Urine Bacteria 3+ Stool Leukocytes, Qual NEGATIVE U Benzodiazepines Scrn POSITIVE H Urine Cocaine Scre en POSITIVE H U Marijuana (THC) Screen POSITIVE H PFSH Medical History Knee osteoarthritis Scoliosis Pain, dental Knee pain, right Sacroiliac joint dysfunction Left shoulder pain Low back pain Right renal stone Right radial head fracture Knee pain, right Paresthesia of hand, bilateral Elbow pain Back pain Left breast mass Breast cancer screening by mammogram Annual physical exam Colon cancer screening RUQ abdominal pain Rectal bleeding Breast pain, right Brittle nails Easy bruising Vision changes Crackling sound in both ears Breast discharge Chronic pain syndrome Sacroiliac joint dysfunction of left side Osteoarthritis of hips, bilateral Osteoarthritis of knees, bilateral Generalized anxiety disorder Panic attack Depression Vaginal cysts Hx LEEP (loop electrosurgical excision procedure), cervix, Fracture of fifth toe, right, closed Colonoscopy refused Mammogram declined Right renal stone Mild obstructive sleep apnea Carpal tunnel syndrome Restless leg syndrome Aortic valve insufficiency Mixed urge and stress incontinence Cognitive impairment Overweight (BMI 25.0-29.9) Takotsubo cardiomyopathy Asthma Hypercholesterolemia Pulmonary hypertension Migraine Surgical History H/O LEEP History of History of carpal tunnel surgery of left wrist H/O knee surgery Family History Father Hypertension Diabetes Prostate cancer CVD (cardiovascular disease) Mother Hypertension Diabetes Uterine cancer Maternal Grandmother Lung cancer Social History Housing: Apartment Alcohol intake: former Patient Tobacco Use Status: Former Tobacco user Tobacco use type: Cigarette e-Cigarette/Vaping Use: Never Used Second Hand Smoke Exposure: Yes Substance Use Type: Marijuana service: No Current occupational status: disabled Current occupation: left hand Cognitive needs: No Hearing needs: No Vision needs: Yes (glasses) Questionnaire Thrive Questionnaire Date Thrive assessed: 09/26/24 JANA-7 AMB Questionnaire JANA-7 Date JANA - 7 assessed: 09/26/24 Source: Developed by Drs. Turenr Burt, Alina Bailey, Timur Pineda and colleagues, with an educational iliana from [employer]. Review of Systems Const Denies headache(s) Eyes Denies loss of vision ENT Denies vertigo, Denies dizziness, Denies headache(s) and Denies sore throat Card Denies chest pain, Denies leg edema and Denies lightheadedness Resp Denies cough, Denies hemoptysis and Denies wheezing GI Denies abdominal pain, Denies melena, Denies constipation, Denies diarrhea and Denies vomiting Denies urinary frequency, Denies dysuria and Denies urinary urgency Musc Denies arthralgias, Denies joint swelling, Denies numbness and Denies tingling Neuro Denies Abnormal speech present, Denies behavioral changes, Denies vertigo, Denies dizziness, Denies headache(s), Denies loss of vision, Denies memory loss, Denies numbness and Denies tingling Psych Denies anxiety, Denies behavioral changes, Denies depression, Denies memory loss and Denies panic attacks Charlie/Lymph Denies easy bleeding and Denies easy bruising Aller/Immun Denies wheezing Physical exam (Primary Care) Vital Signs: Last Vital Signs Pulse 102 H 12/05/24 15:54 BP 120/70 12/05/24 15:54 Pulse Ox 97 12/05/24 15:54 Oxygen Delivery Method Room Air 12/05/24 15:54 Tobacco/Smoking Status: Tobacco use Status Tobacco use date assessed 12/05/24 12/05/24 15:53 Patient Tobacco Use Status Former Tobacco user 12/05/24 15:53 Tobacco use type Cigarette 12/05/24 15:53 e-Cigarette/Vaping Use Never Used 12/05/24 15:53 Thrive Assessment: Date of Thrive Assessment Date Thrive assessed 09/26/24 12/05/24 15:53 Const General: healthy appearing, no acute distress, alert and awake Nutritional Appearance: well nourished Orientation/consciousness: oriented to person, oriented to place and oriented to time HENMT Ears: TM's normal bilaterally General nose exam: Normal nasal mucous membranes and turbinates present Eyes Conjunctivae: conjunctivae normal Sclerae: sclerae normal Pupils: Equal, round and reactive pupils present Neck Neck: Yes no lymphadenopathy and Yes no JVD Thyroid: Thyroid normal Carotids: no bruits Resp Effort & Inspection: normal respiratory effort and not tachypneic Auscultation: no crackles, no rales, no rhonchi and no wheezes Cardio Rate: regular rate Rhythm: regular rhythm Heart sounds: no murmurs and normal S1 and S2 GI Palpation (GI): Soft to palpation, nontender, no hepatomegaly and no splenomega ly Auscultation: normal bowel sounds Skin Other: SMALL EXCORIATION AREAS OVER ARMS, TORSO AND BACK. NO NOTABLE BURROWING LESIONS IN THE WEBS OF FINGERS General skin exam: no rashes or lesions noted and dry skin Neuro General: oriented to person, oriented to place and oriented to time Cranial nerves: Yes Equal, round and reactive pupils present Speech: No Abnormal speech present Gait exam (Neuro): Normal gait present Motor exam (neuro): no tremor noted Extrem Right upper extremity: full ROM Left upper extremity: full ROM Right lower extremity: full ROM; no edema Left lower extremity: full ROM; no edema Psych Mental Status: mental status grossly normal Speech and movement: Normal speech and movement present Affect: normal affect Attitude: cooperative Thought process: Normal thought process present Coding Level of Care Code Est Pt Level 3 (43785) Diagnoses Skin infection L08.9 Assessment & Plan Assessment & Plan (1) Skin infection: Code(s): L08.9 - Local infection of the skin and subcutaneous tissue, unspecified Category: Medical Plan: The patient will be prescribed an antibiotic to help manage the skin condition, as previous treatment showed some improvement. Further evaluation by a counseling center director is recommended to address persistent symptoms and explore additional treatment options. Medications: Refilled amoxicillin-pot clavulanate 875-125 mg 1 tab PO BID 14 tabs 0RF L08.9 - Local infection of the skin and subcutaneous tissue, unspecified
[2024-12-05 15:54] VITALS: BP 120/70; PULSE 102; O2SAT 97
--- OUTSIDE RECORDS SUMMARY | 2024-12-05 17:55 | XMS_ITS | Clinical Summary ---
Author Organization [facility] Address [address] [place] [address] Care Team Providers Care Alemite Operator Name Role Phone Janell Loza MD Primary Care Provider [phone] Social History Tobacco Use Types Packs/Day Years [...] age to complete this topic Care Teams Alemite Operator Relationship Specialty Start Date End Date Janell Loza MD [address] [place] [address] , [address] [facility] D/B/A: [facility] [place] PCP - General 02/14/16
--- OUTSIDE RECORDS SUMMARY | 2024-12-05 17:55 | XMS_ITS | Patient Health Record ---
Author Organization [facility] Address [address] [place] [address] Care Team Providers Care Nailer Operator Name Role Phone Urmila KEYES, Greta Primary Care Provider Turner Fisher Unavailable [phone] Reason For Referral No Information Medications Medication [...] Status Risk Notes Problem Irritable bowel syndrome (56741445) Irritable bowel syndrome (564.1) Active confirmed Problem Blood in stool (447467864) Blood in stool (578.1) Active confirmed Plan Of Treatment No Information Insurance Providers Payer Name Payer Address Payer Phone Subscriber Number Group Number Insured Name Patient Relationship to Insured Coverage Start Date Coverage End Date [facility] [employer] [facility] [address] [address] [place], [place] [id number] ANGELINA SIMPSON Self - patient is the insured Medical (General) History Medical History History ICD Code Asthma Restless leg syndrome Hyperlipidemia--on no meds G6PD deficiency Migraines Rheumatic fever as a child Anxiety/depression/panic attacks/PTSD Carpal tunnel Denies NM,DM,CVA,renal disease Surgical History Surgery Date(Month/Year) knee surgery section vaginal cyst removal LEEP for cervical cancer Carpal tunnel
--- OUTSIDE RECORDS SUMMARY | 2024-12-05 17:55 | XMS_ITS | Clinical Summary ---
Author Organization [facility] Address [address] [facility] [address] [place] [address] Phone Care Team Providers Care Car Repairer Name Role Phone Lawrence Garcia MD Primary Care Provider [phone] Medications EPINEPHrine (EPIPEN 2-ZENIA) 0.3 mg/0.3 mL [...] topic Medical Devices Not on file [place] [address] [address] [place] [address] [place] [address] [place] [address] [place] [address] [place] [address] [place] [address] [place] [place] [address] ACO Member Subscriber Plan / Payer (Ef fective 2023-Present) Name:Re Feliz Relation to Subscriber:Self Name:Re Feliz Payer ID:[id number] Group ID:[id number] Type:Medicaid Address: [address] [place] [address] ACO Member Subscriber Plan / Payer (Ef fective 2023-Present) Name:Re Feliz Relation to Subscriber:Self Name:Re Feliz Payer ID:[id number] Group ID:[id number] Type:Medicaid Address: [address] [facility] ACO Care Teams Car Repairer Relationship Specialty Start Date End Date Lawrence Garcia MD [address] [facility] [address] [place] [address] PCP - General Internal Medicine 09/15/22 Additional Source Comments The information contained in this document represents components of the legal health record. It is not the complete legal health record.[facility]
== END 2024-12-05 16:25 | disposition home or self-care (01) ==
LOC: HO.HMCH 15:45
PROVIDERS: PCP Internal Medicine; Visit Provider Physician Assistant
DX: L08.9 Local infection of the skin and subcutaneous tissue, unspecified (principal)

== ENCOUNTER → 2024-12-05 15:45 | Outpatient (BNVA) | payer OTHER, SELFPAY | PROVIDERS: PCP Internal Medicine; Visit Provider Physician Assistant | DX: G47.33 Obstructive sleep apnea (adult) (pediatric) (principal); L08.9 Local infection of the skin and subcutaneous tissue, unspecified | CPT/HCPCS: 99212 ==

== ENCOUNTER 2024-12-28 08:22 | Outpatient (REF) | payer OTHER, SELFPAY ==
--- OUTSIDE RECORDS SUMMARY | 2025-01-01 08:47 | XMS_ITS | Clinical Summary ---
Author Organization [facility] it[facility] Address [address] [place] [address] Care Team Providers Care Art Specialist Name Role Phone Janell Loza MD Primary Care Provider [phone] Social History Tobacco Use Types Packs/Day Years [...] 5 season) 2024 Influenza Vaccine (#1) 2024 RSV Immunization Adult Patie nts (1 - 1-dose 75+ series) 2041 HIB Vaccines Aged Out No longer eligi [...] age to complete this topic Care Teams Art Specialist Relationship Specialty Start Date End Date Janell Loza MD [address] [place] [address] , [address] [facility] D/B/A: [facility] EMERY Serrato PCP - General 02/14/16
--- OUTSIDE RECORDS SUMMARY | 2025-01-01 08:47 | XMS_ITS | Patient Health Record ---
Author Organization [facility] Address [address] [place] [address] Care Team Providers Care Press Supervisor Name Role Phone Urmila KEYES, Greta Primary Care Provider Turner Fisher Unavailable [phone] Reason For Referral No Information Medications Medication [...] Status Risk Notes Problem Irritable bowel syndrome (94723977) Irritable bowel syndrome (564.1) Active confirmed Problem Blood in stool (595861166) Blood in stool (578.1) Active confirmed Plan Of Treatment No Information Insurance Providers Payer Name Payer Address Payer Phone Subscriber Number Group Number Insured Name Patient Relationship to Insured Coverage Start Date Coverage End Date [facility] [employer] [facility] [address] [address] [place], [place] [id number] ANGELINA SIMPSON Self - patient is the insured Medical (General) History Medical History History ICD Code Asthma Restless leg syndrome Hyperlipidemia--on no meds G6PD deficiency Migraines Rheumatic fever as a child Anxiety/depression/panic attacks/PTSD Carpal tunnel Denies PR,DM,CVA,renal disease Surgical History Surgery Date(Month/Year) knee surgery section vaginal cyst removal LEEP for cervical cancer Carpal tunnel
--- OUTSIDE RECORDS SUMMARY | 2025-01-01 08:47 | XMS_ITS | Clinical Summary ---
Author Organization [facility] Address [address] [facility] [address] [place] [address] Phone Care Team Providers Care Keymodule Assembly Supervisor Name Role Phone Lawrence Garcia MD Primary Care Provider [phone] Medications EPINEPHrine (EPIPEN 2-ZENIA) 0.3 mg/0.3 mL [...] topic Medical Devices Not on file [place] [address] [address] [address] [place] [address] [place] [address] [place] [address] [place] [address] [place] [address] [place] [address] [place] [place] [address] ACO Member Subscriber Plan / Payer (Ef fective 2023-Present) Name:Re Feliz Relation to Subscriber:Self Name:Re Feliz Payer ID:[id number] Group ID:[id number] Type:Medicaid Address: [address] [place] [address] ACO Member Subscriber Plan / Payer (Ef fective 2023-Present) Name:Re Feliz Relation to Subscriber:Self Name:Re Feliz Payer ID:[id number] Group ID:[id number] Type:Medicaid Address: [address] [facility] ACO Care Teams Keymodule Assembly Supervisor Relationship Specialty Start Date End Date Lawrence Garcia MD [address] [facility] [address] [place] [address] PCP - General Internal Medicine 09/15/22 Additional Source Comments The information contained in this document represents components of the legal health record. It is not the complete legal health record.[facility]
== END 2024-12-28 08:23 | disposition home or self-care (01) ==
LOC: HO.HOSX 08:22
PROVIDERS: Visit Provider Physician Assistant
DX: Z13.89 Encounter for screening for other disorder (principal)

== ENCOUNTER 2025-01-12 11:04 | Outpatient (AMB) | payer OTHER, SELFPAY ==
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
[2025-01-12 11:10] VITALS: BP 100/60; PULSE 80; RESP 18; TEMP 36.2; O2SAT 97; BMI 17.3
--- OUTSIDE RECORDS SUMMARY | 2025-01-12 13:48 | XMS_ITS | Patient Health Record ---
Author Organization [facility] Address [address] [place] [address] Care Team Providers Care Hand Edger Name Role Phone Urmila KEYES, Greta Primary Care Provider Turner Fsiher Unavailable [phone] Reason For Referral No Information Medications Medication [...] Status Risk Notes Problem Irritable bowel syndrome (57660797) Irritable bowel syndrome (564.1) Active confirmed Problem Blood in stool (181606949) Blood in stool (578.1) Active confirmed Plan Of Treatment No Information Insurance Providers Payer Name Payer Address Payer Phone Subscriber Number Group Number Insured Name Patient Relationship to Insured Coverage Start Date Coverage End Date [facility] [employer] [facility] [address] [address] [place], [place] [id number] ANGELINA SIMPSON Self - patient is the insured Medical (General) History Medical History History ICD Code Asthma Restless leg syndrome Hyperlipidemia--on no meds G6PD deficiency Migraines Rheumatic fever as a child Anxiety/depression/panic attacks/PTSD Carpal tunnel Denies GA,DM,CVA,renal disease Surgical History Surgery Date(Month/Year) knee surgery section vaginal cyst removal LEEP for cervical cancer Carpal tunnel
--- OUTSIDE RECORDS SUMMARY | 2025-01-12 13:48 | XMS_ITS | Clinical Summary ---
Author Organization [facility] Address [address] [place] [address] Care Team Providers Care Development Analyst Name Role Phone Janell Loza MD Primary Care Provider [phone] Social History Tobacco Use Types Packs/Day Years [...] age to complete this topic Care Teams Development Analyst Relationship Specialty Start Date End Date Janell Loza MD [address] [place] [address] , [address] [facility] D[facility]A: [facility] EMERY Serrato PCP - General 02/14/16
== END 2025-01-12 11:44 | disposition home or self-care (01) ==
LOC: HO.HMCH 11:05
PROVIDERS: Visit Provider Internal Medicine
DX: R21 Rash and other nonspecific skin eruption (principal)

== ENCOUNTER → 2025-01-12 11:04 | Outpatient (BNVA) | payer OTHER, SELFPAY | PROVIDERS: Visit Provider Internal Medicine | DX: R21 Rash and other nonspecific skin eruption (principal); R23.3 Spontaneous ecchymoses | CPT/HCPCS: 99212 ==

== ENCOUNTER 2025-02-02 14:17 | Outpatient (AMB) | payer OTHER, SELFPAY ==
[2025-02-02 14:19] VITALS: BP 100/62; PULSE 93; TEMP 36.2; O2SAT 100; BMI 17.4
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
--- OUTSIDE RECORDS SUMMARY | 2025-02-02 16:03 | XMS_ITS | Clinical Summary ---
Author Organization [facility] Address [address] [place] [address] Phone Care Team Providers Care Automatic Washer Mechanic Name Role Phone Lawrence Garcia MD Primary Care Provider [phone] Medications EPINEPHrine (EPIPEN 2-ZENIA) 0.3 mg/0.3 mL [...] Adult Td,Tdap Booster 05/16/2029 05/16/2019 , 07/17/2013 RSV VACCINE (1 - 1-dose 75+ series) 2041 HEPATITIS A VACCINES Aged Out No long [...] topic Medical Devices Not on file Insurance [place] [address] ACO [facility] [place] [address] [place] [address] [place] [address] [address] [address] [address] [address] [address] [address] ACO [facility] ACO Care Teams Automatic Washer Mechanic Relationship Specialty Start Date End Date Lawrence Garcia MD [address] [place] [id number] PCP - General Internal Medicine 09/15/22 Additional Source Comments The information contained in this document represents components of the legal health record. It is not the complete legal health record.[facility]
--- OUTSIDE RECORDS SUMMARY | 2025-02-02 16:03 | XMS_ITS | Clinical Summary ---
Author Organization [facility] ity Address [address] [place] [address] Care Team Providers Care Development Lead Name Role Phone Janell Loza MD Primary Care Provider [phone] Social History Tobacco Use Types Packs/Day Years [...] to complete this topic Care Teams Development Lead Relationship Specialty Start Date End Date Janell Loza MD [address] [place] [address] , [address] [facility] D/B[facility]A: [facility] EMERY Serrato PCP - General 02/14/16
== END 2025-02-02 15:15 | disposition home or self-care (01) ==
LOC: HO.HMCH 14:17
PROVIDERS: Visit Provider Internal Medicine
DX: F19.10 Other psychoactive substance abuse, uncomplicated (principal); N60.91 Unspecified benign mammary dysplasia of right breast; R44.3 Hallucinations, unspecified; R79.89 Other specified abnormal findings of blood chemistry; M51.369 Other intervertebral disc degeneration, lumbar region without mention of lumbar back pain or lower extremity pain

== ENCOUNTER → 2025-02-02 14:17 | Outpatient (BNVA) | payer OTHER, SELFPAY | PROVIDERS: Visit Provider Internal Medicine | DX: R21 Rash and other nonspecific skin eruption (principal); L29.9 Pruritus, unspecified; I27.20 Pulmonary hypertension, unspecified; J45.909 Unspecified asthma, uncomplicated; R19.7 Diarrhea, unspecified; M51.369 Other intervertebral disc degeneration, lumbar region without mention of lumbar back pain or lower extremity pain; F19.10 Other psychoactive substance abuse, uncomplicated; N60.91 Unspecified benign mammary dysplasia of right breast; R44.3 Hallucinations, unspecified; R79.89 Other specified abnormal findings of blood chemistry; Z91.018 Allergy to other foods | CPT/HCPCS: 99202; 99212 ==

== ENCOUNTER 2025-02-02 15:17 | Outpatient (AMB) | payer OTHER, SELFPAY ==
[2025-02-02 15:36] VITALS: BP 110/70; PULSE 70; O2SAT 96; BMI 21.9
--- NOTE | 2025-02-02 15:36 | MHC.OFFVIS ---
Vital Signs 02/02/25 15:36 Height 4 ft 9.5 in Weight 103 lb BMI 21.9 BP 110/70 Pulse 70 Pulse Oximetry (%) 96 Intake Visit Reasons: Bug on Skin Allergies latex (LATEX) Allergy (Intermediate, Verified 02/02/25 15:37) RASH Chocolate Allergy (Unknown, Verified 02/02/25 15:37) Hives egg (EGGS) Allergy (Unknown, Verified 02/02/25 15:37) SWELLING kiwi (KIWI) Allergy (Unknown, Verified 02/02/25 15:37) SWELLING peanut (PEANUTS) Allergy (Unknown, Verified 02/02/25 15:37) SWELLING pineapple (PINEAPPLE) Allergy (Unknown, Verified 02/02/25 15:37) SWELLING animal dander Allergy (Verified 02/02/25 15:37) Rash Sulfa (Sulfonamide Antibiotics) Allergy (Verified 02/02/25 15:37) Rash ENVIROMENTAL Allergy (Intermediate, Uncoded 02/02/25 15:37) HAYFEVER SHELLFISH Allergy (Intermediate, Uncoded 02/02/25 15:37) RASH HPI Comments Details: History of Present Illness The patient is a 59-year-old female presenting with pruritus and concerns regarding parasitic infection. She describes this condition as bugs crawling on her skin and hair with a sensation of strings and worms in her stool. She has chronic medical conditions including reactive airway disease, anxiety, chronic pain syndrome, lumbar disc disease, migraines, ear valve insufficiency, pulmonary hypertension, obstructive sleep apnea, atypical hyperplasia of breast, lumbar spondylosis, and SI joint dysfunction. Permethrin was tried but failed to alleviate her symptoms. The patient reports itchiness but denies any fever or chills. Review of Systems - General: Denies fever and chills. - Skin: Reports pruritus with sensation of bugs crawling on skin and hair. - Gastrointestinal: Reports long worms in stool. - Respiratory: Denies lung-related symptoms. - Cardiovascular: Denies heart-related symptoms. - HEENT: Denies symptoms. - Neurological: Denies new or recent neurological symptoms. Physical Exam - General- Vital signs stable. - HEENT- Oropharynx clear, no adenopathy. - Respiratory- Lungs clear. - Cardiovascular- Heart regular rhythm. - Abdomen- Soft. - Extremities- Nontender. - Neurological- Non-focal. - Skin- Scratch almonte on arms and legs, otherwise unremarkable. Results Plan Patient was informed and verbally consented to the use of an ambient scribe for clinic note documentation during this visit. 1. Pruritus And Possible Parasitic Infection Initiate albendazole 200 mg twice daily for three days to address the concern for parasitic infection. Samples should be submitted for strongyloides and HIV serologies. 2. Pulmonary Hypertension Continue current management and monitor closely for any changes in symptoms. 3. Asthma/Reactive Airways Disease Continue existing management as the patient denies exacerbations. Discussion Notes During our consultation, I discussed the patient's symptoms that might suggest a parasitic infection, and I've ordered albendazole as a treatment. I explained the need for submitting samples to confirm the presence of strongyloides and also as a measure to evaluate HIV serologies. I communicated the risks and benefits of the treatment plan, emphasizing that albendazole is generally well-tolerated but requires adherence to dosage to be effective. The patient was informed about the importance of follow-up if symptoms persist or worsen. Medical Decision Making Based on the reported symptoms, I considered the possibility of a parasitic infection, which is supported by the patient?s description of sensation and stool findings. While physical specimens were not available for immediate assessment, albendazole was prescribed due to its efficacy in treatment for helminthic infections. The decision for additional testing for strongyloides and HIV serologies is to further assess for potential contributors to her symptoms. The management of the patient's chronic conditions like pulmonary hypertension and asthma remains consistent with prior effective therapy. Patient Instructions - Take albendazole 200 mg twice daily for three days. - Provide samples for strongyloides and HIV serologies. - Follow up with dermatology as recommended. - Return if symptoms worsen or if new symptoms develop. [facility] Medical History Knee osteoarthritis Scoliosis Pain, dental Knee pain, right Sacroiliac joint dysfunction Left shoulder pain Low back pain Right renal stone Right radial head fracture Knee pain, right Paresthesia of hand, bilateral Elbow pain Back pain Left breast mass Breast cancer screening by mammogram Annual physical exam Colon cancer screening RUQ abdominal pain Rectal bleeding Breast pain, right Brittle nails Easy bruising Vision changes Crackling sound in both ears Breast discharge Chronic pain syndrome Sacroiliac joint dysfunction of left side Osteoarthritis of hips, bilateral Osteoarthritis of knees, bilateral Generalized anxiety disorder Panic attack Depression Vaginal cysts Hx LEEP (loop electrosurgical excision procedure), cervix, Fracture of fifth toe, right, closed Colonoscopy refused Mammogram declined Right renal stone Mild obstructive sleep apnea Carpal tunnel syndrome Restless leg syndrome Aortic valve insufficiency Mixed urge and stress incontinence Cognitive impairment Overweight (BMI 25.0-29.9) Takotsubo cardiomyopathy Asthma Hypercholesterolemia Pulmonary hypertension Migraine Surgical History H/O LEEP History of History of carpal tunnel surgery of left wrist H/O knee surgery Family History Father Hypertension Diabetes Prostate cancer CVD (cardiovascular disease) Mother Hypertension Diabetes Uterine cancer Maternal Grandmother Lung cancer Social History Housing: Apartment Alcohol intake: former Patient Tobacco Use Status: Former Tobacco user Tobacco use type: Cigarette e-Cigarette/Vaping Use: Never Used Second Hand Smoke Exposure: Yes Substance Use Type: Marijuana service: No Current occupational status: disabled Current occupation: left hand Cognitive needs: No Hearing needs: No Vision needs: Yes (glasses) Physical Exam Vital Signs: Last Vital Signs Pulse 70 02/02/25 15:36 BP 110/70 02/02/25 15:36 Pulse Ox 96 02/02/25 15:36 BMI result Body Mass Index 21.9 Assessment & Plan Assessment & Plan (1) Multiple food allergies: Comment: CHOCOLATE, EGGS, KIWI, PEANUTS, PINEAPPLE, SHELLFISH Code(s): Z91.018 - Allergy to other foods Category: Medical Plan: as per note above (2) Diarrhea: Code(s): R19.7 - Diarrhea, unspecified Category: Medical Plan: per note above Orders: Orders Strongyloides Antibody IgG 02/02/25 R19.7 - Diarrhea, unspecified GI Panel 02/02/25 R19.7 - Diarrhea, unspecified, Z91.018 - Allergy to other foods HIV Ab/Ag 02/02/25 R19.7 - Diarrhea, unspecified Hepatitis C Antibody Reflex 02/02/25 Z91.018 - Allergy to other foods Medications: New albendazole 200 mg PO BID 6 tabs 0RF 3 days Coding Level of Care Code New Pt Level 3 (82482) Diagnoses Multiple food allergies Z91.018 Diarrhea R19.7
== END 2025-02-02 16:09 | disposition home or self-care (01) ==
LOC: HO.HID 15:18
PROVIDERS: Visit Provider Internal Medicine
DX: Z91.018 Allergy to other foods (principal); R19.7 Diarrhea, unspecified
CPT/HCPCS: 99203

== ENCOUNTER 2025-02-28 14:28 | Outpatient (AMB) | payer OTHER, SELFPAY ==
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
[2025-02-28 15:09] VITALS: BP 122/62; PULSE 83; TEMP 36.3; O2SAT 98; BMI 21.8
--- OUTSIDE RECORDS SUMMARY | 2025-02-28 17:18 | XMS_ITS | Patient Health Record ---
Author Organization [facility] Address [address] [place] [address] Care Team Providers Care Animal Stunner Name Role Phone Urmila KEYES, Greta Primary Care Provider Turner Fisher Unavailable [phone] Reason For Referral No Information Medications Medication SIG (Take, Route, Frequency, Duration) Notes Start Date End Date Status Wellbutrin XL 150 MG Tablet Extended Release 24 Hour 1 tablet in the morning Orally Once a day Active Vitamin D 2000 UNIT Tablet Orally Active Flexeril Active Magnesium 200 MG Tablet 2 tablets with a meal Orally Once a day Active Triamcinolone Acetonide 0.1 % Cream 1 application to affected area Externally Twice a day Active PARoxetine HCl 20 MG Tablet 1 tablet in the morning Orally Once a day Active LORazepam 0.5 MG Tablet 1 tablet as need ed Orally Twice a day Active Social History Social History Additional Details Category Social Info Options Details Miscellaneous: Marital status: single Occupation: Disabled from [employer] issues Section Notes: Nonsmoker; no sig alcohol Problems Problem Type SNOMED Code ICD Code Onset Dates Problem Status W/U Status Risk Notes Problem Irritable bowel syndrome (76217411) Irritable bowel syndrome (564.1) Active confirmed Problem Blood in stool (889497502) Blood in stool (578.1) Active confirmed Plan Of Treatment No Information Insurance Providers Payer Name Payer Address Payer Phone Subscriber Number Group Number Insured Name Patient Relationship to Insured Coverage Start Date Coverage End Date [facility] [employer] [facility] [address] [address] [place], [place] [id number] ANGELINA SIMPSON Self - patient is the insured Medical (General) History Medical History History ICD Code Asthma Restless leg syndrome Hyperlipidemia--on no meds G6PD deficiency Migraines Rheumatic fever as a child Anxiety/depression/panic attacks/PTSD Carpal tunnel Denies [place],DM,CVA,renal disease Surgical History Surgery Date(Month/Year) knee surgery section vaginal cyst removal LEEP for cervical cancer Carpal tunnel
--- OUTSIDE RECORDS SUMMARY | 2025-02-28 17:18 | XMS_ITS | Clinical Summary ---
Author Organization [facility] Address [address] [place] [address] Phone Care Team Providers Care Voip Engineer Name Role Phone Lawrence Garcia MD Primary Care Provider [phone] Medications EPINEPHrine (EPIPEN 2-ZENIA) 0.3 mg/0.3 mL [...] topic Medical Devices Not on file Insurance [place] [address] ACO [facility] [place] [address] [place] [address] [address] [place] [address] [address] [place] [address] [place] [address] [place] [address] [place] [address] A[facility] ACO Care Teams Voip Engineer Relationship Specialty Start Date End Date Lawrence Garcia MD [address] [place] [id number] PCP - General Internal Medicine 09/15/22 Additional Source Comments The information contained in this document represents components of the legal health record. It is not the complete legal health record.[facility]
== END 2025-02-28 16:33 | disposition home or self-care (01) ==
LOC: HO.HMCH 14:28
PROVIDERS: Visit Provider Internal Medicine
DX: S40.021A Contusion of right upper arm, initial encounter (principal)

== ENCOUNTER → 2025-02-28 14:28 | Outpatient (BNVA) | payer OTHER, SELFPAY | PROVIDERS: Visit Provider Internal Medicine | DX: S40.021A Contusion of right upper arm, initial encounter (principal) | CPT/HCPCS: 99212 ==

== ENCOUNTER 2025-03-01 14:34 | Outpatient (REF) | payer OTHER, SELFPAY ==
--- NOTE | ~2025-03-01 | XR_ITS ---
EXAMINATION: XR SHOULDER, RIGHT CLINICAL INFORMATION: S43.401A - Unspecified sprain of right shoulder joint, initial encounter COMPARISON: September 16, 2024 TECHNIQUE: AP external rotation, Grashey, scapular Y, and axillary views of the right shoulder. FINDINGS: No acute fracture or dislocation. Sclerosis along the articular surface of the glenoid of the scapula. Small marginal osteophyte formation in the inferior aspect of the humeral head. No soft tissue calcifications. No lytic or blastic lesions. XR/XR shoulder RT min 2V IMPRESSION: Mild degenerative changes, glenohumeral joint. Electronically signed by: Suresh Diaz MD 03/01/2025 03:24 PM EST
--- NOTE | ~2025-03-01 | XR_ITS ---
EXAMINATION: XR WRIST, RIGHT CLINICAL INFORMATION: S40.021A - Contusion of right upper arm, initial encounter COMPARISON: None available. TECHNIQUE: PA, lateral, oblique, and scaphoid views of the right wrist. FINDINGS: There is 3-4 mm ulnar minus variance. No fracture is identified. Amorphous somewhat granular appearing calcific density is present in the region of the lunotriquetral ligament No other abnormalities are seen. XR/XR wrist RT min 3V IMPRESSION: Chondrocalcinosis involving lunotriquetral ligament. Ulnar minus variance. Electronically signed by: Reginald Pulido MD 03/01/2025 03:26 PM EST
--- OUTSIDE RECORDS SUMMARY | 2025-03-01 20:44 | XMS_ITS | Clinical Summary ---
Author Organization [facility] Address [address] [place] [address] Phone Care Team Providers Care Assistant Corporation Counsel Name Role Phone Lawrence Garcia MD Primary Care Provider [phone] Medications EPINEPHrine (EPIPEN 2-ZENIA) 0.3 mg/0.3 mL [...] topic Medical Devices Not on file [place] [address] [facility] [place] [address] [place] [address] [address] [place] [address] [place] [address] [place] [address] [place] [address] [place] [address] [address] [address] [place] [address] [place] [address] [place] [address] [facility] ACO Care Teams Assistant Corporation Counsel Relationship Specialty Start Date End Date Lawrence Garcia MD [address] [place] [address] PCP - General Internal Medicine 09/15/22 Additional Source Comments The information contained in this document represents components of the legal health record. It is not the complete legal health record.[facility]
--- OUTSIDE RECORDS SUMMARY | 2025-03-01 20:45 | XMS_ITS | Patient Health Record ---
Author Organization [facility] Address [address] [place] [address] Care Team Providers Care Photographer Model Name Role Phone Urmila KEYES, Greta Primary Care Provider Turner Fisher Unavailable [phone] Reason For Referral No Information Medications Medication [...] Marital status: single Occupation: Disabled from [employer] issues Section Notes: Nonsmoker; no sig alcohol Problems Problem Type SNOMED Code ICD Code Onset Dates Problem Status W/U Status Risk Notes Problem Irritable bowel syndrome (35602046) Irritable bowel syndrome (564.1) Active confirmed Problem Blood in stool (540326533) Blood in stool (578.1) Active confirmed Plan Of Treatment No Information Insurance Providers Payer Name Payer Address Payer Phone Subscriber Number Group Number Insured Name Patient Relationship to Insured Coverage Start Date Coverage End Date [facility] [employer] [facility] [address] [address] [place], [place] [id number] ANGELINA SIMPSON Self - patient is the insured Medical (General) History Medical History History ICD Code Asthma Restless leg syndrome Hyperlipidemia--on no meds G6PD deficiency Migraines Rheumatic fever as a child Anxiety/depression/panic attacks/PTSD Carpal tunnel Denies [place],DM,CVA,renal disease Surgical History Surgery Date(Month/Year) knee surgery section vaginal cyst removal LEEP for cervical cancer Carpal tunnel
--- OUTSIDE RECORDS SUMMARY | 2025-03-01 20:45 | XMS_ITS | Clinical Summary ---
Author Organization [facility] Address [address] [place] [address] Care Team Providers Care Data Control Clerk Supervisor Name Role Phone Janell Loza MD Primary Care Provider [phone] Social History Tobacco Use Types Packs/Day Years [...] 07/18/2023 07/17/2013 Depression Screening 03/29/2024 COVID-19 Vaccine (1 - 2024-2 6 season) 2024 Influenza Vaccine (#1) 2024 RSV [...] age to complete this topic Care Teams Data Control Clerk Supervisor Relationship Specialty Start Date End Date Janell Loza MD [address] [place] [address] , [address] [facility] D/B/A: [facility] EMERY Serrato PCP - General 02/14/16
== END 2025-03-01 14:35 | disposition home or self-care (01) ==
LOC: HO.XRAY 14:34
PROVIDERS: PCP Internal Medicine; Visit Provider Internal Medicine
DX: S40.021A Contusion of right upper arm, initial encounter (principal); S43.401A Unspecified sprain of right shoulder joint, initial encounter
CPT/HCPCS: 73030; 73110

== ENCOUNTER → 2025-03-01 14:50 | Outpatient (BNV) | payer OTHER, SELFPAY | PROVIDERS: PCP Internal Medicine; Visit Provider Radiology Diagnostic Radiology | DX: S43.401A Unspecified sprain of right shoulder joint, initial encounter (principal); M19.011 Primary osteoarthritis, right shoulder; S40.021A Contusion of right upper arm, initial encounter; M11.211 Other chondrocalcinosis, right shoulder; M24.831 Other specific joint derangements of right wrist, not elsewhere classified | CPT/HCPCS: 73030; 73110 ==

== ENCOUNTER 2025-03-02 14:00 | Outpatient (REF) | payer OTHER, SELFPAY ==
[2025-03-02 16:04] LABS: E. coli EAEC Not Detected (Not Detect.); E. coli EPEC Not Detected (Not Detect.); E. coli ETEC Not Detected (Not Detect.); E. coli STEC Not Detected (Not Detect.); Shigella sp./EIEC Not Detected (Not Detect.)
--- OUTSIDE RECORDS SUMMARY | 2025-03-02 18:16 | XMS_ITS | Patient Health Record ---
Author Organization [facility] Address [address] [place] [address] Care Team Providers Care Leather Fitter Name Role Phone Urmila KEYES, Greta Primary Care Provider Turner Fisher Unavailable [phone] Reason For Referral No Information Medications Medication [...] Marital status: single Occupation: Disabled from [employer] issues Section Notes: Nonsmoker; no sig alcohol Problems Problem Type SNOMED Code ICD Code Onset Dates Problem Status W/U Status Risk Notes Problem Irritable bowel syndrome (17381965) Irritable bowel syndrome (564.1) Active confirmed Problem Blood in stool (466096803) Blood in stool (578.1) Active confirmed Plan Of Treatment No Information Insurance Providers Payer Name Payer Address Payer Phone Subscriber Number Group Number Insured Name Patient Relationship to Insured Coverage Start Date Coverage End Date [facility] [employer] [facility] [address] [address] [place], [place] [id number] ANGELINA SIMPSON Self - patient is the insured Medical (General) History Medical History History ICD Code Asthma Restless leg syndrome Hyperlipidemia--on no meds G6PD deficiency Migraines Rheumatic fever as a child Anxiety/depression/panic attacks/PTSD Carpal tunnel Denies [place],DM,CVA,renal disease Surgical History Surgery Date(Month/Year) knee surgery section vaginal cyst removal LEEP for cervical cancer Carpal tunnel
--- OUTSIDE RECORDS SUMMARY | 2025-03-02 18:16 | XMS_ITS | Clinical Summary ---
Author Organization [facility] ity Address [address] [place] [address] Care Team Providers Care Community Outreach Manager Name Role Phone Janell Loza MD Primary Care Provider [phone] Social History Tobacco Use Types Packs/Day Years [...] age to complete this topic Care Teams Community Outreach Manager Relationship Specialty Start Date End Date Janell Loza MD [address] [place] [address] , [address] [facility] D/B/A: [facility] EMERY Serrato PCP - General 02/14/16
--- OUTSIDE RECORDS SUMMARY | 2025-03-02 18:16 | XMS_ITS | Clinical Summary ---
Author Organization [facility] Address [address] [place] [address] Phone Care Team Providers Care License Inspector Name Role Phone Lawrence Garcia MD Primary Care Provider [phone] Medications EPINEPHrine (EPIPEN 2-ZENIA) 0.3 mg/0.3 mL [...] topic Medical Devices Not on file [place] [address] [address] [facility] [place] [address] [place] [address] [place] [place] [address] [place] [address] [place] [address] [place] [address] [place] [address] [place] [address] [place] [address] [place] [address] [place] [address] [facility] [facility] ACO Care Teams License Inspector Relationship Specialty Start Date End Date Lawrence Garcia MD [address] [place] [id number] PCP - General Internal Medicine 09/15/22 Additional Source Comments The information contained in this document represents components of the legal health record. It is not the complete legal health record.[facility]
== END 2025-03-02 14:01 | disposition home or self-care (01) ==
LOC: HO.LNP 14:00
PROVIDERS: Referring Provider Internal Medicine; Visit Provider Internal Medicine
DX: Z91.018 Allergy to other foods (principal); R19.7 Diarrhea, unspecified
CPT/HCPCS: 87177; 87209; 87507

== ENCOUNTER 2025-03-14 11:54 | Outpatient (REF) | payer OTHER, SELFPAY ==
[2025-03-14 13:18] LABS: Free T4 (Free Thyroxine) 0.94 ng/dL (0.71-1.85); Thyroid Stimulating Hormone 0.80 uIU/mL (0.32-4.0)
[2025-03-15 04:43] LABS: HIV Num 1 0.09 S/CO (0.00-0.99); ~HepC Num1 0.12 S/CO (0.00-0.79); ~Hepatitis C Antibody Nonreactive (Nonreactive)
== END 2025-03-14 11:55 | disposition home or self-care (01) ==
LOC: HO.LAB 11:54
PROVIDERS: Absent Provider Internal Medicine; PCP Internal Medicine; Visit Provider Internal Medicine
DX: Z11.4 Encounter for screening for human immunodeficiency virus [HIV] (principal); Z11.59 Encounter for screening for other viral diseases; R79.89 Other specified abnormal findings of blood chemistry; R19.7 Diarrhea, unspecified; Z91.018 Allergy to other foods
CPT/HCPCS: 36415; 84439; 84443; 86682; 86803; 87389